=== PATIENT | male | born 1960 | race Caucasian/White ===

== ENCOUNTER 2016-05-31 11:05 | Emergency (ER) | payer MEDICARE, OTHER ==
[~2016-05-31] VITALS: Ht 165.1 cm; Wt 75.0 kg
[~2016-05-31 11:05] MED LIST: ARIP1TAB11 PO; ESCI10TA PO; TRAZ50TA12 PO
[2016-05-31 11:08] VITALS: BP 127/81; PULSE 102; RESP 16; TEMP 98; O2SAT 94
--- NOTE | 2016-05-31 13:58 | PD ---
HPI Chief Complaint: Psychiatric Symptoms Time Seen by Provider: 13:49 Travel History International Travel<30 days: No Contact w/Intl Traveler<30days: No Traveled to known affect area: No History of Present Illness HPI 56-year-old male with history of bipolar disorder, COPD who presents voluntarily for evaluation of depression and suicidal ideation. Symptoms have not ongoing for the past few days. He reports that he has thoughts of killing himself, specifically jumping in front of traffic. He reports that some of these problems stem from the fact that he has been arguing with his brother and he feels that his brother will no longer let him stay with him. He denies any drug use. He admits to frequent alcohol use but he is attempting to cut back on the amount of alcohol that he drinks. The patient was seen here on May 28 with similar complaints. He has no medical complaints at this time. PFSH Past Medical History Hx Anticoagulant Therapy: No ADHD: Yes Anemia: Yes Arthritis: Yes (OSTEO) Asthma: Yes Autoimmune Disease: No Bipolar Disorder: Yes Anxiety: Yes Depression: Yes Cancer: No Cardiovascular Problems: Yes High Cholesterol: Yes Chemotherapy: Yes Chest Pain: Yes Congestive Heart Failure: No COPD: Yes Cerebrovascular Accident: Yes Coronary Artery Disease: Yes Diabetes: No Diminished Hearing: No Endocrine: No Gastrointestinal Disorders: Yes (Acid reflux) GERD: Yes Genitourinary: No Hypertension: No Immune Disorder: No Implanted Vascular Access Dvce: No Insomnia: Yes Musculoskeletal: Yes Neurologic: Yes Psychiatric: Yes Reproductive: No Respiratory: Yes (COPD) Immunizations Current: Yes Seizures: Yes Sleep Apnea: Yes Ulcer: No Past Surgical History Pacemaker: No Tonsillectomy: Yes Social History Alcohol Use: Yes (16 OZ LIQUOR DAILY) Tobacco Use: Yes Substance Use: Yes Allergies-Medications (Allergen,Severity, Reaction): Coded Allergies: Codeine (Verified Allergy, Mild, RASH, 05/31/16) *MDRO Multi-Drug Resistant Organism (Verified Adverse Reaction, Unknown, ) 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) Reported Meds & Prescriptions Reported Meds & Active Scripts Active Reported Trazodone (Trazodone HCl) 50 Mg Tab 50 Mg PO HS Escitalopram (Escitalopram Oxalate) 10 Mg Tab 10 Mg PO DAILY Aripiprazole 5 Mg Tab 5 Mg PO DAILY Review of Systems Except as stated in HPI: all other systems reviewed are Neg Physical Exam Narrative GENERAL: Somewhat disheveled appearing male in no acute distress answering questions appropriately. Vital signs reviewed. SKIN: Warm and dry. HEAD: Atraumatic. Normocephalic. EYES: Pupils equal and round. No scleral icterus. No injection or drainage. ENT: No nasal bleeding or discharge. Mucous membranes pink and moist. NECK: Trachea midline. No JVD. CARDIOVASCULAR: Regular rate and rhythm. No murmur appreciated. RESPIRATORY: No accessory muscle use. Clear to auscultation. Breath sounds equal bilaterally. GASTROINTESTINAL: Abdomen soft, non-tender, nondistended. MUSCULOSKELETAL: No obvious deformities. No edema. NEUROLOGICAL: Awake and alert. No obvious cranial nerve deficits. Motor grossly within normal limits. Normal speech. PSYCHIATRIC: Appropriate mood and affect; insight and judgment normal. Data Data Last Documented VS Vital Signs Date Time Temp Pulse Resp B/P Pulse Ox O2 Delivery O2 Flow Rate FiO2 05/31/16 11:08 98.0 102 16 127/81 94 Room Air Orders Diet Regular Basic (05/31/16 Lunch) Psych Screen (05/31/16 12:00) Diet Regular Basic (05/31/16 Dinner) MDM Medical Decision Making Medical Screen Exam Complete: Yes Emergency Medical Condition: Yes Medical Record Reviewed: Yes Differential Diagnosis Major depressive disorder, acute psychosis, malingering, substance induced mood disorder, depressive disorder not otherwise specified, bipolar disorder Narrative Course 56-year-old male presents voluntarily requesting psychiatric evaluation. I reviewed his lab work from his visit on May 28 and do not feel that this lab work needs to be repeated. Mental health screening discussed with the patient. Psychiatric screen ordered. The patient is medically cleared for psychiatric disposition. Sudarshan Fallon May 31, 2016 13:58
[2016-05-31 14:05] VITALS: BP 112/59; PULSE 140; RESP 18
[2016-05-31] MEDS ORDERED: ALPRAZolam 1 MG TAB PO ONE (16:45)
[2016-05-31 16:58] VITALS: BP 146/83; PULSE 107; RESP 18; TEMP 99.1; O2SAT 96
[2016-05-31 17:56] VITALS: BP 101/70; PULSE 92; RESP 18; O2SAT 96
[2016-06-01 03:15] VITALS: BP 117/75; PULSE 85; RESP 18; TEMP 97.7; O2SAT 97
[2016-06-01 06:35] VITALS: BP 117/75; PULSE 78; RESP 18
== END 2016-06-01 09:58 | disposition home or self-care (01) ==
LOC: NEPJ 11:05
DX: R45.851 Suicidal ideations (principal)
CPT/HCPCS: 99283

== ENCOUNTER 2016-06-01 15:05 | Emergency (ER) | payer MEDICARE, OTHER ==
[~2016-06-01] VITALS: Ht 172.7 cm; Wt 70.0 kg
[2016-06-01 15:06] VITALS: BP 108/71; PULSE 92; RESP 12; TEMP 98.1; O2SAT 98
[2016-06-02] MEDS ORDERED: RESP: ALBUTEROL 2.5 MG/IPRATROPIUM 0.5 MG NEB (SCH) NEB ONE
--- NOTE | 2016-06-02 00:05 | PD ---
HPI Chief Complaint: Psychiatric Symptoms Time Seen by Provider: 23:59 Travel History International Travel<30 days: No Contact w/Intl Traveler<30days: No Traveled to known affect area: No History of Present Illness HPI 56-year-old male presents to the emergency department for evaluation of suicidal thoughts. Patient has history of bipolar disorder and is not taking any medications. Patient states she has attempted suicide in the past by jumping off a bridge but is always from sure. Currently patient thinks that he might to step in front of a car. Patient also has history of COPD and is out of his medication; patient uses an albuterol inhaler and his nebulizer is broken ; no recent steroid use. Patient is noted some increased wheezing. Patient states that because he felt like he might put himself in harm's way he decided to come here voluntarily to be evaluated. Patient denies any substance ingestion. Patient denies any chest pain but has had shortness of breath and wheezing consistent with COPD. Patient has chronic cough productive of intermittent yellow-green sputum. Patient's had no fever or chills. Patient does not report any weight loss or night sweats. Patient does use cigars. Patient denies any recent injury. PFSH Past Medical History Narrative Medical Anxiety depression ADHD dyslipidemia chest pain COPD CVA CAD GERD seizures left hand injury tonsillectomy tobacco use alcohol use substance use nursing notes reviewed Hx Anticoagulant Therapy: No ADHD: Yes Anemia: Yes Arthritis: Yes (OSTEO) Asthma: Yes Autoimmune Disease: No Bipolar Disorder: Yes Anxiety: Yes Depression: Yes Cancer: No Cardiovascular Problems: Yes High Cholesterol: Yes Chemotherapy: Yes Chest Pain: Yes Congestive Heart Failure: No COPD: Yes Cerebrovascular Accident: Yes Coronary Artery Disease: Yes Diabetes: No Diminished Hearing: No Endocrine: No Gastrointestinal Disorders: Yes (Acid reflux) GERD: Yes Genitourinary: No Hypertension: No Immune Disorder: No Implanted Vascular Access Dvce: No Insomnia: Yes Musculoskeletal: Yes Neurologic: Yes Psychiatric: Yes Reproductive: No Respiratory: Yes (COPD) Immunizations Current: Yes Seizures: Yes Sleep Apnea: Yes Ulcer: No Past Surgical History Pacemaker: No Tonsillectomy: Yes Social History Alcohol Use: Yes (16 OZ LIQUOR DAILY) Tobacco Use: Yes Substance Use: Yes Allergies-Medications (Allergen,Severity, Reaction): Coded Allergies: Codeine (Verified Allergy, Mild, RASH, 06/01/16) *MDRO Multi-Drug Resistant Organism (Verified Adverse Reaction, Unknown, ) 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) Reported Meds & Prescriptions Reported Meds & Active Scripts Active Reported Trazodone (Trazodone HCl) 50 Mg Tab 50 Mg PO HS Escitalopram (Escitalopram Oxalate) 10 Mg Tab 10 Mg PO DAILY Aripiprazole 5 Mg Tab 5 Mg PO DAILY Review of Systems Except as stated in HPI: all other systems reviewed are Neg General / Constitutional: No: Fever, Chills HENT: No: Congestion Cardiovascular: No: Chest Pain or Discomfort Respiratory: Positive: Cough, Wheezing Gastrointestinal: No: Vomiting, Abdominal Pain Genitourinary: No: Flank Pain Musculoskeletal: No: Myalgias, Arthralgias Skin: No Rash, No Lumps Neurologic: No: Weakness, Dizziness Psychiatric: Positive: Suicidal Ideations, Mood Disorder, Substance Abuse, No : Anxiety, Depression Hematologic/Lymphatic: No: Easy Bruising Physical Exam Narrative GENERAL: Well-developed well-nourished cooperative male in no acute distress no respiratory distress SKIN: Warm and dry. HEAD: Normocephalic. EYES: No scleral icterus. No injection or drainage. NECK: Supple, trachea midline. No JVD or lymphadenopathy. CARDIOVASCULAR: Regular rate and rhythm without murmurs, gallops, or rubs. RESPIRATORY: Breath sounds equal bilaterally few expiratory wheezes diffusely. No accessory muscle use. GASTROINTESTINAL: Abdomen soft, non-tender, nondistended. MUSCULOSKELETAL: No cyanosis, or edema. BACK: Nontender without obvious deformity. No CVA tenderness. Data Data Last Documented VS Vital Signs Date Time Temp Pulse Resp B/P Pulse Ox O2 Delivery O2 Flow Rate FiO2 06/02/16 05:41 81 16 95 Room Air 06/02/16 01:00 125/86 06/01/16 15:06 98.1 Orders Complete Blood Count With Diff (06/01/16 23:59) Comprehensive Metabolic Panel (06/01/16 23:59) Drug Screen, Random Urine (06/01/16 23:59) Alcohol (Ethanol) (06/01/16 23:59) Psych Screen (06/01/16 23:59) Albuterol-Ipratropium Neb (Duoneb Neb) (06/02/16 00:00) Labs Laboratory Tests Test 06/02/16 06/02/16 00:05 07:53 White Blood Count 8.3 TH/MM3 Red Blood Count 5.39 MIL/MM3 Hemoglobin 17.1 GM/DL Hematocrit 49.0 % Mean Corpuscular Volume 90.9 FL Mean Corpuscular Hemoglobin 31.7 PG Mean Corpuscular Hemoglobin 34.9 % Concent Red Cell Distribution Width 15.3 % Platelet Count 293 TH/MM3 Mean Platelet Volume 7.5 FL Neutrophils (%) (Auto) % Lymphocytes (%) (Auto) % Monocytes (%) (Auto) % Eosinophils (%) (Auto) % Basophils (%) (Auto) % Neutrophils # (Auto) TH/MM3 Lymphocytes # (Auto) TH/MM3 Monocytes # (Auto) TH/MM3 Eosinophils # (Auto) TH/MM3 Basophils # (Auto) TH/MM3 CBC Comment AUTO DIFF Differential Total Cells 100 Counted Neutrophils % (Manual) 60 % Band Neutrophils % 1 % Lymphocytes % 26 % Monocytes % 8 % Eosinophils % 3 % Basophils % 2 % Neutrophils # (Manual) 5.1 TH/MM3 Differential Comment FINAL DIFF MANUAL Platelet Estimate NORMAL Platelet Morphology Comment NORMAL Red Cell Morphology Comment NORMAL Sodium Level 140 MEQ/L Potassium Level 4.1 MEQ/L Chloride Level 107 MEQ/L Carbon Dioxide Level 27.6 MEQ/L Anion Gap 5 MEQ/L Blood Urea Nitrogen 7 MG/DL Creatinine 0.66 MG/DL Estimat Glomerular Filtration 124 ML/MIN Rate Random Glucose 85 MG/DL Calcium Level 8.8 MG/DL Total Bilirubin 0.5 MG/DL Aspartate Amino Transf 17 U/L (AST/SGOT) Alanine Aminotransferase 24 U/L (ALT/SGPT) Alkaline Phosphatase 129 U/L Total Protein 7.5 GM/DL Albumin 4.0 GM/DL Ethyl Alcohol Level LESS THAN 3 MG/DL Urine Opiates Screen NEG Urine Barbiturates Screen NEG Urine Amphetamines Screen NEG Urine Benzodiazepines Screen NEG Urine Cocaine Screen NEG Urine Cannabinoids Screen NEG MDM Medical Decision Making Medical Screen Exam Complete: Yes Emergency Medical Condition: Yes Medical Record Reviewed: Yes Differential Diagnosis Mood disorder, exacerbation bipolar disorder, suicidal ideation, exacerbation COPD, bronchitis, pneumonia, substance ingestion Narrative Course Specimens collected and sent for resulting; patient noted to have a few respiratory wheezes DuoNeb updraft administered labs values grossly wnl; patient remains cooperative and no wheezing after updraft; patient is medically cleared for psych screening Diagnosis Primary Impression: Medical clearance for psychiatric admission Additional Impression: History of COPD Sangeeta Bustillo MD Jun 02, 2016 00:05
[2016-06-02 00:17] LABS: MEAN CELL VOLUME 90.9 FL (80.0-100.0); MEAN CORPUSCULAR HEMOGLOBIN 31.7 PG (27.0-34.0); MEAN CORPUSCULAR HGB CONC 34.9 % (32.0-36.0); PLATELET COUNT 293 TH/MM3 (150-450); RED BLOOD COUNT 5.39 MIL/MM3 (4.50-5.90); RED CELL DISTRIBUTION WIDTH 15.3 % (11.6-17.2); WHITE BLOOD COUNT 8.3 TH/MM3 (4.0-11.0)
[2016-06-02 00:18] LABS: HEMO FLAGS AUTO DIFF
[2016-06-02 00:36] LABS: ALT (GPT) 24 U/L (12-78); ANION GAP 5 MEQ/L (5-15); AST (GOT) 17 U/L (15-37); BICARBONATE 27.6 MEQ/L (21.0-32.0); BLOOD UREA NITROGEN 7 MG/DL (7-18); CHLORIDE 107 MEQ/L (98-107); GLOMERULAR FILTRATION RATE 124 ML/MIN (>89); POTASSIUM 4.1 MEQ/L (3.5-5.1); SODIUM (NA) 140 MEQ/L (136-145)
[2016-06-02 00:39] LABS: ALKALINE PHOSPHATASE 129 U/L (45-117); TOTAL BILIRUBIN ADULT 0.5 MG/DL (0.2-1.0)
[2016-06-02 00:44] LABS: BANDS 1 % (0-6); BASOPHILS 2 % (0-2); EOSINOPHILS 3 % (0-4); NEUTROPHIL # MANUAL DIFF 5.1 TH/MM3 (1.8-7.7); POLYS (SEG NEUTROPHILS) 60 % (16-70); WBC DIFF SAMPLE 100
[2016-06-02 00:45] LABS: PLATELET ESTIMATE SMEAR NORMAL (NORMAL); PLATELET MORPHOLOGY NORMAL (NORMAL); SCAN/DIFF FINAL DIFF MANUAL
[2016-06-02 01:00] VITALS: BP 125/86; PULSE 75; RESP 18; O2SAT 94
[2016-06-02 05:41] VITALS: PULSE 81; RESP 16; O2SAT 95
[2016-06-02 08:08] LABS: AMPHETAMINE, URINE NEG (NEG); BARBITURATES, URINE NEG (NEG); COCAINE, URINE NEG (NEG)
[2016-06-02 09:26] VITALS: BP_SYST 134; BP_DIAS 66; BP_DIAS 82; PULSE 65; RESP 18; TEMP 98.5; O2SAT 98
== END 2016-06-02 09:28 | disposition home or self-care (01) ==
LOC: NEPC 15:05 → NEPA 06-02 09:28
DX: Z02.89 Encounter for other administrative examinations (principal); J44.9 Chronic obstructive pulmonary disease, unspecified; R06.2 Wheezing; E78.00 Pure hypercholesterolemia, unspecified; Z72.0 Tobacco use; Z87.09 Personal history of other diseases of the respiratory system; Z86.79 Personal history of other diseases of the circulatory system; Z87.19 Personal history of other diseases of the digestive system
CPT/HCPCS: 80053; 80307; 80320; 85007; 85027; 94640; 94664; 99284

== ENCOUNTER 2016-06-23 13:40 | Emergency (ER) | payer MEDICARE, OTHER ==
[2016-06-23] MEDS ORDERED: predniSONE 20 MG TAB PO ONE (14:15)
--- NOTE | 2016-06-23 14:17 | PD ---
HPI Chief Complaint: psychiatric evaluation Time Seen by Provider: 14:15 Travel History International Travel<30 days: No Contact w/Intl Traveler<30days: No History of Present Illness HPI Patient comes on her [place] by police after calling 911 stating he is feeling suicidal. Patient states he still feels suicidal. Denies any homicidal ideations. Patient with medical concerns COPD which he states he cannot afford his medications. Denies any chest pain, fevers, nausea, vomiting. PFSH Past Medical History Hx Anticoagulant Therapy: No ADHD: Yes Anemia: Yes Arthritis: Yes (OSTEO) Asthma: Yes Autoimmune Disease: No Bipolar Disorder: Yes Anxiety: Yes Depression: Yes Cancer: No Cardiovascular Problems: Yes High Cholesterol: Yes Chemotherapy: Yes Chest Pain: Yes Congestive Heart Failure: No COPD: Yes Cerebrovascular Accident: Yes Coronary Artery Disease: Yes Diabetes: No Diminished Hearing: No Endocrine: No Gastrointestinal Disorders: Yes (Acid reflux) GERD: Yes Genitourinary: No Hypertension: No Immune Disorder: No Implanted Vascular Access Dvce: No Insomnia: Yes Musculoskeletal: Yes Neurologic: Yes Psychiatric: Yes Reproductive: No Respiratory: Yes (COPD) Immunizations Current: Yes Seizures: Yes Sleep Apnea: Yes Ulcer: No Past Surgical History Pacemaker: No Tonsillectomy: Yes Social History Alcohol Use: Yes (16 OZ LIQUOR DAILY) Tobacco Use: Yes Substance Use: Yes Allergies-Medications (Allergen,Severity, Reaction): Coded Allergies: Codeine (Verified Allergy, Mild, RASH, 06/01/16) *MDRO Multi-Drug Resistant Organism (Verified Adverse Reaction, Unknown, ) 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) Reported Meds & Prescriptions Reported Meds & Active Scripts Active Reported Trazodone (Trazodone HCl) 50 Mg Tab 50 Mg PO HS Escitalopram (Escitalopram Oxalate) 10 Mg Tab 10 Mg PO DAILY Aripiprazole 5 Mg Tab 5 Mg PO DAILY Review of Systems Except as stated in HPI: all other systems reviewed are Neg Physical Exam Narrative GENERAL: Well-developed, well nourished, in no acute distress, and non-ill appearing. SKIN: Warm and dry. HEAD: Atraumatic. Normocephalic. EYES: Pupils equal and round. EOMI. No scleral icterus. No injection or drainage. ENT: No nasal bleeding or discharge. Mucous membranes pink and moist. NECK: Trachea midline. Supple. No nuclear rigidity. CARDIOVASCULAR: Regular rate and rhythm. No murmur appreciated. RESPIRATORY: No accessory muscle use. No respiratory distress. Tightness and wheezing noted throughout. Patient speaking in full sentences. MUSCULOSKELETAL: No obvious deformities. No clubbing. No cyanosis. No edema. Full range of motion. NEUROLOGICAL: Awake and alert. No obvious cranial nerve deficits. Motor grossly within normal limits. Normal speech. PSYCHIATRIC: Appropriate mood and affect. Data Data Last Documented VS Vital Signs Date Time Temp Pulse Resp B/P Pulse Ox O2 Delivery O2 Flow Rate FiO2 06/23/16 15:23 99 21 Orders Complete Blood Count With Diff (06/23/16 14:13) Comprehensive Metabolic Panel (06/23/16 14:13) Drug Screen, Random Urine (06/23/16 14:13) Alcohol (Ethanol) (06/23/16 14:13) Salicylates (Aspirin) (06/23/16 14:13) Tylenol (Acetaminophen) (06/23/16 14:13) Psych Screen (06/23/16 14:13) Albuterol-Ipratropium Neb (Duoneb Neb) (06/23/16 14:15) Prednisone (Deltasone) (06/23/16 14:15) Chest, Single Ap (06/23/16 ) Diet Regular Basic (06/23/16 Dinner) Labs Laboratory Tests Test 06/23/16 06/23/16 14:50 15:00 White Blood Count 16.2 TH/MM3 Red Blood Count 5.36 MIL/MM3 Hemoglobin 17.1 GM/DL Hematocrit 50.2 % Mean Corpuscular Volume 93.6 FL Mean Corpuscular Hemoglobin 31.8 PG Mean Corpuscular Hemoglobin 34.0 % Concent Red Cell Distribution Width 16.0 % Platelet Count 276 TH/MM3 Mean Platelet Volume 8.1 FL Neutrophils (%) (Auto) 72.4 % Lymphocytes (%) (Auto) 17.7 % Monocytes (%) (Auto) 7.6 % Eosinophils (%) (Auto) 1.9 % Basophils (%) (Auto) 0.4 % Neutrophils # (Auto) 11.7 TH/MM3 Lymphocytes # (Auto) 2.9 TH/MM3 Monocytes # (Auto) 1.2 TH/MM3 Eosinophils # (Auto) 0.3 TH/MM3 Basophils # (Auto) 0.1 TH/MM3 CBC Comment DIFF FINAL Differential Comment Sodium Level 141 MEQ/L Potassium Level 4.0 MEQ/L Chloride Level 103 MEQ/L Carbon Dioxide Level 28.0 MEQ/L Anion Gap 10 MEQ/L Blood Urea Nitrogen 6 MG/DL Creatinine 0.70 MG/DL Estimat Glomerular Filtration 116 ML/MIN Rate Random Glucose 69 MG/DL Calcium Level 9.0 MG/DL Total Bilirubin 0.6 MG/DL Aspartate Amino Transf 21 U/L (AST/SGOT) Alanine Aminotransferase 30 U/L (ALT/SGPT) Alkaline Phosphatase 132 U/L Total Protein 7.7 GM/DL Albumin 4.3 GM/DL Salicylates Level 9.7 MG/DL Acetaminophen Level LESS THAN 2.0 MCG/ML Ethyl Alcohol Level 186 MG/DL Urine Opiates Screen NEG Urine Barbiturates Screen NEG Urine Amphetamines Screen NEG Urine Benzodiazepines Screen NEG Urine Cocaine Screen NEG Urine Cannabinoids Screen NEG MDM Medical Decision Making Medical Screen Exam Complete: Yes Emergency Medical Condition: Yes Differential Diagnosis Suicidal, homicidal, COPD exacerbation, COPD, pneumonia, other Narrative Course Patient was seen and examined. Labs were obtained and reviewed. I suspect slightly elevated white blood cell count is stress induced. Patient medically cleared for further treatment and evaluation by psych. Final disposition per psych. Diagnosis Primary Impression: COPD (chronic obstructive pulmonary disease) Qualified Code: J44.9 - Chronic obstructive pulmonary disease, unspecified COPD type Condition: Stable Erick Estevez Jun 23, 2016 14:17
[2016-06-23] MEDS: RESP: ALBUTEROL 2.5 MG/IPRATROPIUM 0.5 MG NEB (SCH) INH ×3 (15:15→15:27)
[2016-06-23 15:23] VITALS: O2SAT 99
[2016-06-23 15:36] LABS: AUTOMATED NEUTROPHIL # 11.7 TH/MM3 (1.8-7.7); BASOPHIL # 0.1 TH/MM3 (0-0.2); BASOPHIL % 0.4 % (0.0-2.0); EOSINOPHIL # 0.3 TH/MM3 (0-0.4); EOSINOPHIL % 1.9 % (0.0-4.0); HEMATOCRIT 50.2 % (39.0-51.0); HEMO FLAGS DIFF FINAL; LYMPH % 17.7 % (9.0-44.0); LYMPHOCYTE # 2.9 TH/MM3 (1.0-4.8); MEAN CELL VOLUME 93.6 FL (80.0-100.0); MEAN CORPUSCULAR HEMOGLOBIN 31.8 PG (27.0-34.0); MONO % 7.6 % (0.0-8.0); NEUT % 72.4 % (16.0-70.0); PLATELET COUNT 276 TH/MM3 (150-450); RED BLOOD COUNT 5.36 MIL/MM3 (4.50-5.90); WHITE BLOOD COUNT 16.2 TH/MM3 (4.0-11.0)
[2016-06-23 15:48] LABS: AMPHETAMINE, URINE NEG (NEG); BARBITURATES, URINE NEG (NEG); COCAINE, URINE NEG (NEG)
[2016-06-23 15:57] LABS: ANION GAP 10 MEQ/L (5-15); AST (GOT) 21 U/L (15-37); BLOOD UREA NITROGEN 6 MG/DL (7-18); CHLORIDE 103 MEQ/L (98-107); GLOMERULAR FILTRATION RATE 116 ML/MIN (>89); SODIUM (NA) 141 MEQ/L (136-145)
[2016-06-23 16:00] LABS: ALKALINE PHOSPHATASE 132 U/L (45-117); ALT (GPT) 30 U/L (12-78); TOTAL BILIRUBIN ADULT 0.6 MG/DL (0.2-1.0)
[2016-06-23 16:01] LABS: ACETAMINOPHEN LESS THAN 2.0 MCG/ML (10.0-30.0)
--- NOTE | 2016-06-23 16:31 | RADRPT ---
EXAM DATE/TIME: 06/23/2016 16:19 [facility] COMPARISON: CHEST SINGLE AP, May 03, 2016, 13:24. INDICATIONS : Chest pain, short of breath. MEDICAL HISTORY : Chronic obstructive pulmonary disease. SURGICAL HISTORY : None. ENCOUNTER: Initial ACUITY: 3 days PAIN SCORE: 7/10 LOCATION: Bilateral chest FINDINGS: AP view of the chest demonstrates a normal-sized cardiac silhouette. No effusion, consolidation, or p neumothorax is appreciated. Bones and soft tissues demonstrate no acute finding. There are multiple o ld right rib fractures. CONCLUSION: Stable chest x-ray. No acute cardiopulmonary abnormality is identified. Santhosh Shane MD on June 23, 2016 at 16:28 Board Certified Radiologist. This report was verified electronically.
[2016-06-23 17:34] VITALS: BP 118/67; PULSE 100; RESP 18; O2SAT 94
[2016-06-23 18:06] VITALS: BP 118/67; PULSE 100; RESP 18; O2SAT 94
[2016-06-23] MEDS: ALBUTEROL SULFATE 90 MCG/ACT HFA 8 GM INHALER INH PRN (22:10)
[2016-06-23 22:13] VITALS: BP 115/63; PULSE 89; RESP 18; O2SAT 94
[2016-06-24 02:00] VITALS: BP 127/69; PULSE 79; RESP 18; O2SAT 97
[2016-06-24 06:33] VITALS: BP 124/74; PULSE 87; RESP 19; O2SAT 98
[2016-06-24] MEDS ORDERED: ACETAMINOPHEN 325 MG TAB PO ONE (08:30)
[2016-06-24] MEDS: ALBUTEROL SULFATE 90 MCG/ACT HFA 8 GM INHALER INH PRN (09:02)
--- NOTE | 2016-06-24 09:51 | PD ---
History of Present Illness Chief Complaint: Medical Clearance Time Seen by Provider: 09:45 Travel History International Travel<30 Days: No Contact w/Intl Traveler<30days: No Known affected area: No Legal Status Legal Status: Silver Act Silver Act Signed By: Luis Fernando Silver Act Comment: BA signed by: SRUTHI Campbell Badge#[id number], Case# [id number] History of Present Illness: History of Present Illness HPI 56 year old male with history of alcohol dependence who comes in under a Silver by police. As per the BA report he called 911 and informed them that he was feeling suicidal. He reported to SRUTHI that he contemplated jumping off the bridge. Interesting enough upon arrival to the hospital he presented concerns regarding treatment for COPD which he states he cannot afford his medications. As per EMR this patient has had multiple ED visits for issues related to his alcohol dependence. He presents with BAL of 186. Patient has been monitored in [facility] and has presented no behavioral concerns and no suicidality. This morning he is seen and he is clinically sober. Speech is clear and logical and he does not present any symptom of withdrawal. He is denying any suicidal or homicidal ideation and in fact is happy because his brother is looking into buying him a trailer where he can live. Patient reports he has been making an attempt at decreasing his alcohol consumption. PFSH Past Medical History Hx Anticoagulant Therapy: No ADHD: Yes Anemia: Yes Arthritis: Yes (OSTEO) Asthma: Yes Autoimmune Disease: No Bipolar Disorder: Yes Anxiety: Yes Depression: Yes Cancer: No Cardiovascular Problems: Yes High Cholesterol: Yes Chemotherapy: Yes Chest Pain: Yes Congestive Heart Failure: No COPD: Yes Cerebrovascular Accident: Yes Coronary Artery Disease: Yes Diabetes: No Diminished Hearing: No Endocrine: No Gastrointestinal Disorders: Yes (Acid reflux) GERD: Yes Genitourinary: No Hypertension: No Immune Disorder: No Implanted Vascular Access Dvce: No Insomnia: Yes Musculoskeletal: Yes Neurologic: Yes Psychiatric: Yes Reproductive: No Respiratory: Yes (COPD) Immunizations Current: Yes Seizures: Yes Sleep Apnea: Yes Ulcer: No Tetanus Vaccination: Unknown Past Surgical History Pacemaker: No Tonsillectomy: Yes Psychiatric History Psychiatric History Hx Psychiatric Treatment: Pt has been seen several times at [facility] for simular presentation, ETOH with suicidal ideations of jumping from a bridge. History of Inpatient Treatment: Yes Guns or firearms in home: No Social History Single male. Lives in a tent on his brother's property. Hx Alcohol Use: Yes (16 OZ LIQUOR DAILY) Hx Tobacco Use: Yes Hx Substance Use: Yes Substance Use Type: Alcohol, Nicotine/Cigarettes Other Substances Used: CUT BACK ON DRINKING Hx of Substance Use Treatment: Yes Family Psychiatric History None reported Allergies-Medications (Allergen,Severity, Reaction): Coded Allergies: Codeine (Verified Allergy, Mild, RASH, 06/01/16) *MDRO Multi-Drug Resistant Organism (Verified Adverse Reaction, Unknown, ) 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) Reported Meds & Prescriptions Reported Meds & Active Scripts Active Reported Trazodone (Trazodone HCl) 50 Mg Tab 50 Mg PO HS Escitalopram (Escitalopram Oxalate) 10 Mg Tab 10 Mg PO DAILY Aripiprazole 5 Mg Tab 5 Mg PO DAILY Review of Systems Constitutional: DENIES: Diaphoretic episodes, Fatigue, Fever, Weight gain, Weight loss, Chills, Dizziness, Change in appetite, Night Sweats Endocrine: DENIES: Heat/cold intolerance, Polydipsia, Polyuria, Polyphagia Eyes: DENIES: Blurred vision, Diplopia, Eye inflammation, Eye pain, Vision loss , Photosensitivity, Double Vision Ears, nose, mouth, throat: DENIES: Tinnitus, Hearing loss, Vertigo, Nasal discharge, Oral lesions, Throat pain, Hoarseness, Ear Pain, Running Nose, Epistaxis, Sinus Pain, Toothache, Odynophagia Respiratory: COMPLAINS OF: Wheezing Cardiovascular: DENIES: Chest pain, Palpitations, Syncope, Dyspnea on Exertion , PND, Lower Extremity Edema, Orthopnea, Claudication Gastrointestinal: DENIES: Abdominal pain, Black stools, Bloody stools, Constipation, Diarrhea, Nausea, Vomiting, Difficulty Swallowing, Anorexia Genitourinary: DENIES: Sexual dysfunction, Urinary frequency, Urinary incontinence, Urgency, Hematuria, Dysuria, Nocturia, Penile Discharge, Testicular Pain, Testicular Swelling Musculoskeletal: DENIES: Joint pain, Muscle aches, Stiffness, Joint Swelling, Back pain, Neck pain Integumentary: DENIES: Abnormal pigmentation, Nail changes, Pruritus, Rash Immunologic/allergic: DENIES: Eczema, Urticaria Neurologic: DENIES: Abnormal gait, Headache, Localized weakness, Paresthesias, Seizures, Speech Problems, Tremor, Poor Balance Psychiatric: COMPLAINS OF: Suicidal Ideation Exam Alert: Yes [place]: Person (ox4) Mood: Calm Affect: Euthymic Speech: Clear, Logical Eye Contact: Normal Memory Intact: Comment (not formally tetsed but does not appear impaired) Hallucinations: Other (negative) Delusions: No Suicidal: Ideation (denies any) Homicidal: Ideation (denies any) Insight/Judgement poor. not impaired MDM Medical Decision Making Medical Record Reviewed: Yes Assessment/Plan 56 year old male with hx of alcohol dependence who in context of intoxication reported suicidal thoughts. He did not make any attempt at hurting himself and is denying any current suicidal or homicidal ideation, intent or plan. Lift BA. Discharge to home Orders Complete Blood Count With Diff (06/23/16 14:13) Comprehensive Metabolic Panel (06/23/16 14:13) Drug Screen, Random Urine (06/23/16 14:13) Alcohol (Ethanol) (06/23/16 14:13) Salicylates (Aspirin) (06/23/16 14:13) Tylenol (Acetaminophen) (06/23/16 14:13) Psych Screen (06/23/16 14:13) Albuterol-Ipratropium Neb (Duoneb Neb) (06/23/16 14:15) Prednisone (Deltasone) (06/23/16 14:15) Chest, Single Ap (06/23/16 ) Diet Regular Basic (06/23/16 Dinner) Albuterol Hfa Inh (Proair Hfa Inh) (06/23/16 17:00) Diet Regular Basic (06/24/16 Breakfast) Acetaminophen (Tylenol) (06/24/16 08:30) Diet Regular Basic (06/24/16 Lunch) Diet Regular Basic (06/24/16 Dinner) Results Vital Signs Date Time Temp Pulse Resp B/P Pulse Ox O2 Delivery O2 Flow Rate FiO2 06/24/16 06:33 87 19 124/74 98 Room Air 06/24/16 02:00 79 18 127/69 97 Room Air 06/23/16 22:13 89 18 115/63 94 Room Air 06/23/16 18:06 100 18 118/67 94 Room Air 06/23/16 17:34 100 18 118/67 94 Room Air 06/23/16 15:23 99 21 Laboratory Tests Test 06/23/16 06/23/16 14:50 15:00 White Blood Count 16.2 Red Blood Count 5.36 Hemoglobin 17.1 Hematocrit 50.2 Mean Corpuscular Volume 93.6 Mean Corpuscular Hemoglobin 31.8 Mean Corpuscular Hemoglobin 34.0 Concent Red Cell Distribution Width 16.0 Platelet Count 276 Mean Platelet Volume 8.1 Neutrophils (%) (Auto) 72.4 Lymphocytes (%) (Auto) 17.7 Monocytes (%) (Auto) 7.6 Eosinophils (%) (Auto) 1.9 Basophils (%) (Auto) 0.4 Neutrophils # (Auto) 11.7 Lymphocytes # (Auto) 2.9 Monocytes # (Auto) 1.2 Eosinophils # (Auto) 0.3 Basophils # (Auto) 0.1 CBC Comment DIFF FINAL Differential Comment Sodium Level 141 Potassium Level 4.0 Chloride Level 103 Carbon Dioxide Level 28.0 Anion Gap 10 Blood Urea Nitrogen 6 Creatinine 0.70 Estimat Glomerular Filtration 116 Rate Random Glucose 69 Calcium Level 9.0 Total Bilirubin 0.6 Aspartate Amino Transf 21 (AST/SGOT) Alanine Aminotransferase 30 (ALT/SGPT) Alkaline Phosphatase 132 Total Protein 7.7 Albumin 4.3 Salicylates Level 9.7 Acetaminophen Level LESS THAN 2.0 Ethyl Alcohol Level 186 Urine Opiates Screen NEG Urine Barbiturates Screen NEG Urine Amphetamines Screen NEG Urine Benzodiazepines Screen NEG Urine Cocaine Screen NEG Urine Cannabinoids Screen NEG Diagnosis Primary Impression: Alcohol dependence Psychiatrically Cleared: Yes Disposition: 01 DISCHARGE HOME Condition: Stable Problem Qualifiers Primary Impression: Alcohol dependence Qualified Code: F10.20 - Uncomplicated alcohol dependence Rachel Viveros Jun 24, 2016 09:51
== END 2016-06-24 12:01 | disposition home or self-care (01) ==
LOC: NEDAMB 13:40 → NEPJ 06-24 12:01
DX: J44.9 Chronic obstructive pulmonary disease, unspecified (principal); F10.20 Alcohol dependence, uncomplicated; G47.30 Sleep apnea, unspecified; E78.00 Pure hypercholesterolemia, unspecified; Z72.0 Tobacco use; Z86.59 Personal history of other mental and behavioral disorders; Z87.39 Personal history of other diseases of the musculoskeletal system and connective tissue; Z87.09 Personal history of other diseases of the respiratory system; Z86.79 Personal history of other diseases of the circulatory system; Z86.73 Personal history of transient ischemic attack (TIA), and cerebral infarction without residual deficits; Z87.19 Personal history of other diseases of the digestive system; Z86.69 Personal history of other diseases of the nervous system and sense organs
CPT/HCPCS: 71010; 80053; 80307; 80320; 80329; 85025; 94640; 94664; 99284; J7512; G0480

== ENCOUNTER 2016-07-16 13:03 | Emergency (ER) | payer MEDICARE, OTHER ==
[~2016-07-16] VITALS: Ht 152.4 cm; Wt 60.0 kg
[2016-07-16] MEDS ORDERED: chlordiazePOXIDE 25 MG CAP PO ONE (13:30)
--- NOTE | 2016-07-16 13:38 | PD ---
HPI Chief Complaint: Silver Act/Suicidal Ideations Time Seen by Provider: 13:34 Travel History International Travel<30 days: No Contact w/Intl Traveler<30days: No Traveled to known affect area: No History of Present Illness HPI 56-year-old male presents the emergency department via police for Silver act. Patient was reportedly in a store stating he was suicidal and threatening to some of the other people within the store. Patient has a history of EtOH abuse, and psychiatric history in the past. Patient states he has not been on any of his medications as they are too expensive. He denies any acute medical problems. Patient has chronic left arm pain from previous injury. Patient states he drank "4 beers" today. Patient has a history of seizures and DTs in the past. Patient smells of alcohol but is cooperative. He has a history of MRSA and allergic to codeine. PFSH Past Medical History Hx Anticoagulant Therapy: No ADHD: Yes Anemia: Yes Arthritis: Yes (OSTEO) Asthma: Yes Autoimmune Disease: No Bipolar Disorder: Yes Anxiety: Yes Depression: Yes Cancer: No Cardiovascular Problems: Yes High Cholesterol: Yes Chemotherapy: Yes Chest Pain: Yes Congestive Heart Failure: No COPD: Yes Cerebrovascular Accident: Yes Coronary Artery Disease: Yes Diabetes: No Diminished Hearing: No Endocrine: No Gastrointestinal Disorders: Yes (Acid reflux) GERD: Yes Genitourinary: No Hypertension: No Immune Disorder: No Implanted Vascular Access Dvce: No Insomnia: Yes Musculoskeletal: Yes Neurologic: Yes Psychiatric: Yes Reproductive: No Respiratory: Yes (COPD) Immunizations Current: Yes Seizures: Yes Sleep Apnea: Yes Ulcer: No Past Surgical History Pacemaker: No Tonsillectomy: Yes Social History Alcohol Use: Yes (16 OZ LIQUOR DAILY) Tobacco Use: Yes Substance Use: Yes Allergies-Medications (Allergen,Severity, Reaction): Coded Allergies: Codeine (Verified Allergy, Mild, RASH, 06/01/16) *MDRO Multi-Drug Resistant Organism (Verified Adverse Reaction, Unknown, ) 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) Reported Meds & Prescriptions Reported Meds & Active Scripts Active Reported Trazodone (Trazodone HCl) 50 Mg Tab 50 Mg PO HS Escitalopram (Escitalopram Oxalate) 10 Mg Tab 10 Mg PO DAILY Aripiprazole 5 Mg Tab 5 Mg PO DAILY Review of Systems Except as stated in HPI: all other systems reviewed are Neg General / Constitutional: No: Fever Eyes: No: Visual changes HENT: No: Headaches Cardiovascular: No: Chest Pain or Discomfort Respiratory: No: Shortness of Breath Gastrointestinal: No: Abdominal Pain Genitourinary: No: Dysuria Musculoskeletal: No: Pain Skin: No Rash Neurologic: No: Weakness Psychiatric: Positive: Depression, Suicidal Ideations, Substance Abuse, Homicidal Ideation Endocrine: No: Polydipsia Hematologic/Lymphatic: No: Easy Bruising Physical Exam Narrative GENERAL: Patient is seen in the ambulance smith in no acute distress. He smells of alcohol. SKIN: Warm and dry. Normal color. Normal turgor. HEAD: Atraumatic. Normocephalic. EYES: Pupils equal and round. No scleral icterus. No injection or drainage. ENT: No nasal bleeding or discharge. Mucous membranes pink and moist. Pharynx is unremarkable. Airway is patent. NECK: Trachea midline. Supple. CARDIOVASCULAR: Regular rate and rhythm. No murmurs gallops or rubs. RESPIRATORY: No accessory muscle use. Clear to auscultation. Breath sounds equal bilaterally. MUSCULOSKELETAL: Extremities without clubbing, cyanosis, or edema. No obvious deformities. NEUROLOGICAL: Awake and alert. No obvious cranial nerve deficits. Motor grossly within normal limits. Five out of 5 muscle strength in the arms and legs. Normal speech. PSYCHIATRIC: Appropriate mood and affect; insight and judgment normal. Data Data Last Documented VS Vital Signs Date Time Temp Pulse Resp B/P Pulse Ox O2 Delivery O2 Flow Rate FiO2 07/16/16 14:18 100 18 07/16/16 14:15 98.6 102/62 91 Orders Complete Blood Count With Diff (07/16/16 13:24) Comprehensive Metabolic Panel (07/16/16 13:24) Urinalysis - C+S If Indicated (07/16/16 13:24) Iv Access Insert/Monitor (07/16/16 13:24) Psych Screen (07/16/16 13:24) Drug Screen, Random Urine (07/16/16 13:24) Alcohol (Ethanol) (07/16/16 13:24) Chlordiazepoxide (Librium) (07/16/16 13:30) Diet Regular Basic (07/16/16 Lunch) Labs Laboratory Tests Test 07/16/16 07/16/16 14:02 14:11 Urine Color YELLOW Urine Turbidity CLEAR Urine pH 5.0 Urine Specific [place] 1.005 Urine Protein NEG mg/dL Urine Glucose (UA) NEG mg/dL Urine Ketones NEG mg/dL Urine Occult Blood NEG Urine Nitrite NEG Urine Bilirubin NEG Urine Urobilinogen LESS THAN 2.0 MG/DL Urine Leukocyte Esterase NEG Urine RBC LESS THAN 1 /hpf Urine WBC LESS THAN 1 /hpf Urine Squamous Epithelial <1 /hpf Cells Urine Mucus FEW /lpf Microscopic Urinalysis Comment CULT NOT INDICATED White Blood Count 8.2 TH/MM3 Red Blood Count 5.00 MIL/MM3 Hemoglobin 16.2 GM/DL Hematocrit 47.1 % Mean Corpuscular Volume 94.1 FL Mean Corpuscular Hemoglobin 32.5 PG Mean Corpuscular Hemoglobin 34.5 % Concent Red Cell Distribution Width 15.6 % Platelet Count 248 TH/MM3 Mean Platelet Volume 8.1 FL Neutrophils (%) (Auto) 66.7 % Lymphocytes (%) (Auto) 16.8 % Monocytes (%) (Auto) 14.4 % Eosinophils (%) (Auto) 1.3 % Basophils (%) (Auto) 0.8 % Neutrophils # (Auto) 5.5 TH/MM3 Lymphocytes # (Auto) 1.4 TH/MM3 Monocytes # (Auto) 1.2 TH/MM3 Eosinophils # (Auto) 0.1 TH/MM3 Basophils # (Auto) 0.1 TH/MM3 CBC Comment DIFF FINAL Differential Comment Sodium Level 139 MEQ/L Potassium Level 3.9 MEQ/L Chloride Level 106 MEQ/L Carbon Dioxide Level 23.7 MEQ/L Anion Gap 9 MEQ/L Blood Urea Nitrogen 8 MG/DL Creatinine 0.68 MG/DL Estimat Glomerular Filtration 120 ML/MIN Rate Random Glucose 82 MG/DL Calcium Level 8.5 MG/DL Total Bilirubin 0.3 MG/DL Aspartate Amino Transf 28 U/L (AST/SGOT) Alanine Aminotransferase 39 U/L (ALT/SGPT) Alkaline Phosphatase 125 U/L Total Protein 7.7 GM/DL Albumin 3.9 GM/DL Ethyl Alcohol Level 193 MG/DL [facility] Medical Decision Making Medical Screen Exam Complete: Yes Emergency Medical Condition: Yes Differential Diagnosis EtOH abuse. Mood disorder. Suicidal ideation. Silver act. Narrative Course Patient is medically stable at time of exam. Labs ordered including CBC, CMP, urinalysis, urine drug screen, and serum alcohol level. Patient is given 50 mg Librium by mouth. CBC is unremarkable. CMP is unremarkable except for alkaline phosphatase of 125. Serum alcohol level is 193. Diagnosis Primary Impression: Suicidal ideation Additional Impression: Alcohol dependence Qualified Code: F10.220 - Alcohol dependence with uncomplicated intoxication Condition: Dariel Lucia Jul 16, 2016 13:38 Condition: Dariel Lucia Jul 16, 2016 13:38
[2016-07-16 14:15] VITALS: BP 102/62; PULSE 100; RESP 18; TEMP 98.6; O2SAT 91
[2016-07-16 14:24] LABS: AUTOMATED NEUTROPHIL # 5.5 TH/MM3 (1.8-7.7); BASOPHIL # 0.1 TH/MM3 (0-0.2); BASOPHIL % 0.8 % (0.0-2.0); EOSINOPHIL # 0.1 TH/MM3 (0-0.4); EOSINOPHIL % 1.3 % (0.0-4.0); HEMATOCRIT 47.1 % (39.0-51.0); HEMO FLAGS DIFF FINAL; LYMPH % 16.8 % (9.0-44.0); LYMPHOCYTE # 1.4 TH/MM3 (1.0-4.8); MEAN CELL VOLUME 94.1 FL (80.0-100.0); MEAN CORPUSCULAR HEMOGLOBIN 32.5 PG (27.0-34.0); MEAN CORPUSCULAR HGB CONC 34.5 % (32.0-36.0); MONO % 14.4 % (0.0-8.0); NEUT % 66.7 % (16.0-70.0); PLATELET COUNT 248 TH/MM3 (150-450); RED CELL DISTRIBUTION WIDTH 15.6 % (11.6-17.2); WHITE BLOOD COUNT 8.2 TH/MM3 (4.0-11.0)
[2016-07-16 14:25] LABS: BLOOD, URINE NEG (NEG); COMMENT (UR) CULT NOT INDICATED; CULTURE IF INDICATED CULT NOT INDICATED; GLUCOSE,URINE NEG (NEG); KETONE, URINE NEG (NEG); MUCUS URINE FEW /lpf (OCC); NITRITE,URINE NEG (NEG); SQUAMOUS EPITHELIAL CELL URINE <1 /hpf (0-5); URINE COLOR YELLOW (YELLW/STRAW)
[2016-07-16 14:37] LABS: ALT (GPT) 39 U/L (12-78); ANION GAP 9 MEQ/L (5-15); AST (GOT) 28 U/L (15-37); BICARBONATE 23.7 MEQ/L (21.0-32.0); BLOOD UREA NITROGEN 8 MG/DL (7-18); CHLORIDE 106 MEQ/L (98-107); GLOMERULAR FILTRATION RATE 120 ML/MIN (>89); POTASSIUM 3.9 MEQ/L (3.5-5.1); SODIUM (NA) 139 MEQ/L (136-145)
[2016-07-16 14:39] LABS: ALKALINE PHOSPHATASE 125 U/L (45-117); TOTAL BILIRUBIN ADULT 0.3 MG/DL (0.2-1.0)
[2016-07-16 18:13] VITALS: BP 127/75; PULSE 86; RESP 17; TEMP 98.3; O2SAT 97
[2016-07-16 22:17] VITALS: BP 106/72; PULSE 120; RESP 20; O2SAT 96
[2016-07-17 02:20] VITALS: BP 117/65; PULSE 101; RESP 18; O2SAT 94
[2016-07-17 06:16] VITALS: BP 113/81; PULSE 93; RESP 18; O2SAT 100
[2016-07-17 06:19] LABS: AMPHETAMINE, URINE NEG (NEG); BARBITURATES, URINE NEG (NEG); COCAINE, URINE NEG (NEG)
--- NOTE | 2016-07-17 11:55 | PD.CONS ---
Provisional Diagnosis Admission Date 07/16/16 [place] I. Alcohol-induced mood disorder F 10.94 History of Present Illness Service Psychiatry Consult Requested By EDMD Reason for Consult Silver act Primary Care Physician Nicole Rose MD HPI Patient is a 56-year-old white male well known to us from multiple prior contacts primarily related to his chronic alcoholism comes here under Silver act by the [place] [employer] dated 07/16/16 at 1300 hrs. stating subject made several statements about committing suicide and hurting others while at the store. Subject also advised that he can't afford the value of his medications and he is out of it. Subject advised he is on Valium trazodone Librium. Patient seen screened in the ED urine toxicology negative blood alcohol level CXCIII. 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 Acknowledging being an alcoholic states he drinks every day, patient is a.m. drinking, so drinking, he has blacking out or passing out spells. His jugular traverses beer. 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 No event at the present time patient does not meet criteria for inpatient psychiatric hospitalization under the Silver act. Thus I' ll lift Silver act, no Rx by me, as okay by psych for patient to be discharged when medically cleared and stable strongly referral structure [facility] upon reassessment, referral to AA Review of Systems Except as stated in HPI: all other systems reviewed are Neg Past Family Social History Coded Allergies: Codeine (Verified Allergy, Mild, RASH, 06/01/16) *MDRO Multi-Drug Resistant Organism (Verified Adverse Reaction, Unknown, ) 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) Past Medical History Patient medically cleared ED Reported Medications Trazodone 50 Mg Tab50 Mg PO HS Ref 0 05/28/16 Escitalopram 10 Mg Tab10 Mg PO DAILY Ref 0 05/28/16 Aripiprazole 5 Mg Tab5 Mg PO DAILY Ref 0 05/28/16 Family History History substance abuse and family Social History Patient is essentially homeless significant alcohol abuser Patient's Strengths (min. 2) Patient verbal cooperative able access healthcare Physical Exam Patient seen screened in ED medically cleared in ED exam reviewed and agreed with Vital Signs Vital Signs Date Time Temp Pulse Resp B/P Pulse Ox O2 Delivery O2 Flow Rate FiO2 07/17/16 06:16 93 18 113/81 100 Room Air 07/16/16 18:13 98.3 Mental Status Examination Alert oriented short thin white male somewhat disheveled prolonged balding saenz hair and full saenz [place] he is cooperative with good eye contact Appearance Somewhat disheveled Speech: Unremarkable Orientation: x3 Memory: Unremarkable Thought Process: Logical, Linear Thought Content: Unremarkable Hallucination Type: None Attention and Concentration: Other (fair) Suicidal Ideation: No Previous Suicide Attempts: Yes Homicidal Ideation: No Previous Homicide Attempts: No Insight: Poor Judgement: Poor Affect: Other (decreased range and intensity) Mood: Euthymic (to somewhat restricted) Motor Activity: Normal gait Assessment & Plan Problem List: (1) Alcohol-induced mood disorder ICD Code: F10.94 Assessment & Plan Estimated LOS: days patient does not meet Silver criteria will lift Adrianne act as okay by psych for discharge is medically clear and stable, no Rx by me. Strongly referral Josesito Marchman act voluntary assessment. Strongly referral to AA Discharge Planning See above Request HC Surrog/Guard Advoc?: No Santhosh Myers MD Jul 17, 2016 11:55
== END 2016-07-17 12:56 | disposition home or self-care (01) ==
LOC: NEDAMB 13:03 → NEPJ 07-17 12:56
DX: R45.851 Suicidal ideations (principal); F10.20 Alcohol dependence, uncomplicated; F39 Unspecified mood [affective] disorder; Z88.5 Allergy status to narcotic agent; F90.9 Attention-deficit hyperactivity disorder, unspecified type; F31.9 Bipolar disorder, unspecified; J44.9 Chronic obstructive pulmonary disease, unspecified; I25.10 Atherosclerotic heart disease of native coronary artery without angina pectoris; G47.30 Sleep apnea, unspecified; Z72.0 Tobacco use; Z59.0 Homelessness
CPT/HCPCS: 80053; 80307; 80320; 81001; 85025; 99283

== ENCOUNTER 2016-07-31 14:26 | Emergency (ER) | payer MEDICARE, OTHER ==
[~2016-07-31] VITALS: Ht 160 cm; Wt 65.0 kg
[2016-07-31 14:36] VITALS: BP 103/76; PULSE 108; RESP 20; TEMP 98.1; O2SAT 94
[2016-07-31 14:43] VITALS: BP 103/75; PULSE 103; RESP 20; TEMP 98.1; O2SAT 94
[2016-07-31] MEDS ORDERED: predniSONE 20 MG TAB PO ONE (15:00)
[2016-07-31] MEDS ORDERED: SULFAMETHOXAZOLE-TRIMETHOPRIM DS 800-160 MG TAB PO ONE (15:00)
[2016-07-31] MEDS ORDERED: CEPHALEXIN MONOHYDRATE 500 MG CAP PO ONE (15:00)
[2016-07-31] MEDS ORDERED: LIDOCAINE 1%/EPINEPHrine 1:100,000 SOLN 20 ML VIAL INFIL ONE (15:00)
[2016-07-31] MEDS ORDERED: TETANUS/DIPHTHERIA TOXOID ADULT 0.5 ML VIAL IM ONE (15:00)
[2016-07-31 15:11] VITALS: O2SAT 93
[2016-07-31] MEDS: RESP: ALBUTEROL 2.5 MG/IPRATROPIUM 0.5 MG NEB (SCH) INH (15:13)
--- NOTE | 2016-07-31 15:14 | PD ---
HPI Chief Complaint: Psychiatric Symptoms Time Seen by Provider: 15:03 Travel History International Travel<30 days: No Contact w/Intl Traveler<30days: No Traveled to known affect area: No History of Present Illness HPI This is a 56-year-old male who is well known to the emergency department for alcohol intoxication/suicidal ideation. Patient states that he is suicidal and his plan is to jump [place]. He states he attempted to cut his wrist one week ago and shows me his right wrist which now has a small abscess. The patient states his tetanus immunization is not up-to-date. He has a history of hypertension and COPD. He states he is unable to afford his medications. The patient is homeless. He reports drinking 2 "Nattie lights" today. He denies any IVDA. Patient reports intermittent wheezing due to his COPD. He states he has no nebulizer or inhalers at home. PFSH Past Medical History Hx Anticoagulant Therapy: No ADHD: Yes Anemia: Yes Arthritis: Yes (OSTEO) Asthma: Yes Autoimmune Disease: No Bipolar Disorder: Yes Anxiety: Yes Depression: Yes Cancer: No Cardiovascular Problems: Yes (2 [place] ) High Cholesterol: Yes Chemotherapy: Yes Chest Pain: Yes Congestive Heart Failure: No COPD: Yes Cerebrovascular Accident: Yes Coronary Artery Disease: Yes Diabetes: No Diminished Hearing: No Endocrine: No Gastrointestinal Disorders: Yes (Acid reflux) GERD: Yes Genitourinary: No Hypertension: No Immune Disorder: No Implanted Vascular Access Dvce: No Insomnia: Yes Musculoskeletal: Yes Neurologic: Yes Psychiatric: Yes Reproductive: No Respiratory: Yes (COPD) Immunizations Current: Yes Myocardial Infarction: Yes (PT REPORTS 2 [place]) Schizophrenia: Yes Seizures: Yes Sleep Apnea: Yes Ulcer: No Tetanus Vaccination: Unknown Influenza Vaccination: No ?: Not Past Surgical History Coronary Stent: Yes Pacemaker: No Tonsillectomy: Yes Social History Alcohol Use: Yes (DAILY ) Tobacco Use: Yes Substance Use: Yes (MARIJUANA OCCASIONALLY ) Allergies-Medications (Allergen,Severity, Reaction): Coded Allergies: Codeine (Verified Allergy, Mild, RASH, 06/01/16) *MDRO Multi-Drug Resistant Organism (Verified Adverse Reaction, Unknown, ) 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) Reported Meds & Prescriptions Reported Meds & Active Scripts Active Reported Trazodone (Trazodone HCl) 50 Mg Tab 50 Mg PO HS Escitalopram (Escitalopram Oxalate) 10 Mg Tab 10 Mg PO DAILY Aripiprazole 5 Mg Tab 5 Mg PO DAILY Review of Systems Except as stated in HPI: all other systems reviewed are Neg Physical Exam Narrative GENERAL: Well-developed well-nourished male patient, ambulatory. Afebrile. SKIN: Warm and dry. Patient is a possibly 1.5 cm x 1 cm fluctuant abscess to the right anterior wrist. HEAD: Normocephalic. Atraumatic. EYES: No scleral icterus. No injection or drainage. NECK: Supple, trachea midline. No JVD or lymphadenopathy. CARDIOVASCULAR: Regular rate and rhythm without murmurs, gallops, or rubs. RESPIRATORY: Breath sounds equal bilaterally. No accessory muscle use. Lungs sounds with wheezes noted throughout. GASTROINTESTINAL: Abdomen soft, non-tender, nondistended. MUSCULOSKELETAL: No cyanosis, or edema. BACK: Nontender without obvious deformity. No CVA tenderness. Data Data Last Documented VS Vital Signs Date Time Temp Pulse Resp B/P Pulse Ox O2 Delivery O2 Flow Rate FiO2 07/31/16 15:11 93 21 07/31/16 14:43 103 20 07/31/16 14:43 98.1 103/75 Room Air Orders Complete Blood Count With Diff (07/31/16 14:54) Comprehensive Metabolic Panel (07/31/16 14:54) Psych Screen (07/31/16 14:54) Drug Screen, Random Urine (07/31/16 14:54) Alcohol (Ethanol) (07/31/16 14:54) Tetanus/Diphtheria Tox Adult (Tetanus/Di (07/31/16 15:00) Lidocai-Epi 1%-1:100,000 Inj (Xylocaine- (07/31/16 15:00) Wound Culture And Gram Stain (07/31/16 14:54) Sulfamet-Trimeth Ds 800-160 Mg (Bactrim (07/31/16 15:00) Cephalexin (Keflex) (07/31/16 15:00) Prednisone (Deltasone) (07/31/16 15:00) Albuterol-Ipratropium Neb (Duoneb Neb) (07/31/16 15:00) Diet Heart Healthy (07/31/16 Lunch) Labs Laboratory Tests Test 07/31/16 07/31/16 15:01 15:11 Urine Opiates Screen NEG Urine Barbiturates Screen NEG Urine Amphetamines Screen NEG Urine Benzodiazepines Screen POS Urine Cocaine Screen NEG Urine Cannabinoids Screen NEG White Blood Count 9.0 TH/MM3 Red Blood Count 5.05 MIL/MM3 Hemoglobin 16.0 GM/DL Hematocrit 47.6 % Mean Corpuscular Volume 94.2 FL Mean Corpuscular Hemoglobin 31.7 PG Mean Corpuscular Hemoglobin 33.7 % Concent Red Cell Distribution Width 15.0 % Platelet Count 305 TH/MM3 Mean Platelet Volume 8.4 FL Neutrophils (%) (Auto) 58.3 % Lymphocytes (%) (Auto) 23.4 % Monocytes (%) (Auto) 12.2 % Eosinophils (%) (Auto) 5.3 % Basophils (%) (Auto) 0.8 % Neutrophils # (Auto) 5.3 TH/MM3 Lymphocytes # (Auto) 2.1 TH/MM3 Monocytes # (Auto) 1.1 TH/MM3 Eosinophils # (Auto) 0.5 TH/MM3 Basophils # (Auto) 0.1 TH/MM3 CBC Comment DIFF FINAL Differential Comment Sodium Level 138 MEQ/L Potassium Level 4.0 MEQ/L Chloride Level 104 MEQ/L Carbon Dioxide Level 25.4 MEQ/L Anion Gap 9 MEQ/L Blood Urea Nitrogen 17 MG/DL Creatinine 0.78 MG/DL Estimat Glomerular Filtration 103 ML/MIN Rate Random Glucose 83 MG/DL Calcium Level 9.0 MG/DL Total Bilirubin 0.2 MG/DL Aspartate Amino Transf 21 U/L (AST/SGOT) Alanine Aminotransferase 37 U/L (ALT/SGPT) Alkaline Phosphatase 136 U/L Total Protein 8.2 GM/DL Albumin 4.0 GM/DL Ethyl Alcohol Level 208 MG/DL [facility] Medical Decision Making Medical Screen Exam Complete: Yes Emergency Medical Condition: Yes Medical Record Reviewed: Yes Differential Diagnosis Alcohol-induced mood disorder versus suicidal ideation versus malingering versus COPD versus abscess Narrative Course 56-year-old male presents to the emergency Department under Silver act by local police. Patient is well-known to the emergency department. Patient does have a 1.5 cm x 1 cm abscess to the right wrist. He gives verbal consent for incision and drainage. Patient is given DuoNeb 3, prednisone 60 mg by mouth, Bactrim DS, Keflex 500 mg by mouth. CBC, CMP, UDS, alcohol level are ordered and pending. CBC shows no acute abnormality. CMP shows no acute abnormality. Alcohol level is 208. UDS is positive for benzodiazepines. Prescriptions will be written for Bactrim, Keflex. Patient is discharged. He is medically cleared for psychiatric screening and disposition. Mental health screening discussed with the patient. Psychiatric screen ordered. Procedures Procedure Narrative INCISION AND DRAINAGE OF ABSCESS: The area was prepped and was sterilely draped. A subcutaneous wheal of 1% Xylocaine with epinephrine with a total number 2 mL was used to anesthetize the area. The area was properly anesthetized. A number 11 scalpel was used to make a 0.5 -cm incision across the area of the abscess. Cultures were obtained. The abscess was drained an irrigated with normal saline. Sterile dressing applied. Diagnosis Primary Impression: Alcohol-induced mood disorder Additional Impressions: Alcohol intoxication Qualified Code: F10.120 - Alcohol intoxication, uncomplicated COPD (chronic obstructive pulmonary disease) Qualified Code: J44.9 - Chronic obstructive pulmonary disease, unspecified COPD type Abscess, wrist Additional Instructions: Take antibiotics as directed until gone. Bactrim is free at [facility]. Keflex is $4 at [facility]. Clean abscess twice daily with soap and water and apply over the counter antibiotic ointment. Keep abscess clean and dry. Follow up with a primary care physician for recheck. Return to the emergency department for any acute, worsening of symptoms. Scripts Cephalexin (Keflex)500 Mg [id number] Mg PO Q6H 10 Days Ref 0 Prov:Louise Alvarez 07/31/16 Sulfamethoxazole-Trimethoprim (Bactrim DS)800-160 Mg Tab1 Tab PO BID #20 TAB Ref 0 Prov:Louise Alvarez 07/31/16 Condition: Stable Louise Alvarez Jul 31, 2016 15:13
[2016-07-31 15:58] LABS: AUTOMATED NEUTROPHIL # 5.3 TH/MM3 (1.8-7.7); BASOPHIL # 0.1 TH/MM3 (0-0.2); BASOPHIL % 0.8 % (0.0-2.0); EOSINOPHIL # 0.5 TH/MM3 (0-0.4); EOSINOPHIL % 5.3 % (0.0-4.0); HEMATOCRIT 47.6 % (39.0-51.0); HEMO FLAGS DIFF FINAL; LYMPH % 23.4 % (9.0-44.0); LYMPHOCYTE # 2.1 TH/MM3 (1.0-4.8); MEAN CELL VOLUME 94.2 FL (80.0-100.0); MEAN CORPUSCULAR HEMOGLOBIN 31.7 PG (27.0-34.0); MEAN CORPUSCULAR HGB CONC 33.7 % (32.0-36.0); MONO % 12.2 % (0.0-8.0); NEUT % 58.3 % (16.0-70.0); PLATELET COUNT 305 TH/MM3 (150-450); RED BLOOD COUNT 5.05 MIL/MM3 (4.50-5.90)
[2016-07-31 16:12] LABS: AMPHETAMINE, URINE NEG (NEG); BARBITURATES, URINE NEG (NEG); COCAINE, URINE NEG (NEG)
[2016-07-31 16:27] LABS: ANION GAP 9 MEQ/L (5-15); AST (GOT) 21 U/L (15-37); BICARBONATE 25.4 MEQ/L (21.0-32.0); BLOOD UREA NITROGEN 17 MG/DL (7-18); CHLORIDE 104 MEQ/L (98-107); GLOMERULAR FILTRATION RATE 103 ML/MIN (>89); SODIUM (NA) 138 MEQ/L (136-145)
[2016-07-31 16:32] LABS: ALKALINE PHOSPHATASE 136 U/L (45-117); ALT (GPT) 37 U/L (12-78); TOTAL BILIRUBIN ADULT 0.2 MG/DL (0.2-1.0)
[2016-07-31] MEDS ORDERED: BACT800T5 PO (18:06)
[2016-07-31] MEDS ORDERED: CEPH-460 PO (18:06)
[2016-07-31] MEDS ORDERED: LORazepam 2 MG/ML VIAL IV PUSH PRN ×4 (18:15)
[2016-07-31] MEDS ORDERED: LORazepam 2 MG TAB PO PRN (18:15)
[2016-07-31] MEDS ORDERED: FLUMAZENIL 0.5 MG/5 ML VIAL IV PUSH PRN (18:15)
[2016-07-31] MEDS ORDERED: LORazepam 1 MG TAB PO PRN (18:15)
[2016-07-31 19:16] VITALS: BP 105/65; PULSE 116; RESP 20; O2SAT 96
== END 2016-07-31 21:45 ==
LOC: NEPC 14:26 → NEPJ 21:45
DX: F10.94 Alcohol use, unspecified with alcohol-induced mood disorder (principal); F10.120 Alcohol abuse with intoxication, uncomplicated; J44.9 Chronic obstructive pulmonary disease, unspecified; L02.413 Cutaneous abscess of right upper limb; B95.62 Methicillin resistant Staphylococcus aureus infection as the cause of diseases classified elsewhere; I10 Essential (primary) hypertension; E78.00 Pure hypercholesterolemia, unspecified; Z23 Encounter for immunization; Z59.0 Homelessness; Z72.0 Tobacco use; Z86.59 Personal history of other mental and behavioral disorders; Z87.09 Personal history of other diseases of the respiratory system; Z86.2 Personal history of diseases of the blood and blood-forming organs and certain disorders involving the immune mechanism; Z87.39 Personal history of other diseases of the musculoskeletal system and connective tissue; Z86.79 Personal history of other diseases of the circulatory system; Z87.19 Personal history of other diseases of the digestive system; Z86.69 Personal history of other diseases of the nervous system and sense organs
CPT/HCPCS: 10060; 80053; 80307; 85025; 86403; 87070; 87186; 90471; 90714; 94640; 94664; 99285; J7512; 80320

== ENCOUNTER 2016-08-03 17:40 | Emergency (ER) | payer MEDICARE, OTHER ==
[~2016-08-03 17:40] MED LIST changes: +BACT800T5 PO; +CEPH-460 PO
--- NOTE | 2016-08-03 17:59 | PD ---
HPI Chief Complaint: ETOH/Suicidal Ideation Time Seen by Provider: 17:57 Travel History International Travel<30 days: No Contact w/Intl Traveler<30days: No Traveled to known affect area: No History of Present Illness HPI 56-year-old male presents the emergency department via EMS with suicidal ideation stating he wants to jump off the bridge. Mr. Geller has presented many times previously with similar complaints. He has no medical complaints at this time. He has a history of MRSA and is allergic to codeine. PFSH Past Medical History Hx Anticoagulant Therapy: No ADHD: Yes Anemia: Yes Arthritis: Yes (OSTEO) Asthma: Yes Autoimmune Disease: No Bipolar Disorder: Yes Anxiety: Yes Depression: Yes Cancer: No Cardiovascular Problems: Yes (2 [place] ) High Cholesterol: Yes Chemotherapy: Yes Chest Pain: Yes Congestive Heart Failure: No COPD: Yes Cerebrovascular Accident: Yes Coronary Artery Disease: Yes Diabetes: No Diminished Hearing: No Endocrine: No Gastrointestinal Disorders: Yes (Acid reflux) GERD: Yes Genitourinary: No Hypertension: No Immune Disorder: No Implanted Vascular Access Dvce: No Insomnia: Yes Musculoskeletal: Yes Neurologic: Yes Psychiatric: Yes Reproductive: No Respiratory: Yes (COPD) Immunizations Current: Yes Myocardial Infarction: Yes (PT REPORTS 2 [place]) Schizophrenia: Yes Seizures: Yes Sleep Apnea: Yes Ulcer: No Past Surgical History Coronary Stent: Yes Pacemaker: No Tonsillectomy: Yes Social History Alcohol Use: Yes (DAILY ) Tobacco Use: Yes Substance Use: Yes (MARIJUANA OCCASIONALLY ) Allergies-Medications (Allergen,Severity, Reaction): Coded Allergies: Codeine (Verified Allergy, Mild, RASH, 06/01/16) *MDRO Multi-Drug Resistant Organism (Verified Adverse Reaction, Unknown, ) 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, 07/31/16) Reported Meds & Prescriptions Reported Meds & Active Scripts Active Keflex (Cephalexin) 500 Mg Cap 500 Mg PO Q6H 10 Days Bactrim DS (Sulfamethoxazole-Trimethoprim) 800-160 Mg Tab 1 Tab PO BID Reported Trazodone (Trazodone HCl) 50 Mg Tab 50 Mg PO HS Escitalopram (Escitalopram Oxalate) 10 Mg Tab 10 Mg PO DAILY Aripiprazole 5 Mg Tab 5 Mg PO DAILY Review of Systems ROS Limitations: Intoxication Except as stated in HPI: all other systems reviewed are Neg General / Constitutional: No: Fever Eyes: No: Visual changes HENT: No: Headaches Cardiovascular: No: Chest Pain or Discomfort Respiratory: No: Shortness of Breath Gastrointestinal: No: Abdominal Pain Genitourinary: No: Dysuria Musculoskeletal: No: Pain Skin: No Rash Neurologic: No: Weakness Psychiatric: No: Depression Endocrine: No: Polydipsia Hematologic/Lymphatic: No: Easy Bruising Physical Exam Exam Limitations: Intoxication Narrative GENERAL: Patient appears in no acute distress. He appears in good spirits. He is cooperative. SKIN: Warm and dry. Normal color. Normal turgor. No signs of trauma. HEAD: Atraumatic. Normocephalic. Nontender. EYES: Pupils equal and round. No scleral icterus. No injection or drainage. ENT: No nasal bleeding or discharge. Mucous membranes pink and moist. Pharynx is clear. Airway is patent. NECK: Trachea midline. Supple and nontender. CARDIOVASCULAR: Regular rate and rhythm. RESPIRATORY: No accessory muscle use. Clear to auscultation. Breath sounds equal bilaterally. MUSCULOSKELETAL: Extremities without clubbing, cyanosis, or edema. No obvious deformities. NEUROLOGICAL: Awake and alert. No obvious cranial nerve deficits. Motor grossly within normal limits. Five out of 5 muscle strength in the arms and legs. Normal speech. PSYCHIATRIC: Appropriate mood and affect; insight and judgment normal. MDM Medical Decision Making Medical Screen Exam Complete: Yes Emergency Medical Condition: Yes Differential Diagnosis EtOH dependence. Suicidal ideation. Need for medical clearance. Narrative Course Patient is medically stable at time of exam. Labs are not felt necessary to be drawn on this patient at this time. Patient is medically cleared for psychiatric evaluation. Diagnosis Primary Impression: Suicidal ideation Additional Impression: Medical clearance for psychiatric admission Condition: Stable Dariel Demarco Aug 03, 2016 17:59
[2016-08-03 21:30] VITALS: BP 113/66; PULSE 110; RESP 18; O2SAT 96
[2016-08-03] MEDS ORDERED: MAGNESIUM HYDROXIDE SUSP 30 ML CUP PO PRN (21:45)
[2016-08-03] MEDS ORDERED: ACETAMINOPHEN 325 MG TAB PO PRN (21:45)
[2016-08-03] MEDS ORDERED: LORazepam 1 MG TAB PO PRN (21:45)
[2016-08-03] MEDS ORDERED: ALUMINUM/MAGNESIUM/SIMETH 30 ML CUP PO PRN (21:45)
[2016-08-03] MEDS: CEPHALEXIN MONOHYDRATE 500 MG CAP PO SCH (22:28)
[2016-08-04 02:00] VITALS: BP 126/71; PULSE 95; RESP 18; O2SAT 95
[2016-08-04 06:13] VITALS: BP 108/76; PULSE 93; RESP 18; O2SAT 99
[2016-08-04] MEDS: CEPHALEXIN MONOHYDRATE 500 MG CAP PO SCH (06:44)
[2016-08-04] MEDS ORDERED: NICOTINE 21 MG/24 HR PATCH T-DERMAL SCH (09:00)
--- NOTE | 2016-08-04 10:59 | PD.CONS ---
Provisional Diagnosis Admission Date Maskell I. Alcohol-induced mood disorder, alcohol use disorder Maskell II. Deferred Maskell III. COPD Maskell IV. Multiple ER visits due to alcohol related disorder Maskell V. 54 History of Present Illness Service Psychiatry Consult Requested By Primary Care Physician Nicole Rose MD HPI The patient is a 56 years old man, homeless, single, unemployed, very well known for our service due to his frequent ER visits with alcohol related problems, psychiatric history of bipolar disorder, previous hospitalizations, previous suicidal gestures, extensive history of alcohol use disorder, medical history of COPD, who was brought under Silver act to the ER with suicidal ideation in the context of alcohol intoxication. Today patient was seen in the ER for psychiatric evaluation, he was clinically sober, calm, cooperative and pleasant. He is stays that last night when he came to the he was drunk, he says that his problem is alcohol he is aware of that. He denies suicidal or homicidal ideation, he denies visual and auditory hallucinations. He denies depression, anxiety, perceptual disturbances. No delusions, paranoia, agitation , aggressive behavior observed. Patient denies withdrawal symptoms of this moment. He seems to be future oriented, in a good mood, logical, coherent and relevant.. He reports daily use of alcohol, denies other illicit drugs. Review of Systems Constitutional: DENIES: Diaphoretic episodes, Fatigue, Fever, Weight gain, Weight loss, Chills, Dizziness, Change in appetite, Night Sweats Endocrine: DENIES: Heat/cold intolerance, Polydipsia, Polyuria, Polyphagia Eyes: DENIES: Blurred vision, Diplopia, Eye inflammation, Eye pain, Vision loss , Photosensitivity, Double Vision Ears, nose, mouth, throat: DENIES: Tinnitus, Hearing loss, Vertigo, Nasal discharge, Oral lesions, Throat pain, Hoarseness, Ear Pain, Running Nose, Epistaxis, Sinus Pain, Toothache, Odynophagia Respiratory: DENIES: Apneas, Cough, Snoring, Wheezing, Hemoptysis, Sputum production, Shortness of breath Cardiovascular: DENIES: Chest pain, Palpitations, Syncope, Dyspnea on Exertion , PND, Lower Extremity Edema, Orthopnea, Claudication Gastrointestinal: DENIES: Abdominal pain, Black stools, Bloody stools, Constipation, Diarrhea, Nausea, Vomiting, Difficulty Swallowing, Anorexia Integumentary: DENIES: Abnormal pigmentation, Nail changes, Pruritus, Rash Immunologic/allergic: DENIES: Eczema, Urticaria Neurologic: DENIES: Abnormal gait, Headache, Localized weakness, Paresthesias, Seizures, Speech Problems, Tremor, Poor Balance Past Family Social History Coded Allergies: Codeine (Verified Allergy, Mild, RASH, 06/01/16) *MDRO Multi-Drug Resistant Organism (Verified Adverse Reaction, Unknown, ) 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, 07/31/16) Active Scripts Cephalexin (Keflex)500 Mg [id number] Mg PO Q6H 10 Days Ref 0 Prov:Louise Alvarez MARJORIE 07/31/16 Sulfamethoxazole-Trimethoprim (Bactrim DS)800-160 Mg Tab1 Tab PO BID #20 TAB Ref 0 Prov:Louise Alvarez MARJORIE 07/31/16 Reported Medications Trazodone 50 Mg Tab50 Mg PO HS Ref 0 05/28/16 Escitalopram 10 Mg Tab10 Mg PO DAILY Ref 0 05/28/16 Aripiprazole 5 Mg Tab5 Mg PO DAILY Ref 0 05/28/16 Family History He denies Social History The patient is homeless, no family, unemployed, single, level of education is 10th grade Physical Exam Vital Signs Vital Signs Date Time Temp Pulse Resp B/P Pulse Ox O2 Delivery O2 Flow Rate FiO2 08/04/16 06:13 93 18 108/76 99 Room Air Mental Status Examination Appearance man, regular close, age appearing, calm, cooperative and pleasant Speech: Unremarkable Orientation: x3 Memory: Unremarkable Thought Content: Unremarkable Hallucination Type: None Suicidal Ideation: No Previous Suicide Attempts: Yes Homicidal Ideation: No Previous Homicide Attempts: No Affect: Good Mood: Appropriate Motor Activity: Normal gait Assessment & Plan Problem List: (1) Alcohol-induced mood disorder Assessment & Plan: On psychiatric evaluation today patient denies depression, anxiety, psychosis, he denies suicidal or homicidal ideation, he denies visual and auditory hallucinations. No withdrawal symptomatology, paranoia, delusions , agitation, aggressive behavior observed or reported. She is well known by service, he usually endorses suicidal ideation in the context of alcohol intoxication, but once sober he requested his discharge. At this moment he doesn't meet criteria for psychiatric admission. Silver act will be lifted. Referral for detox program offered to the patient, he declined. Support, motivation, psycho patient provided. ICD Code: F10.94 Assessment & Plan Estimated LOS: days Jayy Aguirre MD Aug 04, 2016 10:59
[2016-08-04] MEDS ORDERED: SULFAMETHOXAZOLE-TRIMETHOPRIM DS 800-160 MG TAB PO SCH (22:00)
== END 2016-08-04 10:18 | disposition home or self-care (01) ==
LOC: NEPJ 17:40
DX: Z02.89 Encounter for other administrative examinations (principal); R45.851 Suicidal ideations; F10.94 Alcohol use, unspecified with alcohol-induced mood disorder; E78.00 Pure hypercholesterolemia, unspecified; G47.30 Sleep apnea, unspecified; Z72.0 Tobacco use; Z59.0 Homelessness; Z86.14 Personal history of Methicillin resistant Staphylococcus aureus infection; Z86.59 Personal history of other mental and behavioral disorders; Z86.2 Personal history of diseases of the blood and blood-forming organs and certain disorders involving the immune mechanism; Z87.39 Personal history of other diseases of the musculoskeletal system and connective tissue; Z87.09 Personal history of other diseases of the respiratory system; Z86.79 Personal history of other diseases of the circulatory system; Z87.19 Personal history of other diseases of the digestive system; Z86.69 Personal history of other diseases of the nervous system and sense organs
CPT/HCPCS: 99284

== ENCOUNTER 2016-08-04 15:45 | Emergency (ER) | payer MEDICARE, OTHER ==
[2016-08-04 16:03] VITALS: BP 118/69; PULSE 106; RESP 18; TEMP 97.5; O2SAT 93
--- NOTE | 2016-08-04 16:17 | PD ---
HPI Chief Complaint: Psychiatric Symptoms Time Seen by Provider: 16:00 Travel History International Travel<30 days: No Contact w/Intl Traveler<30days: No Traveled to known affect area: No History of Present Illness HPI 56-year-old male with history of COPD, alcoholism, bipolar disorder presents under [place] act initially by the police department. The patient reports that he has been depressed his whole life and he has been feeling suicidal as life. He claims that today he jumped off of the bridge twice. He then called the police in order be brought here. He was seen here yesterday with a similar presentation. He admits to drinking 4 beers today. He has no other complaints. PFSH Past Medical History Hx Anticoagulant Therapy: No ADHD: Yes Anemia: Yes Arthritis: Yes (OSTEO) Asthma: Yes Autoimmune Disease: No Bipolar Disorder: Yes Anxiety: Yes Depression: Yes Cancer: No Cardiovascular Problems: Yes (2 [place] ) High Cholesterol: Yes Chemotherapy: Yes Chest Pain: Yes Congestive Heart Failure: No COPD: Yes Cerebrovascular Accident: Yes Coronary Artery Disease: Yes Diabetes: No Diminished Hearing: No Endocrine: No Gastrointestinal Disorders: Yes (Acid reflux) GERD: Yes Genitourinary: No Hypertension: No Immune Disorder: No Implanted Vascular Access Dvce: No Insomnia: Yes Musculoskeletal: Yes Neurologic: Yes Psychiatric: Yes Reproductive: No Respiratory: Yes (COPD) Immunizations Current: Yes Myocardial Infarction: Yes (PT REPORTS 2 [place]) Schizophrenia: Yes Seizures: Yes Sleep Apnea: Yes Ulcer: No Past Surgical History Coronary Stent: Yes Pacemaker: No Tonsillectomy: Yes Social History Alcohol Use: Yes (DAILY ) Tobacco Use: Yes Substance Use: Yes (MARIJUANA OCCASIONALLY ) Allergies-Medications (Allergen,Severity, Reaction): Coded Allergies: Codeine (Verified Allergy, Mild, RASH, 06/01/16) *MDRO Multi-Drug Resistant Organism (Verified Adverse Reaction, Unknown, ) 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, 07/31/16) Reported Meds & Prescriptions Reported Meds & Active Scripts Active Keflex (Cephalexin) 500 Mg Cap 500 Mg PO Q6H 10 Days Bactrim DS (Sulfamethoxazole-Trimethoprim) 800-160 Mg Tab 1 Tab PO BID Reported Trazodone (Trazodone HCl) 50 Mg Tab 50 Mg PO HS Escitalopram (Escitalopram Oxalate) 10 Mg Tab 10 Mg PO DAILY Aripiprazole 5 Mg Tab 5 Mg PO DAILY Review of Systems Except as stated in HPI: all other systems reviewed are Neg Physical Exam Narrative GENERAL: Disheveled appearing male in no acute distress SKIN: Warm and dry. HEAD: Atraumatic. Normocephalic. EYES: Pupils equal and round. No scleral icterus. No injection or drainage. ENT: No nasal bleeding or discharge. Mucous membranes pink and moist. NECK: Trachea midline. No JVD. CARDIOVASCULAR: Regular rate and rhythm. No murmur appreciated. RESPIRATORY: No accessory muscle use. Some wheezing bilaterally. GASTROINTESTINAL: Abdomen soft, non-tender, nondistended. Hepatic and splenic margins not palpable. MUSCULOSKELETAL: No obvious deformities. No edema. NEUROLOGICAL: Awake and alert. No obvious cranial nerve deficits. Motor grossly within normal limits. Normal speech. PSYCHIATRIC: Appropriate mood and affect; insight and judgment normal. Data Data Last Documented VS Vital Signs Date Time Temp Pulse Resp B/P Pulse Ox O2 Delivery O2 Flow Rate FiO2 08/04/16 16:03 97.5 106 18 118/69 93 Orders Psych Screen (08/04/16 16:14) [facility] Medical Decision Making Medical Screen Exam Complete: Yes Emergency Medical Condition: Yes Medical Record Reviewed: Yes Differential Diagnosis Major depressive disorder, substance-induced disorder, bipolar disorder, malingering, homelessness Narrative Course 56-year-old male presents under Silver act for evaluation of suicidal ideation. Seen here yesterday for the same. Mental health screening discussed with the patient. Psychiatric screen ordered. The patient is medically clear for psychiatric disposition. Diagnosis Primary Impression: Medical clearance for psychiatric admission Additional Impression: Suicidal ideation Sudarshan Fallon Aug 04, 2016 16:17
[2016-08-04 17:35] VITALS: BP 133/75; PULSE 112; RESP 20; TEMP 98.9; O2SAT 93
[2016-08-04 22:07] VITALS: BP 112/69; PULSE 112; RESP 18; O2SAT 97
[2016-08-05 02:10] VITALS: BP 128/80; PULSE 86; RESP 20; O2SAT 98
[2016-08-05 06:19] VITALS: BP 131/78; PULSE 79; RESP 18; O2SAT 99
[2016-08-05 10:55] VITALS: BP 132/80; PULSE 76; RESP 18; O2SAT 95
--- NOTE | 2016-08-05 10:59 | PD ---
History of Present Illness Chief Complaint: Psychiatric Symptoms Time Seen by Provider: 10:45 Travel History International Travel<30 Days: No Contact w/Intl Traveler<30days: No Known affected area: No Legal Status Legal Status: Silver Act Silver Act Signed By: Luis Fernando Isbell History of Present Illness: History of Present Illness HPI 56-year-old male with history of alcohol dependence as well as bipolar disorder who presents under Silver act initially by SRUTHI. As per the report he made statements about committing suicide and hurting others while on a public road. The patient reports that he has been depressed his whole life as well as claiming that today he jumped off of the bridge twice.He presented to ED yesterday with same complaint. He admits to drinking 4 beers today. Patient is well known to [facility] as he has frequent visits to ED. He has been to this ED 6 times since May. This morning he is awake, alert and oriented. he is clinically sober with no signs of withdrawal. his speech is clear and logical and he has a steady gait. He denies any suicidal or homicidal ideation and states " I was just drunk yesterday. I just want to go home and go to [place] with my brother since they are moving back home". There is no indication of any psychosis and no ector. PFSH Past Medical History Hx Anticoagulant Therapy: No ADHD: Yes Anemia: Yes Arthritis: Yes (OSTEO) Asthma: Yes Autoimmune Disease: No Bipolar Disorder: Yes Anxiety: Yes Depression: Yes Cancer: No Cardiovascular Problems: Yes (2 SD ) High Cholesterol: Yes Chemotherapy: Yes Chest Pain: Yes Congestive Heart Failure: No COPD: Yes Cerebrovascular Accident: Yes Coronary Artery Disease: Yes Diabetes: No Diminished Hearing: No Endocrine: No Gastrointestinal Disorders: Yes (Acid reflux) GERD: Yes Genitourinary: No Hypertension: No Immune Disorder: No Implanted Vascular Access Dvce: No Insomnia: Yes Musculoskeletal: Yes Neurologic: Yes Psychiatric: Yes Reproductive: No Respiratory: Yes (COPD) Immunizations Current: Yes Myocardial Infarction: Yes (PT REPORTS 2 SD) Schizophrenia: Yes Seizures: Yes Sleep Apnea: Yes Ulcer: No Past Surgical History Coronary Stent: Yes Pacemaker: No Tonsillectomy: Yes Psychiatric History Psychiatric History Hx Psychiatric Treatment: Pt has been seen several times at [facility] for simular presentation, ETOH with suicidal ideations of jumping from a bridge. Last visit was 08/03/2016 History of Inpatient Treatment: Yes Guns or firearms in home: No Social History Single male. Lives in a tent on his brother's property. Hx Alcohol Use: Yes (DAILY ) Hx Tobacco Use: Yes (pk of cigars) Hx Substance Use: Yes (MARIJUANA OCCASIONALLY ) Substance Use Type: Alcohol, Nicotine/Cigarettes Other Substances Used: CUT BACK ON DRINKING Hx of Substance Use Treatment: Yes Family Psychiatric History None reported Allergies-Medications (Allergen,Severity, Reaction): Coded Allergies: Codeine (Verified Allergy, Mild, RASH, 08/04/16) *MDRO Multi-Drug Resistant Organism (Verified Adverse Reaction, Unknown, ) 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, 07/31/16) Reported Meds & Prescriptions Reported Meds & Active Scripts Active Keflex (Cephalexin) 500 Mg Cap 500 Mg PO Q6H 10 Days Bactrim DS (Sulfamethoxazole-Trimethoprim) 800-160 Mg Tab 1 Tab PO BID Reported Trazodone (Trazodone HCl) 50 Mg Tab 50 Mg PO HS Escitalopram (Escitalopram Oxalate) 10 Mg Tab 10 Mg PO DAILY Aripiprazole 5 Mg Tab 5 Mg PO DAILY Review of Systems Except as stated in HPI: all other systems reviewed are Neg Psychiatric: COMPLAINS OF: Suicidal Ideation Exam Alert: Yes [place]: Person (ox4) Mood: Calm Affect: Euthymic Speech: Clear, Logical Eye Contact: Normal Memory Intact: Comment (no impairmetn) Hallucinations: Other (negative) Delusions: No Suicidal: Ideation (denies any) Homicidal: Ideation (denies any) Insight/Judgement poor. poor MDM Medical Decision Making Medical Record Reviewed: Yes Assessment/Plan 56 year old male with history of alcohol dependence as well as reported bipolar disorder who is under a BA for suicidal ideation in context of alcohol intoxication. At this time the patient is clinically sober and is denying any suicidal or homicidal ideation, intent or plan. he is requesting to be discharged and at this time he does not meet criteria for involuntary placement. The BA will be lifted. He is counseled on abstinence from ETOH as well as area resources for treatment including [facility]. Orders Psych Screen (08/04/16 16:14) Diet Regular Basic (08/04/16 Dinner) Diet Regular Basic (08/05/16 Breakfast) Diet Regular Basic (08/05/16 Lunch) Results Vital Signs Date Time Temp Pulse Resp B/P Pulse Ox O2 Delivery O2 Flow Rate FiO2 08/05/16 10:55 76 18 132/80 95 Room Air 08/05/16 06:19 79 18 131/78 99 Room Air 08/05/16 02:10 86 20 128/80 98 Room Air 08/04/16 22:07 112 18 112/69 97 Room Air 08/04/16 17:35 98.9 112 20 133/75 93 Room Air 08/04/16 16:03 97.5 106 18 118/69 93 Diagnosis Primary Impression: Alcohol-induced mood disorder Ruled Out: Suicidal ideation Psychiatrically Cleared: Yes Med/ Other Pt Specific Info: No Change to Meds Disposition: 01 DISCHARGE HOME Condition: Stable Rachel Viveros Aug 05, 2016 10:59
== END 2016-08-05 11:38 | disposition home or self-care (01) ==
LOC: NEDAMB 15:45 → NEPJ 08-05 11:38
DX: F10.24 Alcohol dependence with alcohol-induced mood disorder (principal); E78.00 Pure hypercholesterolemia, unspecified; F12.90 Cannabis use, unspecified, uncomplicated; Z72.0 Tobacco use
CPT/HCPCS: 99283

== ENCOUNTER 2016-08-05 17:12 | Emergency (ER) | payer MEDICARE, OTHER ==
[~2016-08-05] VITALS: Ht 160 cm; Wt 62.0 kg
[2016-08-05 17:14] VITALS: BP 124/71; PULSE 124; RESP 20; TEMP 98.5; O2SAT 93
--- NOTE | 2016-08-05 18:00 | PD ---
HPI Chief Complaint: Psychiatric Symptoms Time Seen by Provider: 17:45 Travel History International Travel<30 days: No Contact w/Intl Traveler<30days: No Traveled to known affect area: No History of Present Illness HPI This is a 56 year-old gentleman with a history of alcoholism, bipolar disorder, , reported schizoaffective disorder, who presents today with suicidal ideation. Patient states that he wants to kill himself. He told me today that he jumped off the ground a bridge twice. When asked why he did it twice, he stated that he was a good swimmer and the first time he jumped off he swam back and didn't realize how good of a swimmer he was. The patient states he drank 12 pack of beer today. He states he normally drinks 24. He reports he's trying to cut back. He reports that he cannot afford his trazodone, Librium, other medications for his psychiatric disorder. PFSH Past Medical History Hx Anticoagulant Therapy: No ADHD: Yes Anemia: Yes Arthritis: Yes (OSTEO) Asthma: Yes Autoimmune Disease: No Bipolar Disorder: Yes Anxiety: Yes Depression: Yes Cancer: No Cardiovascular Problems: Yes (2 MA ) High Cholesterol: Yes Chemotherapy: Yes Chest Pain: Yes Congestive Heart Failure: No COPD: Yes Cerebrovascular Accident: Yes Coronary Artery Disease: Yes Diabetes: No Diminished Hearing: No Endocrine: No Gastrointestinal Disorders: Yes (Acid reflux) GERD: Yes Genitourinary: No Hypertension: No Immune Disorder: No Implanted Vascular Access Dvce: No Insomnia: Yes Musculoskeletal: Yes Neurologic: Yes Psychiatric: Yes Reproductive: No Respiratory: Yes (COPD) Immunizations Current: Yes Myocardial Infarction: Yes (PT REPORTS 2 MA) Schizophrenia: Yes Seizures: Yes Sleep Apnea: Yes Ulcer: No Past Surgical History Coronary Stent: Yes Pacemaker: No Tonsillectomy: Yes Social History Alcohol Use: Yes (DAILY ) Tobacco Use: Yes (pk of cigars) Substance Use: Yes (MARIJUANA OCCASIONALLY ) Allergies-Medications (Allergen,Severity, Reaction): Coded Allergies: Codeine (Verified Allergy, Mild, RASH, 08/05/16) *MDRO Multi-Drug Resistant Organism (Verified Adverse Reaction, Unknown, ) 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, 07/31/16) Reported Meds & Prescriptions Reported Meds & Active Scripts Active Reported Trazodone (Trazodone HCl) 50 Mg Tab 50 Mg PO HS Escitalopram (Escitalopram Oxalate) 10 Mg Tab 10 Mg PO DAILY Aripiprazole 5 Mg Tab 5 Mg PO DAILY Review of Systems Except as stated in HPI: all other systems reviewed are Neg General / Constitutional: No: Fever, Chills HENT: No: Headaches, Lightheadedness Cardiovascular: No: Chest Pain or Discomfort, Palpitations Respiratory: No: Cough, Shortness of Breath Gastrointestinal: No: Nausea, Vomiting, Abdominal Pain Genitourinary: No: Frequency, Dysuria Musculoskeletal: No: Pain Neurologic: Positive: Slurred Speech (mild), No: Weakness, Headache, Change in Mentation Physical Exam Narrative GENERAL: Well-developed well-nourished gentleman in no acute distress. SKIN: Warm and dry. HEAD: Atraumatic. Normocephalic. EYES: No scleral icterus. No injection or drainage. ENT: Mucous membranes pink and moist. NECK: Trachea midline. Supple CARDIOVASCULAR: Regular rate and rhythm. No murmur appreciated. RESPIRATORY: No accessory muscle use. Clear to auscultation. Breath sounds equal bilaterally. GASTROINTESTINAL: Abdomen soft, non-tender, nondistended. MUSCULOSKELETAL: No obvious deformities. No clubbing. No cyanosis. No edema. NEUROLOGICAL: Awake and alert. No obvious cranial nerve deficits. Motor grossly within normal limits. PSYCHIATRIC: Emotionally labile. Tearful and then smiling followed by tearful Data Data Last Documented VS Vital Signs Date Time Temp Pulse Resp B/P Pulse Ox O2 Delivery O2 Flow Rate FiO2 08/05/16 17:14 98.5 124 20 124/71 93 Room Air Orders Complete Blood Count With Diff (08/05/16 18:05) Comprehensive Metabolic Panel (08/05/16 18:05) Psych Screen (08/05/16 18:05) Drug Screen, Random Urine (08/05/16 18:05) Alcohol (Ethanol) (08/05/16 18:05) Labs Laboratory Tests Test 08/05/16 18:00 White Blood Count 13.7 TH/MM3 Red Blood Count 5.03 MIL/MM3 Hemoglobin 16.3 GM/DL Hematocrit 47.1 % Mean Corpuscular Volume 93.8 FL Mean Corpuscular Hemoglobin 32.3 PG Mean Corpuscular Hemoglobin 34.5 % Concent Red Cell Distribution Width 14.5 % Platelet Count 406 TH/MM3 Mean Platelet Volume 7.5 FL Neutrophils (%) (Auto) 63.3 % Lymphocytes (%) (Auto) 22.9 % Monocytes (%) (Auto) 10.0 % Eosinophils (%) (Auto) 3.1 % Basophils (%) (Auto) 0.7 % Neutrophils # (Auto) 8.7 TH/MM3 Lymphocytes # (Auto) 3.1 TH/MM3 Monocytes # (Auto) 1.4 TH/MM3 Eosinophils # (Auto) 0.4 TH/MM3 Basophils # (Auto) 0.1 TH/MM3 CBC Comment DIFF FINAL Differential Comment MDM Medical Decision Making Medical Screen Exam Complete: Yes Emergency Medical Condition: Yes Differential Diagnosis Alcohol intoxication versus metabolic derangement versus acute psychosis versus suicidal ideation Narrative Course 56-year-old gentleman with a history of alcoholism and bipolar disorder who presents today with complaints of suicidal ideation, continued alcohol abuse, and not been able to afford his psychiatric medications. Patient states that he has a plan to kill himself. When asked what his plan was he states he would jump off a bridge. Ironically, he gives history that he's jumped off a [place] bridge twice today. He also gave the same history yesterday when he was evaluated. Labs are pending at this time, I anticipate they will be within normal limits. He will be medically cleared for psychiatric evaluation. I did speak with the psych screener who stated that since he's been here some any times for same reasons, they would likely admit him. The patient is willing to come in voluntarily. He'll be signed out to Dr. Sangeeta Bustillo, physician replacing me at 7 PM. She will check on his labs and if within normal limits, he can then be cleared for psychiatric admission. Diagnosis Primary Impression: Alcohol-induced mood disorder Additional Impressions: Suicidal ideation Alcohol dependence Alcides Helms MD Aug 05, 2016 18:00
[2016-08-05 18:44] LABS: AUTOMATED NEUTROPHIL # 8.7 TH/MM3 (1.8-7.7); BASOPHIL # 0.1 TH/MM3 (0-0.2); BASOPHIL % 0.7 % (0.0-2.0); EOSINOPHIL # 0.4 TH/MM3 (0-0.4); EOSINOPHIL % 3.1 % (0.0-4.0); HEMATOCRIT 47.1 % (39.0-51.0); HEMO FLAGS DIFF FINAL; LYMPH % 22.9 % (9.0-44.0); LYMPHOCYTE # 3.1 TH/MM3 (1.0-4.8); MEAN CELL VOLUME 93.8 FL (80.0-100.0); MEAN CORPUSCULAR HEMOGLOBIN 32.3 PG (27.0-34.0); MEAN CORPUSCULAR HGB CONC 34.5 % (32.0-36.0); NEUT % 63.3 % (16.0-70.0); PLATELET COUNT 406 TH/MM3 (150-450); RED BLOOD COUNT 5.03 MIL/MM3 (4.50-5.90); RED CELL DISTRIBUTION WIDTH 14.5 % (11.6-17.2); WHITE BLOOD COUNT 13.7 TH/MM3 (4.0-11.0)
[2016-08-05 19:06] LABS: ANION GAP 13 MEQ/L (5-15); AST (GOT) 20 U/L (15-37); BICARBONATE 24.3 MEQ/L (21.0-32.0); BLOOD UREA NITROGEN 15 MG/DL (7-18); CHLORIDE 101 MEQ/L (98-107); GLOMERULAR FILTRATION RATE 82 ML/MIN (>89); POTASSIUM 3.7 MEQ/L (3.5-5.1); SODIUM (NA) 138 MEQ/L (136-145)
[2016-08-05 19:09] LABS: ALKALINE PHOSPHATASE 150 U/L (45-117); ALT (GPT) 32 U/L (12-78); TOTAL BILIRUBIN ADULT 0.2 MG/DL (0.2-1.0)
--- NOTE | 2016-08-05 19:17 | PD ---
Physical Exam Date Seen by Provider: Aug 05, 2016 Time Seen by Provider: 19:16 Narrative Accepted transfer of care from Dr. Helms Data Data Last Documented VS Vital Signs Date Time Temp Pulse Resp B/P Pulse Ox O2 Delivery O2 Flow Rate FiO2 08/06/16 02:15 94 18 133/73 97 Room Air 08/05/16 17:14 98.5 Orders Complete Blood Count With Diff (08/05/16 18:05) Comprehensive Metabolic Panel (08/05/16 18:05) Psych Screen (08/05/16 18:05) Drug Screen, Random Urine (08/05/16 18:05) Alcohol (Ethanol) (08/05/16 18:05) Diet Regular Basic (08/06/16 Breakfast) Labs Laboratory Tests Test 08/05/16 18:00 White Blood Count 13.7 TH/MM3 Red Blood Count 5.03 MIL/MM3 Hemoglobin 16.3 GM/DL Hematocrit 47.1 % Mean Corpuscular Volume 93.8 FL Mean Corpuscular Hemoglobin 32.3 PG Mean Corpuscular Hemoglobin 34.5 % Concent Red Cell Distribution Width 14.5 % Platelet Count 406 TH/MM3 Mean Platelet Volume 7.5 FL Neutrophils (%) (Auto) 63.3 % Lymphocytes (%) (Auto) 22.9 % Monocytes (%) (Auto) 10.0 % Eosinophils (%) (Auto) 3.1 % Basophils (%) (Auto) 0.7 % Neutrophils # (Auto) 8.7 TH/MM3 Lymphocytes # (Auto) 3.1 TH/MM3 Monocytes # (Auto) 1.4 TH/MM3 Eosinophils # (Auto) 0.4 TH/MM3 Basophils # (Auto) 0.1 TH/MM3 CBC Comment DIFF FINAL Differential Comment Sodium Level 138 MEQ/L Potassium Level 3.7 MEQ/L Chloride Level 101 MEQ/L Carbon Dioxide Level 24.3 MEQ/L Anion Gap 13 MEQ/L Blood Urea Nitrogen 15 MG/DL Creatinine 0.95 MG/DL Estimat Glomerular Filtration 82 ML/MIN Rate Random Glucose 75 MG/DL Calcium Level 8.9 MG/DL Total Bilirubin 0.2 MG/DL Aspartate Amino Transf 20 U/L (AST/SGOT) Alanine Aminotransferase 32 U/L (ALT/SGPT) Alkaline Phosphatase 150 U/L Total Protein 8.0 GM/DL Albumin 4.1 GM/DL Urine Opiates Screen NEG Urine Barbiturates Screen NEG Urine Amphetamines Screen NEG Urine Benzodiazepines Screen POS Urine Cocaine Screen NEG Urine Cannabinoids Screen NEG Ethyl Alcohol Level 220 MG/DL MDM Medical Record Reviewed: Yes Supervised Visit with BOB: No Interpretation(s) Alcohol level: 220, elevated Tox screen: Benzodiazepines CBC & BMP Diagram 08/05/16 18:00 Differential Diagnosis Please refer to Dr. Helms's dictation Narrative Course Accepted in transfer of care from Dr. Helms for follow-up of pending labs and medical clearance for psych screening Lab values grossly within normal range except for urine tox screen consistent with benzodiazepines and alcohol level 220; patient stable for psych screening evaluation medically cleared Diagnosis Primary Impression: Alcohol-induced mood disorder Additional Impressions: Alcohol dependence Suicidal ideation Sangeeta Bustillo MD Aug 05, 2016 19:17
[2016-08-05 19:18] LABS: AMPHETAMINE, URINE NEG (NEG); BARBITURATES, URINE NEG (NEG); COCAINE, URINE NEG (NEG)
[2016-08-05 20:10] VITALS: BP 113/69; PULSE 114; RESP 18; O2SAT 95
[2016-08-05 22:02] VITALS: BP 109/57; PULSE 108; RESP 19; O2SAT 96
[2016-08-06 02:15] VITALS: BP 133/73; PULSE 94; RESP 18; O2SAT 97
[2016-08-06 06:18] VITALS: BP 105/75; PULSE 93; RESP 18; O2SAT 96
[2016-08-06] MEDS ORDERED: chlordiazePOXIDE 25 MG CAP NG PRN (10:00)
[2016-08-06 11:00] VITALS: BP 124/87; PULSE 82; RESP 16; O2SAT 96
[2016-08-06 11:06] VITALS: BP 124/87; PULSE 82; RESP 16; O2SAT 96
== END 2016-08-06 15:36 | disposition home or self-care (01) ==
LOC: NEPC 17:12 → NEPJ 08-06 15:36
DX: F10.24 Alcohol dependence with alcohol-induced mood disorder (principal); R45.851 Suicidal ideations; E78.00 Pure hypercholesterolemia, unspecified; G47.30 Sleep apnea, unspecified; I25.2 Old myocardial infarction; Z72.0 Tobacco use; Z86.59 Personal history of other mental and behavioral disorders; Z86.2 Personal history of diseases of the blood and blood-forming organs and certain disorders involving the immune mechanism; Z87.09 Personal history of other diseases of the respiratory system; Z86.79 Personal history of other diseases of the circulatory system; Z87.19 Personal history of other diseases of the digestive system; Z87.39 Personal history of other diseases of the musculoskeletal system and connective tissue; Z86.69 Personal history of other diseases of the nervous system and sense organs
CPT/HCPCS: 80053; 80307; 85025; 99284

== ENCOUNTER 2016-08-14 15:09 | Emergency (ER) | payer MEDICARE, OTHER ==
[~2016-08-14] VITALS: Ht 165.1 cm; Wt 70.0 kg
[~2016-08-14 15:09] MED LIST changes: -BACT800T5 PO; -CEPH-460 PO
[2016-08-14 15:10] VITALS: BP 129/87; PULSE 107; RESP 16; TEMP 98.2; O2SAT 98
--- NOTE | 2016-08-14 15:30 | PD ---
HPI Chief Complaint: Psychiatric Symptoms Time Seen by Provider: 15:30 Travel History International Travel<30 days: No Contact w/Intl Traveler<30days: No Traveled to known affect area: No History of Present Illness HPI 56-year-old male with a history of COPD and alcohol abuse presents voluntarily to the emergency department for evaluation of depression. That patient states he tried to kill himself by jumping off the [employer] bridge yesterday but was not injured because he landed in the water and swam to the shore. He denies any other attempts to harm himself. He admits to drinking alcohol today. Denies drug use. Denies any ingestion of substances. States he does have some shortness of breath and feels like his COPD is a little worse today than usual. States he has not been using nebulizers like he is supposed to. Denies fever , chills, nausea, vomiting, chest pain, dizziness, abdominal pain. No other complaints. PFSH Past Medical History Hx Anticoagulant Therapy: No ADHD: Yes Anemia: Yes Arthritis: Yes (OSTEO) Asthma: Yes Autoimmune Disease: No Bipolar Disorder: Yes Anxiety: Yes Depression: Yes Cancer: No Cardiovascular Problems: Yes (2 [place] ) High Cholesterol: Yes Chemotherapy: Yes (2013) Chest Pain: Yes Congestive Heart Failure: No COPD: Yes Cerebrovascular Accident: Yes (2013) Coronary Artery Disease: Yes Diabetes: No Diminished Hearing: No Endocrine: No Gastrointestinal Disorders: Yes (Acid reflux) GERD: Yes Genitourinary: No Hypertension: No Immune Disorder: No Implanted Vascular Access Dvce: No Insomnia: Yes Musculoskeletal: Yes Neurologic: Yes Psychiatric: Yes Reproductive: No Respiratory: Yes (COPD) Immunizations Current: Yes Myocardial Infarction: Yes (PT REPORTS 2 VA) Schizophrenia: Yes Seizures: Yes Sleep Apnea: Yes Ulcer: No Tetanus Vaccination: < 5 Years Influenza Vaccination: No ?: Not Past Surgical History Coronary Stent: Yes Pacemaker: No Tonsillectomy: Yes Social History Alcohol Use: Yes (DAILY- LAST DRANK THIS MORNING) Tobacco Use: Yes (pk of cigars PER WEEK) Substance Use: No Allergies-Medications (Allergen,Severity, Reaction): Coded Allergies: Codeine (Verified Allergy, Mild, RASH, 08/05/16) *MDRO Multi-Drug Resistant Organism (Verified Adverse Reaction, Unknown, ) 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, 07/31/16) Reported Meds & Prescriptions Reported Meds & Active Scripts Active Reported Trazodone (Trazodone HCl) 50 Mg Tab 300 Mg PO HS Escitalopram (Escitalopram Oxalate) 10 Mg Tab 10 Mg PO DAILY Aripiprazole 5 Mg Tab 5 Mg PO DAILY Review of Systems Except as stated in HPI: all other systems reviewed are Neg Physical Exam Narrative GENERAL: Disheveled pleasant male patient in no acute distress. SKIN: Warm and dry. HEAD: Normocephalic and atraumatic. EYES: No injection, drainage, or hyphema noted. PERRLA. EOMI. ENT: No nasal drainage noted. Oropharynx is clear. NECK: Supple and the trachea is midline. CARDIOVASCULAR: Regular rate and rhythm. RESPIRATORY: Mild wheezes bilaterally. No accessory muscle use, rhonchi, or crackles. GASTROINTESTINAL: Abdomen is soft, non-tender, and nondistended. MUSCULOSKELETAL: No obvious deformities, swelling, cyanosis, or ecchymosis is present throughout the upper and lower extremities. Patient has full range of motion without any signs of neurovascular compromise. NEUROLOGICAL: Awake, alert, and oriented. Normal speech and gait. Cranial nerves are grossly intact. Data Data Last Documented VS Vital Signs Date Time Temp Pulse Resp B/P Pulse Ox O2 Delivery O2 Flow Rate FiO2 08/14/16 15:23 90 18 08/14/16 15:10 98.2 129/87 98 Orders Albuterol-Ipratropium Neb (Duoneb Neb) (08/14/16 15:30) Diet Regular Basic (08/14/16 Dinner) MDM Medical Decision Making Medical Screen Exam Complete: Yes Emergency Medical Condition: Yes Differential Diagnosis Alcohol abuse versus alcohol intoxication versus substance induced mood disorder versus COPD exacerbation Narrative Course 56-year-old male presents to the emergency department for evaluation of depression. Patient is afebrile, vital signs are stable. He is well known to our emergency department. He has been seen multiple times recently for alcohol intoxication and substance induced mood disorder. He has had multiple psych screens and evaluations, last one only 6 days ago. He ultimately needs to stop drinking alcohol. He does not meet lopez act criteria. He'll be given a few duonebs and a meal and will be monitored here while he sleeps off the alcohol. Once he is found clinically sober he is stable for discharge. Diagnosis Primary Impression: Alcohol dependence Qualified Code: F10.220 - Alcohol dependence with uncomplicated intoxication Angelina Fung Aug 14, 2016 15:30
--- NOTE | 2016-08-14 15:44 | PD ---
Data Data Last Documented VS Vital Signs Date Time Temp Pulse Resp B/P Pulse Ox O2 Delivery O2 Flow Rate FiO2 08/14/16 15:23 90 18 08/14/16 15:10 98.2 129/87 98 Orders Albuterol-Ipratropium Neb (Duoneb Neb) (08/14/16 15:30) Diet Regular Basic (08/14/16 Dinner) MDM Supervised Visit with BOB: Yes Narrative Course The history, exam, and medical decision-making in the associated midlevel provider note were completed with my assistance. I reviewed and agree with the findings presented. I attest that I had a [id number] encounter with the patient on the same day, and personally performed and documented my assessment and findings in the medical record. *My assessment and Findings: This is a 56-year-old male who has a history of alcohol abuse and frequently presents to the emergency department reporting that he jumped off of the [place] bridge. He says yesterday he jumped off of it twice. He says that he is a good swimmer. He gets very depressed when he is intoxicated and usually after he stays with us for a while he improves. I don't think labs would be high yield. Plan for observation until sobriety and reassessment. I don't think he meets Silver act criteria and I think his depression is largely related to alcohol intoxication. Diagnosis Primary Impression: Alcohol dependence Qualified Code: F10.220 - Alcohol dependence with uncomplicated intoxication Jayshree Ingram MD Aug 14, 2016 15:44
[2016-08-14] MEDS: RESP: ALBUTEROL 2.5 MG/IPRATROPIUM 0.5 MG NEB (SCH) INH (15:47)
[2016-08-15 00:10] VITALS: BP 108/62; PULSE 98; RESP 18; TEMP 98.1; O2SAT 98
== END 2016-08-15 06:05 | disposition home or self-care (01) ==
LOC: NEPC 15:09 → NEPA 08-15 06:05
DX: F10.220 Alcohol dependence with intoxication, uncomplicated (principal); J44.9 Chronic obstructive pulmonary disease, unspecified; F31.9 Bipolar disorder, unspecified; F41.8 Other specified anxiety disorders; E78.00 Pure hypercholesterolemia, unspecified; I25.10 Atherosclerotic heart disease of native coronary artery without angina pectoris; F20.9 Schizophrenia, unspecified; I25.2 Old myocardial infarction; F17.210 Nicotine dependence, cigarettes, uncomplicated
CPT/HCPCS: 94640; 94664; 99283

== ENCOUNTER 2016-09-09 18:27 | Emergency (ER) | payer MEDICARE, OTHER ==
[~2016-09-09] VITALS: Ht 165.1 cm; Wt 70.0 kg
[2016-09-09 18:30] VITALS: BP 102/59; PULSE 114; RESP 16; TEMP 98.1; O2SAT 95
[2016-09-09 18:51] VITALS: BP 102/66; PULSE 107; RESP 20; O2SAT 97
[2016-09-09] MEDS ORDERED: predniSONE 20 MG TAB PO ONE (19:00)
[2016-09-09] MEDS: RESP: ALBUTEROL 2.5 MG/IPRATROPIUM 0.5 MG NEB (SCH) INH (19:10)
[2016-09-09 19:13] VITALS: O2SAT 98
[2016-09-09 19:18] LABS: AUTOMATED NEUTROPHIL # 4.9 TH/MM3 (1.8-7.7); BASOPHIL # 0.1 TH/MM3 (0-0.2); BASOPHIL % 0.8 % (0.0-2.0); EOSINOPHIL # 0.3 TH/MM3 (0-0.4); EOSINOPHIL % 3.2 % (0.0-4.0); HEMATOCRIT 45.3 % (39.0-51.0); HEMO FLAGS DIFF FINAL; LYMPH % 21.1 % (9.0-44.0); LYMPHOCYTE # 1.8 TH/MM3 (1.0-4.8); MEAN CELL VOLUME 94.8 FL (80.0-100.0); MEAN CORPUSCULAR HGB CONC 33.8 % (32.0-36.0); MONO % 15.6 % (0.0-8.0); NEUT % 59.3 % (16.0-70.0); PLATELET COUNT 213 TH/MM3 (150-450); RED BLOOD COUNT 4.78 MIL/MM3 (4.50-5.90); RED CELL DISTRIBUTION WIDTH 15.3 % (11.6-17.2); WHITE BLOOD COUNT 8.3 TH/MM3 (4.0-11.0)
[2016-09-09 19:28] LABS: AMPHETAMINE, URINE NEG (NEG); BARBITURATES, URINE NEG (NEG); COCAINE, URINE NEG (NEG)
[2016-09-09 19:43] LABS: ALT (GPT) 51 U/L (12-78); ANION GAP 9 MEQ/L (5-15); AST (GOT) 24 U/L (15-37); BICARBONATE 23.6 MEQ/L (21.0-32.0); BLOOD UREA NITROGEN 14 MG/DL (7-18); CHLORIDE 105 MEQ/L (98-107); GLOMERULAR FILTRATION RATE 113 ML/MIN (>89); SODIUM (NA) 138 MEQ/L (136-145)
[2016-09-09 19:45] LABS: ALKALINE PHOSPHATASE 145 U/L (45-117); TOTAL BILIRUBIN ADULT 0.2 MG/DL (0.2-1.0)
[2016-09-09] MEDS ORDERED: ALBUAER3 INH (20:14)
[2016-09-09] MEDS ORDERED: PRED20 PO (20:14)
--- NOTE | 2016-09-09 20:14 | PD ---
HPI Chief Complaint: Suicide Ideation/Attempt Time Seen by Provider: 20:10 Travel History International Travel<30 days: No Contact w/Intl Traveler<30days: No Traveled to known affect area: No History of Present Illness HPI 56-year-old male that presents to the ED for evaluation of suicidal ideation. Patient comes here bone-cutting for evaluation of this. Patient has a chronic history of alcohol abuse and depression. Patient has been here multiple times for similar complaints. He does have a chronic history of COPD and continues to smoke. Patient does report some shortness of breath. No chest pain. He states that he is not compliant with his medications as he cannot afford them. States that he has no plan but he has attempted suicide in the past. No homicidal ideation. He has no doctor or psychiatrist outpatient. Allergies to codeine and history of MRSA. Symptoms appear to be moderate. Per patient his been worsening for the past couple days. PFSH Past Medical History Hx Anticoagulant Therapy: No ADHD: Yes Anemia: Yes Arthritis: Yes (OSTEO) Asthma: Yes Autoimmune Disease: No Bipolar Disorder: Yes Anxiety: Yes Depression: Yes Cancer: No Cardiovascular Problems: Yes (2 [place] ) High Cholesterol: Yes Chemotherapy: Yes (2013) Chest Pain: Yes Congestive Heart Failure: No COPD: Yes Cerebrovascular Accident: Yes (2013) Coronary Artery Disease: Yes Diabetes: No Diminished Hearing: No Endocrine: No Gastrointestinal Disorders: Yes (Acid reflux) GERD: Yes Genitourinary: No Hypertension: No Immune Disorder: No Implanted Vascular Access Dvce: No Insomnia: Yes Musculoskeletal: Yes Neurologic: Yes Psychiatric: Yes Reproductive: No Respiratory: Yes (COPD) Immunizations Current: Yes Myocardial Infarction: Yes (PT REPORTS 2 [place]) Schizophrenia: Yes Seizures: Yes Sleep Apnea: Yes Ulcer: No Tetanus Vaccination: < 5 Years Influenza Vaccination: Yes ?: Not Past Surgical History Coronary Stent: Yes Pacemaker: No Tonsillectomy: Yes Social History Alcohol Use: Yes (DAILY- LAST DRANK THIS MORNING) Tobacco Use: Yes (pk of cigars PER WEEK) Substance Use: No Allergies-Medications (Allergen,Severity, Reaction): Coded Allergies: Codeine (Verified Allergy, Mild, RASH, 08/05/16) *MDRO Multi-Drug Resistant Organism (Verified Adverse Reaction, Unknown, ) 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, 07/31/16) Reported Meds & Prescriptions Reported Meds & Active Scripts Active Reported Trazodone (Trazodone HCl) 50 Mg Tab 300 Mg PO HS Escitalopram (Escitalopram Oxalate) 10 Mg Tab 10 Mg PO DAILY Aripiprazole 5 Mg Tab 5 Mg PO DAILY Review of Systems Except as stated in HPI: all other systems reviewed are Neg Physical Exam Narrative GENERAL: SKIN: Warm and dry. HEAD: Atraumatic. Normocephalic. EYES: Pupils equal and round. No scleral icterus. No injection or drainage. ENT: No nasal bleeding or discharge. Mucous membranes pink and moist. Tongue is midline. No uvula deviation. NECK: Trachea midline. No JVD. CARDIOVASCULAR: Regular rate and rhythm. No murmurs, S3, S4. RESPIRATORY: No accessory muscle use. Mild wheezing heard with expiration in all lung [place].. Breath sounds equal bilaterally. GASTROINTESTINAL: Abdomen soft, non-tender, nondistended. Hepatic and splenic margins not palpable. MUSCULOSKELETAL: Extremities without clubbing, cyanosis, or edema. No obvious deformities. Full range of motion of the upper and lower extremities bilaterally. 2+ pulses bilaterally. Neurovascular intact. NEUROLOGICAL: Awake and alert. No obvious cranial nerve deficits. Motor grossly within normal limits. Five out of 5 muscle strength in the arms and legs. Normal speech. PSYCHIATRIC: depressed mood and affect; insight and judgment normal. Data Data Last Documented VS Vital Signs Date Time Temp Pulse Resp B/P Pulse Ox O2 Delivery O2 Flow Rate FiO2 09/09/16 19:13 98 09/09/16 18:51 107 20 102/66 Room Air 09/09/16 18:30 98.1 Orders Complete Blood Count With Diff (09/09/16 18:46) Comprehensive Metabolic Panel (09/09/16 18:46) Psych Screen (09/09/16 18:46) Drug Screen, Random Urine (09/09/16 18:46) Alcohol (Ethanol) (09/09/16 18:47) Prednisone (Deltasone) (09/09/16 19:00) Albuterol-Ipratropium Neb (Duoneb Neb) (09/09/16 19:00) Labs Laboratory Tests Test 09/09/16 09/09/16 18:15 18:58 Urine Opiates Screen NEG Urine Barbiturates Screen NEG Urine Amphetamines Screen NEG Urine Benzodiazepines Screen NEG Urine Cocaine Screen NEG Urine Cannabinoids Screen NEG White Blood Count 8.3 TH/MM3 Red Blood Count 4.78 MIL/MM3 Hemoglobin 15.3 GM/DL Hematocrit 45.3 % Mean Corpuscular Volume 94.8 FL Mean Corpuscular Hemoglobin 32.0 PG Mean Corpuscular Hemoglobin 33.8 % Concent Red Cell Distribution Width 15.3 % Platelet Count 213 TH/MM3 Mean Platelet Volume 8.4 FL Neutrophils (%) (Auto) 59.3 % Lymphocytes (%) (Auto) 21.1 % Monocytes (%) (Auto) 15.6 % Eosinophils (%) (Auto) 3.2 % Basophils (%) (Auto) 0.8 % Neutrophils # (Auto) 4.9 TH/MM3 Lymphocytes # (Auto) 1.8 TH/MM3 Monocytes # (Auto) 1.3 TH/MM3 Eosinophils # (Auto) 0.3 TH/MM3 Basophils # (Auto) 0.1 TH/MM3 CBC Comment DIFF FINAL Differential Comment Sodium Level 138 MEQ/L Potassium Level 4.0 MEQ/L Chloride Level 105 MEQ/L Carbon Dioxide Level 23.6 MEQ/L Anion Gap 9 MEQ/L Blood Urea Nitrogen 14 MG/DL Creatinine 0.72 MG/DL Estimat Glomerular Filtration 113 ML/MIN Rate Random Glucose 93 MG/DL Calcium Level 8.9 MG/DL Total Bilirubin 0.2 MG/DL Aspartate Amino Transf 24 U/L (AST/SGOT) Alanine Aminotransferase 51 U/L (ALT/SGPT) Alkaline Phosphatase 145 U/L Total Protein 7.6 GM/DL Albumin 3.9 GM/DL MDM Medical Decision Making Medical Screen Exam Complete: Yes Emergency Medical Condition: Yes Medical Record Reviewed: Yes Differential Diagnosis Depression versus suicidal ideation versus anxiety versus adjustment disorder versus mood disorder versus bipolar disorder versus schizophrenia versus paranoid disorder versus psychosis versus substance abuse versus alcohol abuse versus alcohol induced psychosis versus homicidality addition versus cutting versus personality disorder versus COPD exacerbation Narrative Course 56-year-old male that presents to the ED for vaginal psych. Patient was properly examined and was found to have signs and symptoms consistent with appears to be psychiatric evaluation. Patient was found to have some COPD exacerbation so he was given 2 breathing treatments as well as prednisone with good relief. Patient will be medically clear. Okay to be seen by psych. I will write prescription for albuterol inhaler as well as prednisone for the patient. Mental health screening was discussed with the patient. Diagnosis Primary Impression: Suicidal ideation Additional Impression: COPD (chronic obstructive pulmonary disease) Qualified Code: J44.1 - Chronic obstructive pulmonary disease with acute exacerbation Rodríguez Last Sep 09, 2016 20:14
[2016-09-09 21:48] VITALS: BP 119/68; PULSE 97; RESP 20; O2SAT 93
[2016-09-10 04:14] VITALS: BP 95/51; PULSE 88; RESP 14; O2SAT 94
[2016-09-10 09:45] VITALS: BP 165/100; PULSE 72; RESP 18; TEMP 98.5; O2SAT 97
== END 2016-09-10 11:09 | disposition home or self-care (01) ==
LOC: NEPE 18:27
DX: R45.851 Suicidal ideations (principal); J44.1 Chronic obstructive pulmonary disease with (acute) exacerbation; J45.909 Unspecified asthma, uncomplicated; F17.290 Nicotine dependence, other tobacco product, uncomplicated; Z79.899 Other long term (current) drug therapy
CPT/HCPCS: 80053; 80307; 85025; 94640; 94664; 99285; J7512

== ENCOUNTER 2016-09-12 13:17 | Emergency (ER) | payer MEDICARE, OTHER ==
[~2016-09-12 13:17] MED LIST changes: +ALBUAER3 INH; +PRED20 PO
[2016-09-12 13:25] VITALS: BP 118/69; PULSE 116; RESP 17; O2SAT 98
--- NOTE | 2016-09-12 13:47 | PD ---
HPI Chief Complaint: Psychiatric Symptoms Time Seen by Provider: 13:47 Travel History International Travel<30 days: No Contact w/Intl Traveler<30days: No Traveled to known affect area: No History of Present Illness HPI 56-year-old male presents to emergency Department voluntarily for psychiatric evaluation. Patient states chronic EtOH and suicidal ideation. Patient states he wants to jump off the bridge and reports that he jumped off twice with swelling and short twice. Patient states he cannot take his psych meds as he can't afford them. Patient denies any significant acute medical problems at this time. Patient has no fever, chills, or other complaints. Patient states he last ate 3 days ago. Patient states he had 4 beers today. Patient has a history of MRSA and allergies to codeine. PFSH Past Medical History Hx Anticoagulant Therapy: No ADHD: Yes Anemia: Yes Arthritis: Yes (OSTEO) Asthma: Yes Autoimmune Disease: No Bipolar Disorder: Yes Anxiety: Yes Depression: Yes Cancer: No Cardiovascular Problems: Yes High Cholesterol: Yes Chemotherapy: Yes (2013) Chest Pain: Yes Congestive Heart Failure: No COPD: Yes Cerebrovascular Accident: Yes (2013) Coronary Artery Disease: Yes Diabetes: Yes Diminished Hearing: No Endocrine: No Gastrointestinal Disorders: Yes (Acid reflux) GERD: Yes Genitourinary: No Hypertension: No Immune Disorder: No Implanted Vascular Access Dvce: No Insomnia: Yes Musculoskeletal: Yes Neurologic: Yes Psychiatric: Yes Reproductive: No Respiratory: Yes (COPD) Immunizations Current: Yes Myocardial Infarction: Yes (PT REPORTS 2 [place]) Schizophrenia: Yes Seizures: Yes Sleep Apnea: Yes Ulcer: No Past Surgical History Coronary Stent: Yes Pacemaker: No Tonsillectomy: Yes Social History Alcohol Use: Yes (DAILY- LAST DRANK THIS MORNING) Tobacco Use: Yes (pk of cigars PER WEEK) Substance Use: No Allergies-Medications (Allergen,Severity, Reaction): Coded Allergies: Codeine (Verified Allergy, Mild, RASH, 09/12/16) *MDRO Multi-Drug Resistant Organism (Verified Adverse Reaction, Unknown, ) 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, 07/31/16) Reported Meds & Prescriptions Reported Meds & Active Scripts Active Proair Hfa 8.5 GM Inh (Albuterol Sulfate) 90 Mcg/Act Aer 2 Puff INH Q4-6H PRN 108 mcg/actuation Prednisone 20 Mg Tab 20 Mg PO BID Reported Trazodone (Trazodone HCl) 50 Mg Tab 300 Mg PO HS Escitalopram (Escitalopram Oxalate) 10 Mg Tab 10 Mg PO DAILY Aripiprazole 5 Mg Tab 5 Mg PO DAILY Review of Systems ROS Limitations: Intoxication Except as stated in HPI: all other systems reviewed are Neg General / Constitutional: No: Fever Eyes: No: Visual changes HENT: No: Headaches Cardiovascular: No: Chest Pain or Discomfort Respiratory: No: Shortness of Breath Gastrointestinal: No: Abdominal Pain Genitourinary: No: Dysuria Musculoskeletal: No: Pain Skin: No Rash Neurologic: No: Weakness Psychiatric: No: Depression Endocrine: No: Polydipsia Hematologic/Lymphatic: No: Easy Bruising Physical Exam Exam Limitations: Intoxication Narrative GENERAL: Patient appears in no acute distress. SKIN: Warm and dry. Normal color. Normal turgor. No signs of trauma. HEAD: Atraumatic. Normocephalic. EYES: Pupils equal and round. No scleral icterus. No injection or drainage. ENT: No nasal bleeding or discharge. Mucous membranes pink and moist. Pharynx is clear. Airway is patent. NECK: Trachea midline. No JVD. Neck is supple and nontender. CARDIOVASCULAR: Regular rate and rhythm. No murmurs gallops or rubs. RESPIRATORY: No accessory muscle use. Clear to auscultation. Breath sounds equal bilaterally. GASTROINTESTINAL: Abdomen soft, non-tender, nondistended. Hepatic and splenic margins not palpable. MUSCULOSKELETAL: Extremities without clubbing, cyanosis, or edema. No obvious deformities. NEUROLOGICAL: Awake and alert. No obvious cranial nerve deficits. Motor grossly within normal limits. Five out of 5 muscle strength in the arms and legs. Normal speech. PSYCHIATRIC: Appropriate mood and affect; insight and judgment normal. Patient is sad and admittedly suicidal. Data Data Last Documented VS Vital Signs Date Time Temp Pulse Resp B/P Pulse Ox O2 Delivery O2 Flow Rate FiO2 09/12/16 13:52 98.1 100 18 115/67 97 Room Air Orders Complete Blood Count With Diff (09/12/16 13:51) Comprehensive Metabolic Panel (09/12/16 13:51) Psych Screen (09/12/16 13:51) Drug Screen, Random Urine (09/12/16 13:51) Alcohol (Ethanol) (09/12/16 13:51) Diet Regular Basic (09/12/16 Lunch) Chlordiazepoxide (Librium) (09/12/16 14:00) Alcohol Withdrawal Asmt-Ciwa Q4HX18 (09/12/16 13:56) Flumazenil Inj (Romazicon Inj) (09/12/16 14:00) Lorazepam (Ativan) (09/12/16 14:00) Lorazepam Inj (Ativan Inj) (09/12/16 14:00) Lorazepam (Ativan) (09/12/16 14:00) Lorazepam Inj (Ativan Inj) (09/12/16 14:00) Lorazepam Inj (Ativan Inj) (09/12/16 14:00) Lorazepam Inj (Ativan Inj) (09/12/16 14:00) Labs Laboratory Tests Test 09/12/16 13:55 White Blood Count 7.1 TH/MM3 Red Blood Count 4.76 MIL/MM3 Hemoglobin 15.6 GM/DL Hematocrit 44.9 % Mean Corpuscular Volume 94.5 FL Mean Corpuscular Hemoglobin 32.8 PG Mean Corpuscular Hemoglobin 34.7 % Concent Red Cell Distribution Width 14.7 % Platelet Count 300 TH/MM3 Mean Platelet Volume 7.8 FL Neutrophils (%) (Auto) 41.6 % Lymphocytes (%) (Auto) 33.1 % Monocytes (%) (Auto) 22.6 % Eosinophils (%) (Auto) 1.3 % Basophils (%) (Auto) 1.4 % Neutrophils # (Auto) 2.9 TH/MM3 Lymphocytes # (Auto) 2.3 TH/MM3 Monocytes # (Auto) 1.6 TH/MM3 Eosinophils # (Auto) 0.1 TH/MM3 Basophils # (Auto) 0.1 TH/MM3 CBC Comment DIFF FINAL Differential Comment Sodium Level 139 MEQ/L Potassium Level 3.7 MEQ/L Chloride Level 104 MEQ/L Carbon Dioxide Level 24.6 MEQ/L Anion Gap 10 MEQ/L Blood Urea Nitrogen 9 MG/DL Creatinine 0.74 MG/DL Estimat Glomerular Filtration 109 ML/MIN Rate Random Glucose 89 MG/DL Calcium Level 8.4 MG/DL Total Bilirubin 0.2 MG/DL Aspartate Amino Transf 29 U/L (AST/SGOT) Alanine Aminotransferase 41 U/L (ALT/SGPT) Alkaline Phosphatase 159 U/L Total Protein 7.6 GM/DL Albumin 3.9 GM/DL Urine Opiates Screen NEG Urine Barbiturates Screen NEG Urine Amphetamines Screen NEG Urine Benzodiazepines Screen NEG Urine Cocaine Screen NEG Urine Cannabinoids Screen NEG Ethyl Alcohol Level 271 MG/DL [facility] Medical Decision Making Medical Screen Exam Complete: Yes Emergency Medical Condition: Yes Differential Diagnosis EtOH abuse. Alcohol-induced mood disorder. Suicidal ideation. Alcohol intoxication. Narrative Course Patient is medically stable at time of exam. Labs ordered per psychiatric protocol. Patient is given 25 mg Librium by mouth. CIWA protocol is ordered. Regular meals ordered times one. Labs are all within normal limits. Patient is medically clear for psychiatric evaluation. Diagnosis Primary Impression: Medical clearance for psychiatric admission Additional Impressions: Alcohol-induced mood disorder Bipolar 1 disorder, depressed, moderate Suicidal ideation Condition: Stable Dariel Demarco Sep 12, 2016 13:47
[2016-09-12 13:52] VITALS: BP 115/67; PULSE 100; RESP 18; TEMP 98.1; O2SAT 97
[2016-09-12] MEDS ORDERED: LORazepam 2 MG/ML VIAL IV PUSH PRN ×4 (14:00)
[2016-09-12] MEDS ORDERED: FLUMAZENIL 0.5 MG/5 ML VIAL IV PUSH PRN (14:00)
[2016-09-12] MEDS ORDERED: chlordiazePOXIDE 25 MG CAP PO PRN (14:00)
[2016-09-12] MEDS ORDERED: LORazepam 2 MG TAB PO PRN (14:00)
[2016-09-12 14:14] LABS: AUTOMATED NEUTROPHIL # 2.9 TH/MM3 (1.8-7.7); BASOPHIL # 0.1 TH/MM3 (0-0.2); BASOPHIL % 1.4 % (0.0-2.0); EOSINOPHIL # 0.1 TH/MM3 (0-0.4); EOSINOPHIL % 1.3 % (0.0-4.0); HEMATOCRIT 44.9 % (39.0-51.0); HEMO FLAGS DIFF FINAL; LYMPH % 33.1 % (9.0-44.0); LYMPHOCYTE # 2.3 TH/MM3 (1.0-4.8); MEAN CELL VOLUME 94.5 FL (80.0-100.0); MEAN CORPUSCULAR HEMOGLOBIN 32.8 PG (27.0-34.0); MEAN CORPUSCULAR HGB CONC 34.7 % (32.0-36.0); MONO % 22.6 % (0.0-8.0); NEUT % 41.6 % (16.0-70.0); PLATELET COUNT 300 TH/MM3 (150-450); RED BLOOD COUNT 4.76 MIL/MM3 (4.50-5.90); RED CELL DISTRIBUTION WIDTH 14.7 % (11.6-17.2); WHITE BLOOD COUNT 7.1 TH/MM3 (4.0-11.0)
[2016-09-12 14:25] LABS: ALT (GPT) 41 U/L (12-78); AMPHETAMINE, URINE NEG (NEG); ANION GAP 10 MEQ/L (5-15); AST (GOT) 29 U/L (15-37); BARBITURATES, URINE NEG (NEG); BICARBONATE 24.6 MEQ/L (21.0-32.0); BLOOD UREA NITROGEN 9 MG/DL (7-18); CHLORIDE 104 MEQ/L (98-107); COCAINE, URINE NEG (NEG); GLOMERULAR FILTRATION RATE 109 ML/MIN (>89); POTASSIUM 3.7 MEQ/L (3.5-5.1); SODIUM (NA) 139 MEQ/L (136-145)
[2016-09-12 14:28] LABS: ALKALINE PHOSPHATASE 159 U/L (45-117); TOTAL BILIRUBIN ADULT 0.2 MG/DL (0.2-1.0)
[2016-09-12 18:30] VITALS: BP 104/62; PULSE 100; RESP 18
[2016-09-12 20:35] VITALS: PULSE 110; RESP 20; O2SAT 92
[2016-09-12] MEDS: LORazepam 1 MG TAB PO PRN (20:42)
[2016-09-12] MEDS ORDERED: RESP: ALBUTEROL 2.5 MG/IPRATROPIUM 0.5 MG NEB (SCH) NEB ONE (20:45)
[2016-09-12] MEDS ORDERED: RESP: ALBUTEROL 2.5 MG/IPRATROPIUM 0.5 MG NEB (PRN) NEB (20:45)
[2016-09-12] MEDS ORDERED: predniSONE 20 MG TAB PO ONE (20:45)
[2016-09-12 22:18] VITALS: BP 101/57; PULSE 109; RESP 16; O2SAT 99
[2016-09-13] MEDS: LORazepam 1 MG TAB PO PRN (06:12)
[2016-09-13 06:29] VITALS: BP 105/70; PULSE 94; RESP 20
--- NOTE | 2016-09-13 11:58 | PD.CONS ---
Provisional Diagnosis Admission Date Gile I. Alcohol induced mood disorder, alcohol used disorder Gile II. deferred History of Present Illness Service Psychiatry Consult Requested By Primary Care Physician Nicole Rose MD HPI The patient is a 56 years old man, homeless, single, unemployed, very well known for our service due to his frequent ER visits with alcohol related problems, psychiatric history of bipolar disorder, previous hospitalizations, previous suicidal gestures, extensive history of alcohol use disorder, medical history of COPD, who was brought under Silver act to the ER with suicidal ideation in the context of alcohol intoxication. Today patient was seen in the ER for psychiatric evaluation, he was clinically sober, calm, cooperative and pleasant. He is stays that last night when he came to the he was drunk, he says that his problem is alcohol he is aware of that. He denies suicidal or homicidal ideation, he denies visual and auditory hallucinations. He denies depression, anxiety, perceptual disturbances. No delusions, paranoia, agitation , aggressive behavior observed. Patient denies withdrawal symptoms of this moment. He seems to be future oriented, in a good mood, logical, coherent and relevant.. He reports daily use of alcohol, denies other illicit drugs. Review of Systems Constitutional: DENIES: Diaphoretic episodes, Fatigue, Fever, Weight gain, Weight loss, Chills, Dizziness, Change in appetite, Night Sweats Endocrine: DENIES: Heat/cold intolerance, Polydipsia, Polyuria, Polyphagia Eyes: DENIES: Blurred vision, Diplopia, Eye inflammation, Eye pain, Vision loss , Photosensitivity, Double Vision Ears, nose, mouth, throat: DENIES: Tinnitus, Hearing loss, Vertigo, Nasal discharge, Oral lesions, Throat pain, Hoarseness, Ear Pain, Running Nose, Epistaxis, Sinus Pain, Toothache, Odynophagia Respiratory: DENIES: Apneas, Cough, Snoring, Wheezing, Hemoptysis, Sputum production, Shortness of breath Cardiovascular: DENIES: Chest pain, Palpitations, Syncope, Dyspnea on Exertion , PND, Lower Extremity Edema, Orthopnea, Claudication Gastrointestinal: DENIES: Abdominal pain, Black stools, Bloody stools, Constipation, Diarrhea, Nausea, Vomiting, Difficulty Swallowing, Anorexia Musculoskeletal: DENIES: Joint pain, Muscle aches, Stiffness, Joint Swelling, Back pain, Neck pain Integumentary: DENIES: Abnormal pigmentation, Nail changes, Pruritus, Rash Hematologic/lymphatic: DENIES: Bruising, Lymphadenopathy Immunologic/allergic: DENIES: Eczema, Urticaria Neurologic: DENIES: Abnormal gait, Headache, Localized weakness, Paresthesias, Seizures, Speech Problems, Tremor, Poor Balance Psychiatric: DENIES: Anxiety, Confusion, Mood changes, Depression, Hallucinations, Agitation, Suicidal Ideation, Homicidal Ideation, Delusions Past Family Social History Coded Allergies: Codeine (Verified Allergy, Mild, RASH, 09/12/16) *MDRO Multi-Drug Resistant Organism (Verified Adverse Reaction, Unknown, ) 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, 07/31/16) Active Scripts Albuterol 8.5 GM Inh (Proair Hfa 8.5 GM Inh)90 Mcg/Act Aer2 Puff INH Q4-6H PRN ( SHORTNESS OF BREATH) #1 INHALER 108 mcg/actuation Prov:Annette Terrazas MD 09/09/16 Prednisone 20 Mg Tab20 Mg PO BID #10 TAB Prov:Annette Terrazas MD 09/09/16 Reported Medications Trazodone 50 Mg [id number] Mg PO HS Ref 0 05/28/16 Escitalopram 10 Mg Tab10 Mg PO DAILY Ref 0 05/28/16 Aripiprazole 5 Mg Tab5 Mg PO DAILY Ref 0 05/28/16 Family History Denies Social History The patient is homeless, no family, unemployed, single, level of education is 10th grade Physical Exam NO EPS or withdrawal present Vital Signs Vital Signs Date Time Temp Pulse Resp B/P Pulse Ox O2 Delivery O2 Flow Rate FiO2 09/13/16 06:29 94 20 105/70 09/12/16 22:18 99 Room Air 09/12/16 13:52 98.1 Mental Status Examination Appearance Patient is calm and cooperative Speech: Unremarkable Orientation: x3 Memory: Unremarkable Thought Process: Logical Thought Content: Unremarkable Hallucination Type: None Previous Suicide Attempts: Yes Homicidal Ideation: No Previous Homicide Attempts: No Affect: Good Mood: Appropriate Motor Activity: Normal gait Assessment & Plan Problem List: (1) Alcohol-induced mood disorder Assessment & Plan: On psychiatric evaluation today patient does not have any evidence of significant objective or subjective depression, anxiety, psychosis, he denies suicidal or homicidal ideation, he denies visual and auditory hallucinations. No he is clinically sober. No withdrawal symptomatology, paranoia, delusions, agitation, aggressive behavior observed or reported. He is well known by service, he usually endorses suicidal ideation in the context of alcohol intoxication, but once sober he requested his discharge. At this moment he doesn't meet criteria for psychiatric admission. Silver act will be lifted. Referral for detox program offered to the patient, he declined. Support, motivation, psycho patient provided. ICD Code: F10.94 Assessment & Plan Estimated LOS: Jayy Aguirre MD Sep 13, 2016 11:58
== END 2016-09-13 08:49 | disposition home or self-care (01) ==
LOC: NEPE 13:17 → NEPJ 09-13 08:49
DX: Z02.89 Encounter for other administrative examinations (principal); F10.94 Alcohol use, unspecified with alcohol-induced mood disorder; F31.89 Other bipolar disorder; R45.851 Suicidal ideations; E11.9 Type 2 diabetes mellitus without complications; E78.00 Pure hypercholesterolemia, unspecified; Z72.0 Tobacco use; Z86.59 Personal history of other mental and behavioral disorders; Z86.2 Personal history of diseases of the blood and blood-forming organs and certain disorders involving the immune mechanism; Z87.39 Personal history of other diseases of the musculoskeletal system and connective tissue; Z87.09 Personal history of other diseases of the respiratory system; Z86.79 Personal history of other diseases of the circulatory system; Z87.19 Personal history of other diseases of the digestive system; Z86.69 Personal history of other diseases of the nervous system and sense organs
CPT/HCPCS: 80053; 80307; 85025; 94664; 99284; J7512

== ENCOUNTER 2016-09-13 14:14 | Emergency (ER) | payer MEDICARE, OTHER ==
[~2016-09-13] VITALS: Ht 157.5 cm; Wt 62.0 kg
[2016-09-13 14:15] VITALS: BP 152/81; PULSE 101; RESP 16; TEMP 98; O2SAT 96
[2016-09-13 17:00] VITALS: BP 132/67; PULSE 99; RESP 18; TEMP 97.9; O2SAT 96
[2016-09-13] MEDS ORDERED: RESP: ALBUTEROL 2.5 MG/IPRATROPIUM 0.5 MG NEB (SCH) INH ONE (18:00)
--- NOTE | 2016-09-13 18:00 | PD ---
HPI Chief Complaint: Psychiatric Symptoms Time Seen by Provider: 18:00 Travel History International Travel<30 days: No Contact w/Intl Traveler<30days: No Traveled to known affect area: No History of Present Illness HPI 56-year-old male presents to the emergency Department voluntarily for psychiatric evaluation. Patient is well-known to the emergency department. He reports that he drank 4 beers earlier today. He states he has been thinking about suicide. He reports jumping [place] the [place] twice about one month ago. He denies any attempts since. He does have history of COPD. He has no medical complaints at this time. PFSH Past Medical History Hx Anticoagulant Therapy: No ADHD: Yes Anemia: Yes Arthritis: Yes Asthma: Yes Autoimmune Disease: No Bipolar Disorder: Yes Anxiety: Yes Depression: Yes Cancer: No Cardiac Catheterization: Yes Cardiovascular Problems: Yes High Cholesterol: Yes Chemotherapy: Yes Chest Pain: Yes Congestive Heart Failure: No COPD: Yes Cerebrovascular Accident: Yes Coronary Artery Disease: Yes Diabetes: Yes Diminished Hearing: No Endocrine: No Gastrointestinal Disorders: Yes (Acid reflux) GERD: Yes Genitourinary: No Hypertension: No Immune Disorder: No Implanted Vascular Access Dvce: No Insomnia: Yes Musculoskeletal: Yes Neurologic: Yes Psychiatric: Yes Reproductive: No Respiratory: Yes (COPD) Immunizations Current: Yes Myocardial Infarction: Yes Schizophrenia: Yes Seizures: Yes Sleep Apnea: Yes Ulcer: No Past Surgical History Coronary Stent: Yes Pacemaker: No Tonsillectomy: Yes Social History Alcohol Use: Yes (DAILY- LAST DRANK THIS MORNING) Tobacco Use: Yes (pk of cigars PER WEEK) Substance Use: No (CHRONIC ALCOHOL ABUSE) Allergies-Medications (Allergen,Severity, Reaction): Coded Allergies: Codeine (Verified Allergy, Mild, RASH, 09/12/16) *MDRO Multi-Drug Resistant Organism (Verified Adverse Reaction, Unknown, ) 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, 07/31/16) Reported Meds & Prescriptions Reported Meds & Active Scripts Active Proair Hfa 8.5 GM Inh (Albuterol Sulfate) 90 Mcg/Act Aer 2 Puff INH Q4-6H PRN 108 mcg/actuation Prednisone 20 Mg Tab 20 Mg PO BID Reported Trazodone (Trazodone HCl) 50 Mg Tab 300 Mg PO HS Escitalopram (Escitalopram Oxalate) 10 Mg Tab 10 Mg PO DAILY Aripiprazole 5 Mg Tab 5 Mg PO DAILY Review of Systems Except as stated in HPI: all other systems reviewed are Neg Physical Exam Narrative GENERAL: Unkempt male patient, ambulatory. Afebrile. SKIN: Focused skin assessment warm/dry. HEAD: Normocephalic. Atraumatic. EYES: No scleral icterus. No injection or drainage. NECK: Supple, trachea midline. No JVD or lymphadenopathy. CARDIOVASCULAR: Regular rate and rhythm without murmurs, gallops, or rubs. RESPIRATORY: Breath sounds equal bilaterally. No accessory muscle use. Lungs sounds with expiratory wheezes noted. GASTROINTESTINAL: Abdomen soft, non-tender, nondistended. MUSCULOSKELETAL: No cyanosis, or edema. PSYCHIATRIC: No delusional thought processes. No hallucinations. Data Data Last Documented VS Vital Signs Date Time Temp Pulse Resp B/P Pulse Ox O2 Delivery O2 Flow Rate FiO2 09/13/16 17:00 97.9 99 18 132/67 96 Room Air Orders Diet Regular Basic (09/13/16 Dinner) Albuterol-Ipratropium Neb (Duoneb Neb) (09/13/16 18:00) MDM Medical Decision Making Medical Screen Exam Complete: Yes Emergency Medical Condition: Yes Medical Record Reviewed: Yes Differential Diagnosis Depression versus anxiety versus alcohol-induced mood disorder versus bipolar disorder versus malingering Narrative Course 56-year-old male presents to the emergency Department voluntarily for psychiatric evaluation. Patient was seen yesterday labs were completed. I did review these labs. CBC showed no acute abnormality. CMP showed elevated alkaline phosphatase at 159, no acute abnormality. Urine drug screen was negative. Patient is given DuoNeb 1. Patient is medically cleared for psychiatric screening and disposition. Mental health screening discussed with the patient. Psychiatric screen ordered. Diagnosis Primary Impression: Alcohol-induced mood disorder Additional Instructions: Patient is medically cleared for psychiatric screening and disposition. Condition: Stable Louise Alvarez Sep 13, 2016 18:00
[2016-09-13 22:05] VITALS: BP 115/73; PULSE 95; RESP 20; O2SAT 97
[2016-09-14 02:02] VITALS: BP 123/79; PULSE 82; RESP 18
[2016-09-14 06:33] VITALS: BP 124/86; PULSE 82; RESP 18
[2016-09-14 09:37] VITALS: BP 148/94; PULSE 87; RESP 17; O2SAT 96
--- NOTE | 2016-09-14 11:28 | PD ---
History of Present Illness Chief Complaint: Psychiatric Symptoms Time Seen by Provider: 11:00 Travel History International Travel<30 Days: No Contact w/Intl Traveler<30days: No Known affected area: No Legal Status Legal Status: Voluntary History of Present Illness: This is a 56-year-old male, with a long history of alcohol use/abuse who apparently became intoxicated yesterday and threatened to jump off a bridge. The patient states he was sober for the last 3 weeks until someone came by and had a case of beer to share with him. Today he is no longer intoxicated and denies being suicidal, homicidal or psychotic. He is verbally darren for safety. His cognition is completely intact and felt to be baseline. This physician reviewed the emergency department record from this visit and previous visits. Patient does admit to a history of alcoholism but also states he has been sober for 2 years straight at one point. Is this physician's opinion that his primary problem is alcohol abuse and he was once again encouraged to stop drinking and go to AA meetings. He does not show signs of major depression or other major mental illnesses at this point. PFSH Past Medical History Hx Anticoagulant Therapy: No Arthritis: Yes Asthma: Yes Autoimmune Disease: No Anxiety: Yes Depression: Yes Cancer: No Cardiac Catheterization: Yes Cardiovascular Problems: Yes High Cholesterol: Yes Congestive Heart Failure: No COPD: Yes Diabetes: Yes Diminished Hearing: No Endocrine: No Gastrointestinal Disorders: Yes (Acid reflux) GERD: Yes Genitourinary: No Hypertension: No Immune Disorder: No Implanted Vascular Access Dvce: No Insomnia: Yes Musculoskeletal: Yes Neurologic: Yes Psychiatric: Yes Reproductive: No Respiratory: Yes (COPD) Immunizations Current: Yes Myocardial Infarction: Yes Schizophrenia: Yes Seizures: Yes Sleep Apnea: Yes Ulcer: No Past Surgical History Coronary Stent: Yes Pacemaker: No Tonsillectomy: Yes Psychiatric History Psychiatric History Hx Psychiatric Treatment: Pt has been seen several times at [facility] for simular presentation, ETOH with suicidal ideations of jumping from a bridge. This physician does not believe the patient suffers from significant depression or mood disorder. History of Inpatient Treatment: Yes Guns or firearms in home: No Social History Hx Alcohol Use: Yes (DAILY- LAST DRANK THIS MORNING) Hx Tobacco Use: Yes (pk of cigars PER WEEK) Hx Substance Use: No (CHRONIC ALCOHOL ABUSE) Substance Use Type: Alcohol, Nicotine/Cigarettes Other Substances Used: CUT BACK ON DRINKING Hx of Substance Use Treatment: Yes Allergies-Medications (Allergen,Severity, Reaction): Coded Allergies: Codeine (Verified Allergy, Mild, RASH, 09/12/16) *MDRO Multi-Drug Resistant Organism (Verified Adverse Reaction, Unknown, ) 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, 07/31/16) Reported Meds & Prescriptions Reported Meds & Active Scripts Active Proair Hfa 8.5 GM Inh (Albuterol Sulfate) 90 Mcg/Act Aer 2 Puff INH Q4-6H PRN 108 mcg/actuation Prednisone 20 Mg Tab 20 Mg PO BID Reported Trazodone (Trazodone HCl) 50 Mg Tab 300 Mg PO HS Escitalopram (Escitalopram Oxalate) 10 Mg Tab 10 Mg PO DAILY Aripiprazole 5 Mg Tab 5 Mg PO DAILY Review of Systems ROS Limitations: Clinical Condition Except as stated in HPI: all other systems reviewed are Neg Exam Exam Limitations: Clinical Condition Alert: Yes [place]: Person, Place, Date, Situation Mood: Calm Affect: Appropriate Speech: Clear, Logical Eye Contact: Normal Memory Intact: Immediate, Recent, Remote Insight/Judgement Adequate MDM Medical Decision Making Medical Record Reviewed: Yes Assessment/Plan Patient does not meet criteria for a Silver act or involuntary psychiatric hospitalization. After review of records and interviewing the patient, he is free to leave per his request. He was encouraged to stop drinking and attend AA meetings. Orders Diet Regular Basic (09/13/16 Dinner) Albuterol-Ipratropium Neb (Duoneb Neb) (09/13/16 18:00) Diet Regular Basic (09/14/16 Breakfast) Diet Regular Basic (09/14/16 Lunch) Results Vital Signs Date Time Temp Pulse Resp B/P Pulse Ox O2 Delivery O2 Flow Rate FiO2 09/14/16 09:37 87 17 148/94 96 Room Air 09/14/16 06:33 82 18 124/86 09/14/16 02:02 82 18 123/79 09/13/16 22:05 95 20 115/73 97 Room Air 09/13/16 17:00 97.9 99 18 132/67 96 Room Air 09/13/16 15:00 101 16 09/13/16 14:15 98.0 101 16 152/81 96 Diagnosis Primary Impression: Alcohol abuse Additional Instructions: Patient is medically cleared for psychiatric screening and disposition. Condition: Stable Noah Mihcael MD Sep 14, 2016 11:10
== END 2016-09-14 12:35 | disposition home or self-care (01) ==
LOC: NEPJ 14:14
DX: F10.94 Alcohol use, unspecified with alcohol-induced mood disorder (principal); J44.9 Chronic obstructive pulmonary disease, unspecified; F90.9 Attention-deficit hyperactivity disorder, unspecified type; J45.909 Unspecified asthma, uncomplicated; F41.9 Anxiety disorder, unspecified; Z86.73 Personal history of transient ischemic attack (TIA), and cerebral infarction without residual deficits; I25.2 Old myocardial infarction; G47.30 Sleep apnea, unspecified; F17.200 Nicotine dependence, unspecified, uncomplicated
CPT/HCPCS: 94664; 99283

== ENCOUNTER 2016-09-16 13:35 | Emergency (ER) | payer MEDICARE, OTHER ==
--- NOTE | 2016-09-16 13:42 | PD ---
HPI Chief Complaint: ba Time Seen by Provider: 13:42 Travel History International Travel<30 days: No Contact w/Intl Traveler<30days: No Traveled to known affect area: No History of Present Illness HPI 56-year-old male with long-standing history of alcohol abuse and bipolar disorder presents to the emergency department under a Silver act for evaluation of suicidal ideations. Patient reports his plan is to jump in front of traffic. Patient has had previous suicide attempts. He's been seen here several times in [facility] department. States that he has consumed one 16 ounce beer today. Denies any other symptoms at this time. PFSH Past Medical History Hx Anticoagulant Therapy: No Arthritis: Yes Asthma: Yes Autoimmune Disease: No Anxiety: Yes Depression: Yes Cancer: No Cardiac Catheterization: Yes Cardiovascular Problems: Yes High Cholesterol: Yes Congestive Heart Failure: No COPD: Yes Diabetes: Yes Diminished Hearing: No Endocrine: No Gastrointestinal Disorders: Yes (Acid reflux) GERD: Yes Genitourinary: No Hypertension: No Immune Disorder: No Implanted Vascular Access Dvce: No Insomnia: Yes Musculoskeletal: Yes Neurologic: Yes Psychiatric: Yes Reproductive: No Respiratory: Yes (COPD) Immunizations Current: Yes Myocardial Infarction: Yes Schizophrenia: Yes Seizures: Yes Sleep Apnea: Yes Ulcer: No Past Surgical History Coronary Stent: Yes Pacemaker: No Tonsillectomy: Yes Social History Alcohol Use: Yes (DAILY- LAST DRANK THIS MORNING) Tobacco Use: Yes (pk of cigars PER WEEK) Substance Use: No (CHRONIC ALCOHOL ABUSE) Allergies-Medications (Allergen,Severity, Reaction): Coded Allergies: Codeine (Verified Allergy, Mild, RASH, 09/12/16) *MDRO Multi-Drug Resistant Organism (Verified Adverse Reaction, Unknown, ) 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, 07/31/16) Reported Meds & Prescriptions Reported Meds & Active Scripts Active Proair Hfa 8.5 GM Inh (Albuterol Sulfate) 90 Mcg/Act Aer 2 Puff INH Q4-6H PRN 108 mcg/actuation Prednisone 20 Mg Tab 20 Mg PO BID Reported Trazodone (Trazodone HCl) 50 Mg Tab 300 Mg PO HS Escitalopram (Escitalopram Oxalate) 10 Mg Tab 10 Mg PO DAILY Aripiprazole 5 Mg Tab 5 Mg PO DAILY Review of Systems Except as stated in HPI: all other systems reviewed are Neg Physical Exam Narrative GENERAL: Unkempt male patient, ambulatory no acute distress SKIN: Focused skin assessment warm/dry. HEAD: Atraumatic. Normocephalic. EYES: Pupils equal and round. No scleral icterus. No injection or drainage. ENT: No nasal bleeding or discharge. Mucous membranes pink and moist. NECK: Trachea midline. No JVD. CARDIOVASCULAR: Regular rate and rhythm. No murmur appreciated. RESPIRATORY: No accessory muscle use. Clear to auscultation. Breath sounds equal bilaterally. GASTROINTESTINAL: Abdomen soft, non-tender, nondistended. Hepatic and splenic margins not palpable. MUSCULOSKELETAL: No obvious deformities. No clubbing. No cyanosis. No edema. NEUROLOGICAL: Awake and alert. No obvious cranial nerve deficits. Motor grossly within normal limits. Normal speech. Data Data Last Documented VS Vital Signs Date Time Temp Pulse Resp B/P Pulse Ox O2 Delivery O2 Flow Rate FiO2 09/16/16 18:33 97.9 90 18 123/68 95 Room Air Orders Psych Screen (09/16/16 13:46) Diet Regular Basic (09/16/16 Dinner) Drug Screen, Random Urine (09/16/16 16:24) Alcohol (Ethanol) (09/16/16 16:26) Labs Laboratory Tests Test 09/16/16 09/16/16 15:51 15:52 Ethyl Alcohol Level 138 MG/DL Urine Opiates Screen NEG Urine Barbiturates Screen NEG Urine Amphetamines Screen NEG Urine Benzodiazepines Screen NEG Urine Cocaine Screen NEG Urine Cannabinoids Screen POS [facility] Medical Decision Making Medical Screen Exam Complete: Yes Emergency Medical Condition: Yes Medical Record Reviewed: Yes Differential Diagnosis Mood disorder versus personality disorder versus adjustment reaction disorder Narrative Course 56-year-old male presents to emergency department under a Silver act for psychiatric evaluation. Patient appears without distress. Vital signs are stable. Lab work was done this week and without acute concern. He is medically cleared to undergo psychiatric screening for further evaluation and disposition. Mental health screening discussed with the patient. Psychiatric screen ordered. Diagnosis Primary Impression: History of bipolar disorder Additional Impression: Suicidal ideation Condition: Stable Gina Pelaez Sep 16, 2016 13:42
[2016-09-16 14:47] VITALS: BP 117/74; PULSE 83; RESP 18; O2SAT 95
[2016-09-16 18:33] VITALS: BP 123/68; PULSE 90; RESP 18; TEMP 97.9; O2SAT 95
[2016-09-16 18:39] LABS: AMPHETAMINE, URINE NEG (NEG); BARBITURATES, URINE NEG (NEG)
[2016-09-16 18:47] LABS: COCAINE, URINE NEG (NEG)
[2016-09-16 19:30] VITALS: RESP 18; O2SAT 95
[2016-09-16 22:00] VITALS: BP 111/68; PULSE 84; RESP 19; O2SAT 95
[2016-09-17 02:00] VITALS: BP 127/81; PULSE 75; RESP 19; O2SAT 99
[2016-09-17 06:35] VITALS: BP 134/76; PULSE 89; RESP 19; O2SAT 98
--- NOTE | 2016-09-17 10:44 | PD ---
History of Present Illness Chief Complaint: Psychiatric Symptoms Time Seen by Provider: 10:00 Travel History International Travel<30 Days: No Contact w/Intl Traveler<30days: No Known affected area: No Legal Status Legal Status: Silver Act Silver Act Signed By: Rubina Silver Act Comment: BA signed by:Rubina OLIVARES, Ailyn Mark#[id number], Case#[id number] History of Present Illness: This is a 56-year-old alcoholic who is well known to this physician and the staff in the psychiatric emergency department. Apparently he drank beer once again, yesterday at a [employer] store. The patient has provided this same history to this physician previously. At this time he is claiming he is not suicidal, homicidal and demonstrates no psychotic thinking. He would like to be released and this physician does not feel he meets Silver act criteria. He does not meet inpatient psychiatric criteria due to the nature of his alcohol abuse. PFSH Past Medical History Hx Anticoagulant Therapy: No Arthritis: Yes Asthma: Yes Autoimmune Disease: No Anxiety: Yes Depression: Yes Cancer: No Cardiac Catheterization: Yes Cardiovascular Problems: Yes High Cholesterol: Yes Congestive Heart Failure: No COPD: Yes Diabetes: Yes Diminished Hearing: No Endocrine: No Gastrointestinal Disorders: Yes (Acid reflux) GERD: Yes Genitourinary: No Hypertension: No Immune Disorder: No Implanted Vascular Access Dvce: No Insomnia: Yes Musculoskeletal: Yes Neurologic: Yes Psychiatric: Yes Reproductive: No Respiratory: Yes (COPD) Immunizations Current: Yes Myocardial Infarction: Yes Schizophrenia: Yes Seizures: Yes Sleep Apnea: Yes Ulcer: No Past Surgical History Coronary Stent: Yes Pacemaker: No Tonsillectomy: Yes Psychiatric History Psychiatric History Hx Psychiatric Treatment: Pt has been seen several times at [facility] [place] [place] for simular presentation, ETOH with suicidal ideations of jumping from a bridge. This physician does not believe the patient suffers from significant depression or mood disorder. History of Inpatient Treatment: Yes Social History Hx Alcohol Use: Yes (DAILY- LAST DRANK THIS MORNING) Hx Tobacco Use: Yes (pk of cigars PER WEEK) Hx Substance Use: No (CHRONIC ALCOHOL ABUSE) Substance Use Type: Alcohol, Nicotine/Cigarettes Other Substances Used: CUT BACK ON DRINKING Hx of Substance Use Treatment: Yes Allergies-Medications (Allergen,Severity, Reaction): Coded Allergies: Codeine (Verified Allergy, Mild, RASH, 09/12/16) *MDRO Multi-Drug Resistant Organism (Verified Adverse Reaction, Unknown, ) 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, 07/31/16) Reported Meds & Prescriptions Reported Meds & Active Scripts Active Proair Hfa 8.5 GM Inh (Albuterol Sulfate) 90 Mcg/Act Aer 2 Puff INH Q4-6H PRN 108 mcg/actuation Prednisone 20 Mg Tab 20 Mg PO BID Reported Trazodone (Trazodone HCl) 50 Mg Tab 300 Mg PO HS Escitalopram (Escitalopram Oxalate) 10 Mg Tab 10 Mg PO DAILY Aripiprazole 5 Mg Tab 5 Mg PO DAILY Review of Systems ROS Limitations: Clinical Condition Exam Exam Limitations: Clinical Condition Alert: Yes [place]: Person, Place, Date, Situation Mood: Calm Affect: Appropriate Speech: Clear, Logical Eye Contact: Normal Memory Intact: Immediate, Recent, Remote Insight/Judgement Adequate except for his use of alcohol. [facility] Medical Decision Making Medical Record Reviewed: Yes Assessment/Plan Patient's Silver act is being lifted and he is being discharged per his request. He does not meet criteria for Silver act or for inpatient psychiatric hospitalization. He was once more reminded that he is an alcoholic and that he needs to stop drinking. Orders Psych Screen (09/16/16 13:46) Diet Regular Basic (09/16/16 Dinner) Drug Screen, Random Urine (09/16/16 16:24) Alcohol (Ethanol) (09/16/16 16:26) Diet Diabetic (09/17/16 Breakfast) Results Vital Signs Date Time Temp Pulse Resp B/P Pulse Ox O2 Delivery O2 Flow Rate FiO2 09/17/16 06:42 89 19 09/17/16 06:35 89 19 134/76 98 Room Air 09/17/16 02:00 75 19 127/81 99 Room Air 09/16/16 22:00 84 19 111/68 95 Room Air 09/16/16 19:30 18 95 09/16/16 18:33 97.9 90 18 123/68 95 Room Air 09/16/16 14:47 83 18 117/74 95 Room Air Laboratory Tests Test 09/16/16 09/16/16 15:51 15:52 Ethyl Alcohol Level 138 Urine Opiates Screen NEG Urine Barbiturates Screen NEG Urine Amphetamines Screen NEG Urine Benzodiazepines Screen NEG Urine Cocaine Screen NEG Urine Cannabinoids Screen POS Diagnosis Primary Impression: Alcohol abuse Condition: Noah Estrada MD Sep 17, 2016 10:44
== END 2016-09-17 11:53 | disposition home or self-care (01) ==
LOC: NEDAMB 13:35 → NEPJ 09-17 11:53
DX: F31.9 Bipolar disorder, unspecified (principal); F10.10 Alcohol abuse, uncomplicated; F41.8 Other specified anxiety disorders; F20.9 Schizophrenia, unspecified; G47.30 Sleep apnea, unspecified; F12.90 Cannabis use, unspecified, uncomplicated; Z72.0 Tobacco use; Y90.6 Blood alcohol level of 120-199 mg/100 ml
CPT/HCPCS: 80307; 99283

== ENCOUNTER 2016-09-20 13:45 | Emergency (ER) | payer MEDICARE, OTHER ==
[~2016-09-20] VITALS: Ht 165.1 cm; Wt 75.0 kg
[2016-09-20 13:48] VITALS: BP 120/84; PULSE 120; RESP 20; TEMP 98.6; O2SAT 90
--- NOTE | 2016-09-20 14:06 | PD ---
HPI Chief Complaint: Psychiatric Symptoms Time Seen by Provider: 13:58 Travel History International Travel<30 days: No Contact w/Intl Traveler<30days: No Traveled to known affect area: No History of Present Illness HPI Patient is a 56-year-old male who is brought to the ER by police officers as patient reports that he drank a pint of vodka today and felt suicidal. Patient reports that he confessed to the police officers that he felt suicidal as he missed his , reports that he lives in the [facility] and his lives in [facility]. Reports that he felt suicidal - reports no plans for suicide. Denies hi. Denies use of drugs. PFSH Past Medical History Hx Anticoagulant Therapy: No Arthritis: Yes Asthma: Yes Autoimmune Disease: No Anxiety: Yes Depression: Yes Cancer: No Cardiac Catheterization: Yes Cardiovascular Problems: Yes High Cholesterol: Yes Congestive Heart Failure: No COPD: Yes Diabetes: Yes Diminished Hearing: No Endocrine: No Gastrointestinal Disorders: Yes (Acid reflux) GERD: Yes Genitourinary: No Hypertension: No Immune Disorder: No Implanted Vascular Access Dvce: No Insomnia: Yes Musculoskeletal: Yes Neurologic: Yes Psychiatric: Yes Reproductive: No Respiratory: Yes (COPD) Immunizations Current: Yes Myocardial Infarction: Yes Schizophrenia: Yes Seizures: Yes Sleep Apnea: Yes Ulcer: No Past Surgical History Coronary Stent: Yes Pacemaker: No Tonsillectomy: Yes Social History Alcohol Use: Yes (DAILY- LAST DRANK THIS MORNING) Tobacco Use: Yes (pk of cigars PER WEEK) Substance Use: No (CHRONIC ALCOHOL ABUSE) Allergies-Medications (Allergen,Severity, Reaction): Coded Allergies: Codeine (Verified Allergy, Mild, RASH, 09/20/16) *MDRO Multi-Drug Resistant Organism (Verified Adverse Reaction, Unknown, ) 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, 07/31/16) Reported Meds & Prescriptions Reported Meds & Active Scripts Active Reported Trazodone (Trazodone HCl) 50 Mg Tab 300 Mg PO HS Review of Systems General / Constitutional: No: Fever Eyes: No: Visual changes HENT: No: Headaches Cardiovascular: No: Chest Pain or Discomfort Respiratory: No: Shortness of Breath Gastrointestinal: No: Abdominal Pain Genitourinary: No: Dysuria Musculoskeletal: No: Pain Skin: No Rash Neurologic: No: Weakness Psychiatric: Positive: Suicidal Ideations, Substance Abuse, No: Depression Endocrine: No: Polydipsia Hematologic/Lymphatic: No: Easy Bruising Physical Exam Narrative GENERAL: No acute distress, nontoxic, pleasantly intoxicated SKIN: Focused skin assessment warm/dry. HEAD: Atraumatic. Normocephalic. EYES: Pupils equal and round. No scleral icterus. No injection or drainage. ENT: No nasal bleeding or discharge. Mucous membranes pink and moist. NECK: Trachea midline. No JVD. CARDIOVASCULAR: Regular rate and rhythm. No murmur appreciated. RESPIRATORY: No accessory muscle use. Clear to auscultation. Breath sounds equal bilaterally. GASTROINTESTINAL: Abdomen soft, non-tender, nondistended. Hepatic and splenic margins not palpable. MUSCULOSKELETAL: No obvious deformities. No clubbing. No cyanosis. No edema. NEUROLOGICAL: Awake and alert. No obvious cranial nerve deficits. Motor grossly within normal limits. Normal speech. PSYCHIATRIC: Patient intoxicated, patient with suicidal ideations, denies homicidal idealations Data Data Last Documented VS Vital Signs Date Time Temp Pulse Resp B/P Pulse Ox O2 Delivery O2 Flow Rate FiO2 09/20/16 14:00 16 09/20/16 13:48 98.6 120 120/84 90 Room Air Orders Complete Blood Count With Diff (09/20/16 14:02) Comprehensive Metabolic Panel (09/20/16 14:02) Ecg Monitoring (09/20/16 14:02) Psych Screen (09/20/16 14:02) Drug Screen, Random Urine (09/20/16 14:02) Alcohol (Ethanol) (09/20/16 14:02) Labs Laboratory Tests Test 09/20/16 14:00 White Blood Count 7.9 TH/MM3 Red Blood Count 4.84 MIL/MM3 Hemoglobin 16.0 GM/DL Hematocrit 45.2 % Mean Corpuscular Volume 93.4 FL Mean Corpuscular Hemoglobin 33.1 PG Mean Corpuscular Hemoglobin 35.4 % Concent Red Cell Distribution Width 15.0 % Platelet Count 359 TH/MM3 Mean Platelet Volume 7.0 FL Neutrophils (%) (Auto) 52.4 % Lymphocytes (%) (Auto) 36.3 % Monocytes (%) (Auto) 6.3 % Eosinophils (%) (Auto) 3.6 % Basophils (%) (Auto) 1.4 % Neutrophils # (Auto) 4.1 TH/MM3 Lymphocytes # (Auto) 2.8 TH/MM3 Monocytes # (Auto) 0.5 TH/MM3 Eosinophils # (Auto) 0.3 TH/MM3 Basophils # (Auto) 0.1 TH/MM3 CBC Comment DIFF FINAL Differential Comment Sodium Level 144 MEQ/L Potassium Level 4.0 MEQ/L Chloride Level 109 MEQ/L Carbon Dioxide Level 25.3 MEQ/L Anion Gap 10 MEQ/L Blood Urea Nitrogen 5 MG/DL Creatinine 0.64 MG/DL Estimat Glomerular Filtration 129 ML/MIN Rate Random Glucose 85 MG/DL Calcium Level 8.4 MG/DL Total Bilirubin 0.2 MG/DL Aspartate Amino Transf 19 U/L (AST/SGOT) Alanine Aminotransferase 23 U/L (ALT/SGPT) Alkaline Phosphatase 159 U/L Total Protein 7.2 GM/DL Albumin 3.6 GM/DL Ethyl Alcohol Level 298 MG/DL [place] Medical Decision Making Medical Screen Exam Complete: Yes Emergency Medical Condition: Yes Interpretation(s) Vital Signs Date Time Temp Pulse Resp B/P Pulse Ox O2 Delivery O2 Flow Rate FiO2 09/20/16 14:00 16 09/20/16 13:48 98.6 120 20 120/84 90 Room Air Differential Diagnosis Suicidal ideations, alcoholism, acute alcohol intoxication, bipolar disorder, electrolyte abnormality Narrative Course Patient is a 56-year-old male who is brought to emergency room by police officers for evaluation of suicidal ideations. Patient reports that he drink a pint of vodka today and turned himself and has he had suicidal ideations. Patient reports that he is depressed as he misses his who lives and [place]. Patient denies use of any drugs, reports that he only uses alcohol. Patient denies homicidal evaluation. Tox screens ordered, plan to monitor patient, once sober, we'll have patient seen by psychiatric screeners. Diagnosis Primary Impression: Alcohol dependence Additional Impressions: Alcohol intoxication Suicidal ideation Referrals: [facility] Patient Instructions: General Instructions Additional Instructions: Please drink responsibly Follow-up with your primary care doctor in 2-3 days Please follow-up with the [facility] Return to emergency room as needed Donna Da Silva DO Sep 20, 2016 14:06
[2016-09-20 14:19] LABS: AUTOMATED NEUTROPHIL # 4.1 TH/MM3 (1.8-7.7); BASOPHIL # 0.1 TH/MM3 (0-0.2); BASOPHIL % 1.4 % (0.0-2.0); EOSINOPHIL # 0.3 TH/MM3 (0-0.4); EOSINOPHIL % 3.6 % (0.0-4.0); HEMATOCRIT 45.2 % (39.0-51.0); HEMO FLAGS DIFF FINAL; LYMPH % 36.3 % (9.0-44.0); LYMPHOCYTE # 2.8 TH/MM3 (1.0-4.8); MEAN CELL VOLUME 93.4 FL (80.0-100.0); MEAN CORPUSCULAR HEMOGLOBIN 33.1 PG (27.0-34.0); MEAN CORPUSCULAR HGB CONC 35.4 % (32.0-36.0); MONO % 6.3 % (0.0-8.0); NEUT % 52.4 % (16.0-70.0); PLATELET COUNT 359 TH/MM3 (150-450); RED BLOOD COUNT 4.84 MIL/MM3 (4.50-5.90); WHITE BLOOD COUNT 7.9 TH/MM3 (4.0-11.0)
[2016-09-20 14:40] LABS: ANION GAP 10 MEQ/L (5-15)
[2016-09-20 14:43] LABS: ALKALINE PHOSPHATASE 159 U/L (45-117); ALT (GPT) 23 U/L (12-78); AST (GOT) 19 U/L (15-37); BICARBONATE 25.3 MEQ/L (21.0-32.0); BLOOD UREA NITROGEN 5 MG/DL (7-18); CHLORIDE 109 MEQ/L (98-107); GLOMERULAR FILTRATION RATE 129 ML/MIN (>89); SODIUM (NA) 144 MEQ/L (136-145); TOTAL BILIRUBIN ADULT 0.2 MG/DL (0.2-1.0)
== END 2016-09-20 16:09 | disposition left against medical advice (07) ==
LOC: NEPC 13:45
DX: F10.229 Alcohol dependence with intoxication, unspecified (principal); Y90.8 Blood alcohol level of 240 mg/100 ml or more; Z79.899 Other long term (current) drug therapy
CPT/HCPCS: 80053; 80307; 85025; 99284

== ENCOUNTER 2016-10-08 16:23 | Emergency (ER) | payer MEDICARE, OTHER ==
[~2016-10-08 16:23] MED LIST changes: -ALBUAER3 INH; -ARIP1TAB11 PO; -ESCI10TA PO; -PRED20 PO
[2016-10-08 16:25] VITALS: BP 111/68; PULSE 108; RESP 20; TEMP 98.8; O2SAT 94
[2016-10-08] MEDS ORDERED: ONDANSETRON ODT 4 MG TAB PO PRN (17:30)
[2016-10-08] MEDS ORDERED: LORazepam 2 MG/ML VIAL IV PUSH PRN ×4 (17:30)
[2016-10-08] MEDS ORDERED: LORazepam 1 MG TAB PO PRN (17:30)
[2016-10-08] MEDS ORDERED: FLUMAZENIL 0.5 MG/5 ML VIAL IV PUSH PRN (17:30)
[2016-10-08] MEDS ORDERED: LORazepam 2 MG TAB PO PRN (17:30)
[2016-10-08 17:43] VITALS: BP 113/69; PULSE 89; RESP 18; TEMP 98.9; O2SAT 95
[2016-10-08] MEDS ORDERED: predniSONE 20 MG TAB PO ONE (18:15)
[2016-10-08] MEDS: RESP: ALBUTEROL 2.5 MG/IPRATROPIUM 0.5 MG NEB (SCH) INH ×2 (18:15→18:30)
[2016-10-08 18:29] LABS: AUTOMATED NEUTROPHIL # 9.8 TH/MM3 (1.8-7.7); BASOPHIL # 0.2 TH/MM3 (0-0.2); BASOPHIL % 1.5 % (0.0-2.0); EOSINOPHIL # 0.9 TH/MM3 (0-0.4); EOSINOPHIL % 5.8 % (0.0-4.0); HEMO FLAGS DIFF FINAL; LYMPH % 18.5 % (9.0-44.0); LYMPHOCYTE # 2.8 TH/MM3 (1.0-4.8); MEAN CELL VOLUME 93.7 FL (80.0-100.0); MEAN CORPUSCULAR HEMOGLOBIN 31.6 PG (27.0-34.0); MEAN CORPUSCULAR HGB CONC 33.7 % (32.0-36.0); MONO % 10.3 % (0.0-8.0); NEUT % 63.9 % (16.0-70.0); PLATELET COUNT 291 TH/MM3 (150-450); RED BLOOD COUNT 4.49 MIL/MM3 (4.50-5.90); RED CELL DISTRIBUTION WIDTH 14.5 % (11.6-17.2); WHITE BLOOD COUNT 15.4 TH/MM3 (4.0-11.0)
[2016-10-08 18:38] LABS: AMPHETAMINE, URINE NEG (NEG); BARBITURATES, URINE NEG (NEG); COCAINE, URINE NEG (NEG)
--- NOTE | 2016-10-08 18:48 | RADRPT ---
EXAM DATE/TIME: 10/08/2016 18:28 [place] COMPARISON: CHEST SINGLE AP, June 23, 2016, 16:19. INDICATIONS : Short of breath, chest pain. MEDICAL HISTORY : Chronic obstructive pulmonary disease. SURGICAL HISTORY : None. ENCOUNTER: Initial ACUITY: 1 day PAIN SCORE: 2/10 LOCATION: Bilateral chest FINDINGS: There is minimal streaky parenchymal opacity at the left lung base. No evidence of effusion. Cardiac contours are satisfactory. Healed posterolateral right rib fractures again noted. CONCLUSION: Slight parenchymal opacity the left lung base Santhosh Crespo MD on October 08, 2016 at 18:45 Board Certified Radiologist. This report was verified electronically.
[2016-10-08 18:52] LABS: ANION GAP 9 MEQ/L (5-15)
[2016-10-08 18:55] LABS: ALKALINE PHOSPHATASE 137 U/L (45-117); ALT (GPT) 26 U/L (12-78); AST (GOT) 23 U/L (15-37); BICARBONATE 29.6 MEQ/L (21.0-32.0); BLOOD UREA NITROGEN 22 MG/DL (7-18); CHLORIDE 99 MEQ/L (98-107); GLOMERULAR FILTRATION RATE 79 ML/MIN (>89); POTASSIUM 3.8 MEQ/L (3.5-5.1); SODIUM (NA) 138 MEQ/L (136-145); TOTAL BILIRUBIN ADULT 0.3 MG/DL (0.2-1.0)
[2016-10-08] MEDS ORDERED: AZIT250T3 PO (18:57)
[2016-10-08] MEDS ORDERED: PRED20 PO (18:57)
[2016-10-08] MEDS ORDERED: ALBUAER3 INH (18:58)
[2016-10-08] MEDS ORDERED: AZITHROMYCIN 250 MG TAB PO ONE (19:00)
--- NOTE | 2016-10-08 19:17 | PD ---
HPI Chief Complaint: Psychiatric Symptoms Time Seen by Provider: 19:11 Travel History International Travel<30 days: No Contact w/Intl Traveler<30days: No Traveled to known affect area: No History of Present Illness HPI 56-year-old male that presents to the ED for evaluation of psych. Patient has a chronic history depression and suicidal ideation and alcohol abuse. Patient comes here frequently and is well known to staff. Patient does have a history of COPD. Patient states that he has some shortness of breath for the past couple of days. Patient also tells me that he drank today. He denies any chest pain. He states having some mild shortness of breath. He states that he has an inhaler but he lost it. He has an allergy to MRSA and codeine. No abdominal pain. No nausea or vomiting. No urinary or bowel movement issues. Symptoms ongoing for a couple of days. Apparently patient was found near a street trying to walk into traffic. Police brought him here but he was not Silver acted. He came here voluntarily. PFSH Past Medical History Hx Anticoagulant Therapy: No Arthritis: Yes Asthma: Yes Autoimmune Disease: No Anxiety: Yes Depression: Yes Cancer: No Cardiac Catheterization: Yes Cardiovascular Problems: Yes High Cholesterol: Yes Congestive Heart Failure: No COPD: Yes Diabetes: Yes Diminished Hearing: No Endocrine: No Gastrointestinal Disorders: Yes (Acid reflux) GERD: Yes Genitourinary: No Hypertension: No Immune Disorder: No Implanted Vascular Access Dvce: No Insomnia: Yes Musculoskeletal: Yes Neurologic: Yes Psychiatric: Yes Reproductive: No Respiratory: Yes (COPD) Immunizations Current: Yes Myocardial Infarction: Yes Schizophrenia: Yes Seizures: Yes Sleep Apnea: Yes Ulcer: No Past Surgical History Coronary Stent: Yes Pacemaker: No Tonsillectomy: Yes Social History Alcohol Use: Yes (DAILY- LAST DRANK THIS MORNING) Tobacco Use: Yes (pk of cigars PER WEEK) Substance Use: No (CHRONIC ALCOHOL ABUSE) Allergies-Medications (Allergen,Severity, Reaction): Coded Allergies: Codeine (Verified Allergy, Mild, RASH, 09/20/16) *MDRO Multi-Drug Resistant Organism (Verified Adverse Reaction, Unknown, ) 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, 07/31/16) Reported Meds & Prescriptions Reported Meds & Active Scripts Active Proair Hfa 8.5 GM Inh (Albuterol Sulfate) 90 Mcg/Act Aer 2 Puff INH Q4-6H PRN 108 mcg/actuation Prednisone 20 Mg Tab 20 Mg PO BID Azithromycin 250 Mg Tab 250 Mg PO DIRECTED Take 2 tabs (500 mg) on day 1 then 1 tab daily x 4 days. Reported Trazodone (Trazodone HCl) 50 Mg Tab 300 Mg PO HS Review of Systems Except as stated in HPI: all other systems reviewed are Neg Physical Exam Narrative GENERAL: SKIN: Warm and dry. HEAD: Atraumatic. Normocephalic. EYES: Pupils equal and round. No scleral icterus. No injection or drainage. ENT: No nasal bleeding or discharge. Mucous membranes pink and moist. Tongue is midline. No uvula deviation. NECK: Trachea midline. No JVD. CARDIOVASCULAR: Regular rate and rhythm. No murmurs, S3, S4. RESPIRATORY: No accessory muscle use. Mild wheezing heard in all lung [place].. Breath sounds equal bilaterally. GASTROINTESTINAL: Abdomen soft, non-tender, nondistended. Hepatic and splenic margins not palpable. MUSCULOSKELETAL: Extremities without clubbing, cyanosis, or edema. No obvious deformities. Full range of motion of the upper and lower extremities bilaterally. 2+ pulses bilaterally. NEUROLOGICAL: Awake and alert. No obvious cranial nerve deficits. Motor grossly within normal limits. Five out of 5 muscle strength in the arms and legs. Normal speech. PSYCHIATRIC: Appropriate mood and affect; insight and judgment normal. Data Data Last Documented VS Vital Signs Date Time Temp Pulse Resp B/P Pulse Ox O2 Delivery O2 Flow Rate FiO2 10/08/16 17:43 98.9 89 18 113/69 95 Room Air Orders Diet Regular Basic (10/08/16 Dinner) Psych Screen (10/08/16 16:56) Alcohol Withdrawal Asmt-Ciwa ONCE (10/08/16 17:27) Ondansetron Odt (Zofran Odt) (10/08/16 17:30) Flumazenil Inj (Romazicon Inj) (10/08/16 17:30) Lorazepam (Ativan) (10/08/16 17:30) Lorazepam Inj (Ativan Inj) (10/08/16 17:30) Lorazepam (Ativan) (10/08/16 17:30) Lorazepam Inj (Ativan Inj) (10/08/16 17:30) Lorazepam Inj (Ativan Inj) (10/08/16 17:30) Lorazepam Inj (Ativan Inj) (10/08/16 17:30) Complete Blood Count With Diff (10/08/16 17:27) Comprehensive Metabolic Panel (10/08/16 17:27) Psych Screen (10/08/16 17:27) Drug Screen, Random Urine (10/08/16 17:27) Alcohol (Ethanol) (10/08/16 17:27) Chest, Single Ap (10/08/16 18:11) Prednisone (Deltasone) (10/08/16 18:15) Albuterol-Ipratropium Neb (Duoneb Neb) (10/08/16 18:15) Ceftriaxone Inj (Rocephin Inj) (10/08/16 19:00) Azithromycin (Zithromax) (10/08/16 19:00) Labs Laboratory Tests Test 10/08/16 10/08/16 18:05 18:08 White Blood Count 15.4 TH/MM3 Red Blood Count 4.49 MIL/MM3 Hemoglobin 14.2 GM/DL Hematocrit 42.0 % Mean Corpuscular Volume 93.7 FL Mean Corpuscular Hemoglobin 31.6 PG Mean Corpuscular Hemoglobin 33.7 % Concent Red Cell Distribution Width 14.5 % Platelet Count 291 TH/MM3 Mean Platelet Volume 7.8 FL Neutrophils (%) (Auto) 63.9 % Lymphocytes (%) (Auto) 18.5 % Monocytes (%) (Auto) 10.3 % Eosinophils (%) (Auto) 5.8 % Basophils (%) (Auto) 1.5 % Neutrophils # (Auto) 9.8 TH/MM3 Lymphocytes # (Auto) 2.8 TH/MM3 Monocytes # (Auto) 1.6 TH/MM3 Eosinophils # (Auto) 0.9 TH/MM3 Basophils # (Auto) 0.2 TH/MM3 CBC Comment DIFF FINAL Differential Comment Sodium Level 138 MEQ/L Potassium Level 3.8 MEQ/L Chloride Level 99 MEQ/L Carbon Dioxide Level 29.6 MEQ/L Anion Gap 9 MEQ/L Blood Urea Nitrogen 22 MG/DL Creatinine 0.98 MG/DL Estimat Glomerular Filtration 79 ML/MIN Rate Random Glucose 102 MG/DL Calcium Level 8.9 MG/DL Total Bilirubin 0.3 MG/DL Aspartate Amino Transf 23 U/L (AST/SGOT) Alanine Aminotransferase 26 U/L (ALT/SGPT) Alkaline Phosphatase 137 U/L Total Protein 7.2 GM/DL Albumin 3.7 GM/DL Ethyl Alcohol Level LESS THAN 3 MG/DL Urine Opiates Screen NEG Urine Barbiturates Screen NEG Urine Amphetamines Screen NEG Urine Benzodiazepines Screen NEG Urine Cocaine Screen NEG Urine Cannabinoids Screen NEG MDM Medical Decision Making Medical Screen Exam Complete: Yes Emergency Medical Condition: Yes Medical Record Reviewed: Yes Interpretation(s) Last Impressions Chest X-Ray 10/08/16 1811 Signed Impressions: Service Date/Time: , October 08, 2016 18:28 - CONCLUSION: Slight parenchymal opacity the left lung base Santhosh Crespo MD CBC & BMP Diagram 10/08/16 18:05 LFTS WNL tox negative Differential Diagnosis COPD exacerbation versus pneumonia versusDepression versus suicidal ideation versus anxiety versus adjustment disorder versus mood disorder versus bipolar disorder versus schizophrenia versus paranoid disorder versus psychosis versus substance abuse versus alcohol abuse versus alcohol induced psychosis versus homicidality addition versus cutting versus personality disorder Narrative Course 56-year-old male that presents to the ED for evaluation of psych. Patient was properly examined and was found to have signs and symptoms consistent with appears to psychiatric illness. Patient does have a history of COPD was found to have some shortness of breath as well as wheezing on examination. Patient was given breathing treatments here and prednisone as well as antibiotics after chest x-ray and labs show slight leukocytosis with possible pneumonia on the left lung. Case was discussed in my attending Dr. Kirby who agrees with outpatient treatment for the pneumonia with azithromycin, pro-air and prednisone. Patient will be medically clear. Okay to be seen by psych. Mental health screening was discussed with the patient. Diagnosis Primary Impression: Alcohol-induced mood disorder Additional Impressions: COPD (chronic obstructive pulmonary disease) Qualified Code: J44.1 - Chronic obstructive pulmonary disease with acute exacerbation Pneumonia Qualified Code: J18.1 - Pneumonia of left lower lobe due to infectious organism Scripts Albuterol 8.5 GM Inh (Proair Hfa 8.5 GM Inh)90 Mcg/Act Aer2 Puff INH Q4-6H PRN ( SHORTNESS OF BREATH) #1 INHALER 108 mcg/actuation Prov:Tesha Kirby MD 10/08/16 Prednisone 20 Mg Tab20 Mg PO BID #10 TAB Prov:Tesha Kirby MD 10/08/16 Azithromycin 250 Mg [id number] Mg PO DIRECTED #6 TAB Take 2 tabs (500 mg) on day 1 then 1 tab daily x 4 days. Prov:Tesha Kirby MD 10/08/16 Rodríguez Last October 08, 2016 19:17
[2016-10-08] MEDS: RESP: ALBUTEROL 2.5 MG/3 ML NEB (SCH) NEB (22:00)
[2016-10-09 02:25] VITALS: BP 97/54; PULSE 84; RESP 19; O2SAT 96
[2016-10-09] MEDS: RESP: ALBUTEROL 2.5 MG/3 ML NEB (SCH) NEB (03:18)
[2016-10-09 06:00] VITALS: BP 117/63; PULSE 88; RESP 19; O2SAT 96
== END 2016-10-09 08:20 | disposition home or self-care (01) ==
LOC: NEPJ 16:23
DX: F10.94 Alcohol use, unspecified with alcohol-induced mood disorder (principal); J44.1 Chronic obstructive pulmonary disease with (acute) exacerbation; J18.1 Lobar pneumonia, unspecified organism; Z72.0 Tobacco use
CPT/HCPCS: 71010; 80053; 80307; 85025; 94640; 94664; 96372; 99285; J0696; J7512; J7613

== ENCOUNTER 2016-10-12 11:14 | Emergency (ER) | payer MEDICARE, OTHER ==
[~2016-10-12 11:14] MED LIST changes: +ALBUAER3 INH; +AZIT250T3 PO; +PRED20 PO
[2016-10-12 11:16] VITALS: BP 111/79; PULSE 109; RESP 20; TEMP 98.9; O2SAT 97
--- NOTE | 2016-10-12 11:44 | PD ---
Physical Exam Date Seen by Provider: October 12, 2016 Time Seen by Provider: 11:42 Narrative 56 Y/O male patient here with Reports of Suicidal Ideation. Patient here Voluntarily. Has Hx. Suicidal attempt 6 years ago from Overdose. No medical complaints. VS Stable Awaiting Bed Placement. Data Data Last Documented VS Vital Signs Date Time Temp Pulse Resp B/P Pulse Ox O2 Delivery O2 Flow Rate FiO2 10/12/16 11:16 98.9 109 20 111/79 97 Room Air [facility] Medical Record Reviewed: Yes Supervised Visit with BOB: Yes Condition: Stable Dariel Demarco October 12, 2016 11:44
--- NOTE | 2016-10-12 13:16 | PD ---
HPI Chief Complaint: Suicide Ideation/Attempt Time Seen by Provider: 13:05 Travel History International Travel<30 days: No Contact w/Intl Traveler<30days: No Traveled to known affect area: No History of Present Illness HPI The patient is a 56-year-old male who presents emergency department for suicidal ideation. The patient has a history of bipolar affective disorder and chronic alcohol abuse. The patient states he had one beer to drink earlier today, a "Natty Daddy". The patient states he has a history of bipolar affective disorder and alcohol abuse, has been noncompliant on his medications secondary to financial concerns. The patient states he is currently homeless, lives in the [facility]. The patient does have thoughts of suicide with previous suicide attempts. The patient states he has been having auditory hallucinations , he hears the voice of his brother, who shot himself in the head with a 38. The patient states his brother is telling him to "not do it ". The patient denies any illicit drug use in over 30 years. He denies any visual hallucinations. PFSH Past Medical History Hx Anticoagulant Therapy: No AAA: No ADD: No ADHD: No Alzheimer's Disease: No Anemia: No Arthritis: Yes Asthma: Yes Atrial Fibrillation: No Autoimmune Disease: No Blood Disorders: No Bipolar Disorder: No Anxiety: Yes Depression: Yes Cancer: No Cardiac Catheterization: Yes Cardiomyopathy: No Cardiovascular Problems: Yes Cerebral Palsy: No High Cholesterol: Yes Chemotherapy: No Chest Pain: No Congestive Heart Failure: No Cirrhosis: No COPD: Yes Cerebrovascular Accident: No Coronary Artery Disease: No Cystic Fibrosis: No Dementia: No Developmental Delay: No Diabetes: Yes Diminished Hearing: No Endocrine: No Gastrointestinal Disorders: Yes (Acid reflux) GERD: Yes Glaucoma: No Gout: No Genitourinary: No Headaches: No (see EMR) Hepatitis: No Hiatal Hernia: No Heparin Induced Thrombocytopen: No Herniated Disk: No Hypertension: No Immune Disorder: No Inguinal Hernia: No Implanted Vascular Access Dvce: No Insomnia: Yes Kidney Stones: No Musculoskeletal: Yes Neurologic: Yes Parkinson's Disease: No Psychiatric: Yes Reproductive: No Respiratory: Yes (COPD) Resp. Syncytial Virus (RSV): No Integumentary: Yes (flaky/dry face and scalp has red/swollen scab on r wrist prev slit) Immunizations Current: Yes Migraines: No Myocardial Infarction: Yes Pancreatitis: No Pneumonia: No ( ) Radiation Therapy: No Renal Failure: No Schizophrenia: Yes Seizures: Yes Shingles: No Sickle Cell Disease: No Sleep Apnea: Yes Thyroid Disease: No Ulcer: No Menopausal: No Past Surgical History Abdominal Aneurysm Repair: No Abdominal Surgery: No AICD: No Appendectomy: No Arteriovenous Shunt: No Cholecystectomy: No Coronary Stent: Yes Ear Surgery: No Endocrine Surgery: No Eye Surgery: No Genitourinary Surgery: No Gynecologic Surgery: No Joint Replacement: No Mastectomy: No Neurologic Surgery: No Oral Surgery: No Pacemaker: No Prostatectomy: No Thoracic Surgery: No Tonsillectomy: Yes Tympanostomy Tube: No Valve Replacement: No Social History Alcohol Use: Yes (DAILY- LAST DRANK THIS MORNING) Tobacco Use: Yes (pk of cigars PER WEEK) Substance Use: Yes (CHRONIC ALCOHOL ABUSE) Allergies-Medications (Allergen,Severity, Reaction): Coded Allergies: Codeine (Verified Allergy, Mild, RASH, 09/20/16) *MDRO Multi-Drug Resistant Organism (Verified Adverse Reaction, Unknown, ) 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, 07/31/16) Reported Meds & Prescriptions Reported Meds & Active Scripts Active Proair Hfa 8.5 GM Inh (Albuterol Sulfate) 90 Mcg/Act Aer 2 Puff INH Q4-6H PRN 108 mcg/actuation Prednisone 20 Mg Tab 20 Mg PO BID Reported Risperdal (Risperidone) 3 Mg Tab 3 Mg PO Q12HR Trazodone (Trazodone HCl) 50 Mg Tab 300 Mg PO HS Review of Systems Except as stated in HPI: all other systems reviewed are Neg General / Constitutional: No: Fever Cardiovascular: No: Chest Pain or Discomfort Respiratory: No: Shortness of Breath Gastrointestinal: No: Abdominal Pain Genitourinary: No: Dysuria Musculoskeletal: No: Weakness Neurologic: No: Change in Mentation Psychiatric: Positive: Depression, Suicidal Ideations, Mood Disorder, Substance Abuse (alcohol abuse), No: Homicidal Ideation Physical Exam Narrative GENERAL: Awake, alert, pleasant 56-year-old male who appears his stated age and is in no acute respiratory distress. SKIN: Focused skin assessment warm/dry. HEAD: Atraumatic. Normocephalic. Full [place]. EYES: Pupils equal and round. No scleral icterus. No injection or drainage. ENT: No nasal bleeding or discharge. Mucous membranes pink and moist. NECK: Trachea midline. No JVD. CARDIOVASCULAR: Regular rate and rhythm. No murmur appreciated. RESPIRATORY: No accessory muscle use. Clear to auscultation. Breath sounds equal bilaterally. GASTROINTESTINAL: Abdomen soft, non-tender, nondistended. MUSCULOSKELETAL: No obvious deformities. No clubbing. No cyanosis. No edema. NEUROLOGICAL: Awake and alert. No obvious cranial nerve deficits. Motor grossly within normal limits. Normal speech. Oriented to person, place, and year. PSYCHIATRIC: Appropriate mood and affect; insight and judgment normal. Data Data Last Documented VS Vital Signs Date Time Temp Pulse Resp B/P Pulse Ox O2 Delivery O2 Flow Rate FiO2 10/12/16 13:12 101 18 96 Room Air 10/12/16 11:16 98.9 111/79 Orders Complete Blood Count With Diff (10/12/16 13:13) Comprehensive Metabolic Panel (10/12/16 13:13) Psych Screen (10/12/16 13:13) Drug Screen, Random Urine (10/12/16 13:13) Alcohol (Ethanol) (10/12/16 13:13) Labs Laboratory Tests Test 10/12/16 13:20 White Blood Count 11.3 TH/MM3 Red Blood Count 4.97 MIL/MM3 Hemoglobin 16.1 GM/DL Hematocrit 45.5 % Mean Corpuscular Volume 91.6 FL Mean Corpuscular Hemoglobin 32.4 PG Mean Corpuscular Hemoglobin 35.4 % Concent Red Cell Distribution Width 14.7 % Platelet Count 411 TH/MM3 Mean Platelet Volume 7.4 FL Neutrophils (%) (Auto) 55.1 % Lymphocytes (%) (Auto) 31.4 % Monocytes (%) (Auto) 6.3 % Eosinophils (%) (Auto) 6.1 % Basophils (%) (Auto) 1.1 % Neutrophils # (Auto) 6.2 TH/MM3 Lymphocytes # (Auto) 3.5 TH/MM3 Monocytes # (Auto) 0.7 TH/MM3 Eosinophils # (Auto) 0.7 TH/MM3 Basophils # (Auto) 0.1 TH/MM3 CBC Comment DIFF FINAL Differential Comment Sodium Level 139 MEQ/L Potassium Level 3.9 MEQ/L Chloride Level 104 MEQ/L Carbon Dioxide Level 25.2 MEQ/L Anion Gap 10 MEQ/L Blood Urea Nitrogen 8 MG/DL Creatinine 0.75 MG/DL Estimat Glomerular Filtration 107 ML/MIN Rate Random Glucose 71 MG/DL Calcium Level 8.5 MG/DL Total Bilirubin 0.2 MG/DL Aspartate Amino Transf 25 U/L (AST/SGOT) Alanine Aminotransferase 27 U/L (ALT/SGPT) Alkaline Phosphatase 185 U/L Total Protein 8.2 GM/DL Albumin 4.4 GM/DL Urine Opiates Screen NEG Urine Barbiturates Screen NEG Urine Amphetamines Screen NEG Urine Benzodiazepines Screen NEG Urine Cocaine Screen NEG Urine Cannabinoids Screen NEG Ethyl Alcohol Level 229 MG/DL MDM Medical Decision Making Medical Screen Exam Complete: Yes Emergency Medical Condition: Yes Medical Record Reviewed: Yes Interpretation(s) Laboratory Tests Test 10/12/16 13:20 White Blood Count 11.3 TH/MM3 Red Blood Count 4.97 MIL/MM3 Hemoglobin 16.1 GM/DL Hematocrit 45.5 % Mean Corpuscular Volume 91.6 FL Mean Corpuscular Hemoglobin 32.4 PG Mean Corpuscular Hemoglobin 35.4 % Concent Red Cell Distribution Width 14.7 % Platelet Count 411 TH/MM3 Mean Platelet Volume 7.4 FL Neutrophils (%) (Auto) 55.1 % Lymphocytes (%) (Auto) 31.4 % Monocytes (%) (Auto) 6.3 % Eosinophils (%) (Auto) 6.1 % Basophils (%) (Auto) 1.1 % Neutrophils # (Auto) 6.2 TH/MM3 Lymphocytes # (Auto) 3.5 TH/MM3 Monocytes # (Auto) 0.7 TH/MM3 Eosinophils # (Auto) 0.7 TH/MM3 Basophils # (Auto) 0.1 TH/MM3 CBC Comment DIFF FINAL Differential Comment Sodium Level 139 MEQ/L Potassium Level 3.9 MEQ/L Chloride Level 104 MEQ/L Carbon Dioxide Level 25.2 MEQ/L Anion Gap 10 MEQ/L Blood Urea Nitrogen 8 MG/DL Creatinine 0.75 MG/DL Estimat Glomerular Filtration 107 ML/MIN Rate Random Glucose 71 MG/DL Calcium Level 8.5 MG/DL Total Bilirubin 0.2 MG/DL Aspartate Amino Transf 25 U/L (AST/SGOT) Alanine Aminotransferase 27 U/L (ALT/SGPT) Alkaline Phosphatase 185 U/L Total Protein 8.2 GM/DL Albumin 4.4 GM/DL Urine Opiates Screen NEG Urine Barbiturates Screen NEG Urine Amphetamines Screen NEG Urine Benzodiazepines Screen NEG Urine Cocaine Screen NEG Urine Cannabinoids Screen NEG Ethyl Alcohol Level 229 MG/DL Differential Diagnosis Differential diagnosis includes substance induced mood disorder, alcohol intoxication, bipolar affective disorder, mood disorder, depressive disorder NOS , suicidal ideation. Narrative Course Labs were drawn and sent. Psychiatric evaluation was ordered. The patient's white count was 11.3. Alcohol level was elevated at 229. Patient is medically clear to be evaluated by psychiatry. Disposition as per psych. Diagnosis Primary Impression: Alcohol-induced mood disorder Additional Impression: History of bipolar disorder Condition: Stable Andrew Solis MD October 12, 2016 13:16
[2016-10-12] MEDS ORDERED: RISP3 PO (13:18)
[2016-10-12 13:46] LABS: AUTOMATED NEUTROPHIL # 6.2 TH/MM3 (1.8-7.7); BASOPHIL # 0.1 TH/MM3 (0-0.2); BASOPHIL % 1.1 % (0.0-2.0); EOSINOPHIL # 0.7 TH/MM3 (0-0.4); EOSINOPHIL % 6.1 % (0.0-4.0); HEMATOCRIT 45.5 % (39.0-51.0); HEMO FLAGS DIFF FINAL; LYMPH % 31.4 % (9.0-44.0); LYMPHOCYTE # 3.5 TH/MM3 (1.0-4.8); MEAN CELL VOLUME 91.6 FL (80.0-100.0); MEAN CORPUSCULAR HEMOGLOBIN 32.4 PG (27.0-34.0); MEAN CORPUSCULAR HGB CONC 35.4 % (32.0-36.0); MONO % 6.3 % (0.0-8.0); NEUT % 55.1 % (16.0-70.0); PLATELET COUNT 411 TH/MM3 (150-450); RED BLOOD COUNT 4.97 MIL/MM3 (4.50-5.90); RED CELL DISTRIBUTION WIDTH 14.7 % (11.6-17.2); WHITE BLOOD COUNT 11.3 TH/MM3 (4.0-11.0)
[2016-10-12 13:53] LABS: AMPHETAMINE, URINE NEG (NEG); BARBITURATES, URINE NEG (NEG); COCAINE, URINE NEG (NEG)
[2016-10-12 14:01] LABS: ANION GAP 10 MEQ/L (5-15); BICARBONATE 25.2 MEQ/L (21.0-32.0); BLOOD UREA NITROGEN 8 MG/DL (7-18); CHLORIDE 104 MEQ/L (98-107); GLOMERULAR FILTRATION RATE 107 ML/MIN (>89); POTASSIUM 3.9 MEQ/L (3.5-5.1); SODIUM (NA) 139 MEQ/L (136-145)
[2016-10-12 14:06] LABS: ALKALINE PHOSPHATASE 185 U/L (45-117); ALT (GPT) 27 U/L (12-78); AST (GOT) 25 U/L (15-37); TOTAL BILIRUBIN ADULT 0.2 MG/DL (0.2-1.0)
[2016-10-12 16:37] VITALS: BP 105/71; PULSE 100; RESP 20; O2SAT 97
[2016-10-12 22:00] VITALS: BP 137/80; PULSE 81; RESP 19; O2SAT 98
[2016-10-13 02:18] VITALS: BP 124/76; PULSE 72; RESP 18; O2SAT 96
[2016-10-13 06:00] VITALS: BP 131/70; PULSE 66; RESP 19; O2SAT 97
[2016-10-13 08:42] VITALS: BP 131/70; PULSE 66; RESP 19; O2SAT 97
== END 2016-10-13 10:10 | disposition home or self-care (01) ==
LOC: NEPD 11:14 → NEPJ 10-13 10:10
DX: F10.94 Alcohol use, unspecified with alcohol-induced mood disorder (principal); F31.9 Bipolar disorder, unspecified; F20.9 Schizophrenia, unspecified; G47.30 Sleep apnea, unspecified; Y90.7 Blood alcohol level of 200-239 mg/100 ml; Z72.0 Tobacco use
CPT/HCPCS: 80053; 80307; 85025; 99285

== ENCOUNTER 2016-10-14 09:15 | Emergency (ER) | payer MEDICARE, OTHER ==
[~2016-10-14] VITALS: Ht 160 cm; Wt 66.0 kg
[~2016-10-14 09:15] MED LIST changes: -AZIT250T3 PO; +RISP3 PO
[2016-10-14 09:22] VITALS: BP 107/72; PULSE 102; RESP 20; TEMP 98.7; O2SAT 94
--- NOTE | 2016-10-14 09:44 | PD ---
HPI Chief Complaint: Suicide Ideation/Attempt Time Seen by Provider: 09:44 Travel History International Travel<30 days: No Contact w/Intl Traveler<30days: No Traveled to known affect area: No History of Present Illness HPI 56-year-old male who is a chronic alcoholic was sent from [facility] for medical clearance. Patient says he went to [facility] since he wants to stop drinking and was feeling suicidal. He told me he had 4 beers today before going to [facility]. He looks disheveled and I won't be surprised if he is homeless. He says he hasn't eaten in 3 days and wanted to eat something. Does not appear to be in any distress otherwise. [facility] Past Medical History Narrative Medical List of his past medical, surgical, social and family history was reviewed from the nursing note. Hx Anticoagulant Therapy: No AAA: No ADD: No ADHD: No Alzheimer's Disease: No Anemia: No Arthritis: Yes Asthma: Yes Atrial Fibrillation: No Autoimmune Disease: No Blood Disorders: No Bipolar Disorder: Yes Anxiety: Yes Depression: Yes Cancer: No Cardiac Catheterization: Yes Cardiomyopathy: No Cardiovascular Problems: Yes Cerebral Palsy: No High Cholesterol: Yes Chemotherapy: No Chest Pain: No Congestive Heart Failure: No Cirrhosis: No COPD: Yes Cerebrovascular Accident: No Coronary Artery Disease: No Cystic Fibrosis: No Dementia: No Developmental Delay: No Diabetes: No Diminished Hearing: No Endocrine: No Gastrointestinal Disorders: Yes (Acid reflux) GERD: Yes Glaucoma: No Gout: No Genitourinary: No Hepatitis: No Hiatal Hernia: No Heparin Induced Thrombocytopen: No Herniated Disk: No Hypertension: No Immune Disorder: No Inguinal Hernia: No Implanted Vascular Access Dvce: No Insomnia: Yes Kidney Stones: No Musculoskeletal: Yes Neurologic: Yes Parkinson's Disease: No Psychiatric: Yes Reproductive: No Respiratory: Yes (COPD) Resp. Syncytial Virus (RSV): No Integumentary: Yes (flaky/dry face and scalp has red/swollen scab on r wrist prev slit) Immunizations Current: Yes Migraines: No Myocardial Infarction: Yes Pancreatitis: No Radiation Therapy: No Renal Failure: No Schizophrenia: Yes Seizures: Yes Shingles: No Sickle Cell Disease: No Sleep Apnea: Yes Thyroid Disease: No Ulcer: No Menopausal: No Past Surgical History Abdominal Aneurysm Repair: No Abdominal Surgery: No AICD: No Appendectomy: No Arteriovenous Shunt: No Cholecystectomy: No Coronary Stent: Yes Ear Surgery: No Endocrine Surgery: No Eye Surgery: No Genitourinary Surgery: No Gynecologic Surgery: No Joint Replacement: No Mastectomy: No Neurologic Surgery: No Oral Surgery: No Pacemaker: No Prostatectomy: No Thoracic Surgery: No Tonsillectomy: Yes Tympanostomy Tube: No Valve Replacement: No Social History Alcohol Use: Yes (DAILY- LAST DRANK THIS MORNING) Tobacco Use: Yes (pk of cigars PER WEEK) Substance Use: Yes (CHRONIC ALCOHOL ABUSE) Allergies-Medications (Allergen,Severity, Reaction): Coded Allergies: Codeine (Verified Allergy, Mild, RASH, 09/20/16) *MDRO Multi-Drug Resistant Organism (Verified Adverse Reaction, Unknown, ) 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, 07/31/16) Comments List of his allergies reviewed from the nursing note. Reported Meds & Prescriptions Reported Meds & Active Scripts Active Proair Hfa 8.5 GM Inh (Albuterol Sulfate) 90 Mcg/Act Aer 2 Puff INH Q4-6H PRN 108 mcg/actuation Prednisone 20 Mg Tab 20 Mg PO BID Reported Risperdal (Risperidone) 3 Mg Tab 3 Mg PO Q12HR Trazodone (Trazodone HCl) 50 Mg Tab 300 Mg PO HS Narrative Medication List of his own medications reviewed from the nursing note. Review of Systems Except as stated in HPI: all other systems reviewed are Neg Physical Exam Narrative GENERAL: Awake, alert, no obvious distress, disheveled and poor hygiene SKIN: Focused skin assessment warm/dry. Poor hygiene HEAD: Atraumatic. Normocephalic. EYES: Pupils equal and round. No scleral icterus. No injection or drainage. ENT: No nasal bleeding or discharge. Mucous membranes pink and moist. NECK: Trachea midline. No JVD. CARDIOVASCULAR: Regular rate and rhythm. No murmur appreciated. RESPIRATORY: No accessory muscle use. Clear to auscultation. Breath sounds equal bilaterally. GASTROINTESTINAL: Abdomen soft, non-tender, nondistended. Hepatic and splenic margins not palpable. MUSCULOSKELETAL: No obvious deformities. No clubbing. No cyanosis. No edema. NEUROLOGICAL: Awake and alert. No obvious cranial nerve deficits. Motor grossly within normal limits. Normal speech. PSYCHIATRIC: Appropriate mood and affect; insight and judgment normal. Data Data Last Documented VS Vital Signs Date Time Temp Pulse Resp B/P Pulse Ox O2 Delivery O2 Flow Rate FiO2 10/14/16 09:45 90 18 95 Room Air 10/14/16 09:22 98.7 107/72 Orders Complete Blood Count With Diff (10/14/16 09:50) Comprehensive Metabolic Panel (10/14/16 09:50) Psych Screen (10/14/16 09:50) Drug Screen, Random Urine (10/14/16 09:50) Diet Heart Healthy (10/14/16 Breakfast) Thiamine (Vit B1) (Vitamin B1) (10/14/16 10:45) Labs Laboratory Tests Test 10/14/16 10/14/16 09:39 10:00 Urine Opiates Screen NEG Urine Barbiturates Screen NEG Urine Amphetamines Screen NEG Urine Benzodiazepines Screen NEG Urine Cocaine Screen NEG Urine Cannabinoids Screen NEG White Blood Count 9.0 TH/MM3 Red Blood Count 5.09 MIL/MM3 Hemoglobin 16.6 GM/DL Hematocrit 46.9 % Mean Corpuscular Volume 92.1 FL Mean Corpuscular Hemoglobin 32.7 PG Mean Corpuscular Hemoglobin 35.5 % Concent Red Cell Distribution Width 14.4 % Platelet Count 405 TH/MM3 Mean Platelet Volume 7.4 FL Neutrophils (%) (Auto) 49.9 % Lymphocytes (%) (Auto) 35.9 % Monocytes (%) (Auto) 7.5 % Eosinophils (%) (Auto) 5.9 % Basophils (%) (Auto) 0.8 % Neutrophils # (Auto) 4.5 TH/MM3 Lymphocytes # (Auto) 3.2 TH/MM3 Monocytes # (Auto) 0.7 TH/MM3 Eosinophils # (Auto) 0.5 TH/MM3 Basophils # (Auto) 0.1 TH/MM3 CBC Comment DIFF FINAL Differential Comment Sodium Level 138 MEQ/L Potassium Level 4.1 MEQ/L Chloride Level 104 MEQ/L Carbon Dioxide Level 24.5 MEQ/L Anion Gap 10 MEQ/L Blood Urea Nitrogen 6 MG/DL Creatinine 0.73 MG/DL Estimat Glomerular Filtration 111 ML/MIN Rate Random Glucose 78 MG/DL Calcium Level 8.6 MG/DL Total Bilirubin 0.3 MG/DL Aspartate Amino Transf 31 U/L (AST/SGOT) Alanine Aminotransferase 28 U/L (ALT/SGPT) Alkaline Phosphatase 176 U/L Total Protein 7.9 GM/DL Albumin 4.3 GM/DL MDM Medical Decision Making Medical Screen Exam Complete: Yes Emergency Medical Condition: Yes Medical Record Reviewed: Yes Differential Diagnosis Chronic alcoholism, suicidal ideation Narrative Course 10:42 AM awaiting for medical clearance. Once he is medically cleared he would require psych screen. Patient was given a diet tray. Procedures EKG Prior to Arrival: Osacr Carlos MD October 14, 2016 09:44
[2016-10-14 10:23] LABS: AUTOMATED NEUTROPHIL # 4.5 TH/MM3 (1.8-7.7); BASOPHIL # 0.1 TH/MM3 (0-0.2); BASOPHIL % 0.8 % (0.0-2.0); EOSINOPHIL # 0.5 TH/MM3 (0-0.4); EOSINOPHIL % 5.9 % (0.0-4.0); HEMATOCRIT 46.9 % (39.0-51.0); HEMO FLAGS DIFF FINAL; LYMPH % 35.9 % (9.0-44.0); LYMPHOCYTE # 3.2 TH/MM3 (1.0-4.8); MEAN CELL VOLUME 92.1 FL (80.0-100.0); MEAN CORPUSCULAR HEMOGLOBIN 32.7 PG (27.0-34.0); MEAN CORPUSCULAR HGB CONC 35.5 % (32.0-36.0); MONO % 7.5 % (0.0-8.0); NEUT % 49.9 % (16.0-70.0); PLATELET COUNT 405 TH/MM3 (150-450); RED BLOOD COUNT 5.09 MIL/MM3 (4.50-5.90); RED CELL DISTRIBUTION WIDTH 14.4 % (11.6-17.2)
[2016-10-14 10:31] LABS: AMPHETAMINE, URINE NEG (NEG); BARBITURATES, URINE NEG (NEG); COCAINE, URINE NEG (NEG)
[2016-10-14 10:43] LABS: ALT (GPT) 28 U/L (12-78); ANION GAP 10 MEQ/L (5-15); AST (GOT) 31 U/L (15-37); BICARBONATE 24.5 MEQ/L (21.0-32.0); BLOOD UREA NITROGEN 6 MG/DL (7-18); CHLORIDE 104 MEQ/L (98-107); GLOMERULAR FILTRATION RATE 111 ML/MIN (>89); POTASSIUM 4.1 MEQ/L (3.5-5.1); SODIUM (NA) 138 MEQ/L (136-145)
[2016-10-14 10:45] LABS: ALKALINE PHOSPHATASE 176 U/L (45-117); TOTAL BILIRUBIN ADULT 0.3 MG/DL (0.2-1.0)
[2016-10-14] MEDS ORDERED: THIAMINE HCL 100 MG TAB PO ONE (10:45)
== END 2016-10-14 11:19 | disposition left against medical advice (07) ==
LOC: NEPD 09:15
DX: Z02.89 Encounter for other administrative examinations (principal); E78.00 Pure hypercholesterolemia, unspecified; I25.2 Old myocardial infarction; G47.30 Sleep apnea, unspecified; Z72.0 Tobacco use; Z87.39 Personal history of other diseases of the musculoskeletal system and connective tissue; Z87.09 Personal history of other diseases of the respiratory system; Z86.59 Personal history of other mental and behavioral disorders; Z86.79 Personal history of other diseases of the circulatory system; Z87.19 Personal history of other diseases of the digestive system; Z86.69 Personal history of other diseases of the nervous system and sense organs
CPT/HCPCS: 80053; 80307; 85025; 99283

== ENCOUNTER 2016-10-16 11:09 | Emergency (ER) | payer MEDICARE, OTHER ==
[~2016-10-16] VITALS: Ht 160 cm; Wt 62.0 kg
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
--- NOTE | 2016-10-16 11:59 | PD ---
HPI Chief Complaint: Suicide Ideation/Attempt Time Seen by Provider: 11:55 Travel History International Travel<30 days: No Contact w/Intl Traveler<30days: No Traveled to known affect area: No History of Present Illness HPI 56-year-old homeless male, frequent visitor to this establishment, presents via EMS for evaluation. He reports that he is feeling depressed. He has a long- standing history of depression. He reports that he wanted to go to [facility] but the paramedics brought him here instead and he is upset about that. He is currently requesting something that drink. He claims that he cut his right wrist with a razor. He has a long-standing history of alcoholism. He denies any drug use. He has no medical complaints at this time. PFSH Past Medical History Hx Anticoagulant Therapy: No AAA: No ADD: No ADHD: No Alzheimer's Disease: No Anemia: No Arthritis: Yes Asthma: Yes Atrial Fibrillation: No Autoimmune Disease: No Blood Disorders: No Bipolar Disorder: Yes Anxiety: Yes Depression: Yes Cancer: No Cardiac Catheterization: Yes Cardiomyopathy: No Cardiovascular Problems: Yes ([place]) Cerebral Palsy: No High Cholesterol: Yes Chemotherapy: No Chest Pain: No Congestive Heart Failure: No Cirrhosis: No COPD: Yes Cerebrovascular Accident: No Coronary Artery Disease: No Cystic Fibrosis: No Dementia: No Developmental Delay: No Diabetes: No Diminished Hearing: No Endocrine: No Gastrointestinal Disorders: Yes (Acid reflux) GERD: Yes Glaucoma: No Gout: No Genitourinary: No Hepatitis: No Hiatal Hernia: No Heparin Induced Thrombocytopen: No Herniated Disk: No Hypertension: No Immune Disorder: No Inguinal Hernia: No Implanted Vascular Access Dvce: No Insomnia: Yes Kidney Stones: No Musculoskeletal: Yes Neurologic: Yes Parkinson's Disease: No Psychiatric: Yes Reproductive: No Respiratory: Yes (COPD) Resp. Syncytial Virus (RSV): No Integumentary: Yes (flaky/dry face and scalp has red/swollen scab on r wrist prev slit) Immunizations Current: Yes Migraines: No Myocardial Infarction: Yes Pancreatitis: No Radiation Therapy: No Renal Failure: No Schizophrenia: Yes Seizures: Yes Shingles: No Sickle Cell Disease: No Sleep Apnea: Yes Thyroid Disease: No Ulcer: No Menopausal: No Past Surgical History Abdominal Aneurysm Repair: No Abdominal Surgery: No AICD: No Appendectomy: No Arteriovenous Shunt: No Cholecystectomy: No Coronary Stent: Yes Ear Surgery: No Endocrine Surgery: No Eye Surgery: No Genitourinary Surgery: No Gynecologic Surgery: No Joint Replacement: No Mastectomy: No Neurologic Surgery: No Oral Surgery: No Pacemaker: No Prostatectomy: No Thoracic Surgery: No Tonsillectomy: Yes Tympanostomy Tube: No Valve Replacement: No Social History Alcohol Use: Yes (DAILY- LAST DRANK THIS MORNING) Tobacco Use: Yes (pk of cigars PER WEEK) Substance Use: Yes (CHRONIC ALCOHOL ABUSE) Allergies-Medications (Allergen,Severity, Reaction): Coded Allergies: Codeine (Verified Allergy, Mild, RASH, 10/16/16) *MDRO Multi-Drug Resistant Organism (Verified Adverse Reaction, Unknown, ) 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, 07/31/16) Reported Meds & Prescriptions Reported Meds & Active Scripts Active Proair Hfa 8.5 GM Inh (Albuterol Sulfate) 90 Mcg/Act Aer 2 Puff INH Q4-6H PRN 108 mcg/actuation Prednisone 20 Mg Tab 20 Mg PO BID Reported Risperdal (Risperidone) 3 Mg Tab 3 Mg PO Q12HR Trazodone (Trazodone HCl) 50 Mg Tab 300 Mg PO HS Review of Systems Except as stated in HPI: all other systems reviewed are Neg Physical Exam Narrative GENERAL: Disheveled appearing male in no acute distress, smiling, interacting appropriate, watching TV and drinking water. SKIN: Warm and dry. There appears to be some mild linear redness noted on the right wrist. There is no deep wound. HEAD: Atraumatic. Normocephalic. EYES: Pupils equal and round. No scleral icterus. No injection or drainage. ENT: No nasal bleeding or discharge. Mucous membranes pink and moist. NECK: Trachea midline. No JVD. CARDIOVASCULAR: Regular rate and rhythm. No murmur appreciated. RESPIRATORY: No accessory muscle use. Clear to auscultation. Breath sounds equal bilaterally. GASTROINTESTINAL: Abdomen soft, non-tender, nondistended. MUSCULOSKELETAL: No obvious deformities. No clubbing. No cyanosis. No edema. NEUROLOGICAL: Awake and alert. No obvious cranial nerve deficits. Motor grossly within normal limits. Normal speech. PSYCHIATRIC: Appropriate mood and affect; insight and judgment normal. Data Data Last Documented VS Vital Signs Date Time Temp Pulse Resp B/P Pulse Ox O2 Delivery O2 Flow Rate FiO2 10/16/16 12:12 98.4 95 16 125/77 94 Room Air MDM Medical Decision Making Medical Screen Exam Complete: Yes Emergency Medical Condition: Yes Medical Record Reviewed: Yes Differential Diagnosis Malingering versus homelessness versus hunger versus alcoholism versus major depressive disorder versus acute psychosis Narrative Course 56-year-old male with frequent visits to this emergency department for similar complaints presents for evaluation of depression and suicidal thoughts. He would like to go to [facility], he did not want to be taken here by paramedics. he does not appear depressed and initial examination and I suspect most of his motivation for calling EMS today was to obtain a bed and food to eat and drink. Most recently the patient was seen here 2 days ago with similar complaints when he left ama. This patient would likely not benefit from acute psychiatric hospitalization. He is stable for discharge. Diagnosis Primary Impression: Malingering Additional Impression: Homelessness Referrals: [facility] Additional Instructions: Consider following up with a detoxication center discussing or alcohol abuse. Return for any emergent medical conditions. Med/Other Pt SpecificInfo: No Change to Meds Disposition: 01 DISCHARGE HOME Condition: Stable Sudarshan Fallon October 16, 2016 11:59
[2016-10-16 12:12] VITALS: BP 125/77; PULSE 95; RESP 16; TEMP 98.4; O2SAT 94
== END 2016-10-16 12:52 | disposition home or self-care (01) ==
LOC: NEPD 11:09
DX: F17.290 Nicotine dependence, other tobacco product, uncomplicated (principal); F31.9 Bipolar disorder, unspecified; F41.8 Other specified anxiety disorders; I25.2 Old myocardial infarction; F20.9 Schizophrenia, unspecified; E78.00 Pure hypercholesterolemia, unspecified; J44.9 Chronic obstructive pulmonary disease, unspecified; F10.10 Alcohol abuse, uncomplicated; Z95.5 Presence of coronary angioplasty implant and graft; Z59.0 Homelessness; Z76.5 Malingerer [conscious simulation]
CPT/HCPCS: 99283

== ENCOUNTER 2016-10-23 14:53 | Emergency (ER) | payer MEDICARE, OTHER ==
[~2016-10-23] VITALS: Ht 160 cm; Wt 67.0 kg
[2016-10-23 15:01] VITALS: BP 104/72; PULSE 102; RESP 17; TEMP 98.1; O2SAT 97
--- NOTE | 2016-10-23 15:16 | PD ---
HPI Chief Complaint: Silver act/suicidal ideation. Time Seen by Provider: 15:04 Travel History International Travel<30 days: No Contact w/Intl Traveler<30days: No Traveled to known affect area: No History of Present Illness HPI This is a 56-year-old male who has had multiple visits here for alcoholism and abuse as well as suicide audiology. He presents here with the [facility]'s officer under Silver act for making statements that he wants to shoot himself. The patient states he has a gun but these hadn't. He states he was going to find it and shoot himself. He reports continued alcohol abuse. He also reports that "I really mean it today". The patient has been drinking for 30 years. He states he can't stop because and he'll get sick. He reports drinking a big bottle of natural ice. Continues to use tobacco products. PFSH Past Medical History Hx Anticoagulant Therapy: No AAA: No ADD: No ADHD: No Alzheimer's Disease: No Anemia: No Arthritis: Yes Asthma: Yes Atrial Fibrillation: No Autoimmune Disease: No Blood Disorders: No Bipolar Disorder: Yes Anxiety: Yes Depression: Yes Cancer: No Cardiac Catheterization: Yes Cardiomyopathy: No Cardiovascular Problems: Yes ([place]) Cerebral Palsy: No High Cholesterol: Yes Chemotherapy: No Chest Pain: No Congestive Heart Failure: No Cirrhosis: No COPD: Yes Cerebrovascular Accident: No Coronary Artery Disease: No Cystic Fibrosis: No Dementia: No Developmental Delay: No Diabetes: No Diminished Hearing: No Endocrine: No Gastrointestinal Disorders: Yes (Acid reflux) GERD: Yes Glaucoma: No Gout: No Genitourinary: No Hepatitis: No Hiatal Hernia: No Heparin Induced Thrombocytopen: No Herniated Disk: No Hypertension: No Immune Disorder: No Inguinal Hernia: No Implanted Vascular Access Dvce: No Insomnia: Yes Kidney Stones: No Musculoskeletal: Yes Neurologic: Yes Parkinson's Disease: No Psychiatric: Yes Reproductive: No Respiratory: Yes (COPD) Resp. Syncytial Virus (RSV): No Integumentary: Yes (flaky/dry face and scalp has red/swollen scab on r wrist prev slit) Immunizations Current: Yes Migraines: No Myocardial Infarction: Yes Pancreatitis: No Radiation Therapy: No Renal Failure: No Schizophrenia: Yes Seizures: Yes Shingles: No Sickle Cell Disease: No Sleep Apnea: Yes Thyroid Disease: No Ulcer: No Menopausal: No Past Surgical History Abdominal Aneurysm Repair: No Abdominal Surgery: No AICD: No Appendectomy: No Arteriovenous Shunt: No Cholecystectomy: No Coronary Stent: Yes Ear Surgery: No Endocrine Surgery: No Eye Surgery: No Genitourinary Surgery: No Gynecologic Surgery: No Joint Replacement: No Mastectomy: No Neurologic Surgery: No Oral Surgery: No Pacemaker: No Prostatectomy: No Thoracic Surgery: No Tonsillectomy: Yes Tympanostomy Tube: No Valve Replacement: No Social History Alcohol Use: Yes (DAILY- LAST DRANK THIS MORNING) Tobacco Use: Yes (pk of cigars PER WEEK) Substance Use: Yes (CHRONIC ALCOHOL ABUSE) Allergies-Medications (Allergen,Severity, Reaction): Coded Allergies: Codeine (Verified Allergy, Mild, RASH, 10/23/16) *MDRO Multi-Drug Resistant Organism (Verified Adverse Reaction, Unknown, ) 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, 07/31/16) Reported Meds & Prescriptions Reported Meds & Active Scripts Active Proair Hfa 8.5 GM Inh (Albuterol Sulfate) 90 Mcg/Act Aer 2 Puff INH Q4-6H PRN 108 mcg/actuation Prednisone 20 Mg Tab 20 Mg PO BID Reported Risperdal (Risperidone) 3 Mg Tab 3 Mg PO Q12HR Trazodone (Trazodone HCl) 50 Mg Tab 300 Mg PO HS Review of Systems Except as stated in HPI: all other systems reviewed are Neg General / Constitutional: No: Fever, Chills HENT: No: Headaches, Neck Pain Cardiovascular: No: Chest Pain or Discomfort, Palpitations Respiratory: No: Cough, Shortness of Breath Gastrointestinal: No: Nausea, Vomiting, Abdominal Pain Musculoskeletal: No: Weakness, Pain Neurologic: Positive: Slurred Speech (mild compared to previous), No: Weakness , Dizziness, Headache Psychiatric: Positive: Suicidal Ideations, Substance Abuse, No: Homicidal Ideation Physical Exam Narrative GENERAL: Developed disheveled gentleman in no acute distress. SKIN: Focused skin assessment warm/dry. HEAD: Atraumatic. Normocephalic. EYES: Bloodshot eyes. No scleral icterus. ENT: No nasal bleeding or discharge. Mucous membranes pink and moist. NECK: Trachea midline. No JVD. CARDIOVASCULAR: Regular rate and rhythm. No murmur appreciated. RESPIRATORY: No accessory muscle use. Clear to auscultation. Breath sounds equal bilaterally. Mild wheezes bilaterally GASTROINTESTINAL: Abdomen soft, non-tender, nondistended. MUSCULOSKELETAL: No obvious deformities. No clubbing. No cyanosis. No edema. Dirty grime on extremities. NEUROLOGICAL: Awake and alert. No obvious cranial nerve deficits. Motor grossly within normal limits. Minimal slurred speech Data Data Last Documented VS Vital Signs Date Time Temp Pulse Resp B/P Pulse Ox O2 Delivery O2 Flow Rate FiO2 10/23/16 15:02 102 18 10/23/16 15:01 98.1 104/72 97 Orders Complete Blood Count With Diff (10/23/16 15:17) Comprehensive Metabolic Panel (10/23/16 15:17) Psych Screen (10/23/16 15:17) Drug Screen, Random Urine (10/23/16 15:17) Alcohol (Ethanol) (10/23/16 15:17) Alcohol Withdrawal Asmt-Ciwa ONCE (10/23/16 16:32) Flumazenil Inj (Romazicon Inj) (10/23/16 16:45) Lorazepam (Ativan) (10/23/16 16:45) Lorazepam Inj (Ativan Inj) (10/23/16 16:45) Lorazepam (Ativan) (10/23/16 16:45) Lorazepam Inj (Ativan Inj) (10/23/16 16:45) Lorazepam Inj (Ativan Inj) (10/23/16 16:45) Lorazepam Inj (Ativan Inj) (10/23/16 16:45) Labs Laboratory Tests Test 10/23/16 15:10 White Blood Count 8.3 TH/MM3 Red Blood Count 4.70 MIL/MM3 Hemoglobin 15.7 GM/DL Hematocrit 43.8 % Mean Corpuscular Volume 93.1 FL Mean Corpuscular Hemoglobin 33.3 PG Mean Corpuscular Hemoglobin 35.7 % Concent Red Cell Distribution Width 14.5 % Platelet Count 288 TH/MM3 Mean Platelet Volume 7.8 FL Neutrophils (%) (Auto) 58.3 % Lymphocytes (%) (Auto) 27.4 % Monocytes (%) (Auto) 7.1 % Eosinophils (%) (Auto) 6.1 % Basophils (%) (Auto) 1.1 % Neutrophils # (Auto) 4.9 TH/MM3 Lymphocytes # (Auto) 2.3 TH/MM3 Monocytes # (Auto) 0.6 TH/MM3 Eosinophils # (Auto) 0.5 TH/MM3 Basophils # (Auto) 0.1 TH/MM3 CBC Comment DIFF FINAL Differential Comment Sodium Level 143 MEQ/L Potassium Level 4.0 MEQ/L Chloride Level 109 MEQ/L Carbon Dioxide Level 25.0 MEQ/L Anion Gap 9 MEQ/L Blood Urea Nitrogen 10 MG/DL Creatinine 0.69 MG/DL Estimat Glomerular Filtration 118 ML/MIN Rate Random Glucose 93 MG/DL Calcium Level 8.3 MG/DL Total Bilirubin 0.3 MG/DL Aspartate Amino Transf 12 U/L (AST/SGOT) Alanine Aminotransferase 23 U/L (ALT/SGPT) Alkaline Phosphatase 144 U/L Total Protein 7.5 GM/DL Albumin 3.9 GM/DL Ethyl Alcohol Level 123 MG/DL [facility] Medical Decision Making Medical Screen Exam Complete: Yes Emergency Medical Condition: Yes Differential Diagnosis Suicidal ideation versus polysubstance induced mood disorder versus metabolic derangement Narrative Course 56-year-old male is well-known to this emerged [place] comes in under Silver act for suicidal ideation. Patient has an alcohol level is elevated above 100. He is awake and appropriate. He actively is suicidal stating he wants to shoot himself in the head with his gun that he is hiding. He'll be medically cleared. I have started the CIWA protocol. Diagnosis Primary Impression: Suicidal ideation Additional Impressions: Alcohol intoxication medically cleared Alcides Helms MD October 23, 2016 15:15
[2016-10-23 15:41] LABS: AUTOMATED NEUTROPHIL # 4.9 TH/MM3 (1.8-7.7); BASOPHIL # 0.1 TH/MM3 (0-0.2); BASOPHIL % 1.1 % (0.0-2.0); EOSINOPHIL # 0.5 TH/MM3 (0-0.4); EOSINOPHIL % 6.1 % (0.0-4.0); HEMATOCRIT 43.8 % (39.0-51.0); HEMO FLAGS DIFF FINAL; LYMPH % 27.4 % (9.0-44.0); LYMPHOCYTE # 2.3 TH/MM3 (1.0-4.8); MEAN CELL VOLUME 93.1 FL (80.0-100.0); MEAN CORPUSCULAR HEMOGLOBIN 33.3 PG (27.0-34.0); MEAN CORPUSCULAR HGB CONC 35.7 % (32.0-36.0); MONO % 7.1 % (0.0-8.0); NEUT % 58.3 % (16.0-70.0); PLATELET COUNT 288 TH/MM3 (150-450); RED CELL DISTRIBUTION WIDTH 14.5 % (11.6-17.2); WHITE BLOOD COUNT 8.3 TH/MM3 (4.0-11.0)
[2016-10-23 16:01] LABS: ALT (GPT) 23 U/L (12-78); ANION GAP 9 MEQ/L (5-15); AST (GOT) 12 U/L (15-37); BLOOD UREA NITROGEN 10 MG/DL (7-18); CHLORIDE 109 MEQ/L (98-107); GLOMERULAR FILTRATION RATE 118 ML/MIN (>89); SODIUM (NA) 143 MEQ/L (136-145)
[2016-10-23 16:04] LABS: ALKALINE PHOSPHATASE 144 U/L (45-117); TOTAL BILIRUBIN ADULT 0.3 MG/DL (0.2-1.0)
[2016-10-23] MEDS ORDERED: LORazepam 1 MG TAB PO PRN (16:45)
[2016-10-23] MEDS ORDERED: LORazepam 2 MG TAB PO PRN (16:45)
[2016-10-23] MEDS ORDERED: LORazepam 2 MG/ML VIAL IV PUSH PRN ×4 (16:45)
[2016-10-23] MEDS ORDERED: FLUMAZENIL 0.5 MG/5 ML VIAL IV PUSH PRN (16:45)
[2016-10-23 18:30] VITALS: BP 111/65; PULSE 72; RESP 16; O2SAT 98
[2016-10-23 23:34] VITALS: BP 99/65; PULSE 83; RESP 18; O2SAT 96
[2016-10-24 02:27] VITALS: BP 115/77; PULSE 97; RESP 18; O2SAT 96
[2016-10-24 06:03] VITALS: BP 102/63; PULSE 77; RESP 18; O2SAT 96
--- NOTE | 2016-10-24 09:03 | PD ---
History of Present Illness Chief Complaint: Psychiatric Symptoms Time Seen by Provider: 08:50 Travel History International Travel<30 Days: No Contact w/Intl Traveler<30days: No Known affected area: No Legal Status Legal Status: Silver Act Silver Act Signed By: Emre Arndt History of Present Illness: History of Present Illness HPI This is a 56-year-old male with history of alcohol abuse well known to [facility] psychiatry department for multiple visits to ED for psychiatric evaluation. At this time the patient presents under Silver act initiated by law enforcement. The report alleges that he made statements that he wants to shoot himself. He states he had a gun and was going to find it and shoot himself. He reports continued alcohol abuse and presented to ED with BAL of 123 . The patient was monitored in [facility] where he was allowed to sober up. This morning the patient is clinically sober. Alert, oriented, calm. Speech is clear and logical. No impairment in gait and no symptoms of withdrawal. He tells me that he went to a neighbor's house to borrow a application release manager and the neighbor called the police and reported that he was trespassing. The patient at this time denies any suicidal or homicidal ideation, intent or plan. No psychosis and no ector. He is happy because he just got his social security reinstated and plans on trying to rent a room somewhere. PFSH Past Medical History Hx Anticoagulant Therapy: No AAA: No ADD: No ADHD: No Alzheimer's Disease: No Anemia: No Arthritis: Yes Asthma: Yes Atrial Fibrillation: No Autoimmune Disease: No Blood Disorders: No Bipolar Disorder: Yes Anxiety: Yes Depression: Yes Cancer: No Cardiac Catheterization: Yes Cardiomyopathy: No Cardiovascular Problems: Yes ([place]) Cerebral Palsy: No High Cholesterol: Yes Chemotherapy: No Chest Pain: No Congestive Heart Failure: No Cirrhosis: No COPD: Yes Cerebrovascular Accident: No Coronary Artery Disease: No Cystic Fibrosis: No Dementia: No Developmental Delay: No Diabetes: No Diminished Hearing: No Endocrine: No Gastrointestinal Disorders: Yes (Acid reflux) GERD: Yes Glaucoma: No Gout: No Genitourinary: No Hepatitis: No Hiatal Hernia: No Heparin Induced Thrombocytopen: No Herniated Disk: No Hypertension: No Immune Disorder: No Inguinal Hernia: No Implanted Vascular Access Dvce: No Insomnia: Yes Kidney Stones: No Musculoskeletal: Yes Neurologic: Yes Parkinson's Disease: No Psychiatric: Yes Reproductive: No Respiratory: Yes (COPD) Resp. Syncytial Virus (RSV): No Integumentary: Yes (flaky/dry face and scalp has red/swollen scab on r wrist prev slit) Immunizations Current: Yes Migraines: No Myocardial Infarction: Yes Pancreatitis: No Radiation Therapy: No Renal Failure: No Schizophrenia: Yes Seizures: Yes Shingles: No Sickle Cell Disease: No Sleep Apnea: Yes Thyroid Disease: No Ulcer: No Tetanus Vaccination: < 5 Years Influenza Vaccination: Yes Menopausal: No Past Surgical History Abdominal Aneurysm Repair: No Abdominal Surgery: No AICD: No Appendectomy: No Arteriovenous Shunt: No Cholecystectomy: No Coronary Stent: Yes Ear Surgery: No Endocrine Surgery: No Eye Surgery: No Genitourinary Surgery: No Gynecologic Surgery: No Joint Replacement: No Mastectomy: No Neurologic Surgery: No Oral Surgery: No Pacemaker: No Prostatectomy: No Thoracic Surgery: No Tonsillectomy: Yes Tympanostomy Tube: No Valve Replacement: No Psychiatric History Psychiatric History Hx Psychiatric Treatment: Multiple BA as wekl as [facility] admissions for ETOH related complaints. History of Inpatient Treatment: Yes Guns or firearms in home: No Social History Single male . On ssdi. Currently lives in a tent. Hx Alcohol Use: Yes (DAILY- LAST DRANK THIS MORNING) Hx Tobacco Use: Yes (pk of cigars PER WEEK) Hx Substance Use: Yes (CHRONIC ALCOHOL ABUSE) Substance Use Type: Alcohol, Marijuana, Nicotine/Cigarettes Other Substances Used: CUT BACK ON DRINKING Hx of Substance Use Treatment: Yes Allergies-Medications (Allergen,Severity, Reaction): Coded Allergies: Codeine (Verified Allergy, Mild, RASH, 10/23/16) *MDRO Multi-Drug Resistant Organism (Verified Adverse Reaction, Unknown, ) 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, 07/31/16) Reported Meds & Prescriptions Reported Meds & Active Scripts Active Proair Hfa 8.5 GM Inh (Albuterol Sulfate) 90 Mcg/Act Aer 2 Puff INH Q4-6H PRN 108 mcg/actuation Prednisone 20 Mg Tab 20 Mg PO BID Reported Risperdal (Risperidone) 3 Mg Tab 3 Mg PO Q12HR Trazodone (Trazodone HCl) 50 Mg Tab 300 Mg PO HS Review of Systems Except as stated in HPI: all other systems reviewed are Neg Exam Alert: Yes Eugene: Person (ox4) Mood: Calm Affect: Appropriate Speech: Clear, Logical Eye Contact: Normal Memory Intact: Comment (no impairmetn) Hallucinations: Other (negative) Delusions: No Suicidal: Ideation (deneis any) Homicidal: Ideation (denies any) Insight/Judgement poor. not impaired. MDM Medical Decision Making Medical Record Reviewed: Yes Assessment/Plan 56 year old male with history of alcohol dependence under a BA for allegedly reporting suicidal ideation when the police were called after he was found trespassing on someone's property. At this time the patient is clinically sober and presents no suicidal or homicidal ideation, intent or plan. BA lifted. Does not meet criteria. recommend sobriety. Orders Complete Blood Count With Diff (10/23/16 15:17) Comprehensive Metabolic Panel (10/23/16 15:17) Psych Screen (10/23/16 15:17) Drug Screen, Random Urine (10/23/16 15:17) Alcohol (Ethanol) (10/23/16 15:17) Alcohol Withdrawal Asmt-Ciwa ONCE (10/23/16 16:32) Flumazenil Inj (Romazicon Inj) (10/23/16 16:45) Lorazepam (Ativan) (10/23/16 16:45) Lorazepam Inj (Ativan Inj) (10/23/16 16:45) Lorazepam (Ativan) (10/23/16 16:45) Lorazepam Inj (Ativan Inj) (10/23/16 16:45) Lorazepam Inj (Ativan Inj) (10/23/16 16:45) Lorazepam Inj (Ativan Inj) (10/23/16 16:45) Diet Regular Basic (10/23/16 Dinner) Diet Regular Basic (10/24/16 Breakfast) Results Vital Signs Date Time Temp Pulse Resp B/P Pulse Ox O2 Delivery O2 Flow Rate FiO2 10/24/16 06:03 77 18 102/63 96 10/24/16 02:27 97 18 115/77 96 10/23/16 23:34 83 18 99/65 96 10/23/16 18:30 72 16 111/65 98 Room Air 10/23/16 15:02 102 18 10/23/16 15:01 98.1 102 17 104/72 97 Laboratory Tests Test 10/23/16 15:10 White Blood Count 8.3 Red Blood Count 4.70 Hemoglobin 15.7 Hematocrit 43.8 Mean Corpuscular Volume 93.1 Mean Corpuscular Hemoglobin 33.3 Mean Corpuscular Hemoglobin 35.7 Concent Red Cell Distribution Width 14.5 Platelet Count 288 Mean Platelet Volume 7.8 Neutrophils (%) (Auto) 58.3 Lymphocytes (%) (Auto) 27.4 Monocytes (%) (Auto) 7.1 Eosinophils (%) (Auto) 6.1 Basophils (%) (Auto) 1.1 Neutrophils # (Auto) 4.9 Lymphocytes # (Auto) 2.3 Monocytes # (Auto) 0.6 Eosinophils # (Auto) 0.5 Basophils # (Auto) 0.1 CBC Comment DIFF FINAL Differential Comment Sodium Level 143 Potassium Level 4.0 Chloride Level 109 Carbon Dioxide Level 25.0 Anion Gap 9 Blood Urea Nitrogen 10 Creatinine 0.69 Estimat Glomerular Filtration 118 Rate Random Glucose 93 Calcium Level 8.3 Total Bilirubin 0.3 Aspartate Amino Transf 12 (AST/SGOT) Alanine Aminotransferase 23 (ALT/SGPT) Alkaline Phosphatase 144 Total Protein 7.5 Albumin 3.9 Ethyl Alcohol Level 123 Diagnosis Primary Impression: Alcohol intoxication Additional Impression: Alcohol-induced mood disorder Psychiatrically Cleared: Yes Med/ Other Pt Specific Info: No Meds Exist/No RX given Disposition: 01 DISCHARGE HOME Condition: Stable Problem Qualifiers Primary Impression: Alcohol intoxication Qualified Code: F10.920 - Alcohol intoxication, uncomplicated Rachel Viveros [facility] October 24, 2016 09:03
== END 2016-10-24 09:15 | disposition home or self-care (01) ==
LOC: NEPC 14:53 → NEPJ 10-24 09:15
DX: F10.129 Alcohol abuse with intoxication, unspecified (principal); R45.851 Suicidal ideations; E78.00 Pure hypercholesterolemia, unspecified; J44.9 Chronic obstructive pulmonary disease, unspecified; K21.9 Gastro-esophageal reflux disease without esophagitis; I25.2 Old myocardial infarction; F20.9 Schizophrenia, unspecified; Z72.0 Tobacco use; Y90.6 Blood alcohol level of 120-199 mg/100 ml
CPT/HCPCS: 80053; 80307; 85025; 99284

== ENCOUNTER 2016-10-27 13:51 | Emergency (ER) | payer MEDICARE, OTHER ==
[~2016-10-27] VITALS: Ht 160 cm; Wt 64.0 kg
[2016-10-27 13:52] VITALS: BP 138/75; PULSE 78; RESP 15; TEMP 98.4; O2SAT 99
--- NOTE | 2016-10-27 14:06 | PD ---
Physical Exam Date Seen by Provider: October 27, 2016 Time Seen by Provider: 14:05 Narrative 56 yo male here for evaluation of detox and depression. Chronic history of this. Frequent visitor for alcohol related. Feels depressed because "I cant afford my meds" and he "has not gotten his SS yet". No other complains. no falls. Wants to go to [facility]. Suicidal but no plan. Vitals sign stable. Patient awaiting bed placement. Data Data Last Documented VS Vital Signs Date Time Temp Pulse Resp B/P Pulse Ox O2 Delivery O2 Flow Rate FiO2 10/27/16 13:52 98.4 78 15 138/75 99 MDM Medical Record Reviewed: Yes Supervised Visit with BOB: No Rodríguez Last October 27, 2016 14:06
--- NOTE | 2016-10-27 14:34 | PD ---
HPI Chief Complaint: Medical Clearance Time Seen by Provider: 14:24 Travel History International Travel<30 days: No Contact w/Intl Traveler<30days: No Traveled to known affect area: No History of Present Illness HPI This is a 56-year-old male who is a frequent visitor to this emergency department for various alcohol and depression related complaints. He presents requesting help with transportation to [facility]. His primary goal today is to go to detoxification for his alcohol addiction. He endorses daily. Use. He says that he called 911 today and requested transportation to [facility] but he was brought here instead. He endorses chronic depression, occasional suicidal thoughts but says that he has no desire to hurt himself. He is homeless. He hasn't had much to eat in the past few days. He has no acute medical complaints at this time. Per chart review the patient was most recently seen here in the psychiatry area of this emergency room on October 23, discharged October 24. Lab work on October 23 revealed an alcohol level of 123, otherwise unremarkable. PFSH Past Medical History Hx Anticoagulant Therapy: No AAA: No ADD: No ADHD: No Alzheimer's Disease: No Anemia: No Arthritis: Yes Asthma: Yes Atrial Fibrillation: No Autoimmune Disease: No Blood Disorders: No Bipolar Disorder: Yes Anxiety: Yes Depression: Yes Cancer: No Cardiac Catheterization: Yes Cardiomyopathy: No Cardiovascular Problems: Yes ([place]) Cerebral Palsy: No High Cholesterol: Yes Chemotherapy: No Chest Pain: No Congestive Heart Failure: No Cirrhosis: No COPD: Yes Cerebrovascular Accident: No Coronary Artery Disease: No Cystic Fibrosis: No Dementia: No Developmental Delay: No Diabetes: No Diminished Hearing: No Endocrine: No Gastrointestinal Disorders: Yes (Acid reflux) GERD: Yes Glaucoma: No Gout: No Genitourinary: No Hepatitis: No Hiatal Hernia: No Heparin Induced Thrombocytopen: No Herniated Disk: No Hypertension: No Immune Disorder: No Inguinal Hernia: No Implanted Vascular Access Dvce: No Insomnia: Yes Kidney Stones: No Musculoskeletal: Yes Neurologic: Yes Parkinson's Disease: No Psychiatric: Yes Reproductive: No Respiratory: Yes (COPD) Resp. Syncytial Virus (RSV): No Integumentary: Yes (flaky/dry face and scalp has red/swollen scab on r wrist prev slit) Immunizations Current: Yes Migraines: No Myocardial Infarction: Yes Pancreatitis: No Radiation Therapy: No Renal Failure: No Schizophrenia: Yes Seizures: Yes Shingles: No Sickle Cell Disease: No Sleep Apnea: Yes Thyroid Disease: No Ulcer: No Menopausal: No Past Surgical History Abdominal Aneurysm Repair: No Abdominal Surgery: No AICD: No Appendectomy: No Arteriovenous Shunt: No Cholecystectomy: No Coronary Stent: Yes Ear Surgery: No Endocrine Surgery: No Eye Surgery: No Genitourinary Surgery: No Gynecologic Surgery: No Joint Replacement: No Mastectomy: No Neurologic Surgery: No Oral Surgery: No Pacemaker: No Prostatectomy: No Thoracic Surgery: No Tonsillectomy: Yes Tympanostomy Tube: No Valve Replacement: No Social History Alcohol Use: Yes (DAILY- LAST DRINK THIS MORNING) Tobacco Use: Yes (pk of cigars PER WEEK) Substance Use: Yes (CHRONIC ALCOHOL ABUSE) Allergies-Medications (Allergen,Severity, Reaction): Coded Allergies: Codeine (Verified Allergy, Mild, RASH, 10/23/16) *MDRO Multi-Drug Resistant Organism (Verified Adverse Reaction, Unknown, ) 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, 07/31/16) Reported Meds & Prescriptions Reported Meds & Active Scripts Active Proair Hfa 8.5 GM Inh (Albuterol Sulfate) 90 Mcg/Act Aer 2 Puff INH Q4-6H PRN 108 mcg/actuation Prednisone 20 Mg Tab 20 Mg PO BID Reported Risperdal (Risperidone) 3 Mg Tab 3 Mg PO Q12HR Trazodone (Trazodone HCl) 50 Mg Tab 300 Mg PO HS Review of Systems Except as stated in HPI: all other systems reviewed are Neg Physical Exam Narrative GENERAL: Disheveled male who is in no acute distress, answering questions appropriately. SKIN: Warm and dry. HEAD: Atraumatic. Normocephalic. EYES: Pupils equal and round. No scleral icterus. No injection or drainage. ENT: No nasal bleeding or discharge. Mucous membranes pink and moist. NECK: Trachea midline. No JVD. CARDIOVASCULAR: Regular rate and rhythm. No murmur appreciated. RESPIRATORY: No accessory muscle use. Clear to auscultation. Breath sounds equal bilaterally. GASTROINTESTINAL: Abdomen soft, non-tender, nondistended. Hepatic and splenic margins not palpable. MUSCULOSKELETAL: No obvious deformities. No edema. NEUROLOGICAL: Awake and alert. No obvious cranial nerve deficits. Motor grossly within normal limits. Normal speech. PSYCHIATRIC: Appropriate mood and affect; insight and judgment normal. Data Data Last Documented VS Vital Signs Date Time Temp Pulse Resp B/P Pulse Ox O2 Delivery O2 Flow Rate FiO2 10/27/16 13:52 98.4 78 15 138/75 99 MDM Medical Decision Making Medical Screen Exam Complete: Yes Emergency Medical Condition: Yes Medical Record Reviewed: Yes Differential Diagnosis Alcoholism, malingering, homelessness, hunger, depression Narrative Course The patient will be referred to [facility] for his alcohol related issues. He has not required additional emergent psychiatric evaluation at this time and he has no acute medical complaints. I did discuss with the psychiatric nurse and there are no beds at [facility] currently. Diagnosis Primary Impression: Malingering Additional Impressions: Homelessness Chronic alcoholism [facility]errals: [facility]Other Pt SpecificInfo: No Change to Meds Disposition: 01 DISCHARGE HOME Condition: Stable Sudarshan Fallon October 27, 2016 14:34
== END 2016-10-27 15:06 | disposition home or self-care (01) ==
LOC: NEPD 13:51
DX: F10.20 Alcohol dependence, uncomplicated (principal); E78.00 Pure hypercholesterolemia, unspecified; I25.2 Old myocardial infarction; Z76.5 Malingerer [conscious simulation]; Z59.0 Homelessness; Z72.0 Tobacco use; Z87.39 Personal history of other diseases of the musculoskeletal system and connective tissue; Z87.09 Personal history of other diseases of the respiratory system; Z86.59 Personal history of other mental and behavioral disorders; Z86.79 Personal history of other diseases of the circulatory system; Z87.19 Personal history of other diseases of the digestive system; Z86.69 Personal history of other diseases of the nervous system and sense organs
CPT/HCPCS: 99281

== ENCOUNTER 2016-11-04 13:58 | Emergency (ER) | payer MEDICARE, OTHER ==
[~2016-11-04] VITALS: Ht 160 cm; Wt 61.6 kg
--- NOTE | 2016-11-04 14:08 | PD ---
HPI Chief Complaint: PSYCH Time Seen by Provider: 14:08 Travel History International Travel<30 days: No Contact w/Intl Traveler<30days: No History of Present Illness HPI 56-year-old male with a history of alcohol abuse and COPD presents to the emergency department under Silver act for suicidal ideations. Per the Silver act report the patient stated that he wanted to kill himself. The patient is well known to our emergency department for frequent visits for alcohol intoxication and suicidal ideations. The patient denies any attempts to harm himself. Denies any ingestion of substances in an attempt to harm himself. States that he's had one beer to drink today, last drink around 8 AM. He admits to occasional marijuana use. Denies any other drug use. Denies any medical complaints. Denies any chest pain, shortness of breath, abdominal pain, nausea , vomiting, diarrhea, lightheadedness, dizziness. No other complaints. PFSH Past Medical History Hx Anticoagulant Therapy: No AAA: No ADD: No ADHD: No Alzheimer's Disease: No Anemia: No Arthritis: Yes Asthma: Yes Atrial Fibrillation: No Autoimmune Disease: No Blood Disorders: No Bipolar Disorder: Yes Anxiety: Yes Depression: Yes Cancer: No Cardiac Catheterization: Yes Cardiomyopathy: No Cardiovascular Problems: Yes ([place]) Cerebral Palsy: No High Cholesterol: Yes Chemotherapy: No Chest Pain: No Congestive Heart Failure: No Cirrhosis: No COPD: Yes Cerebrovascular Accident: No Coronary Artery Disease: No Cystic Fibrosis: No Dementia: No Developmental Delay: No Diabetes: No Diminished Hearing: No Endocrine: No Gastrointestinal Disorders: Yes (Acid reflux) GERD: Yes Glaucoma: No Gout: No Genitourinary: No Hepatitis: No Hiatal Hernia: No Heparin Induced Thrombocytopen: No Herniated Disk: No Hypertension: No Immune Disorder: No Inguinal Hernia: No Implanted Vascular Access Dvce: No Insomnia: Yes Kidney Stones: No Musculoskeletal: Yes Neurologic: Yes Parkinson's Disease: No Psychiatric: Yes Reproductive: No Respiratory: Yes (COPD) Resp. Syncytial Virus (RSV): No Integumentary: Yes (flaky/dry face and scalp has red/swollen scab on r wrist prev slit) Immunizations Current: Yes Migraines: No Myocardial Infarction: Yes Pancreatitis: No Radiation Therapy: No Renal Failure: No Schizophrenia: Yes Seizures: Yes Shingles: No Sickle Cell Disease: No Sleep Apnea: Yes Thyroid Disease: No Ulcer: No Menopausal: No Past Surgical History Abdominal Aneurysm Repair: No Abdominal Surgery: No AICD: No Appendectomy: No Arteriovenous Shunt: No Cholecystectomy: No Coronary Stent: Yes Ear Surgery: No Endocrine Surgery: No Eye Surgery: No Genitourinary Surgery: No Gynecologic Surgery: No Joint Replacement: No Mastectomy: No Neurologic Surgery: No Oral Surgery: No Pacemaker: No Prostatectomy: No Thoracic Surgery: No Tonsillectomy: Yes Tympanostomy Tube: No Valve Replacement: No Social History Alcohol Use: Yes (DAILY- LAST DRINK THIS MORNING) Tobacco Use: Yes (pk of cigars PER WEEK) Substance Use: Yes (CHRONIC ALCOHOL ABUSE) Allergies-Medications (Allergen,Severity, Reaction): Coded Allergies: Codeine (Verified Allergy, Mild, RASH, 10/23/16) *MDRO Multi-Drug Resistant Organism (Verified Adverse Reaction, Unknown, ) 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, 07/31/16) Reported Meds & Prescriptions Reported Meds & Active Scripts Active Proair Hfa 8.5 GM Inh (Albuterol Sulfate) 90 Mcg/Act Aer 2 Puff INH Q4-6H PRN 108 mcg/actuation Prednisone 20 Mg Tab 20 Mg PO BID Reported Risperdal (Risperidone) 3 Mg Tab 3 Mg PO Q12HR Trazodone (Trazodone HCl) 50 Mg Tab 300 Mg PO HS Review of Systems Except as stated in HPI: all other systems reviewed are Neg Physical Exam Narrative GENERAL: Well-nourished and well-developed male patient in no acute distress who is nontoxic appearing. SKIN: Warm and dry. HEAD: Normocephalic and atraumatic. EYES: No injection, drainage, or hyphema noted. PERRLA. EOMI. ENT: No nasal drainage noted. Oropharynx is clear. NECK: Supple and the trachea is midline. CARDIOVASCULAR: Regular rate and rhythm. RESPIRATORY: Breath sounds equal bilaterally. Slight wheeze bilaterally. No accessory muscle use. GASTROINTESTINAL: Abdomen is soft, non-tender, and nondistended. MUSCULOSKELETAL: No obvious deformities, swelling, cyanosis, or ecchymosis is present throughout the upper and lower extremities. Patient has full range of motion without any signs of neurovascular compromise. NEUROLOGICAL: Awake, alert, and oriented. Normal speech and gait. Cranial nerves are grossly intact. Data Data Last Documented VS Vital Signs Date Time Temp Pulse Resp B/P Pulse Ox O2 Delivery O2 Flow Rate FiO2 11/04/16 14:10 104/62 98 Orders Complete Blood Count With Diff (11/04/16 14:08) Comprehensive Metabolic Panel (11/04/16 14:08) Psych Screen (11/04/16 14:08) Drug Screen, Random Urine (11/04/16 14:08) Alcohol (Ethanol) (11/04/16 14:08) Labs Laboratory Tests Test 11/04/16 14:30 White Blood Count 9.5 TH/MM3 Red Blood Count 5.51 MIL/MM3 Hemoglobin 18.2 GM/DL Hematocrit 52.0 % Mean Corpuscular Volume 94.4 FL Mean Corpuscular Hemoglobin 33.0 PG Mean Corpuscular Hemoglobin 34.9 % Concent Red Cell Distribution Width 15.0 % Platelet Count 274 TH/MM3 Mean Platelet Volume 8.1 FL Neutrophils (%) (Auto) 54.0 % Lymphocytes (%) (Auto) 33.9 % Monocytes (%) (Auto) 6.2 % Eosinophils (%) (Auto) 5.4 % Basophils (%) (Auto) 0.5 % Neutrophils # (Auto) 5.1 TH/MM3 Lymphocytes # (Auto) 3.2 TH/MM3 Monocytes # (Auto) 0.6 TH/MM3 Eosinophils # (Auto) 0.5 TH/MM3 Basophils # (Auto) 0.0 TH/MM3 CBC Comment DIFF FINAL Differential Comment Sodium Level 142 MEQ/L Potassium Level 3.7 MEQ/L Chloride Level 105 MEQ/L Carbon Dioxide Level 31.4 MEQ/L Anion Gap 6 MEQ/L Blood Urea Nitrogen 5 MG/DL Creatinine 0.84 MG/DL Estimat Glomerular Filtration 94 ML/MIN Rate Random Glucose 71 MG/DL Calcium Level 9.5 MG/DL Total Bilirubin 0.5 MG/DL Aspartate Amino Transf 35 U/L (AST/SGOT) Alanine Aminotransferase 42 U/L (ALT/SGPT) Alkaline Phosphatase 165 U/L Total Protein 8.2 GM/DL Albumin 4.3 GM/DL Ethyl Alcohol Level 218 MG/DL [facility] Medical Decision Making Medical Screen Exam Complete: Yes Emergency Medical Condition: Yes Differential Diagnosis Differential: Depression versus adjustment reaction versus anxiety versus PTSD versus psychosis NOS versus mood disorder NOS versus substance induced mood disorder versus ODD versus adjustment reaction versus schizophrenia versus bipolar disorder versus schizoaffective versus electrolyte abnormality versus dementia versus malingering. Narrative Course Patient presents under a Silver act. Physical examination and vital signs are essentially unremarkable. Patient has no medical complaints to report. Psych screen has been ordered. Labs are negative for any acute abnormalities. Etoh is 218. Patient is medically cleared for psychiatric evaluation and disposition. Diagnosis Primary Impression: Alcohol-induced mood disorder Angelina Fung Nov 04, 2016 14:08
[2016-11-04 14:10] VITALS: BP 104/62; O2SAT 98
[2016-11-04 15:06] LABS: AUTOMATED NEUTROPHIL # 5.1 TH/MM3 (1.8-7.7); BASOPHIL % 0.5 % (0.0-2.0); EOSINOPHIL # 0.5 TH/MM3 (0-0.4); EOSINOPHIL % 5.4 % (0.0-4.0); HEMO FLAGS DIFF FINAL; LYMPH % 33.9 % (9.0-44.0); LYMPHOCYTE # 3.2 TH/MM3 (1.0-4.8); MEAN CELL VOLUME 94.4 FL (80.0-100.0); MEAN CORPUSCULAR HGB CONC 34.9 % (32.0-36.0); MONO % 6.2 % (0.0-8.0); PLATELET COUNT 274 TH/MM3 (150-450); RED BLOOD COUNT 5.51 MIL/MM3 (4.50-5.90); WHITE BLOOD COUNT 9.5 TH/MM3 (4.0-11.0)
[2016-11-04 15:18] LABS: ALT (GPT) 42 U/L (12-78); ANION GAP 6 MEQ/L (5-15); AST (GOT) 35 U/L (15-37); BICARBONATE 31.4 MEQ/L (21.0-32.0); BLOOD UREA NITROGEN 5 MG/DL (7-18); CHLORIDE 105 MEQ/L (98-107); GLOMERULAR FILTRATION RATE 94 ML/MIN (>89); POTASSIUM 3.7 MEQ/L (3.5-5.1); SODIUM (NA) 142 MEQ/L (136-145)
[2016-11-04 15:21] LABS: ALKALINE PHOSPHATASE 165 U/L (45-117); TOTAL BILIRUBIN ADULT 0.5 MG/DL (0.2-1.0)
[2016-11-04 17:45] LABS: AMPHETAMINE, URINE NEG (NEG); BARBITURATES, URINE NEG (NEG); COCAINE, URINE NEG (NEG)
[2016-11-04 19:41] VITALS: BP 130/73; PULSE 90; RESP 20; O2SAT 93
[2016-11-05 01:00] VITALS: BP 105/67; PULSE 90; RESP 20; O2SAT 92
[2016-11-05 02:41] VITALS: BP 121/71; PULSE 65; RESP 16; O2SAT 93
[2016-11-05 05:43] VITALS: BP 127/67; PULSE 68; RESP 19; O2SAT 97
[2016-11-05 09:16] VITALS: BP 127/67; PULSE 68; RESP 19; O2SAT 97
--- NOTE | 2016-11-05 09:17 | PD ---
History of Present Illness Chief Complaint: Psychiatric Symptoms Time Seen by Provider: 09:15 Travel History International Travel<30 Days: No Contact w/Intl Traveler<30days: No Known affected area: No Legal Status Legal Status: Silver Act Silver Act Signed By: Emre Arndt History of Present Illness: History of Present Illness HPI 56-year-old male with a history of alcohol dependence known to this service who presents to the emergency department under Silver act for suicidal ideations. Per the Silver act report the patient stated that he wanted to kill himself. He did not make any attempt at harming himself. States that he's had one beer to drink today, last drink around 8 AM . Current BAL is 218. He admits to occasional marijuana use. Patient was monitored in [facility] overnight and he presented no behavioral concerns and no suicidality. This morning the patient is wake, alert and oriented. he is clinically sober and his speech is clear. Gait is steady with no impairment. He states " I was just sitting in the rain and a lady asked me if I was ok. I said the wrong thing. I don't want to . I'm getting an apartment.". There is no psychosis and no ector and no suicidal or homicidal ideation, intent or plan. PFSH Past Medical History Hx Anticoagulant Therapy: No AAA: No ADD: No ADHD: No Alzheimer's Disease: No Anemia: No Arthritis: Yes Asthma: Yes Atrial Fibrillation: No Autoimmune Disease: No Blood Disorders: No Bipolar Disorder: Yes Anxiety: Yes Depression: Yes Cancer: No Cardiac Catheterization: Yes Cardiomyopathy: No Cardiovascular Problems: Yes Cerebral Palsy: No High Cholesterol: Yes Chemotherapy: No Chest Pain: No Congestive Heart Failure: Yes Cirrhosis: No COPD: Yes Cerebrovascular Accident: No Coronary Artery Disease: No Cystic Fibrosis: No Dementia: No Developmental Delay: No Diabetes: No Diminished Hearing: No Endocrine: No Gastrointestinal Disorders: Yes (Acid reflux) GERD: Yes Glaucoma: No Gout: No Genitourinary: No Hepatitis: No Hiatal Hernia: No Heparin Induced Thrombocytopen: No Herniated Disk: No Hypertension: No Immune Disorder: No Inguinal Hernia: No Implanted Vascular Access Dvce: No Insomnia: Yes Kidney Stones: No Musculoskeletal: Yes Neurologic: Yes Parkinson's Disease: No Psychiatric: Yes Reproductive: No Respiratory: Yes (COPD) Resp. Syncytial Virus (RSV): No Integumentary: Yes (flaky/dry face and scalp has red/swollen scab on r wrist prev slit) Immunizations Current: Yes Migraines: No Myocardial Infarction: Yes Pancreatitis: No Radiation Therapy: No Renal Failure: No Schizophrenia: Yes Seizures: Yes Shingles: No Sickle Cell Disease: No Sleep Apnea: Yes Thyroid Disease: No Ulcer: No Tetanus Vaccination: Unknown Menopausal: No Past Surgical History Abdominal Aneurysm Repair: No Abdominal Surgery: No AICD: No Appendectomy: No Arteriovenous Shunt: No Cholecystectomy: No Coronary Stent: Yes Ear Surgery: No Endocrine Surgery: No Eye Surgery: No Genitourinary Surgery: No Gynecologic Surgery: No Joint Replacement: No Mastectomy: No Neurologic Surgery: No Oral Surgery: No Pacemaker: No Prostatectomy: No Thoracic Surgery: No Tonsillectomy: Yes Tympanostomy Tube: No Valve Replacement: No Psychiatric History Psychiatric History Hx Psychiatric Treatment: Multiple detox admissions Multiple Ed visits for alcohol intoxication History of Inpatient Treatment: No Guns or firearms in home: No Social History Single, homeless male. lives in a tent. Hx Alcohol Use: Yes Hx Tobacco Use: Yes Hx Substance Use: Yes Substance Use Type: Alcohol, Benzos (Valium,Xanax) Hx of Substance Use Treatment: Yes Family Psychiatric History Negative Allergies-Medications (Allergen,Severity, Reaction): Coded Allergies: Codeine (Verified Allergy, Mild, RASH, 10/23/16) *MDRO Multi-Drug Resistant Organism (Verified Adverse Reaction, Unknown, ) 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, 07/31/16) Reported Meds & Prescriptions Reported Meds & Active Scripts Active Proair Hfa 8.5 GM Inh (Albuterol Sulfate) 90 Mcg/Act Aer 2 Puff INH Q4-6H PRN 108 mcg/actuation Prednisone 20 Mg Tab 20 Mg PO BID Reported Risperdal (Risperidone) 3 Mg Tab 3 Mg PO Q12HR Trazodone (Trazodone HCl) 50 Mg Tab 300 Mg PO HS Review of Systems Except as stated in HPI: all other systems reviewed are Neg Exam Alert: Yes Gackle: Person (ox4) Mood: Calm Affect: Appropriate Speech: Clear, Logical Eye Contact: Normal Memory Intact: Comment (No impairmetn) Hallucinations: Other (Negative) Delusions: No Suicidal: Ideation (denies any) Homicidal: Ideation (deneis any) Insight/Judgement Fair. Not impaired. [facility] Medical Decision Making Medical Record Reviewed: Yes Assessment/Plan 56 year old male with history of alcohol abuse who presents under a BA. At this time he does not meet BA criteria. He is not suicidal or homicidal. There is no psychosis and no ector. He is clinically sober and is requesting discharge. Recommend abstinence from ETOH. Lift BA Orders Complete Blood Count With Diff (11/04/16 14:08) Comprehensive Metabolic Panel (11/04/16 14:08) Psych Screen (11/04/16 14:08) Drug Screen, Random Urine (11/04/16 14:08) Alcohol (Ethanol) (11/04/16 14:08) Diet Regular Basic (11/05/16 Breakfast) Results Vital Signs Date Time Temp Pulse Resp B/P Pulse Ox O2 Delivery O2 Flow Rate FiO2 11/05/16 05:43 68 19 127/67 97 Room Air 11/05/16 02:41 65 16 121/71 93 Room Air 11/05/16 01:00 90 20 105/67 92 Room Air 11/04/16 19:41 90 20 130/73 93 Room Air 11/04/16 14:10 104/62 98 Laboratory Tests Test 11/04/16 11/04/16 14:30 17:22 White Blood Count 9.5 Red Blood Count 5.51 Hemoglobin 18.2 Hematocrit 52.0 Mean Corpuscular Volume 94.4 Mean Corpuscular Hemoglobin 33.0 Mean Corpuscular Hemoglobin 34.9 Concent Red Cell Distribution Width 15.0 Platelet Count 274 Mean Platelet Volume 8.1 Neutrophils (%) (Auto) 54.0 Lymphocytes (%) (Auto) 33.9 Monocytes (%) (Auto) 6.2 Eosinophils (%) (Auto) 5.4 Basophils (%) (Auto) 0.5 Neutrophils # (Auto) 5.1 Lymphocytes # (Auto) 3.2 Monocytes # (Auto) 0.6 Eosinophils # (Auto) 0.5 Basophils # (Auto) 0.0 CBC Comment DIFF FINAL Differential Comment Sodium Level 142 Potassium Level 3.7 Chloride Level 105 Carbon Dioxide Level 31.4 Anion Gap 6 Blood Urea Nitrogen 5 Creatinine 0.84 Estimat Glomerular Filtration 94 Rate Random Glucose 71 Calcium Level 9.5 Total Bilirubin 0.5 Aspartate Amino Transf 35 (AST/SGOT) Alanine Aminotransferase 42 (ALT/SGPT) Alkaline Phosphatase 165 Total Protein 8.2 Albumin 4.3 Ethyl Alcohol Level 218 Urine Opiates Screen NEG Urine Barbiturates Screen NEG Urine Amphetamines Screen NEG Urine Benzodiazepines Screen POS Urine Cocaine Screen NEG Urine Cannabinoids Screen NEG Diagnosis Primary Impression: Alcohol-induced mood disorder Psychiatrically Cleared: Yes Med/ Other Pt Specific Info: No Meds Exist/No RX given Disposition: 01 DISCHARGE HOME Condition: Stable Rachel Viveros Nov 05, 2016 09:17
== END 2016-11-05 09:56 | disposition home or self-care (01) ==
LOC: NEDAMB 13:58 → NEPJ 11-05 09:56
DX: F10.14 Alcohol abuse with alcohol-induced mood disorder (principal); J44.9 Chronic obstructive pulmonary disease, unspecified; J45.909 Unspecified asthma, uncomplicated; Z72.0 Tobacco use; Z59.0 Homelessness
CPT/HCPCS: 80053; 80307; 85025; 99284

== ENCOUNTER 2016-11-07 09:24 | Emergency (ER) | payer MEDICARE, OTHER ==
[~2016-11-07] VITALS: Ht 160 cm; Wt 75.0 kg
[2016-11-07] VITALS (7 sets, daily range): BP systolic 102–128; BP diastolic 56–70; PULSE 56–104; RESP 16–24; TEMP 97.8–98.8; O2SAT 91–100
--- NOTE | 2016-11-07 09:35 | PD ---
HPI Chief Complaint: reported seizure Time Seen by Provider: 09:31 Travel History International Travel<30 days: No Contact w/Intl Traveler<30days: No Traveled to known affect area: No History of Present Illness HPI This is a 56-year-old male with a history of alcoholism, who is well-known to this emergency department, who presents today after found laying on the sidewalk after having an apparent seizure. The patient was initially postictal however en route, he became more alert and cooperative. The patient reports drinking one natural ice today. He also reports wine. He reports pain in his clavicle. He has abrasions to his face and the dorsum of his left hand. There is no obvious deformity noted. The patient does have a odor consistent with alcohol. He reports he is supposed to take Dilantin however he has not been taking this. He also reports he supposed to be taking trazodone and a blood pressure medicine which is also not taking. He is unsure of his last tetanus shot. There are no other complaints. PFSH Past Medical History Hx Anticoagulant Therapy: No AAA: No ADD: No ADHD: No Alzheimer's Disease: No Anemia: No Arthritis: Yes Asthma: Yes Atrial Fibrillation: No Autoimmune Disease: No Blood Disorders: No Bipolar Disorder: Yes Anxiety: Yes Depression: Yes Cancer: No Cardiac Catheterization: Yes Cardiomyopathy: No Cardiovascular Problems: Yes Cerebral Palsy: No High Cholesterol: Yes Chemotherapy: No Chest Pain: No Congestive Heart Failure: Yes Cirrhosis: No COPD: Yes Cerebrovascular Accident: No Coronary Artery Disease: No Cystic Fibrosis: No Dementia: No Developmental Delay: No Diabetes: No Diminished Hearing: No Endocrine: No Gastrointestinal Disorders: Yes (Acid reflux) GERD: Yes Glaucoma: No Gout: No Genitourinary: No Hepatitis: No Hiatal Hernia: No Heparin Induced Thrombocytopen: No Herniated Disk: No Hypertension: No Immune Disorder: No Inguinal Hernia: No Implanted Vascular Access Dvce: No Insomnia: Yes Kidney Stones: No Musculoskeletal: Yes Neurologic: Yes Parkinson's Disease: No Psychiatric: Yes Reproductive: No Respiratory: Yes (COPD) Resp. Syncytial Virus (RSV): No Integumentary: Yes (flaky/dry face and scalp has red/swollen scab on r wrist prev slit) Immunizations Current: Yes Migraines: No Myocardial Infarction: Yes Pancreatitis: No Radiation Therapy: No Renal Failure: No Schizophrenia: Yes Seizures: Yes Shingles: No Sickle Cell Disease: No Sleep Apnea: Yes Thyroid Disease: No Ulcer: No Menopausal: No Past Surgical History Abdominal Aneurysm Repair: No Abdominal Surgery: No AICD: No Appendectomy: No Arteriovenous Shunt: No Cholecystectomy: No Coronary Stent: Yes Ear Surgery: No Endocrine Surgery: No Eye Surgery: No Genitourinary Surgery: No Gynecologic Surgery: No Joint Replacement: No Mastectomy: No Neurologic Surgery: No Oral Surgery: No Pacemaker: No Prostatectomy: No Thoracic Surgery: No Tonsillectomy: Yes Tympanostomy Tube: No Valve Replacement: No Social History Alcohol Use: Yes Tobacco Use: Yes Substance Use: Yes Allergies-Medications (Allergen,Severity, Reaction): Coded Allergies: Codeine (Verified Allergy, Mild, RASH, 11/07/16) *MDRO Multi-Drug Resistant Organism (Verified Adverse Reaction, Unknown, ) 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, 07/31/16) Reported Meds & Prescriptions Reported Meds & Active Scripts Active Proair Hfa 8.5 GM Inh (Albuterol Sulfate) 90 Mcg/Act Aer 2 Puff INH Q4-6H PRN 108 mcg/actuation Reported Risperdal (Risperidone) 3 Mg Tab 3 Mg PO Q12HR Trazodone (Trazodone HCl) 50 Mg Tab 300 Mg PO HS Review of Systems ROS Limitations: Clinical Condition, Intoxication Except as stated in HPI: all other systems reviewed are Neg General / Constitutional: No: Fever, Chills HENT: No: Headaches, Neck Pain Cardiovascular: No: Chest Pain or Discomfort, Palpitations Respiratory: No: Cough, Shortness of Breath, Wheezing Gastrointestinal: No: Nausea, Vomiting, Abdominal Pain Genitourinary: Positive: Incontinence, No: Dysuria Musculoskeletal: Positive: Pain (left clavicle), No: Weakness Neurologic: Positive: Slurred Speech (consistent with EtOH consumption), Seizures, No: Weakness, Dizziness, Headache Psychiatric: Positive: Mood Disorder, Substance Abuse Physical Exam Narrative GENERAL: Disheveled male in no acute respiratory distress. Patient has obvious abrasions to his face. SKIN: Focused skin assessment warm/dry. HEAD: Normocephalic. Patient has abrasions to his face. There is no scalp lacerations or deformities noted. EYES: No scleral icterus. No injection or drainage. ENT: No nasal bleeding or discharge. Mucous membranes pink and moist. NECK: Trachea midline. No posterior spinous process tenderness. CARDIOVASCULAR: Regular rate and rhythm. No murmur appreciated. RESPIRATORY: No accessory muscle use. Clear to auscultation. Breath sounds equal bilaterally. GASTROINTESTINAL: Abdomen soft, non-tender, nondistended. Hepatic and splenic margins not palpable. MUSCULOSKELETAL: No obvious deformities. No clubbing. No cyanosis. No edema. He does have an abrasion to his left dorsum of his hand. NEUROLOGICAL: Awake and answering questions. He does appear to be intoxicated.. No obvious cranial nerve deficits. Motor grossly within normal limits. Slurred speech. Data Data Last Documented VS Vital Signs Date Time Temp Pulse Resp B/P Pulse Ox O2 Delivery O2 Flow Rate FiO2 11/08/16 02:13 100.7 88 19 110/73 93 Room Air 11/07/16 11:15 2 Orders Basic Metabolic Panel (Bmp) (11/07/16 09:31) Magnesium (Mg) (11/07/16 09:31) Spine, Cervical - Ltd (Ap&Lat) (11/07/16 09:31) Ct Brain W/O Iv Contrast(Rout) (11/07/16 09:31) Iv Access Insert/Monitor (11/07/16 09:31) Ecg Monitoring (11/07/16 09:31) Oximetry (11/07/16 09:31) Alcohol (Ethanol) (11/07/16 09:31) Thiamine Inj (Thiamine Inj) (11/07/16 09:45) Folic Acid (Folate) (11/07/16 09:45) Multivitamin (Theragran) (11/07/16 09:45) Tetanus/Diphtheria Tox Adult (Tetanus/Di (11/07/16 09:45) Phenytoin Inj (Dilantin Inj) (11/07/16 09:45) Clavicle (11/07/16 09:46) Electrocardiogram (11/07/16 09:36) Ct Shoulder W/O Contrast (11/07/16 ) Diet Regular Basic (11/07/16 Dinner) Alcohol Withdrawal Asmt-Ciwa ONCE (11/07/16 20:16) Flumazenil Inj (Romazicon Inj) (11/07/16 20:30) Lorazepam (Ativan) (11/07/16 20:30) Lorazepam Inj (Ativan Inj) (11/07/16 20:30) Lorazepam (Ativan) (11/07/16 20:30) Lorazepam Inj (Ativan Inj) (11/07/16 20:30) Lorazepam Inj (Ativan Inj) (11/07/16 20:30) Lorazepam Inj (Ativan Inj) (11/07/16 20:30) Diet Regular Basic (11/08/16 Breakfast) Ibuprofen (Motrin) (11/08/16 02:30) Labs Laboratory Tests Test 11/07/16 09:30 Sodium Level 142 MEQ/L Potassium Level 4.2 MEQ/L Chloride Level 105 MEQ/L Carbon Dioxide Level 24.0 MEQ/L Anion Gap 13 MEQ/L Blood Urea Nitrogen 6 MG/DL Creatinine 0.72 MG/DL Estimat Glomerular Filtration 113 ML/MIN Rate Random Glucose 88 MG/DL Calcium Level 7.7 MG/DL Magnesium Level 2.0 MG/DL Ethyl Alcohol Level 346 MG/DL MDM Medical Decision Making Medical Screen Exam Complete: Yes Emergency Medical Condition: Yes Differential Diagnosis Alcohol withdrawal seizure versus seizure disorder versus metabolic derangement versus EtOH intoxication versus syncope Narrative Course 56-year-old male who is well-known this [facility], presents today with complaints of probable seizure. The patient has abrasions to his face and left dorsum of his hand. The patient was incontinent to urine. He sounds like he was initially postictal however when he arrived he was able to answer questions appropriately. His reports left clavicle pain. Questionable acromial fracture on plain x-rays. Recommendation is for formal CT when the patient is stable. The patient's alcohol level is greater than 300. He's been loaded with Dilantin , 1 g. Patient reports he suicidal. The patient reports suicidal ideation every single time he comes into this department. He is always cleared. I do not believe he needs to be Silver acted. The patient seems to have secondary gain by coming in here stating he suicidal. He always asks for food and a change of clothes. Diagnosis Primary Impression: Alcohol intoxication Additional Impressions: reported seizure Bipolar 1 disorder, depressed, moderate Suicidal ideation Alcides Helms MD Nov 07, 2016 09:35
[2016-11-07] MEDS ORDERED: MULTIVITAMIN TAB PO ONE (09:45)
[2016-11-07] MEDS ORDERED: THIAMINE HCL 200 MG/2 ML VIAL IM ONE (09:45)
[2016-11-07] MEDS ORDERED: TETANUS/DIPHTHERIA TOXOID ADULT 0.5 ML VIAL IM ONE (09:45)
[2016-11-07] MEDS ORDERED: PHENYTOIN INJ 1,000 MG in SODIUM CHLORIDE 0.9% INJ 100 ML IV ONE (09:45)
[2016-11-07] MEDS ORDERED: FOLIC ACID 1 MG TAB PO ONE (09:45)
--- NOTE | 2016-11-07 10:17 | RADRPT ---
EXAM DATE/TIME: 11/07/2016 09:45 [facility] COMPARISON: CT BRAIN W/O CONTRAST, March 29, 2015, 18:48. INDICATIONS : Seizure today, laceration to right frontal region. RADIATION DOSE: 56.35 CTDIvol (mGy) MEDICAL HISTORY : Seizures. Cardiovascular disease SURGICAL HISTORY : None. ENCOUNTER: Initial ACUITY: 1 day PAIN SCALE: 4/10 LOCATION: Right frontal TECHNIQUE: Multiple contiguous axial images were obtained of the head. Using automated exposure control and adj ustment of the mA and/or kV according to patient size, radiation dose was kept as low as reasonably a chievable to obtain optimal diagnostic quality images. FINDINGS: CEREBRUM: The ventricles are normal for age. No evidence of midline shift, mass lesion, hemorrhage or acute in farction. No extra-axial fluid collections are seen. POSTERIOR FOSSA: The cerebellum and brainstem are intact. The 4th ventricle is midline. The cerebellopontine angle i s unremarkable. EXTRACRANIAL: The visualized portion of the orbits is intact. SKULL: The calvaria is intact. No evidence of skull fracture. Soft tissue swelling right frontal bone with out fracture. CONCLUSION: Negative for acute traumatic injury. Kj Cali MD FACR on November 07, 2016 at 10:14 Board Certified Radiologist. This report was verified electronically.
--- NOTE | 2016-11-07 10:28 | RADRPT ---
EXAM DATE/TIME: 11/07/2016 10:03 [facility] COMPARISON: No previous studies available for comparison. INDICATIONS : Alleged seizure and fall today. MEDICAL HISTORY : Unobtainable. SURGICAL HISTORY : Unobtainable. ENCOUNTER: Initial ACUITY: 1 day PAIN SCORE: Non-responsive. LOCATION: Left clavicle FINDINGS: There are degenerative changes at the AC joint. Bone density is normal. Alignment is anatomic. The re is a lucency across the acromion that could be a nondisplaced fracture. This could be confirmed b y CT if desired. CONCLUSION: 1. Questionable acromial fracture. 2. CT scan may be of benefit when the patient is clinically stable. Kj Cali MD FACR on November 07, 2016 at 10:24 Board Certified Radiologist. This report was verified electronically.
--- NOTE | 2016-11-07 10:29 | RADRPT ---
EXAM DATE/TIME: 11/07/2016 09:58 [facility] COMPARISON: No previous studies available for comparison. INDICATIONS : Alleged seizure and fall today. MEDICAL HISTORY : Unobtainable SURGICAL HISTORY : Unobtainable ENCOUNTER: Initial ACUITY: 1 day PAIN SCORE: Non-responsive. LOCATION: C-Spine FINDINGS: There are degenerative changes in the cervical spine at C5-C6 and C6-C7. AP and odontoid are limited because of the patient's condition. I see no obvious distraction or fracture. CONCLUSION: Limited examination. C7 and T1 are not adequately evaluated. Kj Cali MD FACR on November 07, 2016 at 10:25 Board Certified Radiologist. This report was verified electronically.
[2016-11-07 10:49] LABS: POTASSIUM 4.2 MEQ/L (3.5-5.1)
--- NOTE | 2016-11-07 15:35 | RADRPT ---
EXAM DATE/TIME: 11/07/2016 15:00 [facility] COMPARISON: CLAVICLE LEFT, November 07, 2016, 10:03. INDICATIONS : Pain after fall during seizure. RADIATION DOSE: 12.41 CTDIvol (mGy) MEDICAL HISTORY : Seizures. Chronic obstructive pulmonary disease. Cardiovascular disease SURGICAL HISTORY : None. ENCOUNTER: Initial ACUITY: 1 day PAIN SCALE: 7/10 LOCATION: Left shoulder TECHNIQUE: Volumetric scanning of the shoulder was performed. Using automated exposure control and adjustment o f the mA and/or kV according to patient size, radiation dose was kept as low as reasonably achievable to obtain optimal diagnostic quality images. FINDINGS: CT confirms mildly comminuted but primarily oblique transverse fracture through the base of the acrom ion. There is up to 4 mm of separation. There is also about 3 mm of posterior and superior displaceme nt. No significant associated impingement on the cuff. The acromioclavicular articular surfaces are n ot involved. The rest of the scapula is intact. Glenohumeral joint and acromioclavicular joint alignment with in normal limits. There is mild acromioclavicular joint osteoarthritis and may small nonacute ossicle along the superior margin of the distal clavicle. CONCLUSION: Mildly displaced acute fracture of the base of the acromion. Please see above. Santhosh Magallanes MD on November 07, 2016 at 15:29 Board Certified Radiologist. This report was verified electronically.
[2016-11-07] MEDS ORDERED: LORazepam 2 MG/ML VIAL IV PUSH PRN ×4 (20:30)
[2016-11-07] MEDS ORDERED: LORazepam 2 MG TAB PO PRN (20:30)
[2016-11-07] MEDS ORDERED: FLUMAZENIL 0.5 MG/5 ML VIAL IV PUSH PRN (20:30)
[2016-11-07] MEDS: LORazepam 1 MG TAB PO PRN (22:47)
[2016-11-08 02:13] VITALS: BP 110/73; PULSE 88; RESP 19; TEMP 100.7; O2SAT 93
[2016-11-08] MEDS ORDERED: IBUPROFEN 600 MG TAB PO ONE (02:30)
[2016-11-08] MEDS: LORazepam 1 MG TAB PO PRN (03:28)
--- NOTE | 2016-11-08 09:48 | EKG ---
Date Performed: 11/07/2016 Time Performed: 09:36:48 PTAGE: 56 years EKG: Sinus rhythm WITH SINUS ARRHYTHMIA SEPTAL MYOCARDIAL INFARCTION ABNORMAL ECG PREVIOUS TRACING : 05/04/2016 05.00 DOCTOR: Dheeraj Cortez Interpretating Date/Time 11/08/2016 09:39:21
== END 2016-11-08 08:30 ==
LOC: NEPC 09:24 → NEPJ 11-08 08:30
DX: F10.129 Alcohol abuse with intoxication, unspecified (principal); F31.32 Bipolar disorder, current episode depressed, moderate; R45.851 Suicidal ideations; I50.9 Heart failure, unspecified; I25.2 Old myocardial infarction; G47.30 Sleep apnea, unspecified; Y90.8 Blood alcohol level of 240 mg/100 ml or more; Z72.0 Tobacco use
CPT/HCPCS: 70450; 72040; 73000; 73200; 80048; 80307; 83735; 93005; 96372; 96374; 99285; J1165; J3411

== ENCOUNTER 2016-11-18 14:42 | Emergency (ER) | payer OTHER ==
[~2016-11-18 14:42] MED LIST changes: -PRED20 PO
[2016-11-18 14:43] VITALS: BP 133/88; PULSE 118; RESP 16; TEMP 99.2; O2SAT 94
== END 2016-11-18 14:44 | disposition left against medical advice (07) ==
LOC: NED 14:42
DX: Z00.8 Encounter for other general examination (principal); Z53.21 Procedure and treatment not carried out due to patient leaving prior to being seen by health care provider
CPT/HCPCS: 99281

== ENCOUNTER 2016-11-19 09:52 | Emergency (ER) | payer OTHER ==
[~2016-11-19] VITALS: Ht 160 cm; Wt 62.0 kg
[2016-11-19 09:56] VITALS: BP 128/78; PULSE 99; RESP 15; TEMP 98.8; O2SAT 93
--- NOTE | 2016-11-19 10:46 | PD ---
HPI . "I want to hurt myself" Chief Complaint: Psychiatric Symptoms Time Seen by Provider: 10:24 Travel History International Travel<30 days: No Contact w/Intl Traveler<30days: No Traveled to known affect area: No History of Present Illness HPI Patient presents with the chief complaint of wanting to harm himself. He is unable to tell me when he had the onset of these thoughts. He states that he would do it by either jumping off of a bridge or cutting his wrist. Patient reports that he has a history of anxiety and bipolar disorder. He further states that he would like to go to the [facility]. PFSH Past Medical History Hx Anticoagulant Therapy: Yes (asa) AAA: No ADD: No ADHD: No Alzheimer's Disease: No Anemia: No Arthritis: Yes Asthma: Yes Atrial Fibrillation: No Autoimmune Disease: No Blood Disorders: No Bipolar Disorder: Yes Anxiety: Yes Depression: Yes Cancer: No Cardiac Catheterization: Yes Cardiomyopathy: No Cardiovascular Problems: Yes (CAD, CARDIAC STENT ) Cerebral Palsy: No High Cholesterol: Yes Chemotherapy: No Chest Pain: No Congestive Heart Failure: Yes Cirrhosis: No COPD: Yes Cerebrovascular Accident: No Coronary Artery Disease: Yes Cystic Fibrosis: No Dementia: No Developmental Delay: No Diabetes: No Diminished Hearing: No Endocrine: No Gastrointestinal Disorders: Yes (Acid reflux) GERD: Yes Glaucoma: No Gout: No Genitourinary: No Hepatitis: No Hiatal Hernia: No Heparin Induced Thrombocytopen: No Herniated Disk: No Hypertension: No Immune Disorder: No Inguinal Hernia: No Implanted Vascular Access Dvce: No Insomnia: Yes Kidney Stones: No Musculoskeletal: Yes Neurologic: Yes Parkinson's Disease: No Psychiatric: Yes Reproductive: No Respiratory: Yes (asthma) Resp. Syncytial Virus (RSV): No Integumentary: Yes Immunizations Current: Yes Migraines: No Myocardial Infarction: Yes Pancreatitis: No Radiation Therapy: No Renal Failure: No Schizophrenia: Yes Seizures: Yes Shingles: No Sickle Cell Disease: No Sleep Apnea: Yes Thyroid Disease: No Ulcer: No Tetanus Vaccination: < 5 Years Menopausal: No Past Surgical History Abdominal Aneurysm Repair: No Abdominal Surgery: No AICD: No Appendectomy: No Arteriovenous Shunt: No Cholecystectomy: No Coronary Stent: Yes Ear Surgery: No Endocrine Surgery: No Eye Surgery: No Genitourinary Surgery: No Gynecologic Surgery: No Joint Replacement: No Mastectomy: No Neurologic Surgery: No Oral Surgery: No Pacemaker: No Prostatectomy: No Thoracic Surgery: No Tonsillectomy: Yes Tympanostomy Tube: No Valve Replacement: No Social History Alcohol Use: Yes (ETOH ABUSE ; states he had one beer today) Tobacco Use: Yes (1 PPD ) Substance Use: No Allergies-Medications (Allergen,Severity, Reaction): Coded Allergies: Codeine (Verified Allergy, Mild, RASH, 11/19/16) *MDRO Multi-Drug Resistant Organism (Verified Adverse Reaction, Unknown, ) 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, 07/31/16) Reported Meds & Prescriptions Reported Meds & Active Scripts Active Proair Hfa 8.5 GM Inh (Albuterol Sulfate) 90 Mcg/Act Aer 2 Puff INH Q4-6H PRN 108 mcg/actuation Reported Risperdal (Risperidone) 3 Mg Tab 3 Mg PO Q12HR Trazodone (Trazodone HCl) 50 Mg Tab 300 Mg PO HS Review of Systems Except as stated in HPI: all other systems reviewed are Neg Psychiatric: Positive: Anxiety, Depression, Suicidal Ideations, Mood Disorder Physical Exam Narrative GENERAL: Awake and alert and in no acute distress. SKIN: Warm and dry. HEAD: Atraumatic. Normocephalic. EYES: Pupils equal and round. Extraocular movements are intact. NECK: Trachea midline. CARDIOVASCULAR: Regular rate and rhythm. RESPIRATORY: No accessory muscle use. MUSCULOSKELETAL: No obvious deformities. No edema. NEUROLOGICAL: Awake and alert. No obvious cranial nerve deficits. Motor grossly within normal limits. Normal speech. PSYCHIATRIC: Patient is a bit angry. Judgment is poor. Data Data Last Documented VS Vital Signs Date Time Temp Pulse Resp B/P Pulse Ox O2 Delivery O2 Flow Rate FiO2 11/19/16 09:56 98.8 99 15 128/78 93 Orders Psych Screen (11/19/16 10:26) Drug Screen, Random Urine (11/19/16 10:26) Alcohol (Ethanol) (11/19/16 10:26) Labs Laboratory Tests Test 11/19/16 11:05 Urine Opiates Screen NEG Urine Barbiturates Screen NEG Urine Amphetamines Screen NEG Urine Benzodiazepines Screen NEG Urine Cocaine Screen NEG Urine Cannabinoids Screen NEG Ethyl Alcohol Level 97 MG/DL MDM Medical Decision Making Medical Screen Exam Complete: Yes Emergency Medical Condition: Yes Medical Record Reviewed: Yes (the patient has been seen here in the recent past for similar complaints. He has had unremarkable lab work with the exception of a positive alcohol level and positive drug screen for benzodiazepines.) Differential Diagnosis Differential diagnosis includes but is not limited to depression with suicidal gesture, suicide attempt, suicidal ideation, attention seeking behavior. Narrative Course Patient presents stating that he has suicidal ideation. I have only ordered an alcohol level and a drug screen as he has had a recent unremarkable CBC and chemistry workup. Drug screen is negative. Alcohol level is 97. This patient is medically clear for psychiatric evaluation. Diagnosis Primary Impression: Medical clearance for psychiatric admission Condition: Cheyanne Davila MD Nov 19, 2016 10:45
[2016-11-19 11:33] LABS: AMPHETAMINE, URINE NEG (NEG); BARBITURATES, URINE NEG (NEG); COCAINE, URINE NEG (NEG)
[2016-11-19 13:26] VITALS: BP 107/75; PULSE 103; RESP 20; O2SAT 94
[2016-11-19] MEDS ORDERED: RESP: ALBUTEROL 2.5 MG/IPRATROPIUM 0.5 MG NEB (SCH) NEB ONE (14:45)
[2016-11-19 16:05] VITALS: BP 121/60; PULSE 88; RESP 16; O2SAT 92
[2016-11-19 22:00] VITALS: BP 108/62; PULSE 82; RESP 19; O2SAT 94
[2016-11-19] MEDS: ALBUTEROL INH PRN (23:01)
[2016-11-20 02:00] VITALS: BP 114/70; PULSE 102; RESP 19; O2SAT 94
[2016-11-20] MEDS: ALBUTEROL INH PRN (03:04)
[2016-11-20] MEDS ORDERED: ALBU6.7H INH (05:55)
[2016-11-20] MEDS ORDERED: IPRA17I INH (05:55)
[2016-11-20] MEDS ORDERED: PRED-503 PO (05:55)
[2016-11-20 06:00] VITALS: BP 116/74; PULSE 90; RESP 20; O2SAT 91
[2016-11-20] MEDS ORDERED: predniSONE 20 MG TAB PO ONE (06:00)
[2016-11-20] MEDS: RESP: ALBUTEROL 2.5 MG/IPRATROPIUM 0.5 MG NEB (SCH) INH ×2 (06:00→06:08)
--- NOTE | 2016-11-20 06:01 | PD ---
Physical Exam Date Seen by Provider: Nov 20, 2016 Time Seen by Provider: 05:45 Narrative GENERAL: This is a well-nourished, well-developed patient, in mild respiratory distress. SKIN: No rashes, ecchymoses or lesions. Warm and dry. HEAD: Atraumatic. Normocephalic. EYES: PERRL, EOMI, no discharge or injection. No scleral icterus. EARS: Clear NOSE: Nasal turbinates appear normal. THROAT: Mucosa pink and moist. Airway patent. NECK: Trachea midline. supple, moves head freely. LUNGS: Expiratory wheezes. No Rales or rhonchi. CV: Regular in rhythm. ABDOMEN: Soft nontender. EXT: No clubbing cyanosis or edema. Data Data Last Documented VS Vital Signs Date Time Temp Pulse Resp B/P Pulse Ox O2 Delivery O2 Flow Rate FiO2 11/20/16 02:00 102 19 114/70 94 Room Air 11/19/16 09:56 98.8 Orders Psych Screen (11/19/16 10:26) Drug Screen, Random Urine (11/19/16 10:26) Alcohol (Ethanol) (11/19/16 10:26) Diet Regular Basic (11/19/16 Dinner) Albuterol-Ipratropium Neb (Duoneb Neb) (11/19/16 14:45) Patient Own Medication (11/19/16 23:15) Diet Regular Basic (11/20/16 Breakfast) Prednisone (Deltasone) (11/20/16 06:00) Albuterol-Ipratropium Neb (Duoneb Neb) (11/20/16 06:00) Labs Laboratory Tests Test 11/19/16 11:05 Urine Opiates Screen NEG Urine Barbiturates Screen NEG Urine Amphetamines Screen NEG Urine Benzodiazepines Screen NEG Urine Cocaine Screen NEG Urine Cannabinoids Screen NEG Ethyl Alcohol Level 97 MG/DL [facility] Medical Record Reviewed: Yes Supervised Visit with BOB: Yes Narrative Course I was asked by the psych nurse to come down and evaluate this patient. According to the nurse the patient has a history of asthma/COPD. I had instructed her earlier this evening that the patient can continue to use his albuterol inhaler. She states to me now at approximately 5:45 in the morning the patient has had decreasing sats and increasing shortness of breath over the last several hours. I've gone down and evaluated the patient. He is sitting on the edge of the bed audible wheezes are heard. He has some mild restaurant distress. He has long-standing COPD according to the patient which she has used oxygen in the past. He continues to smoke. He is here under Silver act and has been medically cleared earlier yesterday and he is awaiting placement at the [facility] in the morning. The patient is given 60 mg of prednisone by mouth he is also given 3 duo nebs. Prescription for oral prednisone 60 mg daily for 5 days, refill of his albuterol inhaler as well as a Atrovent inhaler. The patient is counseled on smoking cessation. The patient states that he is addicted and is very hard to quit. He is cut down to one pack a day. Patient denies any chest pain. No nausea vomiting. No diaphoresis. Diagnosis Primary Impression: Medical clearance for psychiatric admission Additional Impression: COPD (chronic obstructive pulmonary disease) Qualified Code: J44.1 - Chronic obstructive pulmonary disease with acute exacerbation Med/Other Pt SpecificInfo: Prescription(s) given Scripts Ipratropium HFA 12.9 GM Inh (Atrovent HFA 12.9 GM Inh)17 Mcg/Act Aer2 Puff INH Q6HR PRN (SHORTNESS OF BREATH) #1 INHALER Ref 0 Prov:Cheyanne Cameron MD 11/20/16 Albuterol 6.7 GM Inh (Proventil Hfa 6.7 GM Inh)90 Mcg/Act Aer2 Puff INH Q4-6H PRN (SHORTNESS OF BREATH) #1 INHALER Prov:Cheyanne Cameron MD 11/20/16 Prednisone (Deltasone)20 Mg Tab20 Mg PO TID #15 TAB Prov:Cheyanne Cameron MD 11/20/16 Condition: Stable Mannie Bustos Nov 20, 2016 06:01
[2016-11-20 07:14] VITALS: BP 116/74; PULSE 90; RESP 18; O2SAT 91
== END 2016-11-20 15:43 ==
LOC: NEPD 09:52 → NEPJ 11-20 15:43
DX: F10.20 Alcohol dependence, uncomplicated (principal); J44.1 Chronic obstructive pulmonary disease with (acute) exacerbation; F17.210 Nicotine dependence, cigarettes, uncomplicated; J45.909 Unspecified asthma, uncomplicated; E78.00 Pure hypercholesterolemia, unspecified; I25.10 Atherosclerotic heart disease of native coronary artery without angina pectoris; I50.9 Heart failure, unspecified; I25.2 Old myocardial infarction; Z95.5 Presence of coronary angioplasty implant and graft; Z79.82 Long term (current) use of aspirin
CPT/HCPCS: 80307; 94640; 94664; 99285; J7512

== ENCOUNTER 2016-12-01 11:10 | Emergency (ER) | payer OTHER ==
[~2016-12-01 11:10] MED LIST changes: +ALBU6.7H INH; +IPRA17I INH; +PRED-503 PO
[2016-12-01 11:11] VITALS: BP 108/65; PULSE 98; RESP 18; TEMP 98; O2SAT 96
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
== END 2016-12-01 13:16 | disposition home or self-care (01) ==
LOC: NEPD 11:10
DX: F19.94 Other psychoactive substance use, unspecified with psychoactive substance-induced mood disorder (principal); F10.10 Alcohol abuse, uncomplicated; F41.8 Other specified anxiety disorders; I50.9 Heart failure, unspecified; F20.9 Schizophrenia, unspecified; F17.210 Nicotine dependence, cigarettes, uncomplicated
CPT/HCPCS: 99283

== ENCOUNTER 2016-12-16 12:14 | Emergency (ER) | payer MEDICARE, OTHER ==
[~2016-12-16] VITALS: Ht 160 cm; Wt 62.0 kg
[2016-12-16 12:41] VITALS: BP 114/73; PULSE 103; RESP 16; TEMP 98.1; O2SAT 92
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
[2016-12-16 13:22] VITALS: BP 139/82; PULSE 84; RESP 18; O2SAT 98
[2016-12-16 13:25] LABS: AUTOMATED NEUTROPHIL # 4.2 TH/MM3 (1.8-7.7); BASOPHIL # 0.1 TH/MM3 (0-0.2); BASOPHIL % 0.8 % (0.0-2.0); EOSINOPHIL # 0.5 TH/MM3 (0-0.4); HEMO FLAGS DIFF FINAL; LYMPH % 26.6 % (9.0-44.0); LYMPHOCYTE # 1.9 TH/MM3 (1.0-4.8); MEAN CELL VOLUME 96.1 FL (80.0-100.0); MEAN CORPUSCULAR HEMOGLOBIN 32.9 PG (27.0-34.0); MEAN CORPUSCULAR HGB CONC 34.3 % (32.0-36.0); MONO % 6.1 % (0.0-8.0); NEUT % 59.5 % (16.0-70.0); PLATELET COUNT 200 TH/MM3 (150-450); RED BLOOD COUNT 5.21 MIL/MM3 (4.50-5.90); RED CELL DISTRIBUTION WIDTH 15.2 % (11.6-17.2)
[2016-12-16 13:48] LABS: BICARBONATE 28.9 MEQ/L (21.0-32.0); POTASSIUM 4.3 MEQ/L (3.5-5.1)
[2016-12-16] MEDS ORDERED: TRAZ300T2 PO (14:34)
[2016-12-16 15:17] LABS: AMPHETAMINE, URINE NEG (NEG); BARBITURATES, URINE NEG (NEG); COCAINE, URINE NEG (NEG)
[2016-12-16] MEDS ORDERED: RESP: ALBUTEROL 2.5 MG/IPRATROPIUM 0.5 MG NEB (SCH) NEB ONE (18:30)
[2016-12-16 22:04] VITALS: BP 120/78; PULSE 65; RESP 18; O2SAT 94
[2016-12-17 01:53] VITALS: BP 140/91; PULSE 102; RESP 12; TEMP 98.2; O2SAT 92
[2016-12-17 06:08] VITALS: BP 128/85; PULSE 84; RESP 20
[2016-12-17] MEDS: RESP: ALBUTEROL 2.5 MG/IPRATROPIUM 0.5 MG NEB (PRN) NEB ×2 (06:51→06:55)
--- NOTE | 2016-12-17 09:19 | PD ---
History of Present Illness Chief Complaint: Psychiatric Symptoms Time Seen by Provider: 09:05 Travel History International Travel<30 Days: No Contact w/Intl Traveler<30days: No Known affected area: No Legal Status Legal Status: Silver Act Silver Act Signed By: Emre Arndt History of Present Illness: History of Present Illness HPI 56-year-old male with long-standing history of alcohol dependency and substance induced mood disorder well known to [facility] due to multiple previous visits to ED who presents for evaluation under a Silver act. The BA was initiated by SRUTHI who responded to a call by the patient. The report alleges that Mr. Geller reported feeling very depressed and wanted to jump off a bridge. The patient presented with BAl of 119 and positive toxicology for cannabinoids. The patient was monitored in J pod until he was clinically sober . He presented no behavioral concerns and no suicidality. He is seen with Dariel from case management services. He is alert and oriented, calm, engaging and cooperative. He states that he wants to go to [facility] for help with his alcohol abuse. There is no psychosis and no ector. No suicidal or homicidal ideation. PFSH Past Medical History Hx Anticoagulant Therapy: Yes (asa) AAA: No ADD: No ADHD: No Alzheimer's Disease: No Anemia: No Arthritis: Yes Asthma: Yes Atrial Fibrillation: No Autoimmune Disease: No Blood Disorders: No Bipolar Disorder: Yes Anxiety: Yes Depression: Yes Cancer: No Cardiac Catheterization: Yes Cardiomyopathy: No Cardiovascular Problems: Yes (CAD, CARDIAC STENT ) Cerebral Palsy: No High Cholesterol: Yes Chemotherapy: No Chest Pain: No Congestive Heart Failure: Yes Cirrhosis: No COPD: Yes Cerebrovascular Accident: No Coronary Artery Disease: Yes Cystic Fibrosis: No Dementia: No Developmental Delay: No Diabetes: No Diminished Hearing: No Endocrine: No Gastrointestinal Disorders: Yes (Acid reflux) GERD: Yes Glaucoma: No Gout: No Genitourinary: No Hepatitis: No Hiatal Hernia: No Heparin Induced Thrombocytopen: No Herniated Disk: No Hypertension: No Immune Disorder: No Inguinal Hernia: No Implanted Vascular Access Dvce: No Insomnia: Yes Kidney Stones: No Musculoskeletal: Yes Neurologic: Yes Parkinson's Disease: No Psychiatric: Yes Reproductive: No Respiratory: Yes (asthma) Resp. Syncytial Virus (RSV): No Integumentary: Yes Immunizations Current: Yes Migraines: No Myocardial Infarction: Yes Pancreatitis: No Radiation Therapy: No Renal Failure: No Schizophrenia: Yes Seizures: Yes Shingles: No Sickle Cell Disease: No Sleep Apnea: Yes Thyroid Disease: No Ulcer: No Menopausal: No Past Surgical History Abdominal Aneurysm Repair: No Abdominal Surgery: No AICD: No Appendectomy: No Arteriovenous Shunt: No Cholecystectomy: No Coronary Stent: Yes Ear Surgery: No Endocrine Surgery: No Eye Surgery: No Genitourinary Surgery: No Gynecologic Surgery: No Joint Replacement: No Mastectomy: No Neurologic Surgery: No Oral Surgery: No Pacemaker: No Prostatectomy: No Thoracic Surgery: No Tonsillectomy: Yes Tympanostomy Tube: No Valve Replacement: No Psychiatric History Psychiatric History Hx Psychiatric Treatment: Multiple detox admissions, Multiple Ed visits for alcohol intoxication History of Inpatient Treatment: Yes (The October 2016) Guns or firearms in home: No Social History Single, homeless male. On disability. Hx Alcohol Use: Yes (ETOH ABUSE ; 4 beers today) Hx Tobacco Use: Yes (1 PPD ) Hx Substance Use: Yes Substance Use Type: Alcohol, Marijuana Other Substances Used: PT IS A CHRONIC ALCOHOLIC Hx of Substance Use Treatment: Yes Family Psychiatric History Negative Allergies-Medications (Allergen,Severity, Reaction): Coded Allergies: Codeine (Verified Allergy, Mild, RASH, 12/16/16) *MDRO Multi-Drug Resistant Organism (Verified Adverse Reaction, Unknown, ) 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, 07/31/16) Reported Meds & Prescriptions Reported Meds & Active Scripts Active Atrovent HFA 12.9 GM Inh (Ipratropium [place]) 17 Mcg/Act Aer 2 Puff INH Q6HR PRN Proventil Hfa 6.7 GM Inh (Albuterol Sulfate) 90 Mcg/Act Aer 2 Puff INH Q4-6H PRN Deltasone (Prednisone) 20 Mg Tab 20 Mg PO TID Reported Trazodone (Trazodone HCl) 300 Mg Tab 300 Mg PO HS Risperdal (Risperidone) 3 Mg Tab 3 Mg PO Q12HR Review of Systems Except as stated in HPI: all other systems reviewed are Neg Exam Alert: Yes [place]: Person (ox4) Mood: Calm Affect: Appropriate Speech: Clear, Logical Eye Contact: Normal Memory Intact: Comment (Not impaired) Hallucinations: Other (negative) Delusions: No Suicidal: Ideation (negative) Homicidal: Ideation (negative) Insight/Judgement Poor. Not impaired. MDM Medical Decision Making Medical Record Reviewed: Yes Assessment/Plan 56 year old male with hx of alcohol dependence under a BA after he reported that he was thinking of jumping off a bridge. He was intoxicated at the time. He was allowed to sober up clinically and presented no suicidality. At this time he does not meet criteria for BA. Counseling regarding sobriety is provided. Lift BA. Recommend sober living home.resources will be provided. Orders Complete Blood Count With Diff (12/16/16 12:38) Basic Metabolic Panel (Bmp) (12/16/16 12:38) Psych Screen (12/16/16 12:38) Drug Screen, Random Urine (12/16/16 12:38) Alcohol (Ethanol) (12/16/16 12:38) Diet Regular Basic (12/16/16 Dinner) Albuterol-Ipratropium Neb (Duoneb Neb) (12/16/16 18:30) Albuterol-Ipratropium Neb (Duoneb Neb) (12/16/16 18:45) Diet Regular Basic (12/17/16 Breakfast) Results Vital Signs Date Time Temp Pulse Resp B/P Pulse Ox O2 Delivery O2 Flow Rate FiO2 12/17/16 06:08 84 20 128/85 Room Air 12/17/16 01:53 98.2 102 12 140/91 92 Room Air 12/16/16 22:04 65 18 120/78 94 Room Air 12/16/16 13:22 84 18 139/82 98 Room Air 12/16/16 12:41 98.1 103 16 114/73 92 Laboratory Tests Test 12/16/16 12/16/16 13:15 14:37 White Blood Count 7.0 Red Blood Count 5.21 Hemoglobin 17.2 Hematocrit 50.0 Mean Corpuscular Volume 96.1 Mean Corpuscular Hemoglobin 32.9 Mean Corpuscular Hemoglobin 34.3 Concent Red Cell Distribution Width 15.2 Platelet Count 200 Mean Platelet Volume 7.9 Neutrophils (%) (Auto) 59.5 Lymphocytes (%) (Auto) 26.6 Monocytes (%) (Auto) 6.1 Eosinophils (%) (Auto) 7.0 Basophils (%) (Auto) 0.8 Neutrophils # (Auto) 4.2 Lymphocytes # (Auto) 1.9 Monocytes # (Auto) 0.4 Eosinophils # (Auto) 0.5 Basophils # (Auto) 0.1 CBC Comment DIFF FINAL Differential Comment Sodium Level 138 Potassium Level 4.3 Chloride Level 102 Carbon Dioxide Level 28.9 Anion Gap 7 Blood Urea Nitrogen 5 Creatinine 0.83 Estimat Glomerular Filtration 95 Rate Random Glucose 153 Calcium Level 8.6 Ethyl Alcohol Level 119 Urine Opiates Screen NEG Urine Barbiturates Screen NEG Urine Amphetamines Screen NEG Urine Benzodiazepines Screen NEG Urine Cocaine Screen NEG Urine Cannabinoids Screen POS Diagnosis Primary Impression: Alcohol-induced mood disorder Additional Impression: COPD (chronic obstructive pulmonary disease) Psychiatrically Cleared: Yes Med/ Other Pt Specific Info: No Meds Exist/No RX given Disposition: 01 DISCHARGE HOME Condition: Stable Problem Qualifiers Additional Impression: COPD (chronic obstructive pulmonary disease) Qualified Code: J44.9 - Chronic obstructive pulmonary disease, unspecified COPD type Rachel Viveros [address] [employer] Dec 17, 2016 09:19
== END 2016-12-17 09:35 | disposition home or self-care (01) ==
LOC: NEDAMB 12:14 → NEPJ 12-17 09:35
DX: F10.94 Alcohol use, unspecified with alcohol-induced mood disorder (principal); J44.9 Chronic obstructive pulmonary disease, unspecified; F31.9 Bipolar disorder, unspecified; F41.9 Anxiety disorder, unspecified; F20.9 Schizophrenia, unspecified; K21.9 Gastro-esophageal reflux disease without esophagitis; I25.10 Atherosclerotic heart disease of native coronary artery without angina pectoris; I25.2 Old myocardial infarction; F17.200 Nicotine dependence, unspecified, uncomplicated
CPT/HCPCS: 80048; 80307; 85025; 94640; 94664; 99284

== ENCOUNTER 2016-12-23 07:14 | Emergency (ER) | payer MEDICARE, OTHER ==
[~2016-12-23] VITALS: Ht 160 cm; Wt 67.0 kg
[~2016-12-23 07:14] MED LIST changes: -ALBUAER3 INH; +TRAZ300T2 PO; -TRAZ50TA12 PO
[2016-12-23 07:16] VITALS: BP 136/79; PULSE 88; RESP 20; TEMP 98.1; O2SAT 95
[2016-12-23] MEDS ORDERED: methylPREDNISolone SOD SUCC 125 MG/2 ML VIAL IVP ONE (09:45)
[2016-12-23] MEDS: RESP: ALBUTEROL 2.5 MG/IPRATROPIUM 0.5 MG NEB (SCH) INH (09:51)
--- NOTE | 2016-12-23 10:19 | PD ---
HPI Chief Complaint: Psychiatric Symptoms Time Seen by Provider: 09:37 Travel History International Travel<30 days: No Contact w/Intl Traveler<30days: No Traveled to known affect area: No History of Present Illness HPI 56yo M with PMH of COPD, alcohol abuse, substance induced mood disorder presents to the ED stating he wants to kill himself. Pt is well known to [place] and has been here multiple times for this. Denies any fever, chest pain , n/v, abdominal pain, focal weakness or numbness. Pt has COPD and states he is always sob. States maybe he is a little more sob than normal but about the same but wants treatments. States he drank 4 beers today and wants to stop drinking as well. PFSH Past Medical History Hx Anticoagulant Therapy: Yes (asa) AAA: No ADD: No ADHD: No Alzheimer's Disease: No Anemia: No Arthritis: Yes Asthma: Yes Atrial Fibrillation: No Autoimmune Disease: No Blood Disorders: No Bipolar Disorder: Yes Anxiety: Yes Depression: Yes Cancer: No Cardiac Catheterization: Yes Cardiomyopathy: No Cardiovascular Problems: Yes (CAD, CARDIAC STENT ) Cerebral Palsy: No High Cholesterol: Yes Chemotherapy: No Chest Pain: No Congestive Heart Failure: Yes Cirrhosis: No COPD: Yes Cerebrovascular Accident: No Coronary Artery Disease: Yes Cystic Fibrosis: No Dementia: No Developmental Delay: No Diabetes: No Diminished Hearing: No Endocrine: No Gastrointestinal Disorders: Yes (Acid reflux) GERD: Yes Glaucoma: No Gout: No Genitourinary: No Hepatitis: No Hiatal Hernia: No Heparin Induced Thrombocytopen: No Herniated Disk: No Hypertension: No Immune Disorder: No Inguinal Hernia: No Implanted Vascular Access Dvce: No Insomnia: Yes Kidney Stones: No Musculoskeletal: Yes Neurologic: Yes Parkinson's Disease: No Psychiatric: Yes Reproductive: No Respiratory: Yes (COPD) Resp. Syncytial Virus (RSV): No Integumentary: Yes Immunizations Current: Yes Migraines: No Myocardial Infarction: Yes Pancreatitis: No Radiation Therapy: No Renal Failure: No Schizophrenia: Yes Seizures: Yes Shingles: No Sickle Cell Disease: No Sleep Apnea: Yes Thyroid Disease: No Ulcer: No Menopausal: No Past Surgical History Abdominal Aneurysm Repair: No Abdominal Surgery: No AICD: No Appendectomy: No Arteriovenous Shunt: No Cholecystectomy: No Coronary Stent: Yes Ear Surgery: No Endocrine Surgery: No Eye Surgery: No Genitourinary Surgery: No Gynecologic Surgery: No Joint Replacement: No Mastectomy: No Neurologic Surgery: No Oral Surgery: No Pacemaker: No Prostatectomy: No Thoracic Surgery: No Tonsillectomy: Yes Tympanostomy Tube: No Valve Replacement: No Social History Alcohol Use: Yes (ETOH ABUSE ; 4 beers today) Tobacco Use: Yes (1 PPD ) Substance Use: Yes Allergies-Medications (Allergen,Severity, Reaction): Coded Allergies: Codeine (Verified Allergy, Mild, RASH, 12/23/16) *MDRO Multi-Drug Resistant Organism (Verified Adverse Reaction, Unknown, ) 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, 07/31/16) Reported Meds & Prescriptions Reported Meds & Active Scripts Active Atrovent HFA 12.9 GM Inh (Ipratropium Delta) 17 Mcg/Act Aer 2 Puff INH Q6HR PRN Proventil Hfa 6.7 GM Inh (Albuterol Sulfate) 90 Mcg/Act Aer 2 Puff INH Q4-6H PRN Deltasone (Prednisone) 20 Mg Tab 20 Mg PO TID Reported Trazodone (Trazodone HCl) 300 Mg Tab 300 Mg PO HS Risperdal (Risperidone) 3 Mg Tab 3 Mg PO Q12HR Review of Systems Except as stated in HPI: all other systems reviewed are Neg Physical Exam Narrative GENERAL: 56yo M not in distress. SKIN: Focused skin assessment warm/dry. HEAD: Atraumatic. Normocephalic. EYES: Pupils equal and round. No scleral icterus. No injection or drainage. ENT: No nasal bleeding or discharge. Mucous membranes pink and moist. NECK: Trachea midline. No JVD. CARDIOVASCULAR: Regular rate and rhythm. No murmur appreciated. RESPIRATORY: No accessory muscle use. Expiratory wheezing bilaterally. Saturating at 95% on RA. Speaking in complete sentences. GASTROINTESTINAL: Abdomen soft, non-tender, nondistended. No rebound tenderness or guarding. MUSCULOSKELETAL: No obvious deformities. No clubbing. No cyanosis. No edema. NEUROLOGICAL: Awake and alert. No obvious cranial nerve deficits. Motor grossly within normal limits. Normal speech. Data Data Last Documented VS Vital Signs Date Time Temp Pulse Resp B/P Pulse Ox O2 Delivery O2 Flow Rate FiO2 12/23/16 07:16 98.1 88 20 136/79 95 Room Air Orders Complete Blood Count With Diff (12/23/16 09:41) Comprehensive Metabolic Panel (12/23/16 09:41) Electrocardiogram (12/23/16 09:41) Psych Screen (12/23/16 09:41) Drug Screen, Random Urine (12/23/16 09:41) Chest, Single Ap (12/23/16 09:41) Methylprednisolone So Succ Inj (Solumedr (12/23/16 09:45) Albuterol-Ipratropium Neb (Duoneb Neb) (12/23/16 09:45) Troponin I (12/23/16 09:41) Alcohol (Ethanol) (12/23/16 10:14) Labs Laboratory Tests Test 12/23/16 10:00 White Blood Count 6.4 TH/MM3 Red Blood Count 5.22 MIL/MM3 Hemoglobin 17.0 GM/DL Hematocrit 49.6 % Mean Corpuscular Volume 95.1 FL Mean Corpuscular Hemoglobin 32.6 PG Mean Corpuscular Hemoglobin 34.3 % Concent Red Cell Distribution Width 15.5 % Platelet Count 184 TH/MM3 Mean Platelet Volume 7.8 FL Neutrophils (%) (Auto) 65.5 % Lymphocytes (%) (Auto) 21.5 % Monocytes (%) (Auto) 11.0 % Eosinophils (%) (Auto) 1.0 % Basophils (%) (Auto) 1.0 % Neutrophils # (Auto) 4.2 TH/MM3 Lymphocytes # (Auto) 1.4 TH/MM3 Monocytes # (Auto) 0.7 TH/MM3 Eosinophils # (Auto) 0.1 TH/MM3 Basophils # (Auto) 0.1 TH/MM3 CBC Comment DIFF FINAL Differential Comment Sodium Level 139 MEQ/L Potassium Level 4.2 MEQ/L Chloride Level 101 MEQ/L Carbon Dioxide Level 21.8 MEQ/L Anion Gap 16 MEQ/L Blood Urea Nitrogen 6 MG/DL Creatinine 0.64 MG/DL Estimat Glomerular Filtration 129 ML/MIN Rate Random Glucose 65 MG/DL Calcium Level 8.8 MG/DL Total Bilirubin 0.8 MG/DL Aspartate Amino Transf 194 U/L (AST/SGOT) Alanine Aminotransferase 137 U/L (ALT/SGPT) Alkaline Phosphatase 175 U/L Troponin I LESS THAN 0.02 NG/ML Total Protein 8.1 GM/DL Albumin 4.3 GM/DL MDM Medical Decision Making Medical Screen Exam Complete: Yes Emergency Medical Condition: Yes Interpretation(s) EKG: NSR 61bpm. Normal axis. Q wave aVL, V2. No ST segment elevation or depression. Differential Diagnosis Chronic COPD vs. Substance induced mood disorder vs. alcohol abuse vs. malingering Narrative Course 56yo M with COPD and alcohol abuse here stating he has suicidal thoughts. Labs reviewed, no leukocytosis. Troponin negative. LFTs elevated but has no abdominal pain, likely secondary to his alcohol use. Pt has some wheezing but appears comfortable and at his baseline. States he would want some treatments so duonebsx3 and methylprednisolone 125mg IV. VS stable. CXR negative for acute process. Pt reevaluated after treatment and feels better. Pt is medically clear for psych evaluation. Diagnosis Primary Impression: COPD (chronic obstructive pulmonary disease) Qualified Code: J42 - Chronic bronchitis, unspecified chronic bronchitis type Med/Other Pt SpecificInfo: Prescription(s) given Scripts Prednisone (Deltasone)20 Mg Tab20 Mg PO BID 5 Days Ref 0 Prov:Vivi Nunez DO 12/23/16 Fluticasone 12 GM Inh (Flovent Hfa 12 GM Inh)110 Mcg/Act Inh2 Puff INH BID #1 INHALER Ref 0 Prov:Vivi Nunez DO 12/23/16 Albuterol 18 GM Inh (Ventolin Hfa 18 GM Inh)90 Mcg/Act Aer2 Puff INH Q4H PRN ( SHORTNESS OF BREATH) #1 INHALER Ref 0 Prov:Vivi Nunez DO 12/23/16 Vivi Nunez DO Dec 23, 2016 10:19
[2016-12-23 10:45] LABS: AUTOMATED NEUTROPHIL # 4.2 TH/MM3 (1.8-7.7); BASOPHIL # 0.1 TH/MM3 (0-0.2); EOSINOPHIL # 0.1 TH/MM3 (0-0.4); HEMATOCRIT 49.6 % (39.0-51.0); HEMO FLAGS DIFF FINAL; LYMPH % 21.5 % (9.0-44.0); LYMPHOCYTE # 1.4 TH/MM3 (1.0-4.8); MEAN CELL VOLUME 95.1 FL (80.0-100.0); MEAN CORPUSCULAR HEMOGLOBIN 32.6 PG (27.0-34.0); MEAN CORPUSCULAR HGB CONC 34.3 % (32.0-36.0); NEUT % 65.5 % (16.0-70.0); PLATELET COUNT 184 TH/MM3 (150-450); RED BLOOD COUNT 5.22 MIL/MM3 (4.50-5.90); RED CELL DISTRIBUTION WIDTH 15.5 % (11.6-17.2); WHITE BLOOD COUNT 6.4 TH/MM3 (4.0-11.0)
[2016-12-23 11:16] LABS: ALT (GPT) 137 U/L (12-78); ANION GAP 16 MEQ/L (5-15); AST (GOT) 194 U/L (15-37); BICARBONATE 21.8 MEQ/L (21.0-32.0); BLOOD UREA NITROGEN 6 MG/DL (7-18); CHLORIDE 101 MEQ/L (98-107); GLOMERULAR FILTRATION RATE 129 ML/MIN (>89); POTASSIUM 4.2 MEQ/L (3.5-5.1); SODIUM (NA) 139 MEQ/L (136-145)
[2016-12-23 11:19] LABS: ALKALINE PHOSPHATASE 175 U/L (45-117); TOTAL BILIRUBIN ADULT 0.8 MG/DL (0.2-1.0)
--- NOTE | 2016-12-23 11:41 | RADRPT ---
EXAM DATE/TIME: 12/23/2016 11:11 [facility] COMPARISON: CHEST SINGLE AP, October 08, 2016, 18:28. INDICATIONS : Short of breath, suicidal thoughts MEDICAL HISTORY : Chronic obstructive pulmonary disease. SURGICAL HISTORY : None. ENCOUNTER: Initial ACUITY: 1 day PAIN SCORE: 0/10 LOCATION: Bilateral chest FINDINGS: A single view of the chest demonstrates the lungs to be symmetrically aerated without evidence of mas s, infiltrate or effusion. The cardiomediastinal contours are unremarkable. Old rib fractures are p resent on the right. CONCLUSION: Negative for an acute process. Kj Cali MD FACR on December 23, 2016 at 11:40 Board Certified Radiologist. This report was verified electronically.
[2016-12-23] MEDS ORDERED: PRED-503 PO (11:51)
[2016-12-23] MEDS ORDERED: FLUTI110I INH (11:51)
[2016-12-23] MEDS ORDERED: VENTAER INH (11:51)
[2016-12-23 11:58] LABS: AMPHETAMINE, URINE NEG (NEG); BARBITURATES, URINE NEG (NEG); COCAINE, URINE NEG (NEG)
[2016-12-23 14:57] VITALS: BP 145/71; PULSE 73; RESP 18; O2SAT 96
[2016-12-23 17:55] VITALS: BP 140/71; PULSE 68; RESP 18; O2SAT 96
[2016-12-23] MEDS ORDERED: diphenhydrAMINE HCL 50 MG CAP PO ONE (19:00)
--- NOTE | 2016-12-23 20:11 | EKG ---
Date Performed: 12/23/2016 Time Performed: 10:38:39 PTAGE: 56 years EKG: Sinus rhythm ABNORMAL ECG PREVIOUS TRACING : 11/07/2016 09.36 Compared to prior tracing no significant change DOCTOR: Kaur Cespedes Interpretating Date/Time 12/23/2016 20:09:41
[2016-12-23] MEDS ORDERED: ALBUTEROL SULFATE 90 MCG/ACT HFA 8 GM INHALER INH ONE (20:30)
[2016-12-23] MEDS ORDERED: ALBUTEROL SULFATE 90 MCG/ACT HFA 18 GM INHALER INH ONE (20:45)
[2016-12-23 22:00] VITALS: BP 114/70; PULSE 65; RESP 19; O2SAT 92
[2016-12-24 02:16] VITALS: BP 133/72; PULSE 60; RESP 18; O2SAT 92
[2016-12-24] MEDS ORDERED: hydrOXYzine PAMOATE 25 MG CAP PO ONE (04:00)
[2016-12-24 06:18] VITALS: BP 121/68; PULSE 57; RESP 18; O2SAT 95
[2016-12-24 08:06] VITALS: BP 121/68; PULSE 57; RESP 18; O2SAT 95
== END 2016-12-24 09:26 | disposition home or self-care (01) ==
LOC: NEPD 07:14 → NEPJ 12-24 09:26
DX: J44.9 Chronic obstructive pulmonary disease, unspecified (principal); F10.10 Alcohol abuse, uncomplicated; F20.9 Schizophrenia, unspecified; R56.9 Unspecified convulsions; I25.2 Old myocardial infarction; K21.9 Gastro-esophageal reflux disease without esophagitis; I25.10 Atherosclerotic heart disease of native coronary artery without angina pectoris; I50.9 Heart failure, unspecified; F31.9 Bipolar disorder, unspecified; F17.200 Nicotine dependence, unspecified, uncomplicated
CPT/HCPCS: 71010; 80053; 80307; 84484; 85025; 93005; 94640; 94664; 96374; 99285; J2930; Q0163; Q0177

== ENCOUNTER 2016-12-24 20:55 | Emergency (ER) | payer MEDICARE, OTHER ==
[~2016-12-24] VITALS: Ht 165.1 cm; Wt 75.0 kg
[~2016-12-24 20:55] MED LIST changes: -ALBU6.7H INH; +FLUTI110I INH; +VENTAER INH
[2016-12-24 21:09] VITALS: BP 156/74; PULSE 81; RESP 16; TEMP 98.1; O2SAT 96
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
[2016-12-24 22:16] LABS: AUTOMATED NEUTROPHIL # 7.9 TH/MM3 (1.8-7.7); BASOPHIL % 0.4 % (0.0-2.0); EOSINOPHIL # 0.1 TH/MM3 (0-0.4); EOSINOPHIL % 0.6 % (0.0-4.0); HEMATOCRIT 50.8 % (39.0-51.0); HEMO FLAGS DIFF FINAL; LYMPH % 20.7 % (9.0-44.0); LYMPHOCYTE # 2.5 TH/MM3 (1.0-4.8); MEAN CELL VOLUME 95.5 FL (80.0-100.0); MEAN CORPUSCULAR HEMOGLOBIN 32.8 PG (27.0-34.0); MEAN CORPUSCULAR HGB CONC 34.3 % (32.0-36.0); MONO % 13.5 % (0.0-8.0); NEUT % 64.8 % (16.0-70.0); PLATELET COUNT 201 TH/MM3 (150-450); RED BLOOD COUNT 5.32 MIL/MM3 (4.50-5.90); RED CELL DISTRIBUTION WIDTH 15.3 % (11.6-17.2); WHITE BLOOD COUNT 12.2 TH/MM3 (4.0-11.0)
[2016-12-24 22:28] LABS: AMPHETAMINE, URINE NEG (NEG); BARBITURATES, URINE NEG (NEG); COCAINE, URINE NEG (NEG)
[2016-12-24 22:41] LABS: ACETAMINOPHEN LESS THAN 2.0 MCG/ML (10.0-30.0); ALKALINE PHOSPHATASE 166 U/L (45-117); ALT (GPT) 113 U/L (12-78); ANION GAP 10 MEQ/L (5-15); AST (GOT) 122 U/L (15-37); BICARBONATE 25.8 MEQ/L (21.0-32.0); BLOOD UREA NITROGEN 11 MG/DL (7-18); CHLORIDE 104 MEQ/L (98-107); GLOMERULAR FILTRATION RATE 70 ML/MIN (>89); POTASSIUM 3.4 MEQ/L (3.5-5.1); SODIUM (NA) 140 MEQ/L (136-145); TOTAL BILIRUBIN ADULT 0.6 MG/DL (0.2-1.0)
[2016-12-24 23:05] VITALS: BP 125/74; PULSE 110; RESP 19
[2016-12-25 04:27] VITALS: BP 110/74; PULSE 98; RESP 20; O2SAT 97
[2016-12-25 06:13] VITALS: BP 120/78; PULSE 84; RESP 19; O2SAT 96
--- NOTE | 2016-12-25 11:58 | PD ---
History of Present Illness Chief Complaint: Suicide Ideation/Attempt Time Seen by Provider: 11:30 Travel History International Travel<30 Days: No Contact w/Intl Traveler<30days: No Known affected area: No Legal Status Legal Status: Silver Act Silver Act Signed By: Rubina Isbell History of Present Illness: History of Present Illness HPI 56-year-old male with history of alcohol dependence with multiple visits to ED with alcohol related issues who arrives to the ER under a BA by SRUTHI for reported thoughts of wanting to harm himself in context of alcohol intoxication. His BAL on arrival was 178 and positive for cannabinoids. Patient was allowed to sober up clinically and while under our observation and care presented no suicidality. The patient is seen this morning with RNMelania. He is alert and oriented and he is clinically sober. Speech is clear and logical. He denies suicidal ideation at present. No homicidal ideation. he is requesting bus passes to go to [facility] for detox as well as to possibly initiate treatment for depression. PFSH Past Medical History Hx Anticoagulant Therapy: Yes (asa) AAA: No ADD: No ADHD: No Alzheimer's Disease: No Anemia: No Arthritis: Yes Asthma: Yes Atrial Fibrillation: No Autoimmune Disease: No Blood Disorders: No Bipolar Disorder: Yes Anxiety: Yes Depression: Yes Cancer: No Cardiac Catheterization: Yes Cardiomyopathy: No Cardiovascular Problems: Yes (CAD, CARDIAC STENT ) Cerebral Palsy: No High Cholesterol: Yes Chemotherapy: No Chest Pain: No Congestive Heart Failure: Yes Cirrhosis: No COPD: Yes Cerebrovascular Accident: No Coronary Artery Disease: Yes Cystic Fibrosis: No Dementia: No Developmental Delay: No Diabetes: No Diminished Hearing: No Endocrine: No Gastrointestinal Disorders: Yes (Acid reflux) GERD: Yes Glaucoma: No Gout: No Genitourinary: No Hepatitis: No Hiatal Hernia: No Heparin Induced Thrombocytopen: No Herniated Disk: No Hypertension: No Immune Disorder: No Inguinal Hernia: No Implanted Vascular Access Dvce: No Insomnia: Yes Kidney Stones: No Musculoskeletal: Yes Neurologic: Yes Parkinson's Disease: No Psychiatric: Yes Reproductive: No Respiratory: Yes (COPD) Resp. Syncytial Virus (RSV): No Integumentary: Yes Immunizations Current: Yes Migraines: No Myocardial Infarction: Yes Pancreatitis: No Radiation Therapy: No Renal Failure: No Schizophrenia: Yes Seizures: Yes Shingles: No Sickle Cell Disease: No Sleep Apnea: Yes Thyroid Disease: No Ulcer: No Tetanus Vaccination: < 5 Years Menopausal: No Past Surgical History Abdominal Aneurysm Repair: No Abdominal Surgery: No AICD: No Appendectomy: No Arteriovenous Shunt: No Cholecystectomy: No Coronary Stent: Yes Ear Surgery: No Endocrine Surgery: No Eye Surgery: No Genitourinary Surgery: No Gynecologic Surgery: No Joint Replacement: No Mastectomy: No Neurologic Surgery: No Oral Surgery: No Pacemaker: No Prostatectomy: No Thoracic Surgery: No Tonsillectomy: Yes Tympanostomy Tube: No Valve Replacement: No Psychiatric History Psychiatric History Hx Psychiatric Treatment: Multiple detox admissions, Multiple Ed visits for alcohol intoxication History of Inpatient Treatment: Yes Guns or firearms in home: No Social History Single male. Homeless. On disability Hx Alcohol Use: Yes (ETOH ABUSE ; 4 beers today) Hx Tobacco Use: Yes (1 PPD) Hx Substance Use: Yes (POT) Substance Use Type: Alcohol, Marijuana Other Substances Used: PT IS A CHRONIC ALCOHOLIC Hx of Substance Use Treatment: Yes Family Psychiatric History negative Allergies-Medications (Allergen,Severity, Reaction): Coded Allergies: Codeine (Verified Allergy, Mild, RASH, 12/24/16) *MDRO Multi-Drug Resistant Organism (Verified Adverse Reaction, Unknown, ) 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, 07/31/16) Reported Meds & Prescriptions Reported Meds & Active Scripts Active Deltasone (Prednisone) 20 Mg Tab 20 Mg PO BID 5 Days Flovent Hfa 12 GM Inh (Fluticasone Propionate) 110 Mcg/Act Inh 2 Puff INH BID Ventolin Hfa 18 GM Inh (Albuterol Sulfate) 90 Mcg/Act Aer 2 Puff INH Q4H PRN Atrovent HFA 12.9 GM Inh (Ipratropium [place]) 17 Mcg/Act Aer 2 Puff INH Q6HR PRN Deltasone (Prednisone) 20 Mg Tab 20 Mg PO TID Reported Trazodone (Trazodone HCl) 300 Mg Tab 300 Mg PO HS Risperdal (Risperidone) 3 Mg Tab 3 Mg PO Q12HR Review of Systems Except as stated in HPI: all other systems reviewed are Neg Exam Alert: Yes [place]: Person (ox4) Mood: Calm Affect: Appropriate Speech: Clear, Logical Eye Contact: Normal Memory Intact: Comment (No impairmetn) Hallucinations: Other (Negative) Delusions: No Suicidal: Ideation (denies any) Homicidal: Ideation (Deneis any) Insight/Judgement Fair. Not impaired. MDM Medical Decision Making Medical Record Reviewed: Yes Assessment/Plan 56-year-old male with history of alcohol dependence with multiple visits to ED with alcohol related issues who arrives to the ER under a BA by SRUTHI for reported thoughts of wanting to harm himself in context of alcohol intoxication. His BAL on arrival was 178 and positive for cannabinoids. Patient was allowed to sober up clinically and while under our observation and care presented no suicidality. Patient at this time does not present any criteria for BA or for inpatient psychiatric treatment. Continued to probation counselor him on sobriety. SMA,. Lift BA. Orders Complete Blood Count With Diff (12/24/16 21:27) Comprehensive Metabolic Panel (12/24/16 21:27) Psych Screen (12/24/16 21:27) Drug Screen, Random Urine (12/24/16 21:27) Alcohol (Ethanol) (12/24/16 21:27) Salicylates (Aspirin) (12/24/16 21:27) Tylenol (Acetaminophen) (12/24/16 21:27) Diet 1800 Ada Cons Carb (12/25/16 Breakfast) Diet Regular Basic (12/25/16 Lunch) Results Vital Signs Date Time Temp Pulse Resp B/P Pulse Ox O2 Delivery O2 Flow Rate FiO2 12/25/16 06:13 84 19 120/78 96 Room Air 12/25/16 04:27 98 20 110/74 97 Room Air 12/24/16 23:05 110 19 125/74 Room Air 12/24/16 21:12 16 96 Room Air 12/24/16 21:12 16 12/24/16 21:09 98.1 81 16 156/74 96 Laboratory Tests Test 12/24/16 21:45 White Blood Count 12.2 Red Blood Count 5.32 Hemoglobin 17.5 Hematocrit 50.8 Mean Corpuscular Volume 95.5 Mean Corpuscular Hemoglobin 32.8 Mean Corpuscular Hemoglobin 34.3 Concent Red Cell Distribution Width 15.3 Platelet Count 201 Mean Platelet Volume 7.7 Neutrophils (%) (Auto) 64.8 Lymphocytes (%) (Auto) 20.7 Monocytes (%) (Auto) 13.5 Eosinophils (%) (Auto) 0.6 Basophils (%) (Auto) 0.4 Neutrophils # (Auto) 7.9 Lymphocytes # (Auto) 2.5 Monocytes # (Auto) 1.7 Eosinophils # (Auto) 0.1 Basophils # (Auto) 0.0 CBC Comment DIFF FINAL Differential Comment Sodium Level 140 Potassium Level 3.4 Chloride Level 104 Carbon Dioxide Level 25.8 Anion Gap 10 Blood Urea Nitrogen 11 Creatinine 1.08 Estimat Glomerular Filtration 70 Rate Random Glucose 92 Calcium Level 9.8 Total Bilirubin 0.6 Aspartate Amino Transf 122 (AST/SGOT) Alanine Aminotransferase 113 (ALT/SGPT) Alkaline Phosphatase 166 Total Protein 8.0 Albumin 4.3 Salicylates Level 7.8 Urine Opiates Screen NEG Acetaminophen Level LESS THAN 2.0 Urine Barbiturates Screen NEG Urine Amphetamines Screen NEG Urine Benzodiazepines Screen NEG Urine Cocaine Screen NEG Urine Cannabinoids Screen POS Ethyl Alcohol Level 178 Diagnosis Primary Impression: Alcohol intoxication Ruled Out: Suicidal ideation Psychiatrically Cleared: Yes Med/ Other Pt Specific Info: No Meds Exist/No RX given Disposition: 01 DISCHARGE HOME Condition: Stable Problem Qualifiers Primary Impression: Alcohol intoxication Qualified Code: F10.920 - Alcohol intoxication, uncomplicated Rachel Viveros [facility] Dec 25, 2016 11:58
[2016-12-25 12:04] VITALS: BP 120/78; TEMP 98
== END 2016-12-25 12:13 | disposition home or self-care (01) ==
LOC: NEPD 20:55 → NEPJ 12-25 12:13
DX: F10.129 Alcohol abuse with intoxication, unspecified (principal); F31.9 Bipolar disorder, unspecified; F41.9 Anxiety disorder, unspecified; I25.10 Atherosclerotic heart disease of native coronary artery without angina pectoris; I50.9 Heart failure, unspecified; J44.9 Chronic obstructive pulmonary disease, unspecified; F20.9 Schizophrenia, unspecified; F17.200 Nicotine dependence, unspecified, uncomplicated; Z79.899 Other long term (current) drug therapy
CPT/HCPCS: 80053; 80307; 85025; 99284; Q0177

== ENCOUNTER 2016-12-26 11:57 | Emergency (ER) | payer MEDICARE, OTHER ==
[~2016-12-26] VITALS: Ht 160 cm; Wt 65.0 kg
[2016-12-26 11:59] VITALS: BP 94/64; PULSE 116; RESP 18; TEMP 98.6; O2SAT 95
--- NOTE | 2016-12-26 12:05 | PD ---
Physical Exam Date Seen by Provider: Dec 26, 2016 Time Seen by Provider: 12:04 Narrative 56 yo male here for suicidal ideation. History of prior attempts. History of alcohol abuse. Been here before for same. No other complains. Vitals are stable in triage. Awaiting bed placement. Data Data Last Documented VS Vital Signs Date Time Temp Pulse Resp B/P Pulse Ox O2 Delivery O2 Flow Rate FiO2 12/26/16 11:59 98.6 116 18 94/64 95 MDM Medical Record Reviewed: Yes Supervised Visit with BOB: Rodríguez Johnson Dec 26, 2016 12:05
--- NOTE | 2016-12-26 14:33 | PD ---
HPI Chief Complaint: Suicide Ideation/Attempt Time Seen by Provider: 14:20 Travel History International Travel<30 days: No Contact w/Intl Traveler<30days: No Traveled to known affect area: No History of Present Illness HPI This is a 56-year-old male frequent visitor to this emergency department who presents requesting help with detoxification. He drinks on a daily basis, drank 4 beers this morning. He reports that he called the distillation operator helper and told them that he was feeling suicidal only so they would bring him here. He was actually hoping to go to [facility] [place] to get help with detoxification but he brought him here instead. Upon my examination he admits that he is not feeling suicidal and if discharged he would like a bus pass back to his [facility]. He reports a history of COPD. He denies any acute medical complaints. Earlier this month the patient was sent to the [facility] in order to help him with detoxification but he left voluntarily after 2-3 days according to the nurse. PFSH Past Medical History Hx Anticoagulant Therapy: Yes (asa) AAA: No ADD: No ADHD: No Alzheimer's Disease: No Anemia: No Arthritis: Yes Asthma: Yes Atrial Fibrillation: No Autoimmune Disease: No Blood Disorders: No Bipolar Disorder: Yes Anxiety: Yes Depression: Yes Cancer: No Cardiac Catheterization: Yes Cardiomyopathy: No Cardiovascular Problems: Yes (CAD, CARDIAC STENT ) Cerebral Palsy: No High Cholesterol: Yes Chemotherapy: No Chest Pain: No Congestive Heart Failure: Yes Cirrhosis: No COPD: Yes Cerebrovascular Accident: Yes Coronary Artery Disease: Yes Cystic Fibrosis: No Dementia: No Developmental Delay: No Diabetes: No Diminished Hearing: No Endocrine: No Gastrointestinal Disorders: Yes (Acid reflux) GERD: Yes Glaucoma: No Gout: No Genitourinary: No Hepatitis: No Hiatal Hernia: No Heparin Induced Thrombocytopen: No Herniated Disk: No Hypertension: No Immune Disorder: No Inguinal Hernia: No Implanted Vascular Access Dvce: No Insomnia: Yes Kidney Stones: No Musculoskeletal: Yes Neurologic: Yes Parkinson's Disease: No Psychiatric: Yes Reproductive: No Respiratory: Yes (COPD) Resp. Syncytial Virus (RSV): No Integumentary: Yes Immunizations Current: Yes Migraines: No Myocardial Infarction: Yes Pancreatitis: No Radiation Therapy: No Renal Failure: No Schizophrenia: Yes Seizures: Yes Shingles: No Sickle Cell Disease: No Sleep Apnea: Yes Thyroid Disease: No Ulcer: No Menopausal: No Past Surgical History Abdominal Aneurysm Repair: No Abdominal Surgery: No AICD: No Appendectomy: No Arteriovenous Shunt: No Cholecystectomy: No Coronary Stent: Yes Ear Surgery: No Endocrine Surgery: No Eye Surgery: No Genitourinary Surgery: No Gynecologic Surgery: No Joint Replacement: No Mastectomy: No Neurologic Surgery: No Oral Surgery: No Pacemaker: No Prostatectomy: No Thoracic Surgery: No Tonsillectomy: Yes Tympanostomy Tube: No Valve Replacement: No Social History Alcohol Use: Yes (ETOH ABUSE ; 4 beers today) Tobacco Use: Yes (1 PPD) Substance Use: Yes (POT) Allergies-Medications (Allergen,Severity, Reaction): Coded Allergies: Codeine (Verified Allergy, Mild, RASH, 12/24/16) *MDRO Multi-Drug Resistant Organism (Verified Adverse Reaction, Unknown, ) 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, 07/31/16) Reported Meds & Prescriptions Reported Meds & Active Scripts Active Deltasone (Prednisone) 20 Mg Tab 20 Mg PO BID 5 Days Flovent Hfa 12 GM Inh (Fluticasone Propionate) 110 Mcg/Act Inh 2 Puff INH BID Ventolin Hfa 18 GM Inh (Albuterol Sulfate) 90 Mcg/Act Aer 2 Puff INH Q4H PRN Atrovent HFA 12.9 GM Inh (Ipratropium [place]) 17 Mcg/Act Aer 2 Puff INH Q6HR PRN Deltasone (Prednisone) 20 Mg Tab 20 Mg PO TID Reported Trazodone (Trazodone HCl) 300 Mg Tab 300 Mg PO HS Risperdal (Risperidone) 3 Mg Tab 3 Mg PO Q12HR Review of Systems Except as stated in HPI: all other systems reviewed are Neg Physical Exam Narrative GENERAL: Well-developed well-nourished male in no acute distress, alert and interactive, responding to questions/commands appropriately and politely. He is ambulatory with no apparent gait disturbance. SKIN: Warm and dry. HEAD: Atraumatic. Normocephalic. EYES: Pupils equal and round. No scleral icterus. No injection or drainage. ENT: No nasal bleeding or discharge. Mucous membranes pink and moist. NECK: Trachea midline. No JVD. CARDIOVASCULAR: Regular rate and rhythm. No murmur appreciated. RESPIRATORY: No accessory muscle use. Mild wheezing bilaterally. GASTROINTESTINAL: Abdomen soft, non-tender, nondistended. Hepatic and splenic margins not palpable. MUSCULOSKELETAL: No obvious deformities. No clubbing. No cyanosis. No edema. NEUROLOGICAL: Awake and alert. No obvious cranial nerve deficits. Motor grossly within normal limits. Normal speech. PSYCHIATRIC: Appropriate mood and affect; insight and judgment normal. Data Data Last Documented VS Vital Signs Date Time Temp Pulse Resp B/P Pulse Ox O2 Delivery O2 Flow Rate FiO2 12/26/16 11:59 98.6 116 18 94/64 95 MDM Medical Decision Making Medical Screen Exam Complete: Yes Emergency Medical Condition: Yes Medical Record Reviewed: Yes Differential Diagnosis Homelessness, malingering, alcoholism, depression Narrative Course This is a 56-year-old male frequent visitor to this emergency department who presents for evaluation. He initially told the place that he was suicidal in order to get a ride here. Upon my examination he admits that he is actually not suicidal and would prefer to go to a detoxification center such as [facility] [place] to help with his alcoholism. I don't feel that this patient would benefit from acute psychiatric hospitalization at this time. He is requesting a bus pass to return to the [facility] and this will be provided to him. He will also be given something to eat prior to discharge. Diagnosis Primary Impression: Alcohol abuse Referrals: [facility] Pt SpecificInfo: No Change to Meds Disposition: 01 DISCHARGE HOME Condition: Stable Sudarshan Fallon Dec 26, 2016 14:33
[2016-12-26 14:34] VITALS: BP 94/59; PULSE 111; RESP 18
== END 2016-12-26 14:51 | disposition home or self-care (01) ==
LOC: NEPJ 11:57
DX: F10.10 Alcohol abuse, uncomplicated (principal); F31.9 Bipolar disorder, unspecified; I25.10 Atherosclerotic heart disease of native coronary artery without angina pectoris; I50.9 Heart failure, unspecified; J44.9 Chronic obstructive pulmonary disease, unspecified; K21.9 Gastro-esophageal reflux disease without esophagitis; F20.9 Schizophrenia, unspecified; F17.200 Nicotine dependence, unspecified, uncomplicated; Z86.73 Personal history of transient ischemic attack (TIA), and cerebral infarction without residual deficits
CPT/HCPCS: 99281

== ENCOUNTER 2016-12-28 11:29 | Emergency (ER) | payer MEDICARE, OTHER ==
[~2016-12-28] VITALS: Ht 160 cm; Wt 65.0 kg
[2016-12-28 11:44] VITALS: BP 112/71; PULSE 85; RESP 16; TEMP 98.1; O2SAT 96
[2016-12-28 12:47] LABS: AUTOMATED NEUTROPHIL # 3.2 TH/MM3 (1.8-7.7); BASOPHIL % 0.7 % (0.0-2.0); EOSINOPHIL # 0.3 TH/MM3 (0-0.4); EOSINOPHIL % 4.3 % (0.0-4.0); HEMATOCRIT 47.6 % (39.0-51.0); HEMO FLAGS DIFF FINAL; LYMPH % 40.2 % (9.0-44.0); LYMPHOCYTE # 2.7 TH/MM3 (1.0-4.8); MEAN CELL VOLUME 95.9 FL (80.0-100.0); MEAN CORPUSCULAR HGB CONC 34.4 % (32.0-36.0); MONO % 6.2 % (0.0-8.0); NEUT % 48.6 % (16.0-70.0); PLATELET COUNT 185 TH/MM3 (150-450); RED BLOOD COUNT 4.96 MIL/MM3 (4.50-5.90); RED CELL DISTRIBUTION WIDTH 15.6 % (11.6-17.2); WHITE BLOOD COUNT 6.6 TH/MM3 (4.0-11.0)
--- NOTE | 2016-12-28 12:53 | PD ---
HPI Chief Complaint: Suicide Ideation/Attempt Time Seen by Provider: 12:00 Travel History International Travel<30 days: No Contact w/Intl Traveler<30days: No Traveled to known affect area: No History of Present Illness HPI 56-year-old male here under Silver act today reporting suicidal ideation. Patient reports to drinking alcohol prior to arrival. He reports he drank 2 4 LOCOS. Patient states his plan to harm himself is by firearm. According to the EMR patient has been seen and treated for the same complaint multiple times. He denies headache, chest pain, shortness breath, abdominal pain. PFSH Past Medical History Hx Anticoagulant Therapy: Yes (asa) AAA: No ADD: No ADHD: No Alzheimer's Disease: No Anemia: No Arthritis: Yes Asthma: Yes Atrial Fibrillation: No Autoimmune Disease: No Blood Disorders: No Bipolar Disorder: Yes Anxiety: Yes Depression: Yes Cancer: No Cardiac Catheterization: Yes Cardiomyopathy: No Cardiovascular Problems: Yes (CAD, CARDIAC STENT ) Cerebral Palsy: No High Cholesterol: Yes Chemotherapy: No Chest Pain: No Congestive Heart Failure: Yes Cirrhosis: No COPD: Yes Cerebrovascular Accident: Yes Coronary Artery Disease: Yes Cystic Fibrosis: No Dementia: No Developmental Delay: No Diabetes: No Diminished Hearing: No Endocrine: No Gastrointestinal Disorders: Yes (Acid reflux) GERD: Yes Glaucoma: No Gout: No Genitourinary: No Hepatitis: No Hiatal Hernia: No Heparin Induced Thrombocytopen: No Herniated Disk: No Hypertension: No Immune Disorder: No Inguinal Hernia: No Implanted Vascular Access Dvce: No Insomnia: Yes Kidney Stones: No Musculoskeletal: Yes Neurologic: Yes Parkinson's Disease: No Psychiatric: Yes Reproductive: No Respiratory: Yes Resp. Syncytial Virus (RSV): No Integumentary: Yes Immunizations Current: Yes Migraines: No Myocardial Infarction: Yes Pancreatitis: No Radiation Therapy: No Renal Failure: No Schizophrenia: Yes Seizures: Yes Shingles: No Sickle Cell Disease: No Sleep Apnea: Yes Thyroid Disease: No Ulcer: No Menopausal: No Past Surgical History Abdominal Aneurysm Repair: No Abdominal Surgery: No AICD: No Appendectomy: No Arteriovenous Shunt: No Cholecystectomy: No Coronary Stent: Yes Ear Surgery: No Endocrine Surgery: No Eye Surgery: No Genitourinary Surgery: No Gynecologic Surgery: No Joint Replacement: No Mastectomy: No Neurologic Surgery: No Oral Surgery: No Pacemaker: No Prostatectomy: No Thoracic Surgery: No Tonsillectomy: Yes Tympanostomy Tube: No Valve Replacement: No Social History Alcohol Use: Yes (ETOH ABUSE ; 4 beers today) Tobacco Use: Yes (1 PPD) Substance Use: Yes (POT) Allergies-Medications (Allergen,Severity, Reaction): Coded Allergies: Codeine (Verified Allergy, Mild, RASH, 12/28/16) *MDRO Multi-Drug Resistant Organism (Verified Adverse Reaction, Unknown, ) 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, 07/31/16) Reported Meds & Prescriptions Reported Meds & Active Scripts Active Deltasone (Prednisone) 20 Mg Tab 20 Mg PO BID 5 Days Flovent Hfa 12 GM Inh (Fluticasone Propionate) 110 Mcg/Act Inh 2 Puff INH BID Ventolin Hfa 18 GM Inh (Albuterol Sulfate) 90 Mcg/Act Aer 2 Puff INH Q4H PRN Atrovent HFA 12.9 GM Inh (Ipratropium [place]) 17 Mcg/Act Aer 2 Puff INH Q6HR PRN Deltasone (Prednisone) 20 Mg Tab 20 Mg PO TID Reported Trazodone (Trazodone HCl) 300 Mg Tab 300 Mg PO HS Risperdal (Risperidone) 3 Mg Tab 3 Mg PO Q12HR Review of Systems Except as stated in HPI: all other systems reviewed are Neg General / Constitutional: No: Fever Eyes: No: Visual changes HENT: No: Headaches Cardiovascular: No: Chest Pain or Discomfort Respiratory: No: Shortness of Breath Gastrointestinal: No: Abdominal Pain Genitourinary: No: Dysuria Psychiatric: Positive: Suicidal Ideations Physical Exam Narrative GENERAL: Alert Disheveled-appearing male. he smells of alcohol. SKIN: Focused skin assessment warm/dry. HEAD: Normocephalic. EYES: No scleral icterus. No injection or drainage. NECK: Supple, trachea midline. No JVD or lymphadenopathy. CARDIOVASCULAR: Regular rate and rhythm without murmurs, gallops, or rubs. RESPIRATORY: Breath sounds equal bilaterally. No accessory muscle use. GASTROINTESTINAL: Abdomen soft, non-tender, nondistended. MUSCULOSKELETAL: No cyanosis, or edema. BACK: Nontender without obvious deformity. No CVA tenderness. Data Data Last Documented VS Vital Signs Date Time Temp Pulse Resp B/P Pulse Ox O2 Delivery O2 Flow Rate FiO2 12/28/16 11:44 98.1 85 16 112/71 96 Orders Complete Blood Count With Diff (12/28/16 12:00) Comprehensive Metabolic Panel (12/28/16 12:00) Psych Screen (12/28/16 12:00) Drug Screen, Random Urine (12/28/16 12:00) Alcohol (Ethanol) (12/28/16 12:00) Salicylates (Aspirin) (12/28/16 12:00) Tylenol (Acetaminophen) (12/28/16 12:00) Labs Laboratory Tests Test 12/28/16 12:15 White Blood Count 6.6 TH/MM3 Red Blood Count 4.96 MIL/MM3 Hemoglobin 16.4 GM/DL Hematocrit 47.6 % Mean Corpuscular Volume 95.9 FL Mean Corpuscular Hemoglobin 33.0 PG Mean Corpuscular Hemoglobin 34.4 % Concent Red Cell Distribution Width 15.6 % Platelet Count 185 TH/MM3 Mean Platelet Volume 7.8 FL Neutrophils (%) (Auto) 48.6 % Lymphocytes (%) (Auto) 40.2 % Monocytes (%) (Auto) 6.2 % Eosinophils (%) (Auto) 4.3 % Basophils (%) (Auto) 0.7 % Neutrophils # (Auto) 3.2 TH/MM3 Lymphocytes # (Auto) 2.7 TH/MM3 Monocytes # (Auto) 0.4 TH/MM3 Eosinophils # (Auto) 0.3 TH/MM3 Basophils # (Auto) 0.0 TH/MM3 CBC Comment DIFF FINAL Differential Comment Sodium Level 137 MEQ/L Potassium Level 4.1 MEQ/L Chloride Level 103 MEQ/L Carbon Dioxide Level 24.0 MEQ/L Anion Gap 10 MEQ/L Blood Urea Nitrogen 5 MG/DL Creatinine 0.72 MG/DL Estimat Glomerular Filtration 113 ML/MIN Rate Random Glucose 84 MG/DL Calcium Level 8.7 MG/DL Total Bilirubin 0.5 MG/DL Aspartate Amino Transf 81 U/L (AST/SGOT) Alanine Aminotransferase 113 U/L (ALT/SGPT) Alkaline Phosphatase 156 U/L Total Protein 7.6 GM/DL Albumin 3.9 GM/DL Salicylates Level 8.9 MG/DL Urine Opiates Screen NEG Acetaminophen Level LESS THAN 2.0 MCG/ML Urine Barbiturates Screen NEG Urine Amphetamines Screen NEG Urine Benzodiazepines Screen NEG Urine Cocaine Screen NEG Urine Cannabinoids Screen NEG Ethyl Alcohol Level 229 MG/DL MDM Medical Decision Making Medical Screen Exam Complete: Yes Emergency Medical Condition: Yes Differential Diagnosis Suicidal ideation, substance induced mood disorder, alcohol abuse Narrative Course 56-year-old male with history of alcohol abuse presents emergency Department with suicidal ideation. Patient has a formalized plan. He is under Silver act. Labs ordered and pending. Once patient is medically cleared he will receive psychiatric evaluation. CBC unremarkable BMP unremarkable Alcohol level 229 Tox screen negative Patient is medically cleared. Pending psych evaluation Diagnosis Primary Impression: Suicidal ideation Additional Impression: Alcohol abuse Jyotsna Khan Dec 28, 2016 12:53
[2016-12-28 12:55] LABS: AMPHETAMINE, URINE NEG (NEG); BARBITURATES, URINE NEG (NEG); COCAINE, URINE NEG (NEG)
[2016-12-28 13:02] LABS: ALT (GPT) 113 U/L (12-78)
[2016-12-28 13:04] LABS: ALKALINE PHOSPHATASE 156 U/L (45-117); TOTAL BILIRUBIN ADULT 0.5 MG/DL (0.2-1.0)
[2016-12-28 13:09] LABS: ANION GAP 10 MEQ/L (5-15); AST (GOT) 81 U/L (15-37); BLOOD UREA NITROGEN 5 MG/DL (7-18); CHLORIDE 103 MEQ/L (98-107); GLOMERULAR FILTRATION RATE 113 ML/MIN (>89); SODIUM (NA) 137 MEQ/L (136-145)
[2016-12-28 13:16] LABS: POTASSIUM 4.1 MEQ/L (3.5-5.1)
[2016-12-28 13:17] LABS: ACETAMINOPHEN LESS THAN 2.0 MCG/ML (10.0-30.0)
--- NOTE | 2016-12-28 14:35 | PD ---
History of Present Illness Chief Complaint: Suicide Ideation/Attempt Time Seen by Provider: 14:30 Travel History International Travel<30 Days: No Contact w/Intl Traveler<30days: No Known affected area: No History of Present Illness: This is a 56-year-old male well known to this physician and the staff here in [facility]. He has a long history of alcohol abuse and alcohol dependence. Patient was apparently Silver acted for making suicidal comments. At this time the patient is slightly less intoxicated and is denying being suicidal. In fact, he denies any suicidal or homicidal ideation, plan or intent. He is alert and oriented 3. His cognition is intact and he is verbally darren for safety. He is calm pleasant and cooperative. He admits to consuming alcohol this morning. His alcohol level is approximately 200, which compared to earlier visits by this man, is relatively low alcohol level. Still, the patient will be evaluated and observed over the next several hours as his alcohol level drops. If he continues to demonstrate his current level of stability, he may be released. CIWA protocols will be initiated just to be safe. PFSH Past Medical History Hx Anticoagulant Therapy: Yes (asa) AAA: No ADD: No ADHD: No Alzheimer's Disease: No Anemia: No Arthritis: Yes Asthma: Yes Atrial Fibrillation: No Autoimmune Disease: No Blood Disorders: No Bipolar Disorder: Yes Anxiety: Yes Depression: Yes Cancer: No Cardiac Catheterization: Yes Cardiomyopathy: No Cardiovascular Problems: Yes (CAD, CARDIAC STENT ) Cerebral Palsy: No High Cholesterol: Yes Chemotherapy: No Chest Pain: No Congestive Heart Failure: Yes Cirrhosis: No COPD: Yes Cerebrovascular Accident: Yes Coronary Artery Disease: Yes Cystic Fibrosis: No Dementia: No Developmental Delay: No Diabetes: No Diminished Hearing: No Endocrine: No Gastrointestinal Disorders: Yes (Acid reflux) GERD: Yes Glaucoma: No Gout: No Genitourinary: No Hepatitis: No Hiatal Hernia: No Heparin Induced Thrombocytopen: No Herniated Disk: No Hypertension: No Immune Disorder: No Inguinal Hernia: No Implanted Vascular Access Dvce: No Insomnia: Yes Kidney Stones: No Musculoskeletal: Yes Neurologic: Yes Parkinson's Disease: No Psychiatric: Yes Reproductive: No Respiratory: Yes Resp. Syncytial Virus (RSV): No Integumentary: Yes Immunizations Current: Yes Migraines: No Myocardial Infarction: Yes Pancreatitis: No Radiation Therapy: No Renal Failure: No Schizophrenia: Yes Seizures: Yes Shingles: No Sickle Cell Disease: No Sleep Apnea: Yes Thyroid Disease: No Ulcer: No Menopausal: No Past Surgical History Abdominal Aneurysm Repair: No Abdominal Surgery: No AICD: No Appendectomy: No Arteriovenous Shunt: No Cholecystectomy: No Coronary Stent: Yes Ear Surgery: No Endocrine Surgery: No Eye Surgery: No Genitourinary Surgery: No Gynecologic Surgery: No Joint Replacement: No Mastectomy: No Neurologic Surgery: No Oral Surgery: No Pacemaker: No Prostatectomy: No Thoracic Surgery: No Tonsillectomy: Yes Tympanostomy Tube: No Valve Replacement: No Psychiatric History Psychiatric History Hx Psychiatric Treatment: Multiple detox admissions, Multiple Ed visits for alcohol intoxication History of Inpatient Treatment: Yes Guns or firearms in home: No Social History Hx Alcohol Use: Yes (ETOH ABUSE ; 4 beers today) Hx Tobacco Use: Yes (1 PPD) Hx Substance Use: Yes (POT) Substance Use Type: Alcohol, Marijuana Other Substances Used: PT IS A CHRONIC ALCOHOLIC Hx of Substance Use Treatment: Yes Allergies-Medications (Allergen,Severity, Reaction): Coded Allergies: Codeine (Verified Allergy, Mild, RASH, 12/28/16) *MDRO Multi-Drug Resistant Organism (Verified Adverse Reaction, Unknown, ) 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, 07/31/16) Reported Meds & Prescriptions Reported Meds & Active Scripts Active Deltasone (Prednisone) 20 Mg Tab 20 Mg PO BID 5 Days Flovent Hfa 12 GM Inh (Fluticasone Propionate) 110 Mcg/Act Inh 2 Puff INH BID Ventolin Hfa 18 GM Inh (Albuterol Sulfate) 90 Mcg/Act Aer 2 Puff INH Q4H PRN Atrovent HFA 12.9 GM Inh (Ipratropium [place]) 17 Mcg/Act Aer 2 Puff INH Q6HR PRN Deltasone (Prednisone) 20 Mg Tab 20 Mg PO TID Reported Trazodone (Trazodone HCl) 300 Mg Tab 300 Mg PO HS Risperdal (Risperidone) 3 Mg Tab 3 Mg PO Q12HR Review of Systems ROS Limitations: Intoxication Except as stated in HPI: all other systems reviewed are Neg Exam Alert: Yes [place]: Person, Place, Date, Situation Mood: Calm Affect: Appropriate Speech: Clear, Logical Eye Contact: Normal Memory Intact: Immediate, Recent, Remote Insight/Judgement Adequate MDM Medical Decision Making Medical Record Reviewed: Yes Assessment/Plan 56-year-old male with long history of alcohol abuse, Silver acted by law enforcement for reportedly making suicidal threats. At this time the patient's alcohol level continues to drop and his level of clinical intoxication appears to be minimal. He is verbally darren for safety and denies any suicidal or homicidal ideation, plan or intent. His cognition is intact and he is competent to contract for safety. He will be observed over the next several hours but if he continues to show stability, he may be released. This physician is once again encouraging him to stop drinking and attend AA meetings as well as treatment at [facility]. Orders Complete Blood Count With Diff (12/28/16 12:00) Comprehensive Metabolic Panel (12/28/16 12:00) Psych Screen (12/28/16 12:00) Drug Screen, Random Urine (12/28/16 12:00) Alcohol (Ethanol) (12/28/16 12:00) Salicylates (Aspirin) (12/28/16 12:00) Tylenol (Acetaminophen) (12/28/16 12:00) Results Vital Signs Date Time Temp Pulse Resp B/P Pulse Ox O2 Delivery O2 Flow Rate FiO2 12/28/16 11:44 98.1 85 16 112/71 96 Laboratory Tests Test 12/28/16 12:15 White Blood Count 6.6 Red Blood Count 4.96 Hemoglobin 16.4 Hematocrit 47.6 Mean Corpuscular Volume 95.9 Mean Corpuscular Hemoglobin 33.0 Mean Corpuscular Hemoglobin 34.4 Concent Red Cell Distribution Width 15.6 Platelet Count 185 Mean Platelet Volume 7.8 Neutrophils (%) (Auto) 48.6 Lymphocytes (%) (Auto) 40.2 Monocytes (%) (Auto) 6.2 Eosinophils (%) (Auto) 4.3 Basophils (%) (Auto) 0.7 Neutrophils # (Auto) 3.2 Lymphocytes # (Auto) 2.7 Monocytes # (Auto) 0.4 Eosinophils # (Auto) 0.3 Basophils # (Auto) 0.0 CBC Comment DIFF FINAL Differential Comment Sodium Level 137 Potassium Level 4.1 Chloride Level 103 Carbon Dioxide Level 24.0 Anion Gap 10 Blood Urea Nitrogen 5 Creatinine 0.72 Estimat Glomerular Filtration 113 Rate Random Glucose 84 Calcium Level 8.7 Total Bilirubin 0.5 Aspartate Amino Transf 81 (AST/SGOT) Alanine Aminotransferase 113 (ALT/SGPT) Alkaline Phosphatase 156 Total Protein 7.6 Albumin 3.9 Salicylates Level 8.9 Urine Opiates Screen NEG Acetaminophen Level LESS THAN 2.0 Urine Barbiturates Screen NEG Urine Amphetamines Screen NEG Urine Benzodiazepines Screen NEG Urine Cocaine Screen NEG Urine Cannabinoids Screen NEG Ethyl Alcohol Level 229 Diagnosis Primary Impression: Alcohol abuse Noah Michael MD Dec 28, 2016 14:35
[2016-12-28] MEDS ORDERED: LORazepam 1 MG TAB PO PRN (14:45)
[2016-12-28] MEDS ORDERED: LORazepam 2 MG TAB PO PRN (14:45)
[2016-12-28] MEDS ORDERED: LORazepam 2 MG/ML VIAL IV PUSH PRN ×4 (14:45)
[2016-12-28] MEDS ORDERED: FLUMAZENIL 0.5 MG/5 ML VIAL IV PUSH PRN (14:45)
[2016-12-28 16:12] VITALS: BP 124/92; PULSE 98; RESP 18; O2SAT 95
== END 2016-12-28 16:38 | disposition home or self-care (01) ==
LOC: NEPD 11:29 → NEPJ 16:38
DX: R45.851 Suicidal ideations (principal); F10.10 Alcohol abuse, uncomplicated; E78.00 Pure hypercholesterolemia, unspecified; I25.2 Old myocardial infarction; G47.30 Sleep apnea, unspecified; F17.200 Nicotine dependence, unspecified, uncomplicated; Z79.899 Other long term (current) drug therapy; Z79.82 Long term (current) use of aspirin; Z87.39 Personal history of other diseases of the musculoskeletal system and connective tissue; Z87.09 Personal history of other diseases of the respiratory system; Z86.59 Personal history of other mental and behavioral disorders; Z86.79 Personal history of other diseases of the circulatory system; Z87.19 Personal history of other diseases of the digestive system; Z86.69 Personal history of other diseases of the nervous system and sense organs
CPT/HCPCS: 80053; 80307; 85025; 99284

== ENCOUNTER 2016-12-30 08:05 | Emergency (ER) | payer MEDICARE, OTHER ==
[~2016-12-30] VITALS: Ht 160 cm; Wt 62.0 kg
[2016-12-30 08:14] VITALS: BP 127/78; PULSE 108; RESP 20; TEMP 98.3; O2SAT 94
--- NOTE | 2016-12-30 08:33 | PD ---
HPI Chief Complaint: Psychiatric Symptoms Time Seen by Provider: 08:33 Travel History International Travel<30 days: No Contact w/Intl Traveler<30days: No Traveled to known affect area: No History of Present Illness HPI 56-year-old male presents emergency department threatening to throw himself into moving traffic to kill himself because of bipolar and depression. Says he occasionally has visual and auditory hallucinations. Denies alcohol use in approximately one week. Denies illicit drug use. Has no other medical complaints. No other modifying factors or associated signs and symptoms. PFSH Past Medical History Hx Anticoagulant Therapy: Yes (asa) AAA: No ADD: No ADHD: No Alzheimer's Disease: No Anemia: No Arthritis: Yes Asthma: Yes Atrial Fibrillation: No Autoimmune Disease: No Blood Disorders: No Bipolar Disorder: Yes Anxiety: Yes Depression: Yes Cancer: No Cardiac Catheterization: Yes Cardiomyopathy: No Cardiovascular Problems: Yes (CAD, CARDIAC STENT ) Cerebral Palsy: No High Cholesterol: Yes Chemotherapy: No Chest Pain: No Congestive Heart Failure: Yes Cirrhosis: No COPD: Yes Cerebrovascular Accident: Yes Coronary Artery Disease: Yes Cystic Fibrosis: No Dementia: No Developmental Delay: No Diabetes: No Diminished Hearing: No Endocrine: No Gastrointestinal Disorders: Yes (Acid reflux) GERD: Yes Glaucoma: No Gout: No Genitourinary: No Hepatitis: No Hiatal Hernia: No Heparin Induced Thrombocytopen: No Herniated Disk: No Hypertension: No Immune Disorder: No Inguinal Hernia: No Implanted Vascular Access Dvce: No Insomnia: Yes Kidney Stones: No Musculoskeletal: Yes Neurologic: Yes Parkinson's Disease: No Psychiatric: Yes Reproductive: No Respiratory: Yes Resp. Syncytial Virus (RSV): No Integumentary: Yes Immunizations Current: Yes Migraines: No Myocardial Infarction: Yes Pancreatitis: No Radiation Therapy: No Renal Failure: No Schizophrenia: Yes Seizures: Yes Shingles: No Sickle Cell Disease: No Sleep Apnea: Yes Thyroid Disease: No Ulcer: No Tetanus Vaccination: < 5 Years Influenza Vaccination: No Menopausal: No Past Surgical History Abdominal Aneurysm Repair: No Abdominal Surgery: No AICD: No Appendectomy: No Arteriovenous Shunt: No Cholecystectomy: No Coronary Stent: Yes Ear Surgery: No Endocrine Surgery: No Eye Surgery: No Genitourinary Surgery: No Gynecologic Surgery: No Joint Replacement: No Mastectomy: No Neurologic Surgery: No Oral Surgery: No Pacemaker: No Prostatectomy: No Thoracic Surgery: No Tonsillectomy: Yes Tympanostomy Tube: No Valve Replacement: No Other Surgery: Yes (Right wrist, accidentally cut self) Social History Alcohol Use: No (STATES QUIT 12/24/2016) Tobacco Use: Yes (1 PPD) Substance Use: Yes (POT) Allergies-Medications (Allergen,Severity, Reaction): Coded Allergies: Codeine (Verified Allergy, Mild, RASH, 12/28/16) *MDRO Multi-Drug Resistant Organism (Verified Adverse Reaction, Unknown, ) 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, 07/31/16) Reported Meds & Prescriptions Reported Meds & Active Scripts Active Deltasone (Prednisone) 20 Mg Tab 20 Mg PO BID 5 Days Flovent Hfa 12 GM Inh (Fluticasone Propionate) 110 Mcg/Act Inh 2 Puff INH BID Ventolin Hfa 18 GM Inh (Albuterol Sulfate) 90 Mcg/Act Aer 2 Puff INH Q4H PRN Atrovent HFA 12.9 GM Inh (Ipratropium [place]) 17 Mcg/Act Aer 2 Puff INH Q6HR PRN Deltasone (Prednisone) 20 Mg Tab 20 Mg PO TID Reported Trazodone (Trazodone HCl) 300 Mg Tab 300 Mg PO HS Risperdal (Risperidone) 3 Mg Tab 3 Mg PO Q12HR Review of Systems Except as stated in HPI: all other systems reviewed are Neg Physical Exam Narrative GENERAL: Well-nourished, well-developed male patient, in no acute distress; disheveled SKIN: Warm and dry. HEAD: Atraumatic. Normocephalic. EYES: Pupils equal and round. ENT: Mucosa pink and moist. NECK: Supple. Trachea midline. CARDIOVASCULAR: Regular rate and rhythm. No murmur appreciated. RESPIRATORY: No accessory muscle use. Clear to auscultation. Breath sounds equal bilaterally. GASTROINTESTINAL: Abdomen soft, non-tender, nondistended. Hepatic and splenic margins not palpable. Bowel sounds are active 4 quadrants. MUSCULOSKELETAL: No obvious deformities. No clubbing. No cyanosis. No edema. NEUROLOGICAL: Awake and alert. Oriented 3. No obvious cranial nerve deficits. Motor grossly within normal limits. Normal speech. Moves all extremities. 5/5 strength to all extremities. PSYCHIATRIC: No delusional thought processes. No hallucinations. Data Data Last Documented VS Vital Signs Date Time Temp Pulse Resp B/P Pulse Ox O2 Delivery O2 Flow Rate FiO2 12/30/16 08:14 98.3 108 20 127/78 94 Orders Complete Blood Count With Diff (12/30/16 08:29) Comprehensive Metabolic Panel (12/30/16 08:29) Psych Screen (12/30/16 08:29) Drug Screen, Random Urine (12/30/16 08:29) Alcohol (Ethanol) (12/30/16 08:29) Salicylates (Aspirin) (12/30/16 08:29) Tylenol (Acetaminophen) (12/30/16 08:29) MDM Medical Decision Making Medical Screen Exam Complete: Yes Emergency Medical Condition: Yes Medical Record Reviewed: Yes Differential Diagnosis depression, bipolar, suicidal ideation, medical clearance for psych evaluation Narrative Course 56-year-old male well known to [facility] emergency department and has been seen multiple times within the past week. Patient presents under a Silver act. Physical examination and vital signs are essentially unremarkable. Patient has no medical complaints to report. Psych screen has been ordered. If the laboratory results are unremarkable, the patient will be medically cleared for psychiatric evaluation and disposition. Diagnosis Primary Impression: Medical clearance for psychiatric admission Condition: Stable Angelina Mancilla Dec 30, 2016 08:33
[2016-12-30 09:03] LABS: AUTOMATED NEUTROPHIL # 7.7 TH/MM3 (1.8-7.7); BASOPHIL % 0.4 % (0.0-2.0); EOSINOPHIL # 0.1 TH/MM3 (0-0.4); EOSINOPHIL % 1.1 % (0.0-4.0); HEMATOCRIT 45.2 % (39.0-51.0); HEMO FLAGS DIFF FINAL; LYMPH % 10.5 % (9.0-44.0); LYMPHOCYTE # 1.1 TH/MM3 (1.0-4.8); MEAN CORPUSCULAR HEMOGLOBIN 33.1 PG (27.0-34.0); MEAN CORPUSCULAR HGB CONC 35.3 % (32.0-36.0); MONO % 10.5 % (0.0-8.0); NEUT % 77.5 % (16.0-70.0); PLATELET COUNT 196 TH/MM3 (150-450); RED BLOOD COUNT 4.81 MIL/MM3 (4.50-5.90); RED CELL DISTRIBUTION WIDTH 15.9 % (11.6-17.2)
[2016-12-30 09:19] LABS: ANION GAP 12 MEQ/L (5-15); AST (GOT) 77 U/L (15-37); BICARBONATE 20.2 MEQ/L (21.0-32.0); BLOOD UREA NITROGEN 10 MG/DL (7-18); CHLORIDE 102 MEQ/L (98-107); GLOMERULAR FILTRATION RATE 118 ML/MIN (>89); SODIUM (NA) 134 MEQ/L (136-145)
[2016-12-30 09:21] LABS: AMPHETAMINE, URINE NEG (NEG); BARBITURATES, URINE NEG (NEG); COCAINE, URINE NEG (NEG)
[2016-12-30 09:22] LABS: ALKALINE PHOSPHATASE 159 U/L (45-117); ALT (GPT) 79 U/L (12-78); TOTAL BILIRUBIN ADULT 1.1 MG/DL (0.2-1.0)
[2016-12-30 09:28] LABS: ACETAMINOPHEN LESS THAN 2.0 MCG/ML (10.0-30.0)
--- NOTE | 2016-12-30 12:58 | PD ---
History of Present Illness Chief Complaint: Psychiatric Symptoms Time Seen by Provider: 12:45 Travel History International Travel<30 Days: No Contact w/Intl Traveler<30days: No Known affected area: No Legal Status Legal Status: Silver Act Silver Act Signed By: History of Present Illness: 56-year-old male, well known to this physician, admitted under a Silver act for reportedly making suicidal threats. Patient told the medicine ED doctor that he had not consumed alcohol in 1 week. However, he was here several days ago positive for drugs and alcohol. Patient has indicated little or no interest in stopping his alcohol and drug use. He does not appear to have any significant objective clinical signs of bipolar or major depression. His [place] problems continue to be alcohol abuse and intermittent drug abuse. This has gotten worse over the last several months as the patient receives Social Security disability checks, which she spends on alcohol and drugs. At this time he is not suicidal or homicidal or psychotic. This physician is once again referring him to [facility] and [facility] for treatment. PFSH Past Medical History Hx Anticoagulant Therapy: Yes (asa) AAA: No ADD: No ADHD: No Alzheimer's Disease: No Anemia: No Arthritis: Yes Asthma: Yes Atrial Fibrillation: No Autoimmune Disease: No Blood Disorders: No Bipolar Disorder: Yes Anxiety: Yes Depression: Yes Cancer: No Cardiac Catheterization: Yes Cardiomyopathy: No Cardiovascular Problems: Yes (CAD, CARDIAC STENT ) Cerebral Palsy: No High Cholesterol: Yes Chemotherapy: No Chest Pain: No Congestive Heart Failure: Yes Cirrhosis: No COPD: Yes Cerebrovascular Accident: Yes Coronary Artery Disease: Yes Cystic Fibrosis: No Dementia: No Developmental Delay: No Diabetes: No Diminished Hearing: No Endocrine: No Gastrointestinal Disorders: Yes (Acid reflux) GERD: Yes Glaucoma: No Gout: No Genitourinary: No Hepatitis: No Hiatal Hernia: No Heparin Induced Thrombocytopen: No Herniated Disk: No Hypertension: No Immune Disorder: No Inguinal Hernia: No Implanted Vascular Access Dvce: No Insomnia: Yes Kidney Stones: No Musculoskeletal: Yes Neurologic: Yes Parkinson's Disease: No Psychiatric: Yes Reproductive: No Respiratory: Yes Resp. Syncytial Virus (RSV): No Integumentary: Yes Immunizations Current: Yes Migraines: No Myocardial Infarction: Yes Pancreatitis: No Radiation Therapy: No Renal Failure: No Schizophrenia: Yes Seizures: Yes Shingles: No Sickle Cell Disease: No Sleep Apnea: Yes Thyroid Disease: No Ulcer: No Tetanus Vaccination: < 5 Years Influenza Vaccination: No Menopausal: No Past Surgical History Abdominal Aneurysm Repair: No Abdominal Surgery: No AICD: No Appendectomy: No Arteriovenous Shunt: No Cholecystectomy: No Coronary Stent: Yes Ear Surgery: No Endocrine Surgery: No Eye Surgery: No Genitourinary Surgery: No Gynecologic Surgery: No Joint Replacement: No Mastectomy: No Neurologic Surgery: No Oral Surgery: No Pacemaker: No Prostatectomy: No Thoracic Surgery: No Tonsillectomy: Yes Tympanostomy Tube: No Valve Replacement: No Other Surgery: Yes (Right wrist, accidentally cut self) Psychiatric History Psychiatric History Hx Psychiatric Treatment: Multiple detox admissions, Multiple Ed visits for alcohol intoxication History of Inpatient Treatment: Yes Social History Hx Alcohol Use: No (STATES QUIT 12/24/2016) Hx Tobacco Use: Yes (1 PPD) Hx Substance Use: Yes (POT) Substance Use Type: Alcohol, Marijuana Other Substances Used: PT IS A CHRONIC ALCOHOLIC Hx of Substance Use Treatment: Yes Allergies-Medications (Allergen,Severity, Reaction): Coded Allergies: Codeine (Verified Allergy, Mild, RASH, 12/28/16) *MDRO Multi-Drug Resistant Organism (Verified Adverse Reaction, Unknown, ) 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, 07/31/16) Reported Meds & Prescriptions Reported Meds & Active Scripts Active Deltasone (Prednisone) 20 Mg Tab 20 Mg PO BID 5 Days Flovent Hfa 12 GM Inh (Fluticasone Propionate) 110 Mcg/Act Inh 2 Puff INH BID Ventolin Hfa 18 GM Inh (Albuterol Sulfate) 90 Mcg/Act Aer 2 Puff INH Q4H PRN Atrovent HFA 12.9 GM Inh (Ipratropium [place]) 17 Mcg/Act Aer 2 Puff INH Q6HR PRN Deltasone (Prednisone) 20 Mg Tab 20 Mg PO TID Reported Trazodone (Trazodone HCl) 300 Mg Tab 300 Mg PO HS Risperdal (Risperidone) 3 Mg Tab 3 Mg PO Q12HR Review of Systems Except as stated in HPI: all other systems reviewed are Neg Exam Alert: Yes [place]: Person, Place, Date, Situation Mood: Calm Affect: Appropriate Speech: Clear, Logical Eye Contact: Normal Memory Intact: Immediate, Recent, Remote Insight/Judgement Adequate MDM Medical Decision Making Medical Record Reviewed: Yes Assessment/Plan Silver act is being lifted and patient is being discharged. This physician understands the risks the patient takes when he drinks but until he is ready to obtain help for his alcohol problem, psychiatric hospitalization is not felt to be advisable. Orders Complete Blood Count With Diff (12/30/16 08:29) Comprehensive Metabolic Panel (12/30/16 08:29) Psych Screen (12/30/16 08:29) Drug Screen, Random Urine (12/30/16 08:29) Alcohol (Ethanol) (12/30/16 08:29) Salicylates (Aspirin) (12/30/16 08:29) Tylenol (Acetaminophen) (12/30/16 08:29) Results Vital Signs Date Time Temp Pulse Resp B/P Pulse Ox O2 Delivery O2 Flow Rate FiO2 12/30/16 08:14 98.3 108 20 127/78 94 Laboratory Tests Test 12/30/16 12/30/16 08:29 08:35 Urine Opiates Screen NEG Urine Barbiturates Screen NEG Urine Amphetamines Screen NEG Urine Benzodiazepines Screen NEG Urine Cocaine Screen NEG Urine Cannabinoids Screen NEG White Blood Count 10.0 Red Blood Count 4.81 Hemoglobin 15.9 Hematocrit 45.2 Mean Corpuscular Volume 94.0 Mean Corpuscular Hemoglobin 33.1 Mean Corpuscular Hemoglobin 35.3 Concent Red Cell Distribution Width 15.9 Platelet Count 196 Mean Platelet Volume 8.1 Neutrophils (%) (Auto) 77.5 Lymphocytes (%) (Auto) 10.5 Monocytes (%) (Auto) 10.5 Eosinophils (%) (Auto) 1.1 Basophils (%) (Auto) 0.4 Neutrophils # (Auto) 7.7 Lymphocytes # (Auto) 1.1 Monocytes # (Auto) 1.0 Eosinophils # (Auto) 0.1 Basophils # (Auto) 0.0 CBC Comment DIFF FINAL Differential Comment Sodium Level 134 Potassium Level 4.0 Chloride Level 102 Carbon Dioxide Level 20.2 Anion Gap 12 Blood Urea Nitrogen 10 Creatinine 0.69 Estimat Glomerular Filtration 118 Rate Random Glucose 92 Calcium Level 9.4 Total Bilirubin 1.1 Aspartate Amino Transf 77 (AST/SGOT) Alanine Aminotransferase 79 (ALT/SGPT) Alkaline Phosphatase 159 Total Protein 7.7 Albumin 4.2 Salicylates Level 9.6 Acetaminophen Level LESS THAN 2.0 Ethyl Alcohol Level LESS THAN 3 Diagnosis Primary Impression: Medical clearance for psychiatric admission Additional Impression: Alcohol abuse Condition: Stable Problem Qualifiers Noah Michael MD Dec 30, 2016 12:58
[2016-12-30 13:19] VITALS: BP 119/65; PULSE 94; TEMP 98.8; O2SAT 93
[2016-12-30 13:28] VITALS: BP 119/65; PULSE 94; RESP 20; O2SAT 93
== END 2016-12-30 14:48 | disposition home or self-care (01) ==
LOC: NEPD 08:05 → NEPJ 14:48
DX: F10.10 Alcohol abuse, uncomplicated (principal); E78.00 Pure hypercholesterolemia, unspecified; F20.9 Schizophrenia, unspecified; F31.9 Bipolar disorder, unspecified; I25.10 Atherosclerotic heart disease of native coronary artery without angina pectoris; I25.2 Old myocardial infarction; I50.9 Heart failure, unspecified; Z86.73 Personal history of transient ischemic attack (TIA), and cerebral infarction without residual deficits; Z87.891 Personal history of nicotine dependence; Z95.5 Presence of coronary angioplasty implant and graft; Z79.82 Long term (current) use of aspirin
CPT/HCPCS: 80053; 80307; 85025; 99284

== ENCOUNTER 2017-01-13 22:51 | Emergency (ER) | payer MEDICARE, OTHER ==
[~2017-01-13] VITALS: Ht 160 cm; Wt 70.0 kg
[2017-01-13 23:02] VITALS: BP 121/78; PULSE 70; RESP 18; O2SAT 99
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
[2017-01-13 23:46] VITALS: BP 118/85; PULSE 83; RESP 16; TEMP 98.7; O2SAT 98
== END 2017-01-14 00:08 | disposition home or self-care (01) ==
LOC: NEDAMB 22:51 → NEPE 01-14 00:08
DX: F10.10 Alcohol abuse, uncomplicated (principal); I25.10 Atherosclerotic heart disease of native coronary artery without angina pectoris; I50.9 Heart failure, unspecified; I25.2 Old myocardial infarction; J44.9 Chronic obstructive pulmonary disease, unspecified; Z95.5 Presence of coronary angioplasty implant and graft; Z86.73 Personal history of transient ischemic attack (TIA), and cerebral infarction without residual deficits
CPT/HCPCS: 99283

== ENCOUNTER 2017-01-14 00:19 | Emergency (ER) | payer MEDICARE, OTHER ==
[~2017-01-14] VITALS: Ht 160 cm; Wt 66.0 kg
[2017-01-14 00:22] VITALS: BP 147/83; PULSE 95; RESP 14; TEMP 98.4; O2SAT 95
--- NOTE | 2017-01-14 01:05 | PD ---
HPI Chief Complaint: Suicide Ideation/Attempt Time Seen by Provider: 01:00 Travel History International Travel<30 days: No Contact w/Intl Traveler<30days: No Traveled to known affect area: No History of Present Illness HPI 56-year-old male, frequent visitor to this emergency department, who presents for evaluation. This patient was just discharged and immediately returned claiming that he wanted to kill himself. This is a frequent complaint of this patient. He typically says that he is considering jumping off of a bridge. Upon additional questioning he admits that he does not want to kill himself but he would like some place to sleephe reports that there is a porch that he typically sleeps on but it is a long walk and ideally he would like some sort of ride to this porch. He has no other complaints at this time. PFSH Past Medical History Hx Anticoagulant Therapy: Yes (asa) AAA: No ADD: No ADHD: No Alzheimer's Disease: No Anemia: No Arthritis: Yes Asthma: Yes Atrial Fibrillation: No Autoimmune Disease: No Blood Disorders: No Bipolar Disorder: Yes Anxiety: Yes Depression: Yes Cancer: No Cardiac Catheterization: Yes Cardiomyopathy: No Cardiovascular Problems: Yes (CAD, CARDIAC STENT ) Cerebral Palsy: No High Cholesterol: Yes Chemotherapy: No Chest Pain: No Congestive Heart Failure: Yes Cirrhosis: No COPD: Yes Cerebrovascular Accident: Yes Coronary Artery Disease: Yes Cystic Fibrosis: No Dementia: No Developmental Delay: No Diabetes: No Diminished Hearing: No Endocrine: No Gastrointestinal Disorders: Yes (Acid reflux) GERD: Yes Glaucoma: No Gout: No Genitourinary: No Hepatitis: No Hiatal Hernia: No Heparin Induced Thrombocytopen: No Herniated Disk: No Hypertension: No Immune Disorder: No Inguinal Hernia: No Implanted Vascular Access Dvce: No Insomnia: Yes Kidney Stones: No Musculoskeletal: Yes Neurologic: Yes Parkinson's Disease: No Psychiatric: Yes Reproductive: No Respiratory: Yes Resp. Syncytial Virus (RSV): No Integumentary: Yes Immunizations Current: Yes Migraines: No Myocardial Infarction: Yes Pancreatitis: No Radiation Therapy: No Renal Failure: No Schizophrenia: Yes Seizures: Yes Shingles: No Sickle Cell Disease: No Sleep Apnea: Yes Thyroid Disease: No Ulcer: No Menopausal: No Past Surgical History Abdominal Aneurysm Repair: No Abdominal Surgery: No AICD: No Appendectomy: No Arteriovenous Shunt: No Cholecystectomy: No Coronary Stent: Yes Ear Surgery: No Endocrine Surgery: No Eye Surgery: No Genitourinary Surgery: No Gynecologic Surgery: No Joint Replacement: No Mastectomy: No Neurologic Surgery: No Oral Surgery: No Pacemaker: No Prostatectomy: No Thoracic Surgery: No Tonsillectomy: Yes Tympanostomy Tube: No Valve Replacement: No Other Surgery: Yes (Right wrist, accidentally cut self) Social History Alcohol Use: Yes (12 PACK/DAY (QUIT 01-07-17)) Tobacco Use: Yes (1 PACK PER WEEK) Substance Use: Yes (MARIJUANA) Allergies-Medications (Allergen,Severity, Reaction): Coded Allergies: codeine (Unverified Allergy, Mild, RASH, 01/13/17) *MDRO Multi-Drug Resistant Organism (Verified Adverse Reaction, Unknown, ) 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, 07/31/16) Reported Meds & Prescriptions Reported Meds & Active Scripts Active Deltasone (Prednisone) 20 Mg Tab 20 Mg PO BID 5 Days Flovent Hfa 12 GM Inh (Fluticasone Propionate) 110 Mcg/Act Inh 2 Puff INH BID Ventolin Hfa 18 GM Inh (Albuterol Sulfate) 90 Mcg/Act Aer 2 Puff INH Q4H PRN Atrovent HFA 12.9 GM Inh (Ipratropium [place]) 17 Mcg/Act Aer 2 Puff INH Q6HR PRN Deltasone (Prednisone) 20 Mg Tab 20 Mg PO TID Reported Trazodone (Trazodone HCl) 300 Mg Tab 300 Mg PO HS Risperdal (Risperidone) 3 Mg Tab 3 Mg PO Q12HR Review of Systems Except as stated in HPI: all other systems reviewed are Neg Physical Exam Narrative GENERAL: Disheveled-appearing male who is sleeping on initial examination but he is easily arousable. SKIN: Warm and dry. HEAD: Atraumatic. Normocephalic. EYES: Pupils equal and round. No scleral icterus. No injection or drainage. ENT: No nasal bleeding or discharge. Mucous membranes pink and moist. NECK: Trachea midline. No JVD. CARDIOVASCULAR: Regular rate and rhythm. No murmur appreciated. RESPIRATORY: No accessory muscle use. Slight wheezing. GASTROINTESTINAL: Abdomen soft, non-tender, nondistended. Hepatic and splenic margins not palpable. MUSCULOSKELETAL: No obvious deformities. NEUROLOGICAL: Awake and alert. No obvious cranial nerve deficits. Motor grossly within normal limits. Normal speech. PSYCHIATRIC: Appropriate mood and affect; insight and judgment normal. Data Data Last Documented VS Vital Signs Date Time Temp Pulse Resp B/P Pulse Ox O2 Delivery O2 Flow Rate FiO2 01/14/17 00:22 98.4 95 14 147/83 95 Room Air MDM Medical Decision Making Medical Screen Exam Complete: Yes Emergency Medical Condition: Yes Medical Record Reviewed: Yes Differential Diagnosis Malingering, intoxication, depression Narrative Course This is a 56-year-old male who was just discharged and returned claiming that he wanted to kill himself. It appears that this patient is malingering in an effort to have some place to sleep. Upon additional questioning he admits that he does not want to kill himself but he would like to get a ride back to the porch that he typically sleeps on. This patient would not benefit from acute psychiatric hospitalization. I therefore requested a taxi pass culture from the case fitter as the patient would likely continue to attempt to return tonight in an effort to have some place to sleep. He is stable for discharge. Diagnosis Primary Impression: Malingering Med/Other Pt SpecificInfo: No Change to Meds Disposition: 01 DISCHARGE HOME Condition: Stable Sudarshan Fallon Jan 14, 2017 01:05
== END 2017-01-14 01:44 | disposition home or self-care (01) ==
LOC: NEPD 00:19
DX: Z76.5 Malingerer [conscious simulation] (principal); F31.9 Bipolar disorder, unspecified; J45.909 Unspecified asthma, uncomplicated; F41.9 Anxiety disorder, unspecified; I50.9 Heart failure, unspecified; J44.9 Chronic obstructive pulmonary disease, unspecified; I25.10 Atherosclerotic heart disease of native coronary artery without angina pectoris; F17.200 Nicotine dependence, unspecified, uncomplicated; Z86.73 Personal history of transient ischemic attack (TIA), and cerebral infarction without residual deficits
CPT/HCPCS: 99281

== ENCOUNTER 2017-01-14 13:42 | Emergency (ER) | payer MEDICARE, OTHER ==
[2017-01-14] MEDS ORDERED: RESP: ALBUTEROL 2.5 MG/IPRATROPIUM 0.5 MG NEB (SCH) INH ONE (14:30)
[2017-01-14 15:05] VITALS: BP 112/63; PULSE 80; RESP 18; TEMP 97.6; O2SAT 96
--- NOTE | 2017-01-14 15:14 | PD ---
HPI Chief Complaint: Psychiatric Symptoms Time Seen by Provider: 15:10 Travel History International Travel<30 days: No Contact w/Intl Traveler<30days: No History of Present Illness HPI 56-year-old male who is well-known to the emergency department for alcoholism presents to the emergency Department under [place] act by local police. The patient states he is feeling suicidal yesterday he attempted to jump from the [place] bridge twice. However, he states he is a good swimmer and was able to swim. This is the patient's usual story. He denies any suicidal ideation to me at this time. He states he has a history of COPD and bipolar disorder. He is not currently on any medications. Patient states that he is an alcoholic and needs detox. He states that he drank a significant amount of alcohol today. Patient denies any medical complaints to me. PFSH Past Medical History Hx Anticoagulant Therapy: Yes (asa) AAA: No ADD: No ADHD: No Alzheimer's Disease: No Anemia: No Arthritis: Yes Asthma: Yes Atrial Fibrillation: No Autoimmune Disease: No Blood Disorders: No Bipolar Disorder: Yes Anxiety: Yes Depression: Yes Cancer: No Cardiac Catheterization: Yes Cardiomyopathy: No Cardiovascular Problems: Yes (CAD, CARDIAC STENT ) Cerebral Palsy: No High Cholesterol: Yes Chemotherapy: No Chest Pain: No Congestive Heart Failure: Yes Cirrhosis: No COPD: Yes Cerebrovascular Accident: Yes Coronary Artery Disease: Yes Cystic Fibrosis: No Dementia: No Developmental Delay: No Diabetes: No Diminished Hearing: No Endocrine: No Gastrointestinal Disorders: Yes (Acid reflux) GERD: Yes Glaucoma: No Gout: No Genitourinary: No Hepatitis: No Hiatal Hernia: No Heparin Induced Thrombocytopen: No Herniated Disk: No Hypertension: No Immune Disorder: No Inguinal Hernia: No Implanted Vascular Access Dvce: No Insomnia: Yes Kidney Stones: No Musculoskeletal: Yes Neurologic: Yes Parkinson's Disease: No Psychiatric: Yes Reproductive: No Respiratory: Yes Resp. Syncytial Virus (RSV): No Integumentary: Yes Immunizations Current: Yes Migraines: No Myocardial Infarction: Yes Pancreatitis: No Radiation Therapy: No Renal Failure: No Schizophrenia: Yes Seizures: Yes Shingles: No Sickle Cell Disease: No Sleep Apnea: Yes Thyroid Disease: No Ulcer: No Menopausal: No Past Surgical History Abdominal Aneurysm Repair: No Abdominal Surgery: No AICD: No Appendectomy: No Arteriovenous Shunt: No Cholecystectomy: No Coronary Stent: Yes Ear Surgery: No Endocrine Surgery: No Eye Surgery: No Genitourinary Surgery: No Gynecologic Surgery: No Joint Replacement: No Mastectomy: No Neurologic Surgery: No Oral Surgery: No Pacemaker: No Prostatectomy: No Thoracic Surgery: No Tonsillectomy: Yes Tympanostomy Tube: No Valve Replacement: No Other Surgery: Yes (Right wrist, accidentally cut self) Social History Alcohol Use: Yes (12 PACK/DAY (QUIT 01-07-17)) Tobacco Use: Yes (1 PACK PER WEEK) Substance Use: Yes (MARIJUANA) Allergies-Medications (Allergen,Severity, Reaction): Coded Allergies: codeine (Unverified Allergy, Mild, RASH, 01/13/17) *MDRO Multi-Drug Resistant Organism (Verified Adverse Reaction, Unknown, ) 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, 07/31/16) Reported Meds & Prescriptions Reported Meds & Active Scripts Active Deltasone (Prednisone) 20 Mg Tab 20 Mg PO BID 5 Days Flovent Hfa 12 GM Inh (Fluticasone Propionate) 110 Mcg/Act Inh 2 Puff INH BID Ventolin Hfa 18 GM Inh (Albuterol Sulfate) 90 Mcg/Act Aer 2 Puff INH Q4H PRN Atrovent HFA 12.9 GM Inh (Ipratropium [place]) 17 Mcg/Act Aer 2 Puff INH Q6HR PRN Deltasone (Prednisone) 20 Mg Tab 20 Mg PO TID Reported Trazodone (Trazodone HCl) 300 Mg Tab 300 Mg PO HS Risperdal (Risperidone) 3 Mg Tab 3 Mg PO Q12HR Review of Systems Except as stated in HPI: all other systems reviewed are Neg Physical Exam Narrative GENERAL: Disheveled male patient, afebrile. SKIN: Focused skin assessment warm/dry. HEAD: Normocephalic. EYES: No scleral icterus. No injection or drainage. NECK: Supple, trachea midline. No JVD or lymphadenopathy. CARDIOVASCULAR: Regular rate and rhythm without murmurs, gallops, or rubs. RESPIRATORY: Breath sounds equal bilaterally. No accessory muscle use. Lungs sounds with expiratory wheezes noted. GASTROINTESTINAL: Abdomen soft, non-tender, nondistended. MUSCULOSKELETAL: No cyanosis, or edema. BACK: Nontender without obvious deformity. No CVA tenderness. Data Data Last Documented VS Vital Signs Date Time Temp Pulse Resp B/P Pulse Ox O2 Delivery O2 Flow Rate FiO2 01/14/17 15:05 97.6 80 18 112/63 96 Orders Diet Regular Basic (01/14/17 Dinner) Albuterol-Ipratropium Neb (Duoneb Neb) (01/14/17 14:30) MDM Medical Decision Making Medical Screen Exam Complete: Yes Emergency Medical Condition: Yes Medical Record Reviewed: Yes Differential Diagnosis Alcohol intoxication versus alcohol-induced mood disorder versus bipolar disorder versus COPD Narrative Course 56-year-old male presents to the emergency Department under Silver act the local police. Patient is well-known to the emergency department. He denies any suicidal ideation to me. Patient is given DuoNeb 1. I reviewed previous labs. Patient is medically cleared for psychiatric screening and disposition. Mental health screening discussed with the patient. Psychiatric screen ordered. Diagnosis Primary Impression: Alcohol-induced mood disorder Additional Instructions: Patient is medically cleared for psychiatric screening and disposition. Condition: Stable Louise Alvarez Jan 14, 2017 15:14
[2017-01-14 18:59] VITALS: BP 102/60; PULSE 82; RESP 18; O2SAT 98
[2017-01-14 22:08] VITALS: BP 127/86; PULSE 85; RESP 19; O2SAT 94
[2017-01-15 02:21] VITALS: BP 144/88; PULSE 67; RESP 19; O2SAT 95
[2017-01-15 06:27] VITALS: BP 138/91; PULSE 58; RESP 19; O2SAT 96
[2017-01-15 10:00] VITALS: BP 105/71; PULSE 82; RESP 18
[2017-01-15] MEDS ORDERED: RESP: ALBUTEROL 2.5 MG/IPRATROPIUM 0.5 MG NEB (SCH) INH ONE (11:15)
--- NOTE | 2017-01-15 13:21 | PD ---
History of Present Illness Chief Complaint: Psychiatric Symptoms Time Seen by Provider: 13:15 Travel History International Travel<30 Days: No Contact w/Intl Traveler<30days: No Known affected area: No History of Present Illness: 56-year-old male very well known to this physician and the staff of psychiatry here in the emergency department. Multiple visits for alcoholism. Patient is currently sober and would like to receive treatment at [facility]. He denies suicidal or homicidal ideation, plan or intent. His cognition is intact and he has no psychotic symptoms. He is verbally darren for safety at this time [facility] Past Medical History Hx Anticoagulant Therapy: Yes (asa) AAA: No ADD: No ADHD: No Alzheimer's Disease: No Anemia: No Arthritis: Yes Asthma: Yes Atrial Fibrillation: No Autoimmune Disease: No Blood Disorders: No Bipolar Disorder: Yes Anxiety: Yes Depression: Yes Cancer: No Cardiac Catheterization: Yes Cardiomyopathy: No Cardiovascular Problems: Yes (CAD, CARDIAC STENT ) Cerebral Palsy: No High Cholesterol: Yes Chemotherapy: No Chest Pain: No Congestive Heart Failure: Yes Cirrhosis: No COPD: Yes Cerebrovascular Accident: Yes Coronary Artery Disease: Yes Cystic Fibrosis: No Dementia: No Developmental Delay: No Diabetes: No Diminished Hearing: No Endocrine: No Gastrointestinal Disorders: Yes (Acid reflux) GERD: Yes Glaucoma: No Gout: No Genitourinary: No Hepatitis: No Hiatal Hernia: No Heparin Induced Thrombocytopen: No Herniated Disk: No Hypertension: No Immune Disorder: No Inguinal Hernia: No Implanted Vascular Access Dvce: No Insomnia: Yes Kidney Stones: No Musculoskeletal: Yes Neurologic: Yes Parkinson's Disease: No Psychiatric: Yes Reproductive: No Respiratory: Yes Resp. Syncytial Virus (RSV): No Integumentary: Yes Immunizations Current: Yes Migraines: No Myocardial Infarction: Yes Pancreatitis: No Radiation Therapy: No Renal Failure: No Schizophrenia: Yes Seizures: Yes Shingles: No Sickle Cell Disease: No Sleep Apnea: Yes Thyroid Disease: No Ulcer: No Menopausal: No Past Surgical History Abdominal Aneurysm Repair: No Abdominal Surgery: No AICD: No Appendectomy: No Arteriovenous Shunt: No Cholecystectomy: No Coronary Stent: Yes Ear Surgery: No Endocrine Surgery: No Eye Surgery: No Genitourinary Surgery: No Gynecologic Surgery: No Joint Replacement: No Mastectomy: No Neurologic Surgery: No Oral Surgery: No Pacemaker: No Prostatectomy: No Thoracic Surgery: No Tonsillectomy: Yes Tympanostomy Tube: No Valve Replacement: No Other Surgery: Yes (Right wrist, accidentally cut self) Psychiatric History Psychiatric History Hx Psychiatric Treatment: Multiple detox admissions, Multiple Ed visits for alcohol intoxication History of Inpatient Treatment: Yes Guns or firearms in home: No Social History Hx Alcohol Use: Yes (12 PACK/DAY (QUIT 01-07-17)) Hx Tobacco Use: Yes (1 PACK PER WEEK) Hx Substance Use: Yes (MARIJUANA) Substance Use Type: Alcohol, Marijuana Other Substances Used: PT IS A CHRONIC ALCOHOLIC Hx of Substance Use Treatment: Yes Allergies-Medications (Allergen,Severity, Reaction): Coded Allergies: codeine (Unverified Allergy, Mild, RASH, 01/13/17) *MDRO Multi-Drug Resistant Organism (Verified Adverse Reaction, Unknown, ) 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, 07/31/16) Reported Meds & Prescriptions Reported Meds & Active Scripts Active Deltasone (Prednisone) 20 Mg Tab 20 Mg PO BID 5 Days Flovent Hfa 12 GM Inh (Fluticasone Propionate) 110 Mcg/Act Inh 2 Puff INH BID Ventolin Hfa 18 GM Inh (Albuterol Sulfate) 90 Mcg/Act Aer 2 Puff INH Q4H PRN Atrovent HFA 12.9 GM Inh (Ipratropium [place]) 17 Mcg/Act Aer 2 Puff INH Q6HR PRN Deltasone (Prednisone) 20 Mg Tab 20 Mg PO TID Reported Trazodone (Trazodone HCl) 300 Mg Tab 300 Mg PO HS Risperdal (Risperidone) 3 Mg Tab 3 Mg PO Q12HR Review of Systems Except as stated in HPI: all other systems reviewed are Neg Exam Alert: Yes [place]: Person, Place, Date, Situation Mood: Calm Affect: Appropriate Speech: Clear, Logical Eye Contact: Normal Memory Intact: Immediate, Recent, Remote Insight/Judgement Adequate MDM Medical Decision Making Medical Record Reviewed: Yes Assessment/Plan 56-year-old male with long history of alcoholism, no longer intoxicated and does not qualify for Silver act or inpatient psychiatric hospitalization. Cognition is intact and patient is verbally darren for safety. He wants treatment at [facility] and this is being facilitated. Orders Diet Regular Basic (01/14/17 Dinner) Albuterol-Ipratropium Neb (Duoneb Neb) (01/14/17 14:30) Diet Regular Basic (01/15/17 Breakfast) Albuterol-Ipratropium Neb (Duoneb Neb) (01/15/17 11:15) Diet Regular Basic (01/15/17 Lunch) Results Vital Signs Date Time Temp Pulse Resp B/P Pulse Ox O2 Delivery O2 Flow Rate FiO2 01/15/17 10:00 82 18 105/71 Room Air 01/15/17 06:27 58 19 138/91 96 Room Air 01/15/17 02:21 67 19 144/88 95 Room Air 01/14/17 22:08 85 19 127/86 94 Room Air 01/14/17 18:59 82 18 102/60 98 Room Air 01/14/17 15:05 97.6 80 18 112/63 96 Diagnosis Primary Impression: Alcohol abuse Additional Instructions: Patient is medically cleared for psychiatric screening and disposition. Condition: Stable Noah Michael MD Jan 15, 2017 13:21
== END 2017-01-15 14:36 | disposition home or self-care (01) ==
LOC: NEPJ 13:42
DX: F10.10 Alcohol abuse, uncomplicated (principal); F31.9 Bipolar disorder, unspecified; F20.9 Schizophrenia, unspecified; I25.10 Atherosclerotic heart disease of native coronary artery without angina pectoris; I50.9 Heart failure, unspecified; J44.9 Chronic obstructive pulmonary disease, unspecified; K21.9 Gastro-esophageal reflux disease without esophagitis; F17.200 Nicotine dependence, unspecified, uncomplicated; F41.9 Anxiety disorder, unspecified; Z76.5 Malingerer [conscious simulation]; I25.2 Old myocardial infarction; Z86.73 Personal history of transient ischemic attack (TIA), and cerebral infarction without residual deficits
CPT/HCPCS: 94664; 99284

== ENCOUNTER 2017-01-15 19:18 | Emergency (ER) | payer MEDICARE, OTHER ==
[~2017-01-15] VITALS: Ht 160 cm; Wt 66.0 kg
[2017-01-15 19:20] VITALS: BP 127/80; PULSE 88; RESP 16; TEMP 98.6; O2SAT 94
--- NOTE | 2017-01-15 19:25 | PD ---
Physical Exam Time Seen by Provider: 19:23 Narrative 56 y/o male alcoholic, frequent visitor to this emergency room, complaining of wheezing and cough as well as L arm pain. Symptom onset 38 years ago, worse this morning. Hx of copd. Vital signs reviewed. Seen at triage desk. Awaiting bed placement. Data Data Last Documented VS Vital Signs Date Time Temp Pulse Resp B/P Pulse Ox O2 Delivery O2 Flow Rate FiO2 01/15/17 19:20 98.6 88 16 127/80 94 MDM Medical Record Reviewed: Yes Supervised Visit with BOB: Sudarshan Younger Jan 15, 2017 19:25
--- NOTE | 2017-01-15 22:27 | RADRPT ---
EXAM DATE/TIME: 01/15/2017 22:16 [facility] COMPARISON: CHEST SINGLE AP, December 23, 2016, 11:11. INDICATIONS : Shortness of breath. MEDICAL HISTORY : Chronic obstructive pulmonary disease. Asthma. Bipolar disorder. SURGICAL HISTORY : None. ENCOUNTER: Initial ACUITY: 1 day PAIN SCORE: 0/10 LOCATION: Bilateral chest FINDINGS: No infiltrate, effusion or pneumothorax. Mild scarring seen in the bases, mostly on the left. Probabl e underlying emphysema. Heart size stable, normal. There are old, healed right rib fractures. CONCLUSION: No acute cardiopulmonary disease demonstrated. Santhosh Magallanes MD on January 15, 2017 at 22:25 Board Certified Radiologist. This report was verified electronically.
[2017-01-15 22:30] VITALS: BP 113/67; PULSE 97; RESP 18; TEMP 99.1; O2SAT 95
[2017-01-15] MEDS ORDERED: RESP: ALBUTEROL 2.5 MG/IPRATROPIUM 0.5 MG NEB (SCH) INH ONE (23:15)
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
[2017-01-16] MEDS ORDERED: diphenhydrAMINE HCL 50 MG/ML VIAL IM ONE (01:30)
[2017-01-16 07:05] VITALS: BP 122/88; PULSE 80; RESP 18; O2SAT 97
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
== END 2017-01-16 09:39 | disposition home or self-care (01) ==
LOC: NEPJ 19:18
DX: F10.24 Alcohol dependence with alcohol-induced mood disorder (principal); K21.9 Gastro-esophageal reflux disease without esophagitis; G47.33 Obstructive sleep apnea (adult) (pediatric); F31.9 Bipolar disorder, unspecified; F20.9 Schizophrenia, unspecified; Z76.5 Malingerer [conscious simulation]; I25.10 Atherosclerotic heart disease of native coronary artery without angina pectoris; I50.9 Heart failure, unspecified; J44.9 Chronic obstructive pulmonary disease, unspecified; F17.200 Nicotine dependence, unspecified, uncomplicated; F41.9 Anxiety disorder, unspecified; I25.2 Old myocardial infarction; Z86.73 Personal history of transient ischemic attack (TIA), and cerebral infarction without residual deficits
CPT/HCPCS: 71010; 94664; 96372; 99284; J1200

== ENCOUNTER 2017-01-16 14:00 | Emergency (ER) | payer MEDICARE, OTHER ==
[~2017-01-16] VITALS: Ht 160 cm; Wt 65.0 kg
== END 2017-01-16 15:00 | disposition left against medical advice (07) ==
LOC: NEPJ 14:00
DX: R45.851 Suicidal ideations (principal); Z53.21 Procedure and treatment not carried out due to patient leaving prior to being seen by health care provider
CPT/HCPCS: 99281

== ENCOUNTER 2017-01-16 17:28 | Emergency (ER) | payer MEDICARE, OTHER ==
[~2017-01-16] VITALS: Ht 160 cm; Wt 60.0 kg
[2017-01-16 17:31] VITALS: BP 134/77; PULSE 84; RESP 15; TEMP 98.3; O2SAT 95
[2017-01-16 18:56] VITALS: BP 113/64; PULSE 107; RESP 18; O2SAT 98
--- NOTE | 2017-01-16 19:44 | PD ---
HPI Chief Complaint: Suicide Ideation/Attempt Time Seen by Provider: 19:35 Travel History International Travel<30 days: No Contact w/Intl Traveler<30days: No Traveled to known affect area: No History of Present Illness HPI This is a 56-year-old male frequent visitor to this emergency department, seen here 3 times today, who presents requesting psychiatric evaluation in a blanket. The patient reports that when he drinks he feels suicidal. He reports that he had some alcohol earlier today and was feeling suicidal but now he feels better and he no longer feels suicidal. He reports that he would like to eventually quit drinking and he is working on that. His only complaint at this time is that he was cold and like a blanket. He has no other complaints. PFSH Past Medical History Hx Anticoagulant Therapy: Yes (asa) AAA: No ADD: No ADHD: No Alzheimer's Disease: No Anemia: No Arthritis: Yes Asthma: Yes Atrial Fibrillation: No Autoimmune Disease: No Blood Disorders: No Bipolar Disorder: Yes Anxiety: Yes Depression: Yes Cancer: No Cardiac Catheterization: Yes Cardiomyopathy: No Cardiovascular Problems: Yes (CAD, CARDIAC STENT ) Cerebral Palsy: No High Cholesterol: Yes Chemotherapy: No Chest Pain: No Congestive Heart Failure: Yes Cirrhosis: No COPD: Yes Coronary Artery Disease: Yes Cystic Fibrosis: No Dementia: No Developmental Delay: No Diabetes: No Diminished Hearing: No Endocrine: No Gastrointestinal Disorders: Yes (Acid reflux) GERD: Yes Glaucoma: No Gout: No Genitourinary: No Hepatitis: No Hiatal Hernia: No Heparin Induced Thrombocytopen: No Herniated Disk: No Hypertension: No Immune Disorder: No Inguinal Hernia: No Implanted Vascular Access Dvce: No Insomnia: Yes Kidney Stones: No Musculoskeletal: Yes Neurologic: Yes Parkinson's Disease: No Psychiatric: Yes Reproductive: No Respiratory: Yes (copd) Resp. Syncytial Virus (RSV): No Integumentary: Yes Immunizations Current: Yes Migraines: No Myocardial Infarction: Yes Pancreatitis: No Radiation Therapy: No Renal Failure: No Schizophrenia: Yes Seizures: Yes Shingles: No Sickle Cell Disease: No Sleep Apnea: Yes Thyroid Disease: No Ulcer: No Menopausal: No Past Surgical History Abdominal Aneurysm Repair: No Abdominal Surgery: No AICD: No Appendectomy: No Arteriovenous Shunt: No Cholecystectomy: No Coronary Stent: Yes Ear Surgery: No Endocrine Surgery: No Eye Surgery: No Genitourinary Surgery: No Gynecologic Surgery: No Joint Replacement: No Mastectomy: No Neurologic Surgery: No Oral Surgery: No Pacemaker: No Prostatectomy: No Thoracic Surgery: No Tonsillectomy: Yes Tympanostomy Tube: No Valve Replacement: No Other Surgery: Yes (Right wrist, accidentally cut self) Social History Alcohol Use: Yes (4 beers per day) Tobacco Use: Yes (1 PACK PER WEEK) Substance Use: Yes (MARIJUANA) Allergies-Medications (Allergen,Severity, Reaction): Coded Allergies: codeine (Unverified Allergy, Mild, RASH, 01/15/17) *MDRO Multi-Drug Resistant Organism (Verified Adverse Reaction, Unknown, ) 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, 07/31/16) Reported Meds & Prescriptions Reported Meds & Active Scripts Active Deltasone (Prednisone) 20 Mg Tab 20 Mg PO BID 5 Days Flovent Hfa 12 GM Inh (Fluticasone Propionate) 110 Mcg/Act Inh 2 Puff INH BID Ventolin Hfa 18 GM Inh (Albuterol Sulfate) 90 Mcg/Act Aer 2 Puff INH Q4H PRN Atrovent HFA 12.9 GM Inh (Ipratropium [place]) 17 Mcg/Act Aer 2 Puff INH Q6HR PRN Deltasone (Prednisone) 20 Mg Tab 20 Mg PO TID Reported Trazodone (Trazodone HCl) 300 Mg Tab 300 Mg PO HS Risperdal (Risperidone) 3 Mg Tab 3 Mg PO Q12HR Review of Systems Except as stated in HPI: all other systems reviewed are Neg Physical Exam Narrative GENERAL: Well-nourished male in no acute distress SKIN: Warm and dry. HEAD: Atraumatic. Normocephalic. EYES: Pupils equal and round. No scleral icterus. No injection or drainage. ENT: No nasal bleeding or discharge. Mucous membranes pink and moist. NECK: Trachea midline. No JVD. CARDIOVASCULAR: Regular rate and rhythm. No murmur appreciated. RESPIRATORY: No accessory muscle use. Clear to auscultation. Breath sounds equal bilaterally. MUSCULOSKELETAL: No obvious deformities. Normal gait NEUROLOGICAL: Awake and alert. No obvious cranial nerve deficits. Motor grossly within normal limits. Normal speech. PSYCHIATRIC: Appropriate mood and affect; insight and judgment normal. Data Data Last Documented VS Vital Signs Date Time Temp Pulse Resp B/P Pulse Ox O2 Delivery O2 Flow Rate FiO2 01/16/17 18:56 107 18 113/64 98 Room Air 01/16/17 17:31 98.3 MDM Medical Decision Making Medical Screen Exam Complete: Yes Emergency Medical Condition: Yes Medical Record Reviewed: Yes Differential Diagnosis Malingering, alcohol intoxication, acute psychosis, major depressive disorder Narrative Course This is a 56-year-old male who presents requesting evaluation. He says that when he drinks he feels suicidal. He drinks alcohol earlier today and no longer feels suicidal. This patient has exhibited clear evidence of malingering during his many recent visits. He typically comes here requesting a place to sleep and then would like to leave in the morning. This patient would not benefit from acute psychiatric evaluation. He was just seen by the psychiatric team this morning and discharged. He is denying any suicidal ideation at this time. It was once again reiterated to this patient that this is not a detoxification center and it was recommended that he follow-up at [facility] for help with his alcoholism. He is stable for discharge. Diagnosis Primary Impression: Malingering Additional Instructions: Consider following up with a detoxification center such as [facility] for any emergent medical conditions. Med/Other Pt SpecificInfo: No Change to Meds Disposition: 01 DISCHARGE HOME Condition: Stable Sudarshan Fallon Jan 16, 2017 19:44
== END 2017-01-16 19:51 | disposition home or self-care (01) ==
LOC: NEPJ 17:28
DX: Z76.5 Malingerer [conscious simulation] (principal); E78.00 Pure hypercholesterolemia, unspecified; F10.24 Alcohol dependence with alcohol-induced mood disorder; G47.33 Obstructive sleep apnea (adult) (pediatric); K21.9 Gastro-esophageal reflux disease without esophagitis; F31.9 Bipolar disorder, unspecified; F20.9 Schizophrenia, unspecified; I25.10 Atherosclerotic heart disease of native coronary artery without angina pectoris; I50.9 Heart failure, unspecified; J44.9 Chronic obstructive pulmonary disease, unspecified; F17.200 Nicotine dependence, unspecified, uncomplicated; F41.9 Anxiety disorder, unspecified; I25.2 Old myocardial infarction; Z79.82 Long term (current) use of aspirin; Z87.39 Personal history of other diseases of the musculoskeletal system and connective tissue; Z87.09 Personal history of other diseases of the respiratory system; Z86.59 Personal history of other mental and behavioral disorders; Z86.79 Personal history of other diseases of the circulatory system; Z87.19 Personal history of other diseases of the digestive system; Z86.69 Personal history of other diseases of the nervous system and sense organs; Z86.73 Personal history of transient ischemic attack (TIA), and cerebral infarction without residual deficits
CPT/HCPCS: 99284; J1200

== ENCOUNTER 2017-01-19 16:21 | Emergency (ER) | payer MEDICARE, OTHER ==
[~2017-01-19] VITALS: Ht 160 cm; Wt 61.0 kg
[2017-01-19 17:17] VITALS: BP 134/83; PULSE 96; RESP 22; TEMP 98.3; O2SAT 99
--- NOTE | 2017-01-19 18:36 | PD ---
HPI Chief Complaint: Suicide Ideation/Attempt Time Seen by Provider: 18:09 Travel History International Travel<30 days: No Contact w/Intl Traveler<30days: No Traveled to known affect area: No History of Present Illness HPI 56- year old male presents to the ED by [facility]AC due to Silver Act. The patient reports with a smile on his face that he wants to kill himself by jumping off of a bridge, however he denies any homicidal ideations. The patient reports that he is supposed to be on Trazodone, Risperidal, and Librium but is unable to afford it and therefore has not taken any medications for the past month. The patient reports a history of COPD and Bipolar. He states the only pain he has is from a healing cut on his left forearm. He reports no other pain. Patient reports he is an alcoholic and has only had 1 beer today. PFSH Past Medical History Hx Anticoagulant Therapy: Yes (asa) AAA: No ADD: No ADHD: No Alzheimer's Disease: No Anemia: No Arthritis: Yes Asthma: Yes Atrial Fibrillation: No Autoimmune Disease: No Blood Disorders: No Bipolar Disorder: Yes Anxiety: Yes Depression: Yes Cancer: No Cardiac Catheterization: Yes Cardiomyopathy: No Cardiovascular Problems: Yes (CAD, CARDIAC STENT ) Cerebral Palsy: No High Cholesterol: Yes Chemotherapy: No Chest Pain: No Congestive Heart Failure: Yes Cirrhosis: No COPD: Yes Coronary Artery Disease: Yes Cystic Fibrosis: No Dementia: No Developmental Delay: No Diabetes: No Diminished Hearing: No Endocrine: No Gastrointestinal Disorders: Yes (Acid reflux) GERD: Yes Glaucoma: No Gout: No Genitourinary: No Hepatitis: No Hiatal Hernia: No Heparin Induced Thrombocytopen: No Herniated Disk: No Hypertension: No Immune Disorder: No Inguinal Hernia: No Implanted Vascular Access Dvce: No Insomnia: Yes Kidney Stones: No Musculoskeletal: Yes Neurologic: Yes Parkinson's Disease: No Psychiatric: Yes Reproductive: No Respiratory: Yes (copd) Resp. Syncytial Virus (RSV): No Integumentary: Yes Immunizations Current: Yes Migraines: No Myocardial Infarction: Yes Pancreatitis: No Radiation Therapy: No Renal Failure: No Schizophrenia: Yes Seizures: Yes Shingles: No Sickle Cell Disease: No Sleep Apnea: Yes Thyroid Disease: No Ulcer: No Menopausal: No Past Surgical History Abdominal Aneurysm Repair: No Abdominal Surgery: No AICD: No Appendectomy: No Arteriovenous Shunt: No Cholecystectomy: No Coronary Stent: Yes Ear Surgery: No Endocrine Surgery: No Eye Surgery: No Genitourinary Surgery: No Gynecologic Surgery: No Joint Replacement: No Mastectomy: No Neurologic Surgery: No Oral Surgery: No Pacemaker: No Prostatectomy: No Thoracic Surgery: No Tonsillectomy: Yes Tympanostomy Tube: No Valve Replacement: No Other Surgery: Yes (Right wrist, accidentally cut self) Social History Alcohol Use: Yes (4 beers per day) Tobacco Use: Yes (1 PACK PER WEEK) Substance Use: Yes (MARIJUANA) Allergies-Medications (Allergen,Severity, Reaction): Coded Allergies: codeine (Unverified Allergy, Mild, RASH, 01/19/17) *MDRO Multi-Drug Resistant Organism (Verified Adverse Reaction, Unknown, ) 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, 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) Reported Meds & Prescriptions Reported Meds & Active Scripts Active Deltasone (Prednisone) 20 Mg Tab 20 Mg PO BID 5 Days Flovent Hfa 12 GM Inh (Fluticasone Propionate) 110 Mcg/Act Inh 2 Puff INH BID Ventolin Hfa 18 GM Inh (Albuterol Sulfate) 90 Mcg/Act Aer 2 Puff INH Q4H PRN Atrovent HFA 12.9 GM Inh (Ipratropium [place]) 17 Mcg/Act Aer 2 Puff INH Q6HR PRN Deltasone (Prednisone) 20 Mg Tab 20 Mg PO TID Reported Trazodone (Trazodone HCl) 300 Mg Tab 300 Mg PO HS Risperdal (Risperidone) 3 Mg Tab 3 Mg PO Q12HR Review of Systems General / Constitutional: No: Fever, Chills, Weight Gain, Weight Loss, Other Eyes: No: Diploplia, Blurred Vision, Photophobia, Drainage, Redness, Foreign Body Sensation, Pain, Tearing, Blind Spots, Visual changes, Blindness, Other HENT: No: Headaches, Vertigo, Lightheadedness, Sore Throat, Rhinitis, Rhinorrhea, Congestion, Nosebleed, Neck Stiffness, Neck Pain, Masses, Gingival Bleeding, Dental Difficulties, Ear Discharge, Earache, Other Cardiovascular: No: Chest Pain or Discomfort, Palpitations, Irregular Rhythm, Tachycardia, Diaphoresis, Syncope, Dyspnea on exertion, Varicosities, Edema, Cyanosis, Varicosities, Phlebitis, Claudication, Other Respiratory: No: Cough, Shortness of Breath, Wheezing, Sneezing, Orthopnea, Hemoptysis, Stridor, Night Sweats, Pleuritic Pain, Other Gastrointestinal: No: Nausea, Vomiting, Diarrhea, Abdominal Pain, Hematemesis, Hematochezia, Constipation, Changes in Bowel Habits, Indigestion, Dysphagia, Loss of Appetite, Other Genitourinary: No: Urgency, Frequency, Dysuria, Nocturia, Hematuria, Decreased Urinary Output, Oliguria, Hesitancy, Dribbling, Incontinence, Pelvic Pain, Flank Pain, Dyspareunia, Discharge, Dysmenorrhea, Menorrhagia, Metorrhagia, Vaginal Bleeding, Other Musculoskeletal: Positive: Pain (left forearm), No: Myalgias, Arthralgias, Limited ROM, Weakness, Cramping, Edema, Atrophy, Other Skin: No Rash, No Itching, No Dryness, No Lumps, No Hives, No Change in Pigmentation, No Change in nails, No Alopecia, No Lesions, No Breast Lumps, No Breast Tenderness, No Breast Swelling, No Other Neurologic: No: Weakness, Dizziness, Syncope, Focal Abnormalities, Coordination Problem, Tremor, Ataxia, Headache, Change in Mentation, Slurred Speech, Paresthesia, Incontinence, Seizures, Sensory Disturbance, Other Psychiatric: Positive: Suicidal Ideations, Mood Disorder, Substance Abuse, No: Anxiety, Depression, Disorder of Thought, Homicidal Ideation, Other Endocrine: No: Heat Intolerance, Cold Intolerance, Polyuria, Polydipsia, Other Hematologic/Lymphatic: No: Easy Bruising, Lymph Node Enlargement, Other Physical Exam Narrative GENERAL: SKIN: Warm and dry. 1 cm purulent mass on the right wrist, erythematous. HEAD: Atraumatic. Normocephalic. EYES: Pupils equal and round. No scleral icterus. No injection or drainage. ENT: No nasal bleeding or discharge. Mucous membranes pink and moist. NECK: Trachea midline. No JVD. CARDIOVASCULAR: Regular rate and rhythm. No S3, S4, or murmurs. RESPIRATORY: No accessory muscle use. Clear to auscultation. Breath sounds equal bilaterally. No wheezes, rales or rhonchi. GASTROINTESTINAL: Abdomen soft, non-tender, nondistended. Hepatic and splenic margins not palpable. MUSCULOSKELETAL: Abscess to right wrist. Extremities without clubbing, cyanosis , or edema. No obvious deformities. 2+ pulses bilaterally. NEUROLOGICAL: Awake and alert. No obvious cranial nerve deficits. Motor grossly within normal limits. Five out of 5 muscle strength in the arms and legs. Normal speech. PSYCHIATRIC: Appropriate mood and affect; insight and judgment normal. Data Data Last Documented VS Vital Signs Date Time Temp Pulse Resp B/P (MAP) Pulse Ox O2 Delivery O2 Flow Rate FiO2 01/19/17 17:17 98.3 96 22 134/83 (100) 99 Orders Orders Complete Blood Count With Diff (01/19/17 18:03) Comprehensive Metabolic Panel (01/19/17 18:03) Psych Screen (01/19/17 18:03) Wound Culture And Gram Stain (01/19/17 18:44) Wound Care (01/19/17 18:44) Lidocai-Epi 1%-1:100,000 Inj (Xylocaine- (01/19/17 18:45) Labs Laboratory Tests Test 01/19/17 18:37 White Blood Count 6.3 TH/MM3 Red Blood Count 5.15 MIL/MM3 Hemoglobin 17.0 GM/DL Hematocrit 50.5 % Mean Corpuscular Volume 98.1 FL Mean Corpuscular Hemoglobin 33.1 PG Mean Corpuscular Hemoglobin Concent 33.7 % Red Cell Distribution Width 16.1 % Platelet Count 229 TH/MM3 Mean Platelet Volume 7.5 FL Neutrophils (%) (Auto) 60.0 % Lymphocytes (%) (Auto) 27.0 % Monocytes (%) (Auto) 10.3 % Eosinophils (%) (Auto) 2.0 % Basophils (%) (Auto) 0.7 % Neutrophils # (Auto) 3.8 TH/MM3 Lymphocytes # (Auto) 1.7 TH/MM3 Monocytes # (Auto) 0.7 TH/MM3 Eosinophils # (Auto) 0.1 TH/MM3 Basophils # (Auto) 0.0 TH/MM3 CBC Comment DIFF FINAL Differential Comment Blood Urea Nitrogen 9 MG/DL Creatinine 0.91 MG/DL Random Glucose 122 MG/DL Total Protein 8.4 GM/DL Albumin 4.2 GM/DL Calcium Level 8.8 MG/DL Alkaline Phosphatase 147 U/L Aspartate Amino Transf (AST/SGOT) 75 U/L Alanine Aminotransferase (ALT/SGPT) 47 U/L Total Bilirubin 0.4 MG/DL Sodium Level 138 MEQ/L Potassium Level 3.9 MEQ/L Chloride Level 102 MEQ/L Carbon Dioxide Level 27.3 MEQ/L Anion Gap 9 MEQ/L Estimat Glomerular Filtration Rate 86 ML/MIN MDM Medical Decision Making Medical Screen Exam Complete: Yes Emergency Medical Condition: Yes Medical Record Reviewed: Yes Interpretation(s) CBC & BMP Diagram 01/19/17 18:37 Total Protein 8.4 H, Albumin 4.2, Calcium Level 8.8, Alkaline Phosphatase 147 H , Aspartate Amino Transf (AST/SGOT) 75 H, Alanine Aminotransferase (ALT/SGPT) 47 , Total Bilirubin 0.4 Differential Diagnosis Alcohol Intoxication versus Silver Act versus Bipolar Disorder versus abscess Narrative Course 56-year-old male that presents to the ED for evaluation of psych. Patient was properly examined and was found to have signs and symptoms consistent with psych. Labs were drawn. Patient was medically clear. Before patient was medically clear and was informed by one of the ED techs that patient has a small abscess on his right wrist which she did not mention to any of the staff and I did not notice initially. After explained procedure to the patient and she agreed to it abscess was incised and drained as stated in procedure note. Patient was started on Bactrim. Patient was medically clear. Okay to be seen by psych. Mental health screening was discussed with the patient. Procedures Procedure Narrative After the risks and benefits were discussed the following procedure was performed: INCISION AND DRAINAGE OF ABSCESS: The area was prepped and was sterilely draped. A subcutaneous wheal of 1 % Xylocaine with a total number 5 mL was used to anesthetize the area. The area was properly anesthetized. A number 11 scalpel was used to make a 0.5 -cm incision across the area of the abscess. Cultures were obtained. The abscess was drained an irrigated with normal saline. Sterile dressing applied. Diagnosis Primary Impression: Abscess, wrist Additional Impressions: Suicidal ideation Alcohol abuse Rodríguez Last Jan 19, 2017 18:36
[2017-01-19] MEDS ORDERED: LIDOCAINE 1%/EPINEPHrine 1:100,000 SOLN 20 ML VIAL INFIL ONE (18:45)
[2017-01-19 19:02] LABS: AUTOMATED NEUTROPHIL # 3.8 TH/MM3 (1.8-7.7); BASOPHIL % 0.7 % (0.0-2.0); EOSINOPHIL # 0.1 TH/MM3 (0-0.4); HEMATOCRIT 50.5 % (39.0-51.0); HEMO FLAGS DIFF FINAL; LYMPHOCYTE # 1.7 TH/MM3 (1.0-4.8); MEAN CELL VOLUME 98.1 FL (80.0-100.0); MEAN CORPUSCULAR HEMOGLOBIN 33.1 PG (27.0-34.0); MEAN CORPUSCULAR HGB CONC 33.7 % (32.0-36.0); MONO % 10.3 % (0.0-8.0); PLATELET COUNT 229 TH/MM3 (150-450); RED BLOOD COUNT 5.15 MIL/MM3 (4.50-5.90); RED CELL DISTRIBUTION WIDTH 16.1 % (11.6-17.2); WHITE BLOOD COUNT 6.3 TH/MM3 (4.0-11.0)
[2017-01-19 19:13] LABS: ALKALINE PHOSPHATASE 147 U/L (45-117); TOTAL BILIRUBIN ADULT 0.4 MG/DL (0.2-1.0)
[2017-01-19 19:20] LABS: ALT (GPT) 47 U/L (12-78); ANION GAP 9 MEQ/L (5-15); AST (GOT) 75 U/L (15-37); BICARBONATE 27.3 MEQ/L (21.0-32.0); BLOOD UREA NITROGEN 9 MG/DL (7-18); CHLORIDE 102 MEQ/L (98-107); GLOMERULAR FILTRATION RATE 86 ML/MIN (>89); POTASSIUM 3.9 MEQ/L (3.5-5.1); SODIUM (NA) 138 MEQ/L (136-145)
--- NOTE | 2017-01-19 19:24 | PD ---
Data Data Last Documented VS Vital Signs Date Time Temp Pulse Resp B/P (MAP) Pulse Ox O2 Delivery O2 Flow Rate FiO2 01/20/17 11:24 97.7 76 18 127/79 (95) 01/20/17 06:20 95 Room Air Orders Orders Complete Blood Count With Diff (01/19/17 18:03) Comprehensive Metabolic Panel (01/19/17 18:03) Psych Screen (01/19/17 18:03) Wound Culture And Gram Stain (01/19/17 18:44) Wound Care (01/19/17 18:44) Lidocai-Epi 1%-1:100,000 Inj (Xylocaine- (01/19/17 18:45) Diphenhydramine (Benadryl) (01/20/17 02:30) Diet Regular Basic (01/20/17 Breakfast) Labs Laboratory Tests Test 01/19/17 18:37 White Blood Count 6.3 TH/MM3 Red Blood Count 5.15 MIL/MM3 Hemoglobin 17.0 GM/DL Hematocrit 50.5 % Mean Corpuscular Volume 98.1 FL Mean Corpuscular Hemoglobin 33.1 PG Mean Corpuscular Hemoglobin Concent 33.7 % Red Cell Distribution Width 16.1 % Platelet Count 229 TH/MM3 Mean Platelet Volume 7.5 FL Neutrophils (%) (Auto) 60.0 % Lymphocytes (%) (Auto) 27.0 % Monocytes (%) (Auto) 10.3 % Eosinophils (%) (Auto) 2.0 % Basophils (%) (Auto) 0.7 % Neutrophils # (Auto) 3.8 TH/MM3 Lymphocytes # (Auto) 1.7 TH/MM3 Monocytes # (Auto) 0.7 TH/MM3 Eosinophils # (Auto) 0.1 TH/MM3 Basophils # (Auto) 0.0 TH/MM3 CBC Comment DIFF FINAL Differential Comment Blood Urea Nitrogen 9 MG/DL Creatinine 0.91 MG/DL Random Glucose 122 MG/DL Total Protein 8.4 GM/DL Albumin 4.2 GM/DL Calcium Level 8.8 MG/DL Alkaline Phosphatase 147 U/L Aspartate Amino Transf (AST/SGOT) 75 U/L Alanine Aminotransferase (ALT/SGPT) 47 U/L Total Bilirubin 0.4 MG/DL Sodium Level 138 MEQ/L Potassium Level 3.9 MEQ/L Chloride Level 102 MEQ/L Carbon Dioxide Level 27.3 MEQ/L Anion Gap 9 MEQ/L Estimat Glomerular Filtration Rate 86 ML/MIN MDM Supervised Visit with BOB: Yes Narrative Course I, Dr. Templeton, have reviewed the advance practice practitioner's documentation and am in agreement, met with the patient face to face, made the diagnosis, and the medical decision making was done by me. *My assessment and Findings: Patient is a 56-year-old male well known to me in this department for repeat evaluation for suicidal ideation. He is Silver acted today by outside police for same. Patient does complain of some right wrist swelling over an area that he had recently self mutilated with laceration. Skin is intact, there is some minimal tenderness over-sized area of induration. This could be consistent with an inclusion cyst vital sister given the history could be an abscess. He has indications for I&D, I&D was performed and showed no discharge. I did feel a pop and release consistent with a viable cyst. Patient will be placed on empiric antibiotics. He is medically cleared for psychiatric evaluation and disposition. Procedures Procedure Narrative Incision and drainage: After informed consent the patient was incision and drainage by me with PA student assisting. Patient was cleaned with alcohol prep , anesthetized 1% plain lidocaine. 3 small skin incisions made all of which yielded no purulent discharge. Patient was dressed with a Band-Aid, hemostasis achieved. Diagnosis Primary Impression: Abscess, wrist Scripts Sulfamethoxazole-Trimethoprim (Bactrim DS) 800-160 Mg Tab 1 TAB PO BID for Infection for 10 Days, TAB 0 Refills Prov: Bigg Templeton MD 01/19/17 Condition: Stable Bigg Templeton MD Jan 19, 2017 19:24
[2017-01-19] MEDS ORDERED: BACT800T5 PO (20:15)
[2017-01-19 20:29] VITALS: BP_SYST 11; BP_SYST 111; BP_DIAS 65; PULSE 103; RESP 18; O2SAT 94
[2017-01-19 22:00] VITALS: BP 116/65; PULSE 97; RESP 18; O2SAT 93
[2017-01-20] MEDS ORDERED: diphenhydrAMINE HCL 25 MG CAP PO ONE (02:30)
[2017-01-20 06:20] VITALS: BP 127/79; PULSE 76; RESP 18; O2SAT 95
--- NOTE | 2017-01-20 10:41 | PD ---
History of Present Illness Chief Complaint: Suicide Ideation/Attempt Time Seen by Provider: 10:30 Travel History International Travel<30 Days: No Contact w/Intl Traveler<30days: No Known affected area: No Legal Status Legal Status: Silver Act Silver Act Signed By: Rubina Silver Act Comment: 01/19/2017 1602 PM History of Present Illness: 56-year-old male brought in under a Silver act for making suicidal statements. Patient is well known to this physician and the staff at [place] [facility] emergency department. He is now sober and he is verbally darren for safety. He denies any suicidal or homicidal ideation, plan or intent. He has no psychotic symptoms and his cognition is intact. He is acknowledging that he needs to stop drinking alcohol. However, he is not ready to go to [facility] [place] for further treatment. PFSH Past Medical History Hx Anticoagulant Therapy: Yes (asa) AAA: No ADD: No ADHD: No Alzheimer's Disease: No Anemia: No Arthritis: Yes Asthma: Yes Atrial Fibrillation: No Autoimmune Disease: No Blood Disorders: No Bipolar Disorder: Yes Anxiety: Yes Depression: Yes Cancer: No Cardiac Catheterization: Yes Cardiomyopathy: No Cardiovascular Problems: Yes (CAD, CARDIAC STENT ) Cerebral Palsy: No High Cholesterol: Yes Chemotherapy: No Chest Pain: No Congestive Heart Failure: Yes Cirrhosis: No COPD: Yes Coronary Artery Disease: Yes Cystic Fibrosis: No Dementia: No Developmental Delay: No Diabetes: No Diminished Hearing: No Endocrine: No Gastrointestinal Disorders: Yes (Acid reflux) GERD: Yes Glaucoma: No Gout: No Genitourinary: No Hepatitis: No Hiatal Hernia: No Heparin Induced Thrombocytopen: No Herniated Disk: No Hypertension: No Immune Disorder: No Inguinal Hernia: No Implanted Vascular Access Dvce: No Insomnia: Yes Kidney Stones: No Musculoskeletal: Yes Neurologic: Yes Parkinson's Disease: No Psychiatric: Yes Reproductive: No Respiratory: Yes (copd) Resp. Syncytial Virus (RSV): No Integumentary: Yes Immunizations Current: Yes Migraines: No Myocardial Infarction: Yes Pancreatitis: No Radiation Therapy: No Renal Failure: No Schizophrenia: Yes Seizures: Yes Shingles: No Sickle Cell Disease: No Sleep Apnea: Yes Thyroid Disease: No Ulcer: No Menopausal: No Past Surgical History Abdominal Aneurysm Repair: No Abdominal Surgery: No AICD: No Appendectomy: No Arteriovenous Shunt: No Cholecystectomy: No Coronary Stent: Yes Ear Surgery: No Endocrine Surgery: No Eye Surgery: No Genitourinary Surgery: No Gynecologic Surgery: No Joint Replacement: No Mastectomy: No Neurologic Surgery: No Oral Surgery: No Pacemaker: No Prostatectomy: No Thoracic Surgery: No Tonsillectomy: Yes Tympanostomy Tube: No Valve Replacement: No Other Surgery: Yes (Right wrist, accidentally cut self) Psychiatric History Psychiatric History Hx Psychiatric Treatment: Multiple detox admissions, Multiple Ed visits for alcohol intoxication History of Inpatient Treatment: Yes Guns or firearms in home: No Social History Hx Alcohol Use: Yes (4 beers per day) Hx Tobacco Use: Yes (1 PACK PER WEEK) Hx Substance Use: Yes (MARIJUANA) Substance Use Type: Alcohol, Marijuana, Cocaine Other Substances Used: PT IS A CHRONIC ALCOHOLIC Hx of Substance Use Treatment: Yes Allergies-Medications (Allergen,Severity, Reaction): Coded Allergies: codeine (Unverified Allergy, Mild, RASH, 01/19/17) *MDRO Multi-Drug Resistant Organism (Verified Adverse Reaction, Unknown, ) 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, 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) Reported Meds & Prescriptions Reported Meds & Active Scripts Active Bactrim DS (Sulfamethoxazole-Trimethoprim) 800-160 Mg Tab 1 Tab PO BID 10 Days Deltasone (Prednisone) 20 Mg Tab 20 Mg PO BID 5 Days Flovent Hfa 12 GM Inh (Fluticasone Propionate) 110 Mcg/Act Inh 2 Puff INH BID Ventolin Hfa 18 GM Inh (Albuterol Sulfate) 90 Mcg/Act Aer 2 Puff INH Q4H PRN Atrovent HFA 12.9 GM Inh (Ipratropium [place]) 17 Mcg/Act Aer 2 Puff INH Q6HR PRN Deltasone (Prednisone) 20 Mg Tab 20 Mg PO TID Reported Trazodone (Trazodone HCl) 300 Mg Tab 300 Mg PO HS Risperdal (Risperidone) 3 Mg Tab 3 Mg PO Q12HR Review of Systems Except as stated in HPI: all other systems reviewed are Neg Exam Alert: Yes [place]: Person, Place, Date, Situation Mood: Calm Affect: Appropriate Speech: Clear, Logical Eye Contact: Normal Memory Intact: Immediate, Recent, Remote Insight/Judgement Adequate MDM Medical Decision Making Medical Record Reviewed: Yes Assessment/Plan Patient's medical record reviewed and this physician spoke with his nurse. Even though patient declines treatment at [facility] [place] at this time, he does not qualify for Silver act or inpatient involuntary psychiatric hospitalization. He denies suicidal or homicidal ideation, plan or intent. He is verbally darren for safety. He is competent to do so. He has no psychosis and his cognition is intact. Orders Orders Complete Blood Count With Diff (01/19/17 18:03) Comprehensive Metabolic Panel (01/19/17 18:03) Psych Screen (01/19/17 18:03) Wound Culture And Gram Stain (01/19/17 18:44) Wound Care (01/19/17 18:44) Lidocai-Epi 1%-1:100,000 Inj (Xylocaine- (01/19/17 18:45) Diphenhydramine (Benadryl) (01/20/17 02:30) Diet Regular Basic (01/20/17 Breakfast) Results Vital Signs Date Time Temp Pulse Resp B/P (MAP) Pulse Ox O2 Delivery O2 Flow Rate FiO2 01/20/17 06:20 76 18 127/79 (95) 95 Room Air 01/19/17 22:00 97 18 116/65 (82) 93 Room Air 01/19/17 20:29 103 18 111/65 (80) 94 Room Air 01/19/17 17:17 98.3 96 22 134/83 (100) 99 Laboratory Tests Test 01/19/17 18:37 White Blood Count 6.3 Red Blood Count 5.15 Hemoglobin 17.0 Hematocrit 50.5 Mean Corpuscular Volume 98.1 Mean Corpuscular Hemoglobin 33.1 Mean Corpuscular Hemoglobin Concent 33.7 Red Cell Distribution Width 16.1 Platelet Count 229 Mean Platelet Volume 7.5 Neutrophils (%) (Auto) 60.0 Lymphocytes (%) (Auto) 27.0 Monocytes (%) (Auto) 10.3 Eosinophils (%) (Auto) 2.0 Basophils (%) (Auto) 0.7 Neutrophils # (Auto) 3.8 Lymphocytes # (Auto) 1.7 Monocytes # (Auto) 0.7 Eosinophils # (Auto) 0.1 Basophils # (Auto) 0.0 CBC Comment DIFF FINAL Differential Comment Blood Urea Nitrogen 9 Creatinine 0.91 Random Glucose 122 Total Protein 8.4 Albumin 4.2 Calcium Level 8.8 Alkaline Phosphatase 147 Aspartate Amino Transf (AST/SGOT) 75 Alanine Aminotransferase (ALT/SGPT) 47 Total Bilirubin 0.4 Sodium Level 138 Potassium Level 3.9 Chloride Level 102 Carbon Dioxide Level 27.3 Anion Gap 9 Estimat Glomerular Filtration Rate 86 Diagnosis Primary Impression: Adjustment disorder with mixed disturbance of emotions and conduct Additional Impression: Alcohol abuse Prescriptions Sulfamethoxazole-Trimethoprim (Bactrim DS) 800-160 Mg Tab 1 TAB PO BID for Infection for 10 Days, TAB 0 Refills Prov: Bigg Templeton MD 01/19/17 Problem Qualifiers Noah Michael MD Jan 20, 2017 10:41
[2017-01-20 11:24] VITALS: BP 127/79; TEMP 97.7
== END 2017-01-20 11:29 | disposition home or self-care (01) ==
LOC: NEDAMB 16:21 → NEPJ 01-20 11:29
DX: F43.29 Adjustment disorder with other symptoms (principal); F10.10 Alcohol abuse, uncomplicated; L02.413 Cutaneous abscess of right upper limb; J44.9 Chronic obstructive pulmonary disease, unspecified
CPT/HCPCS: 10060; 80053; 85025

== ENCOUNTER 2017-01-20 18:37 | Emergency (ER) | payer MEDICARE, OTHER ==
[~2017-01-20] VITALS: Ht 160 cm; Wt 65.0 kg
[~2017-01-20 18:37] MED LIST changes: +BACT800T5 PO
[2017-01-20 18:39] VITALS: BP 98/62; PULSE 109; RESP 20; TEMP 98.8; O2SAT 94
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
--- NOTE | 2017-01-21 11:47 | PD ---
History of Present Illness Chief Complaint: Psychiatric Symptoms Time Seen by Provider: 11:45 Travel History International Travel<30 Days: No Contact w/Intl Traveler<30days: No Known affected area: No Legal Status Legal Status: Voluntary History of Present Illness: History of Present Illness HPI The patient is a 56-year-old male with history of alcohol use disorder who presents to emergency department on a voluntary basis for alcohol intoxication and suicidal ideation. The patient is well-known to the emergency department, has been seen several times this week for alcohol intoxication and suicidal ideation. The patient was monitored in secure environment until he was clinically sober. Patient seen with Dariel case aide. Patient is is eating a meal and appears content. dressed in shorts and a t shirt. Poor hygiene and disheveled. He is calm and states " I just drank and when I drink I feel suicidal. I need to quit". He is not suicidal or homicidal and there is no indication of any psychosis, ector. PFSH Past Medical History Hx Anticoagulant Therapy: Yes (asa) AAA: No ADD: No ADHD: No Alzheimer's Disease: No Anemia: No Arthritis: Yes Asthma: Yes Atrial Fibrillation: No Autoimmune Disease: No Blood Disorders: No Bipolar Disorder: Yes Anxiety: Yes Depression: Yes Cancer: No Cardiac Catheterization: Yes Cardiomyopathy: No Cardiovascular Problems: Yes (CAD, CARDIAC STENT ) Cerebral Palsy: No High Cholesterol: Yes Chest Pain: No Congestive Heart Failure: Yes Cirrhosis: No COPD: Yes Coronary Artery Disease: Yes Cystic Fibrosis: No Dementia: No Developmental Delay: No Diabetes: No Diminished Hearing: No Endocrine: No Gastrointestinal Disorders: Yes (Acid reflux) GERD: Yes Glaucoma: No Gout: No Genitourinary: No Hepatitis: No Hiatal Hernia: No Heparin Induced Thrombocytopen: No Herniated Disk: No Hypertension: No Immune Disorder: No Inguinal Hernia: No Implanted Vascular Access Dvce: No Insomnia: Yes Kidney Stones: No Musculoskeletal: Yes Neurologic: Yes Parkinson's Disease: No Psychiatric: Yes (multiple ED/detox admissions; chronic alcoholic) Reproductive: No Respiratory: Yes (copd) Resp. Syncytial Virus (RSV): No Integumentary: Yes Immunizations Current: Yes Migraines: No Myocardial Infarction: Yes Pancreatitis: No Radiation Therapy: No Renal Failure: No Schizophrenia: Yes Seizures: Yes Shingles: No Sickle Cell Disease: No Sleep Apnea: Yes Thyroid Disease: No Ulcer: No Past Surgical History Abdominal Aneurysm Repair: No Abdominal Surgery: No AICD: No Appendectomy: No Arteriovenous Shunt: No Cholecystectomy: No Coronary Stent: Yes Ear Surgery: No Endocrine Surgery: No Eye Surgery: No Genitourinary Surgery: No Gynecologic Surgery: No Joint Replacement: No Mastectomy: No Oral Surgery: No Pacemaker: No Prostatectomy: No Thoracic Surgery: No Tonsillectomy: Yes Tympanostomy Tube: No Valve Replacement: No Other Surgery: Yes (Right wrist, accidentally cut self) Psychiatric History Psychiatric History Hx Psychiatric Treatment: Multiple detox admissions, Multiple Ed visits for alcohol intoxication History of Inpatient Treatment: Yes Guns or firearms in home: No Social History Single male. homeless. on disability Hx Alcohol Use: Yes (4 beers per day) Hx Tobacco Use: Yes (1 PACK PER WEEK) Hx Substance Use: Yes (MARIJUANA, cocaine) Substance Use Type: Alcohol, Marijuana, Cocaine Other Substances Used: PT IS A CHRONIC ALCOHOLIC Hx of Substance Use Treatment: Yes Allergies-Medications (Allergen,Severity, Reaction): Coded Allergies: codeine (Unverified Allergy, Mild, RASH, 01/20/17) *MDRO Multi-Drug Resistant Organism (Verified Adverse Reaction, Unknown, ) 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, 07/31/16) Reported Meds & Prescriptions Reported Meds & Active Scripts Active Bactrim DS (Sulfamethoxazole-Trimethoprim) 800-160 Mg Tab 1 Tab PO BID 10 Days Deltasone (Prednisone) 20 Mg Tab 20 Mg PO BID 5 Days Flovent Hfa 12 GM Inh (Fluticasone Propionate) 110 Mcg/Act Inh 2 Puff INH BID Ventolin Hfa 18 GM Inh (Albuterol Sulfate) 90 Mcg/Act Aer 2 Puff INH Q4H PRN Atrovent HFA 12.9 GM Inh (Ipratropium [place]) 17 Mcg/Act Aer 2 Puff INH Q6HR PRN Deltasone (Prednisone) 20 Mg Tab 20 Mg PO TID Reported Trazodone (Trazodone HCl) 300 Mg Tab 300 Mg PO HS Risperdal (Risperidone) 3 Mg Tab 3 Mg PO Q12HR Review of Systems Except as stated in HPI: all other systems reviewed are Neg Exam Alert: Yes [place]: Person (ox4) Mood: Calm Affect: Appropriate Speech: Clear, Logical Eye Contact: Normal Memory Intact: Comment (No impairment) Hallucinations: Olfactory, Other (negative) Delusions: No Suicidal: Ideation (deneis any) Homicidal: Ideation (deneis any) Insight/Judgement Poor. Not impaired. MDM Medical Decision Making Medical Record Reviewed: Yes Assessment/Plan The patient is a 56-year-old male with history of alcohol use disorder who presents to emergency department on a voluntary basis for alcohol intoxication and suicidal ideation. Once clinically sober and once he has eaten he denies any suicidal or homicidal ideation, intent or plan. He states that he gets drunk and then feels suicidal. The patient again is counseled on treatment for substance use at [facility]. He requests bus passes Cleared for discharge from psychiatry Orders Orders Alcohol (Ethanol) (01/21/17 04:01) Psych Screen (01/21/17 04:01) Diet Regular Basic (01/21/17 Lunch) Results Vital Signs Date Time Temp Pulse Resp B/P (MAP) Pulse Ox O2 Delivery O2 Flow Rate FiO2 01/20/17 18:39 98.8 109 20 98/62 (74) 94 Room Air Laboratory Tests Test 01/21/17 04:20 Ethyl Alcohol Level 117 Diagnosis Primary Impression: Alcohol-induced mood disorder Additional Impression: Alcohol intoxication Psychiatrically Cleared: Yes Med/ Other Pt Specific Info: No Meds Exist/No RX given Disposition: 01 DISCHARGE HOME Condition: Stable Problem Qualifiers Additional Impression: Alcohol intoxication Qualified Codes: F10.920 - Alcohol use, unspecified with intoxication, uncomplicated Viveros,Rachel Chilel [facility] Jan 21, 2017 11:47
== END 2017-01-21 12:12 | disposition home or self-care (01) ==
LOC: NEPE 18:37 → NEDAMB 01-21 12:12
DX: F10.14 Alcohol abuse with alcohol-induced mood disorder (principal); Y90.5 Blood alcohol level of 100-119 mg/100 ml; Z79.899 Other long term (current) drug therapy
CPT/HCPCS: 80307; 99283

== ENCOUNTER 2017-01-22 14:24 | Emergency (ER) | payer MEDICARE, OTHER ==
[~2017-01-22] VITALS: Ht 167.6 cm; Wt 65.0 kg
[2017-01-22 14:27] VITALS: BP 135/64; PULSE 84; RESP 15; TEMP 98.2; O2SAT 98
--- NOTE | 2017-01-22 19:15 | PD ---
HPI Chief Complaint: Psychiatric Symptoms Time Seen by Provider: 19:15 Travel History International Travel<30 days: No Contact w/Intl Traveler<30days: No Traveled to known affect area: No History of Present Illness HPI 56-year-old white male presents to emergency Department with complaints of feeling depressed and suicidal. This is a patient well-known to the ER staff due to multiple, multiple ER visits. Patient has a history of alcohol dependency. The patient states that he would like to get help and needs a place to stay as well. He states that he has no way of getting around. He denies any active medical complaints. He does have chronic COPD and continues to smoke. PFSH Past Medical History Hx Anticoagulant Therapy: Yes (asa) AAA: No ADD: No ADHD: No Alzheimer's Disease: No Anemia: No Arthritis: Yes Asthma: Yes Atrial Fibrillation: No Autoimmune Disease: No Blood Disorders: No Bipolar Disorder: Yes Anxiety: Yes Depression: Yes Cancer: No Cardiac Catheterization: Yes Cardiomyopathy: No Cardiovascular Problems: Yes (CAD, CARDIAC STENT ) Cerebral Palsy: No High Cholesterol: Yes Chest Pain: No Congestive Heart Failure: Yes Cirrhosis: No COPD: Yes Coronary Artery Disease: Yes Cystic Fibrosis: No Dementia: No Developmental Delay: No Diabetes: No Diminished Hearing: No Endocrine: No Gastrointestinal Disorders: Yes (Acid reflux) GERD: Yes Glaucoma: No Gout: No Genitourinary: No Hepatitis: No Hiatal Hernia: No Heparin Induced Thrombocytopen: No Herniated Disk: No Hypertension: No Immune Disorder: No Inguinal Hernia: No Implanted Vascular Access Dvce: No Insomnia: Yes Kidney Stones: No Musculoskeletal: Yes Neurologic: Yes Parkinson's Disease: No Psychiatric: Yes (multiple ED/detox admissions; chronic alcoholic) Reproductive: No Respiratory: Yes (copd) Resp. Syncytial Virus (RSV): No Integumentary: Yes Immunizations Current: Yes Migraines: No Myocardial Infarction: Yes Pancreatitis: No Radiation Therapy: No Renal Failure: No Schizophrenia: Yes Seizures: Yes Shingles: No Sickle Cell Disease: No Sleep Apnea: Yes Thyroid Disease: No Ulcer: No Past Surgical History Abdominal Aneurysm Repair: No Abdominal Surgery: No AICD: No Appendectomy: No Arteriovenous Shunt: No Cholecystectomy: No Coronary Stent: Yes Ear Surgery: No Endocrine Surgery: No Eye Surgery: No Genitourinary Surgery: No Gynecologic Surgery: No Joint Replacement: No Mastectomy: No Oral Surgery: No Pacemaker: No Prostatectomy: No Thoracic Surgery: No Tonsillectomy: Yes Tympanostomy Tube: No Valve Replacement: No Other Surgery: Yes (Right wrist, accidentally cut self) Social History Alcohol Use: Yes (4 beers per day) Tobacco Use: Yes (1 PACK PER WEEK) Substance Use: Yes (MARIJUANA, cocaine) Allergies-Medications (Allergen,Severity, Reaction): Coded Allergies: codeine (Unverified Allergy, Mild, RASH, 01/20/17) *MDRO Multi-Drug Resistant Organism (Verified Adverse Reaction, Unknown, ) 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, 07/31/16) Reported Meds & Prescriptions Reported Meds & Active Scripts Active Bactrim DS (Sulfamethoxazole-Trimethoprim) 800-160 Mg Tab 1 Tab PO BID 10 Days Deltasone (Prednisone) 20 Mg Tab 20 Mg PO BID 5 Days Flovent Hfa 12 GM Inh (Fluticasone Propionate) 110 Mcg/Act Inh 2 Puff INH BID Ventolin Hfa 18 GM Inh (Albuterol Sulfate) 90 Mcg/Act Aer 2 Puff INH Q4H PRN Atrovent HFA 12.9 GM Inh (Ipratropium [place]) 17 Mcg/Act Aer 2 Puff INH Q6HR PRN Deltasone (Prednisone) 20 Mg Tab 20 Mg PO TID Reported Trazodone (Trazodone HCl) 300 Mg Tab 300 Mg PO HS Risperdal (Risperidone) 3 Mg Tab 3 Mg PO Q12HR Review of Systems Except as stated in HPI: all other systems reviewed are Neg Psychiatric: Positive: Depression, Suicidal Ideations, Substance Abuse, No: Anxiety, Disorder of Thought, Mood Disorder, Homicidal Ideation Physical Exam Narrative GENERAL: Well-nourished, well-developed patient. SKIN: Warm and dry. HEAD: Normocephalic and atraumatic. EYES: No scleral icterus. No injection or drainage. ENT: No nasal drainage noted. Mucous membranes pink. Airway patent. NECK: Supple, trachea midline. Moves head freely without obvious discomfort. CARDIOVASCULAR: Regular rate and rhythm without murmurs, gallops, or rubs. RESPIRATORY: Decreased Breath sounds equal bilaterally. Few expiratory wheezes. No accessory muscle use. GASTROINTESTINAL: Abdomen soft, non-tender, nondistended. EXTREMITIES: No cyanosis or edema. BACK: Nontender without obvious deformity. No CVA tenderness. NEURO: Patient is alert and oriented. no sensorimotor deficits. Nonfocal. Normal speech. PSYCH: No delusions. No auditory or visual hallucinations. Data Data Last Documented VS Vital Signs Date Time Temp Pulse Resp B/P (MAP) Pulse Ox O2 Delivery O2 Flow Rate FiO2 01/22/17 14:27 98.2 84 15 135/64 (87) 98 MDM Medical Decision Making Medical Screen Exam Complete: Yes Emergency Medical Condition: Yes Medical Record Reviewed: Yes Differential Diagnosis MDM: High Differential diagnoses: Schizophrenia, schizoaffective disorder, bipolar, anxiety, depression, adjustment reaction, mood disorder NOS, infection, electrolyte abnormality, malingering. Narrative Course Mental health screening discussed with the patient. Psychiatric screen ordered. The patient has been medically cleared. The patient has been seen by the psych nurse practitioner. She does not feel the patient requires inpatient management. He is given outpatient treatment information as well as to bus passes. The patient states that he is here for help and he does not believe that he hasn't received it. This has been relayed to Dr. Flores and he will make the final plan for disposition. The patient has been seen by Dr. Flores. He feels comfortable letting the patient go home. Diagnosis Primary Impression: Alcohol-induced mood disorder Patient Instructions: General Instructions Additional Instructions: Rest. Follow-up with the recommendations of the psych nurse practitioner. Return to the ER for emergencies. Med/Other Pt SpecificInfo: No Meds Exist/No RX given Disposition: 01 DISCHARGE HOME Condition: Stable Mannie Bustos Jan 22, 2017 19:15
--- NOTE | 2017-01-22 19:18 | PD ---
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 He states " I have no place to go and I need help". He reports that he drank one beer today and that he is ready to get some help. He also states " I came here to get twenty four hours so that I can think about what I am going to do" . he requests bus passes to get back home and to get himself to [facility] detox. He is alert, oriented, disheveled and malodorous , speech is clear . He does not appear intoxicated although he admits to having had " one beer". No psychosis, no ector. Patient states that when he drinks he has suicidal thoughts with no plan reported. PFSH Past Medical History Hx Anticoagulant Therapy: Yes (asa) AAA: No ADD: No ADHD: No Alzheimer's Disease: No Anemia: No Arthritis: Yes Asthma: Yes Atrial Fibrillation: No Autoimmune Disease: No Blood Disorders: No Bipolar Disorder: Yes Anxiety: Yes Depression: Yes Cancer: No Cardiac Catheterization: Yes Cardiomyopathy: No Cardiovascular Problems: Yes (CAD, CARDIAC STENT ) Cerebral Palsy: No High Cholesterol: Yes Chest Pain: No Congestive Heart Failure: Yes Cirrhosis: No COPD: Yes Coronary Artery Disease: Yes Cystic Fibrosis: No Dementia: No Developmental Delay: No Diabetes: No Diminished Hearing: No Endocrine: No Gastrointestinal Disorders: Yes (Acid reflux) GERD: Yes Glaucoma: No Gout: No Genitourinary: No Hepatitis: No Hiatal Hernia: No Heparin Induced Thrombocytopen: No Herniated Disk: No Hypertension: No Immune Disorder: No Inguinal Hernia: No Implanted Vascular Access Dvce: No Insomnia: Yes Kidney Stones: No Musculoskeletal: Yes Neurologic: Yes Parkinson's Disease: No Psychiatric: Yes (multiple ED/detox admissions; chronic alcoholic) Reproductive: No Respiratory: Yes (copd) Resp. Syncytial Virus (RSV): No Integumentary: Yes Immunizations Current: Yes Migraines: No Myocardial Infarction: Yes Pancreatitis: No Radiation Therapy: No Renal Failure: No Schizophrenia: Yes Seizures: Yes Shingles: No Sickle Cell Disease: No Sleep Apnea: Yes Thyroid Disease: No Ulcer: No Past Surgical History Abdominal Aneurysm Repair: No Abdominal Surgery: No AICD: No Appendectomy: No Arteriovenous Shunt: No Cholecystectomy: No Coronary Stent: Yes Ear Surgery: No Endocrine Surgery: No Eye Surgery: No Genitourinary Surgery: No Gynecologic Surgery: No Joint Replacement: No Mastectomy: No Oral Surgery: No Pacemaker: No Prostatectomy: No Thoracic Surgery: No Tonsillectomy: Yes Tympanostomy Tube: No Valve Replacement: No Other Surgery: Yes (Right wrist, accidentally cut self) Psychiatric History Psychiatric History Hx Psychiatric Treatment: Multiple detox admissions, Multiple Ed visits for alcohol intoxication History of Inpatient Treatment: Yes Guns or firearms in home: No Social History Hx Alcohol Use: Yes (4 beers per day) Hx Tobacco Use: Yes (1 PACK PER WEEK) Hx Substance Use: Yes (MARIJUANA, cocaine) Substance Use Type: Alcohol, Marijuana, Cocaine Other Substances Used: PT IS A CHRONIC ALCOHOLIC Hx of Substance Use Treatment: Yes Family Psychiatric History Negative Allergies-Medications (Allergen,Severity, Reaction): Coded Allergies: codeine (Unverified Allergy, Mild, RASH, 01/22/17) *MDRO Multi-Drug Resistant Organism (Verified Adverse Reaction, Unknown, ) 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, 07/31/16) Reported Meds & Prescriptions Reported Meds & Active Scripts Active Bactrim DS (Sulfamethoxazole-Trimethoprim) 800-160 Mg Tab 1 Tab PO BID 10 Days Deltasone (Prednisone) 20 Mg Tab 20 Mg PO BID 5 Days Flovent Hfa 12 GM Inh (Fluticasone Propionate) 110 Mcg/Act Inh 2 Puff INH BID Ventolin Hfa 18 GM Inh (Albuterol Sulfate) 90 Mcg/Act Aer 2 Puff INH Q4H PRN Atrovent HFA 12.9 GM Inh (Ipratropium [place]) 17 Mcg/Act Aer 2 Puff INH Q6HR PRN Deltasone (Prednisone) 20 Mg Tab 20 Mg PO TID Reported Trazodone (Trazodone HCl) 300 Mg Tab 300 Mg PO HS Risperdal (Risperidone) 3 Mg Tab 3 Mg PO Q12HR Exam Alert: Yes [place]: Person (ox4) Mood: Calm Affect: Appropriate Speech: Clear, Logical Eye Contact: Normal Memory Intact: Comment (Not formally tetsed) Hallucinations: Other (Negative) Delusions: No Suicidal: Ideation (Negative. ) Homicidal: Ideation (negative) Insight/Judgement Poor. Poor MDM Medical Decision Making Medical Record Reviewed: Yes Assessment/Plan 56 year old male with history of alcohol dependence who presents to ED requesting psychiatric evaluation with complaint of feeling suicidal. He reports that he had one beer today and that he feels suicidal when he drinks. He is also requesting to be kept in the hospital twenty four hours so that he can think about what he wants to do. He also is requesting to be sent to [facility] for treatment. " this time I really want the help". Patient is clearly bargaining in order to obtain senior living for the night. Due to his chronic alcohol use and dependence he presents a chronic risk to self due to self harm but this risk will not be ameliorated by a psychiatric hospitalization. Patient requires substance abuse treatment services. He is advised he will get the referrals for [facility] as well as bus transportation to get there. He accepts plan. He is cleared from psychiatry for discharge. Results Vital Signs Date Time Temp Pulse Resp B/P (MAP) Pulse Ox O2 Delivery O2 Flow Rate FiO2 01/22/17 14:27 98.2 84 15 135/64 (87) 98 Diagnosis Primary Impression: Alcohol dependence Psychiatrically Cleared: Yes Disposition: 01 DISCHARGE HOME Condition: Stable Problem Qualifiers Primary Impression: Alcohol dependence Qualified Codes: F10.20 - Alcohol dependence, uncomplicated Rachel Viveros [facility] Jan 22, 2017 19:18
== END 2017-01-22 20:18 | disposition home or self-care (01) ==
LOC: NEPD 14:24
DX: F10.20 Alcohol dependence, uncomplicated (principal); R45.851 Suicidal ideations; F31.9 Bipolar disorder, unspecified; F41.9 Anxiety disorder, unspecified; I25.10 Atherosclerotic heart disease of native coronary artery without angina pectoris; I50.9 Heart failure, unspecified; J44.9 Chronic obstructive pulmonary disease, unspecified; K21.9 Gastro-esophageal reflux disease without esophagitis; F20.9 Schizophrenia, unspecified
CPT/HCPCS: 99283

== ENCOUNTER 2017-01-22 20:28 | Emergency (ER) | payer MEDICARE, OTHER ==
[~2017-01-22] VITALS: Ht 160 cm; Wt 60.0 kg
[2017-01-22 20:32] VITALS: BP 125/76; PULSE 116; RESP 15; TEMP 99.2; O2SAT 96
--- NOTE | 2017-01-22 23:20 | PD ---
HPI Chief Complaint: Suicide Ideation/Attempt Time Seen by Provider: 23:16 Travel History International Travel<30 days: No Contact w/Intl Traveler<30days: No Traveled to known affect area: No History of Present Illness HPI 56-year-old white male presents a second time this evening after being just discharged stating that he is suicidal and needs help with alcohol abuse. The patient states that he did not take the bus to [facility] for his evaluation. He states that he does not have any way of getting there. The patient denies any changes since his last visit a few hours ago. PFSH Past Medical History Hx Anticoagulant Therapy: Yes (asa) AAA: No ADD: No ADHD: No Alzheimer's Disease: No Anemia: No Arthritis: Yes Asthma: Yes Atrial Fibrillation: No Autoimmune Disease: No Blood Disorders: No Bipolar Disorder: Yes Anxiety: Yes Depression: Yes Cancer: No Cardiac Catheterization: Yes Cardiomyopathy: No Cardiovascular Problems: Yes (CAD, CARDIAC STENT ) Cerebral Palsy: No High Cholesterol: Yes Chest Pain: No Congestive Heart Failure: Yes Cirrhosis: No COPD: Yes Coronary Artery Disease: Yes Cystic Fibrosis: No Dementia: No Developmental Delay: No Diabetes: No Diminished Hearing: No Endocrine: No Gastrointestinal Disorders: Yes (Acid reflux) GERD: Yes Glaucoma: No Gout: No Genitourinary: No Hepatitis: No Hiatal Hernia: No Heparin Induced Thrombocytopen: No Herniated Disk: No Hypertension: No Immune Disorder: No Inguinal Hernia: No Implanted Vascular Access Dvce: No Insomnia: Yes Kidney Stones: No Musculoskeletal: Yes Neurologic: Yes Parkinson's Disease: No Psychiatric: Yes (multiple ED/detox admissions; chronic alcoholic) Reproductive: No Respiratory: Yes (copd) Resp. Syncytial Virus (RSV): No Integumentary: Yes Immunizations Current: Yes Migraines: No Myocardial Infarction: Yes Pancreatitis: No Radiation Therapy: No Renal Failure: No Schizophrenia: Yes Seizures: Yes Shingles: No Sickle Cell Disease: No Sleep Apnea: Yes Thyroid Disease: No Ulcer: No Tetanus Vaccination: < 5 Years Menopausal: No Past Surgical History Abdominal Aneurysm Repair: No Abdominal Surgery: No AICD: No Appendectomy: No Arteriovenous Shunt: No Cholecystectomy: No Coronary Stent: Yes Ear Surgery: No Endocrine Surgery: No Eye Surgery: No Genitourinary Surgery: No Gynecologic Surgery: No Joint Replacement: No Mastectomy: No Oral Surgery: No Pacemaker: No Prostatectomy: No Thoracic Surgery: No Tonsillectomy: Yes Tympanostomy Tube: No Valve Replacement: No Other Surgery: Yes (Right wrist, accidentally cut self) Social History Alcohol Use: Yes (4 beers per day) Tobacco Use: Yes (1 PACK PER WEEK) Substance Use: Yes (MARIJUANA, cocaine) Allergies-Medications (Allergen,Severity, Reaction): Coded Allergies: codeine (Unverified Allergy, Mild, RASH, 01/22/17) *MDRO Multi-Drug Resistant Organism (Verified Adverse Reaction, Unknown, ) 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, 07/31/16) Reported Meds & Prescriptions Reported Meds & Active Scripts Active Reported Trazodone (Trazodone HCl) 300 Mg Tab 300 Mg PO HS Risperdal (Risperidone) 3 Mg Tab 3 Mg PO Q12HR Review of Systems Except as stated in HPI: all other systems reviewed are Neg Physical Exam Narrative GENERAL: This is a well-nourished, well-developed patient, in no apparent distress. SKIN: No rashes, ecchymoses or lesions. Warm and dry. HEAD: Atraumatic. Normocephalic. EYES: PERRL, EOMI, no discharge or injection. No scleral icterus. EARS: Clear NOSE: Nasal turbinates appear normal. THROAT: Mucosa pink and moist. Airway patent. NECK: Trachea midline. supple, moves head freely. LUNGS: Clear to auscultation. CV: Regular in rhythm. ABDOMEN: Soft nontender. EXT: No clubbing cyanosis or edema. Data Data Last Documented VS Vital Signs Date Time Temp Pulse Resp B/P (MAP) Pulse Ox O2 Delivery O2 Flow Rate FiO2 01/22/17 20:32 99.2 116 15 125/76 (92) 96 Room Air MDM Medical Decision Making Medical Screen Exam Complete: Yes Emergency Medical Condition: Yes Medical Record Reviewed: Yes Differential Diagnosis Differential diagnoses: Substance abuse, intoxication, alcohol induced mood disorder, depression, malingering Narrative Course The patient is advised that he can take his 2 bus tickets and make his way to [facility] to be evaluated for his depression and suicidal thoughts. He also can be evaluated for his alcohol abuse. The patient now understands that he can go on his own. The bus in the morning at 6:30. Patient verbally states understanding. He will be allowed to sleep in the triage waiting room until 6: 30 in the morning when the buses run. Diagnosis Primary Impression: Medical clearance for psychiatric admission Additional Impression: Alcohol dependence Qualified Codes: F10.20 - Alcohol dependence, uncomplicated Patient Instructions: General Instructions Additional Instructions: Rest. Increase fluids. Avoid alcohol. Avoid illegal substances. Follow-up with [facility] for detox. Do not operate a car or any heavy machinery under the influence of alcohol or drugs. Follow-up with a medical doctor this week. Return to the ER for emergencies Med/Other Pt SpecificInfo: No Change to Meds Disposition: 01 DISCHARGE HOME Condition: Stable (no) Mannie Bustos Jan 22, 2017 23:20
== END 2017-01-22 23:41 | disposition home or self-care (01) ==
LOC: NEPD 20:28
DX: F10.20 Alcohol dependence, uncomplicated (principal); F31.9 Bipolar disorder, unspecified; I25.10 Atherosclerotic heart disease of native coronary artery without angina pectoris; I50.9 Heart failure, unspecified; J44.9 Chronic obstructive pulmonary disease, unspecified; K21.9 Gastro-esophageal reflux disease without esophagitis; F20.9 Schizophrenia, unspecified; I25.2 Old myocardial infarction; F41.9 Anxiety disorder, unspecified
CPT/HCPCS: 99283

== ENCOUNTER 2017-01-26 17:19 | Emergency (ER) | payer MEDICARE, OTHER ==
[~2017-01-26] VITALS: Ht 160 cm; Wt 62.0 kg
[~2017-01-26 17:19] MED LIST changes: -BACT800T5 PO; -FLUTI110I INH; -IPRA17I INH; -PRED-503 PO; -VENTAER INH
--- NOTE | 2017-01-26 17:29 | PD ---
Physical Exam Time Seen by Provider: 17:25 Narrative 56yo M c/o R sided dental pain since yesterday. Denies sore throat, difficulty swallowing. Cannot verify if pain is upper or lower. Denies fever, vomiting. +nausea. Patient seen in triage. VS reviewed. Patient awaiting bed placement. Data Data Last Documented VS Vital Signs Date Time Temp Pulse Resp B/P (MAP) Pulse Ox O2 Delivery O2 Flow Rate FiO2 01/26/17 17:30 97.7 89 12 132/73 (92) 99 Orders Orders Complete Blood Count With Diff (01/26/17 17:37) Comprehensive Metabolic Panel (01/26/17 17:37) Alcohol (Ethanol) (01/26/17 17:37) Urinalysis - C+S If Indicated (01/26/17 17:37) Drug Screen, Random Urine (01/26/17 17:37) Labs Laboratory Tests Test 01/26/17 17:50 MDM Supervised Visit with BOB: Angelina Segovia Jan 26, 2017 17:29
[2017-01-26 17:30] VITALS: BP 132/73; PULSE 89; RESP 12; TEMP 97.7; O2SAT 99
[2017-01-26 18:12] LABS: AUTOMATED NEUTROPHIL # 3.5 TH/MM3 (1.8-7.7); BASOPHIL # 0.1 TH/MM3 (0-0.2); BASOPHIL % 1.2 % (0.0-2.0); EOSINOPHIL # 0.2 TH/MM3 (0-0.4); HEMATOCRIT 48.7 % (39.0-51.0); HEMO FLAGS DIFF FINAL; LYMPH % 33.9 % (9.0-44.0); LYMPHOCYTE # 2.2 TH/MM3 (1.0-4.8); MEAN CELL VOLUME 97.5 FL (80.0-100.0); MEAN CORPUSCULAR HEMOGLOBIN 33.3 PG (27.0-34.0); MEAN CORPUSCULAR HGB CONC 34.2 % (32.0-36.0); MONO % 7.6 % (0.0-8.0); NEUT % 54.3 % (16.0-70.0); PLATELET COUNT 312 TH/MM3 (150-450); RED CELL DISTRIBUTION WIDTH 16.1 % (11.6-17.2); WHITE BLOOD COUNT 6.4 TH/MM3 (4.0-11.0)
[2017-01-26 18:18] LABS: BLOOD, URINE TRACE (NEG); COMMENT (UR) CULT NOT INDICATED; CULTURE IF INDICATED CULT NOT INDICATED; GLUCOSE,URINE NEG (NEG); HYALINE CAST, URINE 10 /lpf (RARE); KETONE, URINE 10 mg/dL (NEG); NITRITE,URINE NEG (NEG); SQUAMOUS EPITHELIAL CELL URINE <1 /hpf (0-5); URINE COLOR YELLOW (YELLW/STRAW)
[2017-01-26 18:32] LABS: ANION GAP 9 MEQ/L (5-15); AST (GOT) 37 U/L (15-37); BICARBONATE 24.2 MEQ/L (21.0-32.0); BLOOD UREA NITROGEN 9 MG/DL (7-18); CHLORIDE 105 MEQ/L (98-107); GLOMERULAR FILTRATION RATE 113 ML/MIN (>89); POTASSIUM 4.3 MEQ/L (3.5-5.1); SODIUM (NA) 138 MEQ/L (136-145)
[2017-01-26 18:33] LABS: ALT (GPT) 31 U/L (12-78)
[2017-01-26 18:36] LABS: ALKALINE PHOSPHATASE 167 U/L (45-117); TOTAL BILIRUBIN ADULT 0.3 MG/DL (0.2-1.0)
[2017-01-26 18:38] LABS: ALCOHOL 341 MG/DL (0-5)
--- NOTE | 2017-01-26 19:48 | PD ---
HPI Chief Complaint: Psychiatric Symptoms Time Seen by Provider: 19:16 Travel History International Travel<30 days: No Contact w/Intl Traveler<30days: No Traveled to known affect area: No History of Present Illness HPI 56-year-old male with long-standing history of substance-induced disorder, alcohol dependency, presents to the emergency department under a Silver act for psychiatric evaluation. Patient has his recurrent plan to [place]. States he cannot afford his medications. He has no other symptoms to report. PFSH Past Medical History Medical History: Unable to Obtain Hx Anticoagulant Therapy: Yes (asa) AAA: No ADD: No ADHD: No Alzheimer's Disease: No Anemia: No Arthritis: Yes Asthma: Yes Atrial Fibrillation: No Autoimmune Disease: No Blood Disorders: No Bipolar Disorder: Yes Anxiety: Yes Depression: Yes Cancer: No Cardiac Catheterization: Yes Cardiomyopathy: No Cardiovascular Problems: Yes (CAD, CARDIAC STENT ) Cerebral Palsy: No High Cholesterol: Yes Chest Pain: No Congestive Heart Failure: Yes Cirrhosis: No COPD: Yes Coronary Artery Disease: Yes Cystic Fibrosis: No Dementia: No Developmental Delay: No Diabetes: No Diminished Hearing: No Endocrine: No Gastrointestinal Disorders: Yes (Acid reflux) GERD: Yes Glaucoma: No Gout: No Genitourinary: No Hepatitis: No Hiatal Hernia: No Heparin Induced Thrombocytopen: No Herniated Disk: No Hypertension: No Immune Disorder: No Inguinal Hernia: No Implanted Vascular Access Dvce: No Insomnia: Yes Kidney Stones: No Musculoskeletal: Yes Neurologic: Yes Parkinson's Disease: No Psychiatric: Yes (multiple ED/detox admissions; chronic alcoholic) Reproductive: No Respiratory: Yes (copd) Resp. Syncytial Virus (RSV): No Integumentary: Yes Immunizations Current: Yes Migraines: No Myocardial Infarction: Yes Pancreatitis: No Radiation Therapy: No Renal Failure: No Schizophrenia: Yes Seizures: Yes Shingles: No Sickle Cell Disease: No Sleep Apnea: Yes Thyroid Disease: No Ulcer: No Influenza Vaccination: No Menopausal: No Past Surgical History Abdominal Aneurysm Repair: No Abdominal Surgery: No AICD: No Appendectomy: No Arteriovenous Shunt: No Cholecystectomy: No Coronary Stent: Yes Ear Surgery: No Endocrine Surgery: No Eye Surgery: No Genitourinary Surgery: No Gynecologic Surgery: No Joint Replacement: No Mastectomy: No Oral Surgery: No Pacemaker: No Prostatectomy: No Thoracic Surgery: No Tonsillectomy: Yes Tympanostomy Tube: No Valve Replacement: No Other Surgery: Yes (Right wrist, accidentally cut self) Social History Alcohol Use: Yes (4 beers per day) Tobacco Use: Yes (1 PACK PER WEEK) Substance Use: Yes (MARIJUANA, cocaine) Allergies-Medications (Allergen,Severity, Reaction): Coded Allergies: codeine (Unverified Allergy, Mild, RASH, 01/22/17) *MDRO Multi-Drug Resistant Organism (Verified Adverse Reaction, Unknown, ) 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, 07/31/16) Reported Meds & Prescriptions Reported Meds & Active Scripts Active Reported Trazodone (Trazodone HCl) 300 Mg Tab 300 Mg PO HS Risperdal (Risperidone) 3 Mg Tab 3 Mg PO Q12HR Review of Systems Except as stated in HPI: all other systems reviewed are Neg Physical Exam Narrative GENERAL: Well-nourished male patient, in no acute distress SKIN: Focused skin assessment warm/dry. HEAD: Atraumatic. Normocephalic. EYES: Pupils equal and round. No scleral icterus. No injection or drainage. ENT: No nasal bleeding or discharge. Mucous membranes pink and moist. NECK: Trachea midline. No JVD. CARDIOVASCULAR: Regular rate and rhythm. No murmur appreciated. RESPIRATORY: No accessory muscle use. Coarse to auscultation. Breath sounds equal bilaterally. GASTROINTESTINAL: Abdomen soft, non-tender, nondistended. Hepatic and splenic margins not palpable. MUSCULOSKELETAL: No obvious deformities. No clubbing. No cyanosis. No edema. NEUROLOGICAL: Awake and alert. No obvious cranial nerve deficits. Motor grossly within normal limits. Normal speech. Data Data Last Documented VS Vital Signs Date Time Temp Pulse Resp B/P (MAP) Pulse Ox O2 Delivery O2 Flow Rate FiO2 01/26/17 17:30 97.7 89 12 132/73 (92) 99 Orders Orders Complete Blood Count With Diff (01/26/17 17:37) Comprehensive Metabolic Panel (01/26/17 17:37) Alcohol (Ethanol) (01/26/17 17:37) Urinalysis - C+S If Indicated (01/26/17 17:37) Drug Screen, Random Urine (01/26/17 17:37) Labs Laboratory Tests Test 01/26/17 17:50 White Blood Count 6.4 TH/MM3 Red Blood Count 5.00 MIL/MM3 Hemoglobin 16.7 GM/DL Hematocrit 48.7 % Mean Corpuscular Volume 97.5 FL Mean Corpuscular Hemoglobin 33.3 PG Mean Corpuscular Hemoglobin Concent 34.2 % Red Cell Distribution Width 16.1 % Platelet Count 312 TH/MM3 Mean Platelet Volume 7.2 FL Neutrophils (%) (Auto) 54.3 % Lymphocytes (%) (Auto) 33.9 % Monocytes (%) (Auto) 7.6 % Eosinophils (%) (Auto) 3.0 % Basophils (%) (Auto) 1.2 % Neutrophils # (Auto) 3.5 TH/MM3 Lymphocytes # (Auto) 2.2 TH/MM3 Monocytes # (Auto) 0.5 TH/MM3 Eosinophils # (Auto) 0.2 TH/MM3 Basophils # (Auto) 0.1 TH/MM3 CBC Comment DIFF FINAL Differential Comment Urine Color YELLOW Urine Turbidity CLEAR Urine pH 5.0 Urine Specific [place] 1.014 Urine Protein 30 mg/dL Urine Glucose (UA) NEG mg/dL Urine Ketones 10 mg/dL Urine Occult Blood TRACE Urine Nitrite NEG Urine Bilirubin NEG Urine Urobilinogen LESS THAN 2.0 MG/DL Urine Leukocyte Esterase NEG Urine WBC 1 /hpf Urine Squamous Epithelial Cells <1 /hpf Urine Hyaline Casts 10 /lpf Microscopic Urinalysis Comment CULT NOT INDICATED Blood Urea Nitrogen 9 MG/DL Creatinine 0.72 MG/DL Random Glucose 73 MG/DL Total Protein 7.7 GM/DL Albumin 4.0 GM/DL Calcium Level 7.9 MG/DL Alkaline Phosphatase 167 U/L Aspartate Amino Transf (AST/SGOT) 37 U/L Alanine Aminotransferase (ALT/SGPT) 31 U/L Total Bilirubin 0.3 MG/DL Sodium Level 138 MEQ/L Potassium Level 4.3 MEQ/L Chloride Level 105 MEQ/L Carbon Dioxide Level 24.2 MEQ/L Anion Gap 9 MEQ/L Estimat Glomerular Filtration Rate 113 ML/MIN Urine Opiates Screen NEG Urine Barbiturates Screen NEG Urine Amphetamines Screen NEG Urine Benzodiazepines Screen NEG Urine Cocaine Screen NEG Urine Cannabinoids Screen NEG Ethyl Alcohol Level 341 MG/DL [facility] Medical Decision Making Medical Screen Exam Complete: Yes Emergency Medical Condition: Yes Medical Record Reviewed: Yes Differential Diagnosis Mood disorder versus personality disorder versus adjustment reaction disorder versus alcoholism versus malingering Narrative Course 56-year-old male presents to emergency department under Silver act for psychiatric evaluation. Patient has history of bipolar disorder and alcohol and is being disorder. Appears without distress. Lab work is without acute concern. Patient is medically cleared and a psychiatric screening for further evaluation and disposition. Mental health screening discussed with the patient. Psychiatric screen ordered. Diagnosis Primary Impression: Alcohol-induced mood disorder Additional Impression: History of bipolar disorder Condition: Stable Gina Pelaez Jan 26, 2017 19:48
[2017-01-27 00:32] VITALS: BP 121/73; PULSE 112; RESP 22; O2SAT 93
[2017-01-27] MEDS ORDERED: LORazepam 2 MG/ML VIAL IV PUSH PRN ×4 (00:45)
[2017-01-27] MEDS ORDERED: LORazepam 1 MG TAB PO PRN (00:45)
[2017-01-27] MEDS ORDERED: LORazepam 2 MG TAB PO PRN (00:45)
[2017-01-27 02:04] VITALS: BP 117/70; PULSE 91; RESP 18; O2SAT 97
[2017-01-27 06:00] VITALS: BP 128/74; PULSE 80; RESP 19; O2SAT 95
--- NOTE | 2017-01-27 10:07 | PD ---
Physical Exam Date Seen by Provider: Jan 27, 2017 Time Seen by Provider: 10:06 Narrative Silver acted is limited by Dr. Michael. Patient is still medically stable and ready for discharge. Data Data Last Documented VS Vital Signs Date Time Temp Pulse Resp B/P (MAP) Pulse Ox O2 Delivery O2 Flow Rate FiO2 01/27/17 06:00 80 19 128/74 (92) 95 Room Air 01/26/17 17:30 97.7 Orders Orders Complete Blood Count With Diff (01/26/17 17:37) Comprehensive Metabolic Panel (01/26/17 17:37) Alcohol (Ethanol) (01/26/17 17:37) Urinalysis - C+S If Indicated (01/26/17 17:37) Drug Screen, Random Urine (01/26/17 17:37) Psych Screen (01/27/17 00:32) Alcohol Withdrawal Asmt-Ciwa Q4HX18 (01/27/17 00:42) Lorazepam (Ativan) (01/27/17 00:45) Lorazepam Inj (Ativan Inj) (01/27/17 00:45) Lorazepam (Ativan) (01/27/17 00:45) Lorazepam Inj (Ativan Inj) (01/27/17 00:45) Lorazepam Inj (Ativan Inj) (01/27/17 00:45) Lorazepam Inj (Ativan Inj) (01/27/17 00:45) Diet Regular Basic (01/27/17 Breakfast) Labs Laboratory Tests Test 01/26/17 17:50 White Blood Count 6.4 TH/MM3 Red Blood Count 5.00 MIL/MM3 Hemoglobin 16.7 GM/DL Hematocrit 48.7 % Mean Corpuscular Volume 97.5 FL Mean Corpuscular Hemoglobin 33.3 PG Mean Corpuscular Hemoglobin Concent 34.2 % Red Cell Distribution Width 16.1 % Platelet Count 312 TH/MM3 Mean Platelet Volume 7.2 FL Neutrophils (%) (Auto) 54.3 % Lymphocytes (%) (Auto) 33.9 % Monocytes (%) (Auto) 7.6 % Eosinophils (%) (Auto) 3.0 % Basophils (%) (Auto) 1.2 % Neutrophils # (Auto) 3.5 TH/MM3 Lymphocytes # (Auto) 2.2 TH/MM3 Monocytes # (Auto) 0.5 TH/MM3 Eosinophils # (Auto) 0.2 TH/MM3 Basophils # (Auto) 0.1 TH/MM3 CBC Comment DIFF FINAL Differential Comment Urine Color YELLOW Urine Turbidity CLEAR Urine pH 5.0 Urine Specific [place] 1.014 Urine Protein 30 mg/dL Urine Glucose (UA) NEG mg/dL Urine Ketones 10 mg/dL Urine Occult Blood TRACE Urine Nitrite NEG Urine Bilirubin NEG Urine Urobilinogen LESS THAN 2.0 MG/DL Urine Leukocyte Esterase NEG Urine WBC 1 /hpf Urine Squamous Epithelial Cells <1 /hpf Urine Hyaline Casts 10 /lpf Microscopic Urinalysis Comment CULT NOT INDICATED Blood Urea Nitrogen 9 MG/DL Creatinine 0.72 MG/DL Random Glucose 73 MG/DL Total Protein 7.7 GM/DL Albumin 4.0 GM/DL Calcium Level 7.9 MG/DL Alkaline Phosphatase 167 U/L Aspartate Amino Transf (AST/SGOT) 37 U/L Alanine Aminotransferase (ALT/SGPT) 31 U/L Total Bilirubin 0.3 MG/DL Sodium Level 138 MEQ/L Potassium Level 4.3 MEQ/L Chloride Level 105 MEQ/L Carbon Dioxide Level 24.2 MEQ/L Anion Gap 9 MEQ/L Estimat Glomerular Filtration Rate 113 ML/MIN Urine Opiates Screen NEG Urine Barbiturates Screen NEG Urine Amphetamines Screen NEG Urine Benzodiazepines Screen NEG Urine Cocaine Screen NEG Urine Cannabinoids Screen NEG Ethyl Alcohol Level 341 MG/DL [facility] Medical Record Reviewed: Yes Supervised Visit with BOB: Yes Narrative Course Silver acted is limited by Dr. Michael. Patient is still medically stable and ready for discharge. Diagnosis Primary Impression: Alcohol-induced mood disorder Additional Impression: History of bipolar disorder Patient Instructions: General Instructions Condition: Stable Dariel Demarco Jan 27, 2017 10:07
--- NOTE | 2017-01-27 10:07 | PD ---
History of Present Illness Chief Complaint: Psychiatric Symptoms Time Seen by Provider: 10:00 Travel History International Travel<30 Days: No Contact w/Intl Traveler<30days: No Known affected area: No Legal Status Legal Status: Adrianne Act Silver Act Signed By: Rubina Silver Act Comment: 2016 @ 0676 History of Present Illness: Patient well known to this physician. Chronic alcoholic. Just finished breakfast. Denies any suicidal or homicidal ideation, plan or intent. Cognition is intact and he has no psychotic symptoms. PFSH Past Medical History Medical History: Unable to Obtain Hx Anticoagulant Therapy: Yes (asa) AAA: No ADD: No ADHD: No Alzheimer's Disease: No Anemia: No Arthritis: Yes Asthma: Yes Atrial Fibrillation: No Autoimmune Disease: No Blood Disorders: No Bipolar Disorder: Yes Anxiety: Yes Depression: Yes Cancer: No Cardiac Catheterization: Yes Cardiomyopathy: No Cardiovascular Problems: Yes (CAD, CARDIAC STENT ) Cerebral Palsy: No High Cholesterol: Yes Chest Pain: No Congestive Heart Failure: Yes Cirrhosis: No COPD: Yes Coronary Artery Disease: Yes Cystic Fibrosis: No Dementia: No Developmental Delay: No Diabetes: No Diminished Hearing: No Endocrine: No Gastrointestinal Disorders: Yes (Acid reflux) GERD: Yes Glaucoma: No Gout: No Genitourinary: No Hepatitis: No Hiatal Hernia: No Heparin Induced Thrombocytopen: No Herniated Disk: No Hypertension: No Immune Disorder: No Inguinal Hernia: No Implanted Vascular Access Dvce: No Insomnia: Yes Kidney Stones: No Musculoskeletal: Yes Neurologic: Yes Parkinson's Disease: No Psychiatric: Yes (multiple ED/detox admissions; chronic alcoholic) Reproductive: No Respiratory: Yes (copd) Resp. Syncytial Virus (RSV): No Integumentary: Yes Immunizations Current: Yes Migraines: No Myocardial Infarction: Yes Pancreatitis: No Radiation Therapy: No Renal Failure: No Schizophrenia: Yes Seizures: Yes Shingles: No Sickle Cell Disease: No Sleep Apnea: Yes Thyroid Disease: No Ulcer: No Influenza Vaccination: No Menopausal: No Past Surgical History Abdominal Aneurysm Repair: No Abdominal Surgery: No AICD: No Appendectomy: No Arteriovenous Shunt: No Cholecystectomy: No Coronary Stent: Yes Ear Surgery: No Endocrine Surgery: No Eye Surgery: No Genitourinary Surgery: No Gynecologic Surgery: No Joint Replacement: No Mastectomy: No Oral Surgery: No Pacemaker: No Prostatectomy: No Thoracic Surgery: No Tonsillectomy: Yes Tympanostomy Tube: No Valve Replacement: No Other Surgery: Yes (Right wrist, accidentally cut self) Psychiatric History Psychiatric History Hx Psychiatric Treatment: Multiple detox admissions, Multiple Ed visits for alcohol intoxication History of Inpatient Treatment: Yes Guns or firearms in home: No Social History Hx Alcohol Use: Yes (4 beers per day) Hx Tobacco Use: Yes (1 PACK PER WEEK) Hx Substance Use: Yes (MARIJUANA, cocaine) Substance Use Type: Alcohol, Marijuana, Cocaine Other Substances Used: PT IS A CHRONIC ALCOHOLIC Hx of Substance Use Treatment: Yes Allergies-Medications (Allergen,Severity, Reaction): Coded Allergies: codeine (Unverified Allergy, Mild, RASH, 01/27/17) *MDRO Multi-Drug Resistant Organism (Verified Adverse Reaction, Unknown, ) 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, 07/31/16) Reported Meds & Prescriptions Reported Meds & Active Scripts Active Reported Trazodone (Trazodone HCl) 300 Mg Tab 300 Mg PO HS Risperdal (Risperidone) 3 Mg Tab 3 Mg PO Q12HR Review of Systems Except as stated in HPI: all other systems reviewed are Neg Exam Alert: Yes [place]: Person, Place, Date, Situation Mood: Calm Affect: Appropriate Speech: Clear, Logical Eye Contact: Normal Memory Intact: Immediate, Recent, Remote Insight/Judgement Adequate but continues to drink alcohol. MDM Medical Decision Making Medical Record Reviewed: Yes Assessment/Plan Medical record reviewed and case discussed with nurse. Patient interviewed at his room. Verbally darren for safety and competent to do so. No longer intoxicated. Orders Orders Complete Blood Count With Diff (01/26/17 17:37) Comprehensive Metabolic Panel (01/26/17 17:37) Alcohol (Ethanol) (01/26/17 17:37) Urinalysis - C+S If Indicated (01/26/17 17:37) Drug Screen, Random Urine (01/26/17 17:37) Psych Screen (01/27/17 00:32) Alcohol Withdrawal Asmt-Ciwa [id number] (01/27/17 00:42) Lorazepam (Ativan) (01/27/17 00:45) Lorazepam Inj (Ativan Inj) (01/27/17 00:45) Lorazepam (Ativan) (01/27/17 00:45) Lorazepam Inj (Ativan Inj) (01/27/17 00:45) Lorazepam Inj (Ativan Inj) (01/27/17 00:45) Lorazepam Inj (Ativan Inj) (01/27/17 00:45) Diet Regular Basic (01/27/17 Breakfast) Results Vital Signs Date Time Temp Pulse Resp B/P (MAP) Pulse Ox O2 Delivery O2 Flow Rate FiO2 01/27/17 06:00 80 19 128/74 (92) 95 Room Air 01/27/17 02:04 91 18 117/70 (86) 97 Room Air 01/27/17 00:32 112 22 121/73 (89) 93 Room Air 01/26/17 17:30 97.7 89 12 132/73 (92) 99 Laboratory Tests Test 01/26/17 17:50 White Blood Count 6.4 Red Blood Count 5.00 Hemoglobin 16.7 Hematocrit 48.7 Mean Corpuscular Volume 97.5 Mean Corpuscular Hemoglobin 33.3 Mean Corpuscular Hemoglobin Concent 34.2 Red Cell Distribution Width 16.1 Platelet Count 312 Mean Platelet Volume 7.2 Neutrophils (%) (Auto) 54.3 Lymphocytes (%) (Auto) 33.9 Monocytes (%) (Auto) 7.6 Eosinophils (%) (Auto) 3.0 Basophils (%) (Auto) 1.2 Neutrophils # (Auto) 3.5 Lymphocytes # (Auto) 2.2 Monocytes # (Auto) 0.5 Eosinophils # (Auto) 0.2 Basophils # (Auto) 0.1 CBC Comment DIFF FINAL Differential Comment Urine Color YELLOW Urine Turbidity CLEAR Urine pH 5.0 Urine Specific [place] 1.014 Urine Protein 30 Urine Glucose (UA) NEG Urine Ketones 10 Urine Occult Blood TRACE Urine Nitrite NEG Urine Bilirubin NEG Urine Urobilinogen LESS THAN 2.0 Urine Leukocyte Esterase NEG Urine WBC 1 Urine Squamous Epithelial Cells <1 Urine Hyaline Casts 10 Microscopic Urinalysis Comment CULT NOT INDICATED Blood Urea Nitrogen 9 Creatinine 0.72 Random Glucose 73 Total Protein 7.7 Albumin 4.0 Calcium Level 7.9 Alkaline Phosphatase 167 Aspartate Amino Transf (AST/SGOT) 37 Alanine Aminotransferase (ALT/SGPT) 31 Total Bilirubin 0.3 Sodium Level 138 Potassium Level 4.3 Chloride Level 105 Carbon Dioxide Level 24.2 Anion Gap 9 Estimat Glomerular Filtration Rate 113 Urine Opiates Screen NEG Urine Barbiturates Screen NEG Urine Amphetamines Screen NEG Urine Benzodiazepines Screen NEG Urine Cocaine Screen NEG Urine Cannabinoids Screen NEG Ethyl Alcohol Level 341 Diagnosis Primary Impression: Adjustment disorder with mixed disturbance of emotions and conduct Additional Impression: Alcohol abuse Condition: Stable Problem Qualifiers Noah Michael MD Jan 27, 2017 10:07
== END 2017-01-27 10:49 | disposition home or self-care (01) ==
LOC: NEDAMB 17:19 → NEPJ 01-27 10:49
DX: F10.94 Alcohol use, unspecified with alcohol-induced mood disorder (principal); F31.9 Bipolar disorder, unspecified; F43.25 Adjustment disorder with mixed disturbance of emotions and conduct; J44.9 Chronic obstructive pulmonary disease, unspecified; I50.9 Heart failure, unspecified; I25.10 Atherosclerotic heart disease of native coronary artery without angina pectoris; K21.9 Gastro-esophageal reflux disease without esophagitis; F20.9 Schizophrenia, unspecified; Z79.899 Other long term (current) drug therapy
CPT/HCPCS: 80053; 80307; 81001; 85025; 99284

== ENCOUNTER 2017-01-27 17:23 | Emergency (ER) | payer MEDICARE, OTHER ==
[~2017-01-27] VITALS: Ht 160 cm; Wt 65.0 kg
[2017-01-27 17:27] VITALS: BP 157/62; PULSE 99; RESP 18; TEMP 98.6; O2SAT 98
--- NOTE | 2017-01-27 17:48 | PD ---
Physical Exam Date Seen by Provider: Jan 27, 2017 Time Seen by Provider: 17:46 Narrative 56 yo male here for suicidal ideation. Cannot afford his meds. Suicidal. Well known. Vitals stable in triage. Awaiting bed placement. Data Data Last Documented VS Vital Signs Date Time Temp Pulse Resp B/P (MAP) Pulse Ox O2 Delivery O2 Flow Rate FiO2 01/27/17 17:27 98.6 99 18 157/62 (93) 98 MDM Medical Record Reviewed: Yes Supervised Visit with BOB: Rodríguez Johnson Jan 27, 2017 17:48
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
[2017-01-27 22:00] VITALS: BP 115/78; PULSE 100; RESP 19; O2SAT 96
[2017-01-28 02:00] VITALS: BP 133/86; PULSE 99; RESP 19; O2SAT 94
[2017-01-28 06:00] VITALS: BP 126/90; PULSE 92; RESP 16; O2SAT 95
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
--- NOTE | 2017-01-28 11:18 | PD ---
Physical Exam Date Seen by Provider: Jan 28, 2017 Time Seen by Provider: 11:18 Narrative 1100 hours on 01/28/2017, patient is cleared by Dr. Michael the psychiatrist. Patient's medical issues are stable. Patient is cleared for discharge. Data Data Last Documented VS Vital Signs Date Time Temp Pulse Resp B/P (MAP) Pulse Ox O2 Delivery O2 Flow Rate FiO2 01/28/17 06:00 92 16 126/90 (102) 95 Room Air 01/27/17 17:27 98.6 Orders Orders Diet Regular Basic (01/28/17 Breakfast) Diet Regular Basic (01/28/17 Lunch) MDM Medical Record Reviewed: Yes Supervised Visit with BOB: Yes Narrative Course 1100 hours on 01/28/2017, patient is cleared by Dr. Michael the psychiatrist. Patient's medical issues are stable. Patient is cleared for discharge. Diagnosis Primary Impression: Alcohol abuse Additional Impression: Malingering Patient Instructions: General Instructions Disposition: 01 DISCHARGE HOME Condition: Stable Dariel Demarco Jan 28, 2017 11:18
== END 2017-01-28 12:21 | disposition home or self-care (01) ==
LOC: NEPJ 17:23
DX: F10.10 Alcohol abuse, uncomplicated (principal); F31.9 Bipolar disorder, unspecified; R45.851 Suicidal ideations; J44.9 Chronic obstructive pulmonary disease, unspecified; I25.10 Atherosclerotic heart disease of native coronary artery without angina pectoris; I50.9 Heart failure, unspecified; K21.9 Gastro-esophageal reflux disease without esophagitis; F20.9 Schizophrenia, unspecified; Z76.5 Malingerer [conscious simulation]
CPT/HCPCS: 99284

== ENCOUNTER 2017-01-28 19:35 | Emergency (ER) | payer MEDICARE, OTHER ==
[~2017-01-28] VITALS: Ht 160 cm; Wt 67.0 kg
[2017-01-28 19:37] VITALS: BP 97/68; PULSE 112; RESP 18; TEMP 98.7; O2SAT 95
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
== END 2017-01-29 03:45 | disposition home or self-care (01) ==
LOC: NEPD 19:35
DX: Z76.5 Malingerer [conscious simulation] (principal); F32.9 Major depressive disorder, single episode, unspecified; R45.851 Suicidal ideations; M13.80 Other specified arthritis, unspecified site; J45.909 Unspecified asthma, uncomplicated; F31.9 Bipolar disorder, unspecified; F41.9 Anxiety disorder, unspecified; I25.10 Atherosclerotic heart disease of native coronary artery without angina pectoris; I50.9 Heart failure, unspecified
CPT/HCPCS: 99282

== ENCOUNTER 2017-01-30 19:33 | Emergency (ER) | payer MEDICARE, OTHER ==
[~2017-01-30] VITALS: Ht 160 cm; Wt 60.0 kg
[2017-01-30 19:36] VITALS: BP 100/66; PULSE 97; RESP 16; TEMP 98.6; O2SAT 96
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
== END 2017-01-30 21:17 | disposition home or self-care (01) ==
LOC: NEPD 19:33
DX: F10.20 Alcohol dependence, uncomplicated (principal); F17.200 Nicotine dependence, unspecified, uncomplicated; Z59.0 Homelessness
CPT/HCPCS: 99281

== ENCOUNTER 2017-02-03 10:13 | Emergency (ER) | payer MEDICARE, OTHER ==
[~2017-02-03] VITALS: Ht 160 cm; Wt 60.0 kg
[2017-02-03 10:15] VITALS: BP 120/72; PULSE 88; RESP 20; TEMP 98.6; O2SAT 93
--- NOTE | 2017-02-03 10:34 | PD ---
HPI Chief Complaint: Suicide Ideation/Attempt Time Seen by Provider: 10:25 Travel History International Travel<30 days: No Contact w/Intl Traveler<30days: No Traveled to known affect area: No History of Present Illness HPI The patient is a 56-year-old male who presents emergency department for psychiatric evaluation. The patient is well-known to the emergency department with a history of alcohol intoxication and suicidal ideation. The patient states he quit drinking, however, states his last drink of alcohol was this morning. He does note suicidal ideation, states he is currently homeless, and is unable to afford his medications which include trazodone, Valium, and Risperdal. He denies any homicidal ideation. Symptoms are moderate, exacerbated by a chronic history of alcoholism and noncompliance. PFSH Past Medical History Hx Anticoagulant Therapy: Yes (asa) AAA: No ADD: No ADHD: No Alzheimer's Disease: No Anemia: No Arthritis: Yes Asthma: Yes Atrial Fibrillation: No Autoimmune Disease: No Blood Disorders: No Bipolar Disorder: Yes Anxiety: Yes Depression: Yes Cancer: No Cardiac Catheterization: Yes Cardiomyopathy: No Cardiovascular Problems: Yes (CAD, CARDIAC STENT ) Cerebral Palsy: No High Cholesterol: Yes Chest Pain: No Congestive Heart Failure: Yes Cirrhosis: No COPD: Yes Coronary Artery Disease: Yes Cystic Fibrosis: No Dementia: No Developmental Delay: No Diabetes: No Diminished Hearing: No Endocrine: No Gastrointestinal Disorders: Yes (Acid reflux) GERD: Yes Glaucoma: No Gout: No Genitourinary: No Hepatitis: No Hiatal Hernia: No Heparin Induced Thrombocytopen: No Herniated Disk: No Hypertension: No Immune Disorder: No Inguinal Hernia: No Implanted Vascular Access Dvce: No Insomnia: Yes Kidney Stones: No Musculoskeletal: Yes Neurologic: Yes Parkinson's Disease: No Psychiatric: Yes (multiple ED/detox admissions; chronic alcoholic) Reproductive: No Respiratory: Yes (COPD) Resp. Syncytial Virus (RSV): No Integumentary: Yes Immunizations Current: Yes Migraines: No Myocardial Infarction: Yes Pancreatitis: No Radiation Therapy: No Renal Failure: No Schizophrenia: Yes Seizures: Yes Shingles: No Sickle Cell Disease: No Sleep Apnea: Yes Thyroid Disease: No Ulcer: No Menopausal: No Past Surgical History Abdominal Aneurysm Repair: No Abdominal Surgery: No AICD: No Appendectomy: No Arteriovenous Shunt: No Cholecystectomy: No Coronary Stent: Yes Ear Surgery: No Endocrine Surgery: No Eye Surgery: No Genitourinary Surgery: No Gynecologic Surgery: No Joint Replacement: No Mastectomy: No Oral Surgery: No Pacemaker: No Prostatectomy: No Thoracic Surgery: No Tonsillectomy: Yes Tympanostomy Tube: No Valve Replacement: No Other Surgery: Yes (Right wrist, accidentally cut self) Social History Alcohol Use: Yes (4 beers per day; After leaving ER today stated that he had "one Hurricane".) Tobacco Use: Yes (1 PACK PER WEEK) Substance Use: Yes (MARIJUANA, cocaine Hx) Allergies-Medications (Allergen,Severity, Reaction): Coded Allergies: codeine (Unverified Allergy, Mild, RASH, 01/29/17) *MDRO Multi-Drug Resistant Organism (Verified Adverse Reaction, Unknown, ) 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, 07/31/16) Reported Meds & Prescriptions Reported Meds & Active Scripts Active Reported Trazodone (Trazodone HCl) 300 Mg Tab 300 Mg PO HS Risperdal (Risperidone) 3 Mg Tab 3 Mg PO Q12HR Review of Systems Except as stated in HPI: all other systems reviewed are Neg General / Constitutional: No: Fever Cardiovascular: No: Chest Pain or Discomfort Respiratory: No: Shortness of Breath Gastrointestinal: No: Nausea, Vomiting Psychiatric: Positive: Depression, Suicidal Ideations, Substance Abuse ( alcohol abuse) Physical Exam Narrative GENERAL: Awake, alert, disheveled 56-year-old male who appears his stated age and is in no acute respiratory distress. SKIN: Focused skin assessment warm/dry. HEAD: Atraumatic. Normocephalic. EYES: Pupils equal and round. Mild injection. NECK: Trachea midline. No JVD. CARDIOVASCULAR: Regular rate and rhythm. No murmur appreciated. RESPIRATORY: No accessory muscle use. Clear to auscultation. Breath sounds equal bilaterally. GASTROINTESTINAL: Abdomen soft, non-tender, nondistended. No rebound tenderness. MUSCULOSKELETAL: No obvious deformities. No clubbing. No cyanosis. No edema. NEUROLOGICAL: Awake and alert. No obvious cranial nerve deficits. Motor grossly within normal limits. Normal speech. Nonfocal. PSYCHIATRIC: Appropriate mood and affect; insight and judgment normal. Data Data Last Documented VS Vital Signs Date Time Temp Pulse Resp B/P (MAP) Pulse Ox O2 Delivery O2 Flow Rate FiO2 02/03/17 10:15 98.6 88 20 120/72 (88) 93 Room Air Orders Orders Complete Blood Count With Diff (02/03/17 10:31) Basic Metabolic Panel (Bmp) (02/03/17 10:31) Psych Screen (02/03/17 10:31) Alcohol (Ethanol) (02/03/17 10:31) Labs Laboratory Tests Test 02/03/17 10:50 White Blood Count 7.2 TH/MM3 Red Blood Count 4.62 MIL/MM3 Hemoglobin 15.7 GM/DL Hematocrit 45.1 % Mean Corpuscular Volume 97.7 FL Mean Corpuscular Hemoglobin 33.9 PG Mean Corpuscular Hemoglobin Concent 34.7 % Red Cell Distribution Width 16.9 % Platelet Count 258 TH/MM3 Mean Platelet Volume 7.3 FL Neutrophils (%) (Auto) 65.0 % Lymphocytes (%) (Auto) 23.9 % Monocytes (%) (Auto) 8.7 % Eosinophils (%) (Auto) 1.5 % Basophils (%) (Auto) 0.9 % Neutrophils # (Auto) 4.7 TH/MM3 Lymphocytes # (Auto) 1.7 TH/MM3 Monocytes # (Auto) 0.6 TH/MM3 Eosinophils # (Auto) 0.1 TH/MM3 Basophils # (Auto) 0.1 TH/MM3 CBC Comment DIFF FINAL Differential Comment Blood Urea Nitrogen 5 MG/DL Creatinine 0.62 MG/DL Random Glucose 103 MG/DL Calcium Level 8.0 MG/DL Sodium Level 136 MEQ/L Potassium Level 3.9 MEQ/L Chloride Level 103 MEQ/L Carbon Dioxide Level 25.8 MEQ/L Anion Gap 7 MEQ/L Estimat Glomerular Filtration Rate 134 ML/MIN Ethyl Alcohol Level 275 MG/DL [facility] Medical Decision Making Medical Screen Exam Complete: Yes Emergency Medical Condition: Yes Medical Record Reviewed: Yes Interpretation(s) Laboratory Tests Test 02/03/17 10:50 White Blood Count 7.2 TH/MM3 Red Blood Count 4.62 MIL/MM3 Hemoglobin 15.7 GM/DL Hematocrit 45.1 % Mean Corpuscular Volume 97.7 FL Mean Corpuscular Hemoglobin 33.9 PG Mean Corpuscular Hemoglobin Concent 34.7 % Red Cell Distribution Width 16.9 % Platelet Count 258 TH/MM3 Mean Platelet Volume 7.3 FL Neutrophils (%) (Auto) 65.0 % Lymphocytes (%) (Auto) 23.9 % Monocytes (%) (Auto) 8.7 % Eosinophils (%) (Auto) 1.5 % Basophils (%) (Auto) 0.9 % Neutrophils # (Auto) 4.7 TH/MM3 Lymphocytes # (Auto) 1.7 TH/MM3 Monocytes # (Auto) 0.6 TH/MM3 Eosinophils # (Auto) 0.1 TH/MM3 Basophils # (Auto) 0.1 TH/MM3 CBC Comment DIFF FINAL Differential Comment Blood Urea Nitrogen 5 MG/DL Creatinine 0.62 MG/DL Random Glucose 103 MG/DL Calcium Level 8.0 MG/DL Sodium Level 136 MEQ/L Potassium Level 3.9 MEQ/L Chloride Level 103 MEQ/L Carbon Dioxide Level 25.8 MEQ/L Anion Gap 7 MEQ/L Estimat Glomerular Filtration Rate 134 ML/MIN Ethyl Alcohol Level 275 MG/DL Differential Diagnosis Differential diagnosis includes alcohol intoxication, alcohol abuse, substance induced mood disorder, malingering, homelessness. Narrative Course Labs are drawn and sent. Psychiatric evaluation was ordered. The patient's alcohol level is elevated at 275. The patient is medically cleared to be evaluated by psychiatry. Diagnosis Primary Impression: Alcohol-induced mood disorder Additional Impressions: Drug-induced mental disorder Alcohol abuse Patient Instructions: General Instructions Condition: Stable Andrew Solis MD Feb 03, 2017 10:34
[2017-02-03 11:04] LABS: AUTOMATED NEUTROPHIL # 4.7 TH/MM3 (1.8-7.7); BASOPHIL # 0.1 TH/MM3 (0-0.2); BASOPHIL % 0.9 % (0.0-2.0); EOSINOPHIL # 0.1 TH/MM3 (0-0.4); EOSINOPHIL % 1.5 % (0.0-4.0); HEMATOCRIT 45.1 % (39.0-51.0); HEMO FLAGS DIFF FINAL; LYMPH % 23.9 % (9.0-44.0); LYMPHOCYTE # 1.7 TH/MM3 (1.0-4.8); MEAN CELL VOLUME 97.7 FL (80.0-100.0); MEAN CORPUSCULAR HEMOGLOBIN 33.9 PG (27.0-34.0); MEAN CORPUSCULAR HGB CONC 34.7 % (32.0-36.0); MONO % 8.7 % (0.0-8.0); PLATELET COUNT 258 TH/MM3 (150-450); RED BLOOD COUNT 4.62 MIL/MM3 (4.50-5.90); RED CELL DISTRIBUTION WIDTH 16.9 % (11.6-17.2); WHITE BLOOD COUNT 7.2 TH/MM3 (4.0-11.0)
[2017-02-03 11:20] LABS: BICARBONATE 25.8 MEQ/L (21.0-32.0); POTASSIUM 3.9 MEQ/L (3.5-5.1)
--- NOTE | 2017-02-03 18:24 | PD ---
Physical Exam Time Seen by Provider: 18:22 Data Data Last Documented VS Vital Signs Date Time Temp Pulse Resp B/P (MAP) Pulse Ox O2 Delivery O2 Flow Rate FiO2 02/03/17 10:15 98.6 88 20 120/72 (88) 93 Room Air Orders Orders Complete Blood Count With Diff (02/03/17 10:31) Basic Metabolic Panel (Bmp) (02/03/17 10:31) Psych Screen (02/03/17 10:31) Alcohol (Ethanol) (02/03/17 10:31) Diet Regular Basic (02/03/17 Lunch) Drug Screen, Random Urine (02/03/17 13:17) Diet Regular Basic (02/03/17 Dinner) Labs Laboratory Tests Test 02/03/17 10:50 02/03/17 13:20 White Blood Count 7.2 TH/MM3 Red Blood Count 4.62 MIL/MM3 Hemoglobin 15.7 GM/DL Hematocrit 45.1 % Mean Corpuscular Volume 97.7 FL Mean Corpuscular Hemoglobin 33.9 PG Mean Corpuscular Hemoglobin Concent 34.7 % Red Cell Distribution Width 16.9 % Platelet Count 258 TH/MM3 Mean Platelet Volume 7.3 FL Neutrophils (%) (Auto) 65.0 % Lymphocytes (%) (Auto) 23.9 % Monocytes (%) (Auto) 8.7 % Eosinophils (%) (Auto) 1.5 % Basophils (%) (Auto) 0.9 % Neutrophils # (Auto) 4.7 TH/MM3 Lymphocytes # (Auto) 1.7 TH/MM3 Monocytes # (Auto) 0.6 TH/MM3 Eosinophils # (Auto) 0.1 TH/MM3 Basophils # (Auto) 0.1 TH/MM3 CBC Comment DIFF FINAL Differential Comment Blood Urea Nitrogen 5 MG/DL Creatinine 0.62 MG/DL Random Glucose 103 MG/DL Calcium Level 8.0 MG/DL Sodium Level 136 MEQ/L Potassium Level 3.9 MEQ/L Chloride Level 103 MEQ/L Carbon Dioxide Level 25.8 MEQ/L Anion Gap 7 MEQ/L Estimat Glomerular Filtration Rate 134 ML/MIN Ethyl Alcohol Level 275 MG/DL Urine Opiates Screen NEG Urine Barbiturates Screen NEG Urine Amphetamines Screen NEG Urine Benzodiazepines Screen NEG Urine Cocaine Screen NEG Urine Cannabinoids Screen NEG MDM Medical Record Reviewed: Yes Supervised Visit with BOB: No Narrative Course Please see Dr. Solis's note for complete history of present illness. Briefly this is a patient who is very well-known to this emergency department who initially presented complaining of depression and suicidal ideation. He was medically cleared by Dr. Solis for psychiatric screening. Psychiatric screen has been complete and psychiatry has cleared him for discharge. The patient is currently darren for safety and denying any suicidal ideation. He would like to get a taxi ride to his brother's house. This seems reasonable. He has no current medical complaints. He is stable for discharge. Diagnosis Primary Impression: Alcohol-induced mood disorder Additional Impressions: Drug-induced mental disorder Alcohol abuse Patient Instructions: General Instructions Med/Other Pt SpecificInfo: No Change to Meds Disposition: 01 DISCHARGE HOME Condition: Stable Sudarshan Fallon Feb 03, 2017 18:24
[2017-02-03 18:39] VITALS: BP 120/72; PULSE 88; RESP 20; O2SAT 93
[2017-02-03 18:47] VITALS: BP 116/62; PULSE 108; RESP 18; O2SAT 96
== END 2017-02-03 19:10 | disposition home or self-care (01) ==
LOC: NEPD 10:13 → NEPJ 19:10
DX: F10.94 Alcohol use, unspecified with alcohol-induced mood disorder (principal); F99 Mental disorder, not otherwise specified; F10.10 Alcohol abuse, uncomplicated; R45.851 Suicidal ideations; F31.9 Bipolar disorder, unspecified; F41.9 Anxiety disorder, unspecified; F20.9 Schizophrenia, unspecified; I50.9 Heart failure, unspecified; Z79.899 Other long term (current) drug therapy
CPT/HCPCS: 80048; 80307; 85025; 99283

== ENCOUNTER 2017-02-09 10:25 | Emergency (ER) | payer MEDICARE, OTHER ==
[~2017-02-09] VITALS: Ht 160 cm; Wt 66.0 kg
[2017-02-09 10:27] VITALS: BP 128/83; PULSE 98; RESP 16; TEMP 98.4; O2SAT 98
[2017-02-09] MEDS ORDERED: DEXAMETHASONE SOD PHOS 4 MG/ML VIAL IM ONE (14:45)
[2017-02-09] MEDS: RESP: ALBUTEROL 2.5 MG/IPRATROPIUM 0.5 MG NEB (SCH) INH (15:31)
[2017-02-09] MEDS ORDERED: ALBUAER3 INH (16:24)
--- NOTE | 2017-02-09 16:24 | PD ---
HPI Chief Complaint: Suicide Ideation/Attempt Time Seen by Provider: 14:32 Travel History International Travel<30 days: No Contact w/Intl Traveler<30days: No Traveled to known affect area: No History of Present Illness HPI 56-year-old male complains of coughing, wheezing, suicidal. Patient has history of COPD. Patient has history of alcohol abuse. Patient states that last drink was this morning. Patient has is a smoker. Patient states that he does not have an inhaler with him. Patient denies any fever. Patient denies any headache. Patient denies any chest pain or shortness of breath. Patient denies abdominal pain. Patient denies any focal weakness or numbness of extremity. Patient states that he is suicidal today. Patient has been to the emergency room multiple times in the past with the same complaint. Patient has seen psychiatrist screener multiple times in the past and was clear in the past. Patient has no clear plan today. Patient states that he is homeless and just needs a place to stay. PFSH Past Medical History Hx Anticoagulant Therapy: No AAA: No ADD: No ADHD: No Alzheimer's Disease: No Anemia: No Arthritis: Yes Asthma: Yes Atrial Fibrillation: No Autoimmune Disease: No Blood Disorders: No Bipolar Disorder: Yes Anxiety: Yes Depression: Yes Cancer: No Cardiac Catheterization: Yes Cardiomyopathy: No Cardiovascular Problems: No Cerebral Palsy: No High Cholesterol: Yes Chemotherapy: No Chest Pain: No Congestive Heart Failure: Yes Cirrhosis: No COPD: Yes Cerebrovascular Accident: No Coronary Artery Disease: Yes Cystic Fibrosis: No Dementia: No Developmental Delay: No Diabetes: No Diminished Hearing: No Endocrine: No Gastrointestinal Disorders: Yes (Acid reflux) GERD: Yes Glaucoma: No Gout: No Genitourinary: No Hepatitis: No Hiatal Hernia: No Heparin Induced Thrombocytopen: No Herniated Disk: No Hypertension: No Immune Disorder: No Inguinal Hernia: No Implanted Vascular Access Dvce: No Insomnia: Yes Kidney Stones: No Musculoskeletal: Yes Neurologic: Yes Parkinson's Disease: No Psychiatric: Yes (multiple ED/detox admissions; chronic alcoholic) Reproductive: No Respiratory: Yes (COPD) Resp. Syncytial Virus (RSV): No Integumentary: Yes Immunizations Current: Yes Migraines: No Myocardial Infarction: Yes Pancreatitis: No Radiation Therapy: No Renal Failure: No Schizophrenia: Yes Seizures: Yes Shingles: No Sickle Cell Disease: No Sleep Apnea: Yes Thyroid Disease: No Ulcer: No ?: Not Menopausal: No Past Surgical History Abdominal Aneurysm Repair: No Abdominal Surgery: No AICD: No Appendectomy: No Arteriovenous Shunt: No Cholecystectomy: No Coronary Stent: Yes Ear Surgery: No Endocrine Surgery: No Eye Surgery: No Genitourinary Surgery: No Gynecologic Surgery: No Hysterectomy: No Joint Replacement: No Mastectomy: No Oral Surgery: No Pacemaker: No Prostatectomy: No Thoracic Surgery: No Tonsillectomy: Yes Tympanostomy Tube: No Valve Replacement: No Other Surgery: Yes (Right wrist, accidentally cut self) Social History Alcohol Use: Yes Tobacco Use: Yes (1 PACK PER WEEK) Substance Use: Yes Allergies-Medications (Allergen,Severity, Reaction): Coded Allergies: codeine (Unverified Allergy, Mild, RASH, 01/29/17) *MDRO Multi-Drug Resistant Organism (Verified Adverse Reaction, Unknown, ) 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, 07/31/16) Reported Meds & Prescriptions Reported Meds & Active Scripts Active Reported Trazodone (Trazodone HCl) 300 Mg Tab 300 Mg PO HS Risperdal (Risperidone) 3 Mg Tab 3 Mg PO Q12HR Review of Systems General / Constitutional: No: Fever Eyes: No: Visual changes HENT: No: Headaches Cardiovascular: No: Chest Pain or Discomfort Respiratory: No: Shortness of Breath Gastrointestinal: No: Abdominal Pain Genitourinary: No: Dysuria Musculoskeletal: No: Pain Skin: No Rash Neurologic: No: Weakness Psychiatric: No: Depression Endocrine: No: Polydipsia Hematologic/Lymphatic: No: Easy Bruising Physical Exam Narrative GENERAL: Well-nourished, well-developed patient. SKIN: Focused skin assessment warm/dry. HEAD: Normocephalic. EYES: No scleral icterus. No injection or drainage. NECK: Supple, trachea midline. No JVD or lymphadenopathy. CARDIOVASCULAR: Regular rate and rhythm without murmurs, gallops, or rubs. RESPIRATORY: Breath sounds equal bilaterally. No accessory muscle use. Moderate expiratory wheezes bilaterally. GASTROINTESTINAL: Abdomen soft, non-tender, nondistended. MUSCULOSKELETAL: No cyanosis, or edema. BACK: Nontender without obvious deformity. No CVA tenderness. Neurologic exam: Patient's awake alert oriented 3. Patient moves all extremities well. Patient is steady on his feet. No obvious focal neurological deficit. Data Data Last Documented VS Vital Signs Date Time Temp Pulse Resp B/P (MAP) Pulse Ox O2 Delivery O2 Flow Rate FiO2 02/09/17 10:27 98.4 98 16 128/83 (98) 98 Orders Orders Albuterol-Ipratropium Neb (Duoneb Neb) (02/09/17 14:45) Dexamethasone Inj (Decadron Inj) (02/09/17 14:45) MDM Medical Decision Making Medical Screen Exam Complete: Yes Emergency Medical Condition: Yes Differential Diagnosis Differential diagnosis including acute exacerbation COPD, malingering, substance abuse, bronchitis, pneumonia. Narrative Course 56-year-old male with wheezing, shortness of breath history of EtOH abuse and states that suicidal. Review medical records patient always states that he is suicidal to have a place to stay. Patient was given albuterol with Atrovent unit dose treatment 3, Decadron 8 mg IM and discharged . Diagnosis Primary Impression: COPD with acute exacerbation Additional Impressions: Substance abuse Substance induced mood disorder Patient Instructions: General Instructions Additional Instructions: Albuterol as needed. Follow-up with local physician. Return as needed. Med/Other Pt SpecificInfo: Prescription(s) given Scripts Albuterol 8.5 GM Inh (Proair Hfa 8.5 GM Inh) 90 Mcg/Act Aer 2 PUFF INH Q4-6H Y for SHORTNESS OF BREATH, #1 INHALER 0 Refills 108 mcg/actuation Prov: Beau Rosario MD 02/09/17 Disposition: 01 DISCHARGE HOME Condition: Stable Beau Rosario MD Feb 09, 2017 16:24
== END 2017-02-09 16:10 | disposition home or self-care (01) ==
LOC: NEPD 10:25
DX: J44.1 Chronic obstructive pulmonary disease with (acute) exacerbation (principal); F10.24 Alcohol dependence with alcohol-induced mood disorder; F19.14 Other psychoactive substance abuse with psychoactive substance-induced mood disorder; I25.10 Atherosclerotic heart disease of native coronary artery without angina pectoris; I25.2 Old myocardial infarction; F17.210 Nicotine dependence, cigarettes, uncomplicated; M19.90 Unspecified osteoarthritis, unspecified site; E78.00 Pure hypercholesterolemia, unspecified; I50.9 Heart failure, unspecified; Z79.899 Other long term (current) drug therapy; Z59.0 Homelessness; Z95.5 Presence of coronary angioplasty implant and graft
CPT/HCPCS: 94640; 94664; 96372; 99285; J1100; 99281

== ENCOUNTER 2017-02-09 22:22 | Emergency (ER) | payer MEDICARE, OTHER ==
[~2017-02-09] VITALS: Ht 162.6 cm; Wt 70.0 kg
[~2017-02-09 22:22] MED LIST changes: +ALBUAER3 INH
[2017-02-09 22:34] VITALS: BP 110/77; PULSE 95; RESP 16; TEMP 98.4; O2SAT 96
--- NOTE | 2017-02-09 22:43 | PD ---
HPI Chief Complaint: Psychiatric Symptoms Time Seen by Provider: 22:43 Travel History International Travel<30 days: No Contact w/Intl Traveler<30days: No Traveled to known affect area: No History of Present Illness HPI 56-year-old male well-known to the emergency department with long-standing history of alcohol dependency presents to the emergency department for evaluation under Silver act. Patient has been seen in the hospital today, medically cleared and discharged. He returns tonight saying that every time he drinks he thinks of committing suicide. States that he does not want to . Reports drinking only 1 beer today. Denies any other acute medical needs. PFSH Past Medical History Hx Anticoagulant Therapy: No AAA: No ADD: No ADHD: No Alzheimer's Disease: No Anemia: No Arthritis: Yes Asthma: Yes Atrial Fibrillation: No Autoimmune Disease: No Blood Disorders: No Bipolar Disorder: Yes Anxiety: Yes Depression: Yes Cancer: No Cardiac Catheterization: Yes Cardiomyopathy: No Cardiovascular Problems: No Cerebral Palsy: No High Cholesterol: Yes Chemotherapy: No Chest Pain: No Congestive Heart Failure: Yes Cirrhosis: No COPD: Yes Cerebrovascular Accident: No Coronary Artery Disease: Yes Cystic Fibrosis: No Dementia: No Developmental Delay: No Diabetes: No Diminished Hearing: No Endocrine: No Gastrointestinal Disorders: Yes (Acid reflux) GERD: Yes Glaucoma: No Gout: No Genitourinary: No Hepatitis: No Hiatal Hernia: No Heparin Induced Thrombocytopen: No Herniated Disk: No Hypertension: No Immune Disorder: No Inguinal Hernia: No Implanted Vascular Access Dvce: No Insomnia: Yes Kidney Stones: No Musculoskeletal: Yes Neurologic: Yes Parkinson's Disease: No Psychiatric: Yes (multiple ED/detox admissions; chronic alcoholic) Reproductive: No Respiratory: Yes (COPD) Resp. Syncytial Virus (RSV): No Integumentary: Yes Immunizations Current: Yes Migraines: No Myocardial Infarction: Yes Pancreatitis: No Radiation Therapy: No Renal Failure: No Schizophrenia: Yes Seizures: Yes Shingles: No Sickle Cell Disease: No Sleep Apnea: Yes Thyroid Disease: No Ulcer: No Menopausal: No Past Surgical History Abdominal Aneurysm Repair: No Abdominal Surgery: No AICD: No Appendectomy: No Arteriovenous Shunt: No Cholecystectomy: No Coronary Stent: Yes Ear Surgery: No Endocrine Surgery: No Eye Surgery: No Genitourinary Surgery: No Gynecologic Surgery: No Hysterectomy: No Joint Replacement: No Mastectomy: No Neurologic Surgery: No Oral Surgery: No Pacemaker: No Prostatectomy: No Thoracic Surgery: No Tonsillectomy: Yes Tympanostomy Tube: No Valve Replacement: No Other Surgery: Yes (Right wrist, accidentally cut self) Social History Alcohol Use: Yes Tobacco Use: Yes (1 PACK PER WEEK) Substance Use: Yes Allergies-Medications (Allergen,Severity, Reaction): Coded Allergies: codeine (Unverified Allergy, Mild, RASH, 02/09/17) *MDRO Multi-Drug Resistant Organism (Verified Adverse Reaction, Unknown, ) 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, 07/31/16) Reported Meds & Prescriptions Reported Meds & Active Scripts Active Proair Hfa 8.5 GM Inh (Albuterol Sulfate) 90 Mcg/Act Aer 2 Puff INH Q4-6H PRN 108 mcg/actuation Reported Trazodone (Trazodone HCl) 300 Mg Tab 300 Mg PO HS Risperdal (Risperidone) 3 Mg Tab 3 Mg PO Q12HR Review of Systems Except as stated in HPI: all other systems reviewed are Neg Physical Exam Narrative GENERAL: Unkempt male patient, no acute distress SKIN: Focused skin assessment warm/dry. HEAD: Atraumatic. Normocephalic. EYES: Pupils equal and round. No scleral icterus. No injection or drainage. ENT: No nasal bleeding or discharge. Mucous membranes pink and moist. NECK: Trachea midline. No JVD. CARDIOVASCULAR: Regular rate and rhythm. No murmur appreciated. RESPIRATORY: No accessory muscle use. Coarse to auscultation. Breath sounds equal bilaterally. GASTROINTESTINAL: Abdomen soft, non-tender, nondistended. Hepatic and splenic margins not palpable. MUSCULOSKELETAL: No obvious deformities. No clubbing. No cyanosis. No edema. NEUROLOGICAL: Awake and alert. No obvious cranial nerve deficits. Motor grossly within normal limits. Normal speech. Data Data Last Documented VS Vital Signs Date Time Temp Pulse Resp B/P (MAP) Pulse Ox O2 Delivery O2 Flow Rate FiO2 02/09/17 22:34 98.4 95 16 110/77 (88) 96 Orders Orders Psych Screen (02/09/17 22:44) MDM Medical Decision Making Medical Screen Exam Complete: Yes Emergency Medical Condition: Yes Medical Record Reviewed: Yes Differential Diagnosis Mood disorder versus personality disorder versus adjustment reaction disorder versus substance abuse Narrative Course 56-year-old male presents to emergency department for evaluation under Silver act. Patient appears without distress. Labs will not be repeated at this time. He is medically cleared and undergo psychiatric screening for further evaluation and disposition. Mental health screening discussed with the patient. Psychiatric screen ordered. Diagnosis Primary Impression: Alcohol-induced mood disorder Condition: Stable Gina Pelaez Feb 09, 2017 22:43
[2017-02-10 07:31] VITALS: BP 128/81; PULSE 62; RESP 15; O2SAT 98
--- NOTE | 2017-02-10 09:06 | PD ---
History of Present Illness Chief Complaint: Psychiatric Symptoms Time Seen by Provider: 08:45 Travel History International Travel<30 Days: No Contact w/Intl Traveler<30days: No Known affected area: No Legal Status Legal Status: Silver Act Silver Act Signed By: Rubina Isbell History of Present Illness: History of Present Illness HPI 56-year-old male with history of alcohol dependence well-known to the emergency department , with multiple visits to this ED, who presents to ED under Silver act. He was seen earlier in the day for evaluation of reported breathing problems was medically cleared and discharged. He returned to the ed last night saying that every time he drinks he thinks of committing suicide.he did not make any attempts at harming himself. and he informed ed staff that " does not want to .". No toxicology report available for review. Patient seen in main ed. EMR reviewed he is eating his breakfast. He is dressed casually and is maintaining basic hygiene. His speech is clear and logical. He is clinically sober and does nto exhibit any symptom of withdrawal. He does not appear to be responding ot internal stimuli. he tells me that " when I drink I feel suicdal". He is not suicidal now as he is sober. I reiterate to him that [facility] can provide detox services for him. He does not appear to be interested in these services at this time. he is requesting bus passes to get back to his house. According to the BA he was picked up only 2 miles from the hospital. PFSH Past Medical History Hx Anticoagulant Therapy: No AAA: No ADD: No ADHD: No Alzheimer's Disease: No Anemia: No Arthritis: Yes Asthma: Yes Atrial Fibrillation: No Autoimmune Disease: No Blood Disorders: No Bipolar Disorder: Yes Anxiety: Yes Depression: Yes Cancer: No Cardiac Catheterization: Yes Cardiomyopathy: No Cardiovascular Problems: No Cerebral Palsy: No High Cholesterol: Yes Chemotherapy: No Chest Pain: No Congestive Heart Failure: Yes Cirrhosis: No COPD: Yes Cerebrovascular Accident: No Coronary Artery Disease: Yes Cystic Fibrosis: No Dementia: No Developmental Delay: No Diabetes: No Diminished Hearing: No Endocrine: No Gastrointestinal Disorders: Yes (Acid reflux) GERD: Yes Glaucoma: No Gout: No Genitourinary: No Hepatitis: No Hiatal Hernia: No Heparin Induced Thrombocytopen: No Herniated Disk: No Hypertension: No Immune Disorder: No Inguinal Hernia: No Implanted Vascular Access Dvce: No Insomnia: Yes Kidney Stones: No Musculoskeletal: Yes Neurologic: Yes Parkinson's Disease: No Psychiatric: Yes (multiple ED/detox admissions; chronic alcoholic) Reproductive: No Respiratory: Yes (COPD) Resp. Syncytial Virus (RSV): No Integumentary: Yes Immunizations Current: Yes Migraines: No Myocardial Infarction: Yes Pancreatitis: No Radiation Therapy: No Renal Failure: No Schizophrenia: Yes Seizures: Yes Shingles: No Sickle Cell Disease: No Sleep Apnea: Yes Thyroid Disease: No Ulcer: No Menopausal: No Past Surgical History Abdominal Aneurysm Repair: No Abdominal Surgery: No AICD: No Appendectomy: No Arteriovenous Shunt: No Cholecystectomy: No Coronary Stent: Yes Ear Surgery: No Endocrine Surgery: No Eye Surgery: No Genitourinary Surgery: No Gynecologic Surgery: No Hysterectomy: No Joint Replacement: No Mastectomy: No Neurologic Surgery: No Oral Surgery: No Pacemaker: No Prostatectomy: No Thoracic Surgery: No Tonsillectomy: Yes Tympanostomy Tube: No Valve Replacement: No Other Surgery: Yes (Right wrist, accidentally cut self) Psychiatric History Psychiatric History Hx Psychiatric Treatment: Multiple detox admissions, Multiple Ed visits for alcohol intoxication History of Inpatient Treatment: Yes Guns or firearms in home: No Social History Single male who lives on the front porch of a friend. he is receiving social security and does not work. He is single. Hx Alcohol Use: Yes Hx Tobacco Use: Yes (1 PACK PER WEEK) Hx Substance Use: Yes Substance Use Type: Alcohol Other Substances Used: PT IS A CHRONIC ALCOHOLIC Hx of Substance Use Treatment: Yes Family Psychiatric History Negative Allergies-Medications (Allergen,Severity, Reaction): Coded Allergies: codeine (Unverified Allergy, Mild, RASH, 02/09/17) *MDRO Multi-Drug Resistant Organism (Verified Adverse Reaction, Unknown, ) 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, 07/31/16) Reported Meds & Prescriptions Reported Meds & Active Scripts Active Proair Hfa 8.5 GM Inh (Albuterol Sulfate) 90 Mcg/Act Aer 2 Puff INH Q4-6H PRN 108 mcg/actuation Reported Trazodone (Trazodone HCl) 300 Mg Tab 300 Mg PO HS Risperdal (Risperidone) 3 Mg Tab 3 Mg PO Q12HR Review of Systems Except as stated in HPI: all other systems reviewed are Neg Exam Alert: Yes [place]: Person (ox4) Mood: Calm Affect: Appropriate Speech: Clear, Logical Eye Contact: Normal Memory Intact: Comment (Not impaired) Hallucinations: Other (Negative ) Delusions: No Suicidal: Ideation (Negative) Homicidal: Ideation (Negative) Insight/Judgement Poor. Not impaired. MDM Medical Decision Making Medical Record Reviewed: Yes Assessment/Plan 56-year-old male with history of alcohol dependence well-known to the emergency department , with multiple visits to this ED, who presents to ED under Silver act. He was seen earlier in the day for evaluation of reported breathing problems was medically cleared and discharged. He returned to the ed last night saying that every time he drinks he thinks of committing suicide.he did not make any attempts at harming himself and he informed ed provider that " does not want to ." Patient is clinically sober at this time. He is not suicdal or homicidal. He is not psychotic. He does not meet criteria for Silver Act and is psychiatrically clear for discharge. He is encouraged to follow up with [facility] for substance abuse treatment if he decides to do so. Orders Orders Psych Screen (02/09/17 22:44) Diet Regular Basic (02/10/17 Breakfast) Results Vital Signs Date Time Temp Pulse Resp B/P (MAP) Pulse Ox O2 Delivery O2 Flow Rate FiO2 02/10/17 07:31 62 15 128/81 (97) 98 02/09/17 22:34 98.4 95 16 110/77 (88) 96 Diagnosis Primary Impression: Alcohol-induced mood disorder Psychiatrically Cleared: Yes Med/ Other Pt Specific Info: No Meds Exist/No RX given Disposition: 01 DISCHARGE HOME Condition: Stable Chyna Viveross Trsih Martinezheidi AMADOR Feb 10, 2017 09:05
== END 2017-02-10 09:29 | disposition home or self-care (01) ==
LOC: NEDAMB 22:22 → NEPB 02-10 09:29
DX: F10.24 Alcohol dependence with alcohol-induced mood disorder (principal); F19.10 Other psychoactive substance abuse, uncomplicated; M19.90 Unspecified osteoarthritis, unspecified site; E78.00 Pure hypercholesterolemia, unspecified; J44.9 Chronic obstructive pulmonary disease, unspecified; I25.10 Atherosclerotic heart disease of native coronary artery without angina pectoris; I50.9 Heart failure, unspecified; I25.2 Old myocardial infarction; F17.210 Nicotine dependence, cigarettes, uncomplicated; Z79.899 Other long term (current) drug therapy; Z95.5 Presence of coronary angioplasty implant and graft; Z59.0 Homelessness
CPT/HCPCS: 99281

== ENCOUNTER 2017-07-17 13:33 | Emergency (ER) | payer MEDICARE, OTHER ==
[~2017-07-17] VITALS: Ht 160 cm; Wt 60.0 kg
[2017-07-17 13:38] VITALS: BP 71/42; PULSE 90; RESP 20; TEMP 98.9; O2SAT 98
[2017-07-17 13:43] VITALS: BP 108/62; PULSE 78; RESP 16
[2017-07-17 14:07] LABS: AUTOMATED NEUTROPHIL # 6.3 TH/MM3 (1.8-7.7); BASOPHIL # 0.1 TH/MM3 (0-0.2); BASOPHIL % 0.6 % (0.0-2.0); EOSINOPHIL # 0.1 TH/MM3 (0-0.4); EOSINOPHIL % 1.4 % (0.0-4.0); HEMOGLOBIN 18.5 GM/DL (13.0-17.0); LYMPH % 27.1 % (9.0-44.0); LYMPHOCYTE # 2.8 TH/MM3 (1.0-4.8); MEAN CELL VOLUME 94.6 FL (80.0-100.0); MEAN CORPUSCULAR HGB CONC 34.9 % (32.0-36.0); MEAN PLATELET VOLUME 7.6 FL (7.0-11.0); MONO % 9.2 % (0.0-8.0); MONOCYTE # 0.9 TH/MM3 (0-0.9); NEUT % 61.7 % (16.0-70.0); PLATELET COUNT 272 TH/MM3 (150-450); RED CELL DISTRIBUTION WIDTH 15.8 % (11.6-17.2); WHITE BLOOD COUNT 10.2 TH/MM3 (4.0-11.0)
[2017-07-17 14:09] LABS: BILIRUBIN, URINE NEG (NEG); BLOOD, URINE NEG (NEG); GLUCOSE,URINE NEG (NEG); KETONE, URINE TRACE mg/dL (NEG); NITRITE,URINE NEG (NEG); PH, URINE 5.5 (5.0-8.5); SQUAMOUS EPITHELIAL CELL URINE <1 /hpf (0-5); URINE COLOR LIGHT-YELLOW (YELLW/STRAW); URINE LEUKOCYTE ESTERASE NEG (NEG)
[2017-07-17 14:21] VITALS: BP 109/71
[2017-07-17 14:27] LABS: ALT (GPT) 29 U/L (12-78); AST (GOT) 34 U/L (15-37); BICARBONATE 26.7 MEQ/L (21.0-32.0); BLOOD UREA NITROGEN 10 MG/DL (7-18); CALCIUM 8.8 MG/DL (8.5-10.1); CHLORIDE 103 MEQ/L (98-107); CREATININE 0.82 MG/DL (0.60-1.30); GLOMERULAR FILTRATION RATE 96 ML/MIN (>89); GLUCOSE,RANDOM 88 MG/DL (74-106); SODIUM (NA) 137 MEQ/L (136-145)
[2017-07-17 14:30] LABS: ALKALINE PHOSPHATASE 188 U/L (45-117); TOTAL BILIRUBIN ADULT 0.4 MG/DL (0.2-1.0); TOTAL PROTEIN 7.9 GM/DL (6.4-8.2)
[2017-07-17] MEDS ORDERED: FLUMAZENIL 0.5 MG/5 ML VIAL IV PUSH PRN (15:00)
[2017-07-17] MEDS ORDERED: LORazepam 1 MG TAB PO PRN (15:00)
[2017-07-17] MEDS ORDERED: LORazepam 2 MG TAB PO PRN (15:00)
[2017-07-17] MEDS ORDERED: ONDANSETRON ODT 4 MG TAB PO PRN (15:00)
[2017-07-17] MEDS ORDERED: ACETAMINOPHEN 325 MG TAB PO PRN (15:00)
[2017-07-17] MEDS ORDERED: LORazepam 2 MG/ML VIAL IV PUSH PRN ×4 (15:00)
--- NOTE | 2017-07-17 16:52 | PD ---
HPI Chief Complaint: Suicide Ideation/Attempt Time Seen by Provider: 14:15 Travel History International Travel<30 days: No Contact w/Intl Traveler<30days: No Traveled to known affect area: No History of Present Illness HPI 57-year-old male that presents to the ED for evaluation of alcohol intoxication as well as suicidal ideation. Per patient he has been cranial his drinking but he feels suicidal. Per patient his been depressed. Per patient he is to be medications but he cannot afford them. Per patient his been having a lot of issues because of his alcohol and feeling very depressed and decided to call the police to get help. He denies any injuries or falls recently. Denies any plan. States that all he wants is help. Patient has been here multiple times in the past. Usually for alcohol. He states that he last drank today was one beer. Does smell of alcohol heavily. He is also homeless. He states that his symptoms are worsening for the past couple of days secondary to stresses. Denies any other medical issues. PFSH Past Medical History Hx Anticoagulant Therapy: No AAA: No ADD: No ADHD: No Alzheimer's Disease: No Anemia: No Arthritis: Yes Asthma: Yes Atrial Fibrillation: No Autoimmune Disease: No Blood Disorders: No Bipolar Disorder: Yes Anxiety: Yes Depression: Yes Cancer: No Cardiac Catheterization: Yes Cardiomyopathy: No Cardiovascular Problems: No Cerebral Palsy: No High Cholesterol: Yes Chemotherapy: No Chest Pain: No Congestive Heart Failure: Yes Cirrhosis: No COPD: Yes Cerebrovascular Accident: No Coronary Artery Disease: Yes Cystic Fibrosis: No Dementia: No Developmental Delay: No Diabetes: No Diminished Hearing: No Endocrine: No Gastrointestinal Disorders: Yes (Acid reflux) GERD: Yes Glaucoma: No Gout: No Genitourinary: No Hepatitis: No Hiatal Hernia: No Heparin Induced Thrombocytopen: No Herniated Disk: No Hypertension: No Immune Disorder: No Inguinal Hernia: No Implanted Vascular Access Dvce: No Insomnia: Yes Kidney Stones: No Musculoskeletal: Yes Neurologic: Yes Parkinson's Disease: No Psychiatric: Yes (multiple ED/detox admissions; chronic alcoholic) Reproductive: No Respiratory: Yes (COPD) Resp. Syncytial Virus (RSV): No Integumentary: Yes Immunizations Current: Yes Migraines: No Myocardial Infarction: Yes Pancreatitis: No Radiation Therapy: No Renal Failure: No Schizophrenia: Yes Seizures: Yes Shingles: No Sickle Cell Disease: No Sleep Apnea: Yes Thyroid Disease: No Ulcer: No Menopausal: No Past Surgical History Abdominal Aneurysm Repair: No Abdominal Surgery: No AICD: No Appendectomy: No Arteriovenous Shunt: No Cholecystectomy: No Coronary Stent: Yes Ear Surgery: No Endocrine Surgery: No Eye Surgery: No Genitourinary Surgery: No Gynecologic Surgery: No Hysterectomy: No Joint Replacement: No Mastectomy: No Neurologic Surgery: No Oral Surgery: No Pacemaker: No Prostatectomy: No Thoracic Surgery: No Tonsillectomy: Yes Tympanostomy Tube: No Valve Replacement: No Other Surgery: Yes (Right wrist, accidentally cut self) Social History Alcohol Use: Yes Tobacco Use: Yes (1 PACK PER WEEK) Substance Use: Yes Allergies-Medications (Allergen,Severity, Reaction): Coded Allergies: codeine (Unverified Allergy, Mild, RASH, 02/09/17) *MDRO Multi-Drug Resistant Organism (Verified Adverse Reaction, Unknown, ) 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 HEAD: Atraumatic. Normocephalic. EYES: Pupils equal and round. No scleral icterus. No injection or drainage. ENT: No nasal bleeding or discharge. Mucous membranes pink and moist. Tongue is midline. No uvula deviation. NECK: Trachea midline. No JVD. CARDIOVASCULAR: Regular rate and rhythm. No murmurs, S3, S4. RESPIRATORY: No accessory muscle use. Clear to auscultation. Breath sounds equal bilaterally. GASTROINTESTINAL: Abdomen soft, non-tender, nondistended. Hepatic and splenic margins not palpable. MUSCULOSKELETAL: Extremities without clubbing, cyanosis, or edema. No obvious deformities. Full range of motion of the upper and lower extremities bilaterally. 2+ pulses bilaterally. NEUROLOGICAL: Awake and alert. No obvious cranial nerve deficits. Motor grossly within normal limits. Five out of 5 muscle strength in the arms and legs. Normal speech. PSYCHIATRIC: Intoxicated mood and affect; insight and judgment normal. Data Data Last Documented VS Vital Signs Date Time Temp Pulse Resp B/P (MAP) Pulse Ox O2 Delivery O2 Flow Rate FiO2 07/17/17 14:21 109/71 (84) 07/17/17 13:43 78 16 07/17/17 13:38 98.9 98 Orders Orders Complete Blood Count With Diff (07/17/17 13:50) Comprehensive Metabolic Panel (07/17/17 13:50) Urinalysis - C+S If Indicated (07/17/17 13:50) Psych Screen (07/17/17 13:50) Drug Screen, Random Urine (07/17/17 13:50) Alcohol (Ethanol) (07/17/17 13:50) Alcohol Withdrawal Asmt-Ciwa ONCE (07/17/17 14:48) Ondansetron Odt (Zofran Odt) (07/17/17 15:00) Acetaminophen (Tylenol) (07/17/17 15:00) Flumazenil Inj (Romazicon Inj) (07/17/17 15:00) Lorazepam (Ativan) (07/17/17 15:00) Lorazepam Inj (Ativan Inj) (07/17/17 15:00) Lorazepam (Ativan) (07/17/17 15:00) Lorazepam Inj (Ativan Inj) (07/17/17 15:00) Lorazepam Inj (Ativan Inj) (07/17/17 15:00) Lorazepam Inj (Ativan Inj) (07/17/17 15:00) Labs Laboratory Tests Test 07/17/17 13:50 White Blood Count 10.2 TH/MM3 Red Blood Count 5.60 MIL/MM3 Hemoglobin 18.5 GM/DL Hematocrit 53.0 % Mean Corpuscular Volume 94.6 FL Mean Corpuscular Hemoglobin 33.0 PG Mean Corpuscular Hemoglobin Concent 34.9 % Red Cell Distribution Width 15.8 % Platelet Count 272 TH/MM3 Mean Platelet Volume 7.6 FL Neutrophils (%) (Auto) 61.7 % Lymphocytes (%) (Auto) 27.1 % Monocytes (%) (Auto) 9.2 % Eosinophils (%) (Auto) 1.4 % Basophils (%) (Auto) 0.6 % Neutrophils # (Auto) 6.3 TH/MM3 Lymphocytes # (Auto) 2.8 TH/MM3 Monocytes # (Auto) 0.9 TH/MM3 Eosinophils # (Auto) 0.1 TH/MM3 Basophils # (Auto) 0.1 TH/MM3 CBC Comment DIFF FINAL Differential Comment Urine Color LIGHT-YELLOW Urine Turbidity CLEAR Urine pH 5.5 Urine Specific Jenera 1.003 Urine Protein TRACE mg/dL Urine Glucose (UA) NEG mg/dL Urine Ketones TRACE mg/dL Urine Occult Blood NEG Urine Nitrite NEG Urine Bilirubin NEG Urine Urobilinogen LESS THAN 2.0 MG/DL Urine Leukocyte Esterase NEG Urine RBC LESS THAN 1 /hpf Urine WBC 1 /hpf Urine Squamous Epithelial Cells <1 /hpf Microscopic Urinalysis Comment CULT NOT INDICATED Blood Urea Nitrogen 10 MG/DL Creatinine 0.82 MG/DL Random Glucose 88 MG/DL Total Protein 7.9 GM/DL Albumin 4.0 GM/DL Calcium Level 8.8 MG/DL Alkaline Phosphatase 188 U/L Aspartate Amino Transf (AST/SGOT) 34 U/L Alanine Aminotransferase (ALT/SGPT) 29 U/L Total Bilirubin 0.4 MG/DL Sodium Level 137 MEQ/L Potassium Level 3.9 MEQ/L Chloride Level 103 MEQ/L Carbon Dioxide Level 26.7 MEQ/L Anion Gap 7 MEQ/L Estimat Glomerular Filtration Rate 96 ML/MIN Urine Opiates Screen NEG Urine Barbiturates Screen NEG Urine Amphetamines Screen NEG Urine Benzodiazepines Screen NEG Urine Cocaine Screen NEG Urine Cannabinoids Screen NEG Ethyl Alcohol Level 254 MG/DL MDM Medical Decision Making Medical Screen Exam Complete: Yes Emergency Medical Condition: Yes Medical Record Reviewed: Yes Interpretation(s) CBC & BMP Diagram 07/17/17 13:50 Total Protein 7.9, Albumin 4.0, Calcium Level 8.8, Alkaline Phosphatase 188 H, Aspartate Amino Transf (AST/SGOT) 34, Alanine Aminotransferase (ALT/SGPT) 29, Total Bilirubin 0.4 alcohol in the 200s Differential Diagnosis Depression versus suicidal ideation versus anxiety versus adjustment disorder versus mood disorder versus bipolar disorder versus schizophrenia versus paranoid disorder versus psychosis versus substance abuse versus alcohol abuse versus alcohol induced psychosis versus homicidality addition versus cutting versus personality disorder Narrative Course 57-year-old male that presents to the ED for evaluation of suicidal ideation and alcohol. Patient was properly examined and was found to have signs and symptoms consistent with appears to be alcohol induced mood disorder. Patient has been here for this similar in the past. Patient wants help. Labs were done. Labs were essentially unremarkable For alcohol. Patient will be medically clear for psychiatric eval. Mental health screening was discussed with the patient. Diagnosis Primary Impression: Alcohol-induced mood disorder Rodríguez Last Jul 17, 2017 16:52
[2017-07-17 18:17] VITALS: BP 125/78; PULSE 79; RESP 16; TEMP 98.8; O2SAT 96
[2017-07-18 09:39] VITALS: BP 132/78; PULSE 89; RESP 20; O2SAT 97
== END 2017-07-18 13:05 | disposition home or self-care (01) ==
LOC: NEDAMB 13:33
DX: F10.94 Alcohol use, unspecified with alcohol-induced mood disorder (principal); R45.851 Suicidal ideations; M19.90 Unspecified osteoarthritis, unspecified site; J45.909 Unspecified asthma, uncomplicated; F31.9 Bipolar disorder, unspecified; I50.9 Heart failure, unspecified; J44.9 Chronic obstructive pulmonary disease, unspecified; F17.200 Nicotine dependence, unspecified, uncomplicated; Z79.899 Other long term (current) drug therapy
CPT/HCPCS: 80053; 80307; 81001; 85025; 96374; 99283; J2060

== ENCOUNTER 2017-07-28 12:44 | Emergency (ER) | payer MEDICARE, OTHER ==
[~2017-07-28] VITALS: Ht 160 cm; Wt 66.0 kg
[2017-07-28 13:14] VITALS: BP 117/70; PULSE 115; RESP 16; TEMP 98.6; O2SAT 94
[2017-07-28 13:42] LABS: AUTOMATED NEUTROPHIL # 4.7 TH/MM3 (1.8-7.7); BASOPHIL # 0.1 TH/MM3 (0-0.2); BASOPHIL % 0.8 % (0.0-2.0); EOSINOPHIL # 0.2 TH/MM3 (0-0.4); EOSINOPHIL % 2.8 % (0.0-4.0); HEMATOCRIT 53.6 % (39.0-51.0); HEMOGLOBIN 18.5 GM/DL (13.0-17.0); LYMPH % 30.4 % (9.0-44.0); LYMPHOCYTE # 2.5 TH/MM3 (1.0-4.8); MEAN CELL VOLUME 95.6 FL (80.0-100.0); MEAN CORPUSCULAR HGB CONC 34.6 % (32.0-36.0); MEAN PLATELET VOLUME 7.6 FL (7.0-11.0); MONO % 9.6 % (0.0-8.0); MONOCYTE # 0.8 TH/MM3 (0-0.9); NEUT % 56.4 % (16.0-70.0); PLATELET COUNT 286 TH/MM3 (150-450); RED BLOOD COUNT 5.61 MIL/MM3 (4.50-5.90); RED CELL DISTRIBUTION WIDTH 14.9 % (11.6-17.2); WHITE BLOOD COUNT 8.2 TH/MM3 (4.0-11.0)
[2017-07-28 14:06] LABS: ALBUMIN 3.8 GM/DL (3.4-5.0); AST (GOT) 29 U/L (15-37); BICARBONATE 24.5 MEQ/L (21.0-32.0); BLOOD UREA NITROGEN 6 MG/DL (7-18); CALCIUM 8.8 MG/DL (8.5-10.1); CHLORIDE 105 MEQ/L (98-107); CREATININE 0.68 MG/DL (0.60-1.30); GLOMERULAR FILTRATION RATE 120 ML/MIN (>89); GLUCOSE,RANDOM 113 MG/DL (74-106); SODIUM (NA) 139 MEQ/L (136-145)
[2017-07-28 14:07] LABS: ALT (GPT) 28 U/L (12-78)
[2017-07-28 14:09] LABS: ALKALINE PHOSPHATASE 188 U/L (45-117); TOTAL BILIRUBIN ADULT 0.4 MG/DL (0.2-1.0); TOTAL PROTEIN 7.6 GM/DL (6.4-8.2)
--- NOTE | 2017-07-28 14:56 | PD ---
History of Present Illness Chief Complaint: Substance-induced mood disorder, depression Time Seen by Provider: 14:42 Travel History International Travel<30 Days: No Contact w/Intl Traveler<30days: No Known affected area: No Legal Status Legal Status: Voluntary History of Present Illness: Mr. Geller is a 57-year-old single, homeless, male who presents voluntarily to the emergency department stating that he has thoughts of self- harm. Reports to triage that he is "suicidal and wants to go to the treatment center" he furthermore states that he "jumped off the bridge today multiple times". Patient is well-known to this facility. Reviewed electronic medical record and labs. Discussed case with staff. Mr. Geller was interviewed and the triage area. When asked how he could be of help he states "I need to go to [facility] act and get my medicine". He is alert and oriented 4. He ambulates without difficulty. His speech is clear, logical, and organized. He reports that he feels depressed and feels that he needs to get back on his medications. He has a history of noncompliance with outpatient follow-up. There is no obvious injuries and he has no medical complaints at this time; which is at odds with his report of jumping off a bridge. He contracts for safety, and indicates that he would just like a bus pass so that he may go to [facility]. Denies feeling homicidal and reports no auditory or visual hallucinations. He does not appear delusional. [facility] Past Medical History Narrative Medical Medically cleared by ED. Hx Anticoagulant Therapy: No AAA: No ADD: No ADHD: No Alzheimer's Disease: No Anemia: No Arthritis: Yes Asthma: Yes Atrial Fibrillation: No Autoimmune Disease: No Blood Disorders: No Bipolar Disorder: Yes Anxiety: Yes Depression: Yes Cancer: No Cardiac Catheterization: Yes Cardiomyopathy: No Cardiovascular Problems: No Cerebral Palsy: No High Cholesterol: Yes Chemotherapy: No Chest Pain: No Congestive Heart Failure: Yes Cirrhosis: No COPD: Yes Cerebrovascular Accident: No Coronary Artery Disease: Yes Cystic Fibrosis: No Dementia: No Developmental Delay: No Diabetes: No Diminished Hearing: No Endocrine: No Gastrointestinal Disorders: Yes (Acid reflux) GERD: Yes Glaucoma: No Gout: No Genitourinary: No Hepatitis: No Hiatal Hernia: No Heparin Induced Thrombocytopen: No Herniated Disk: No Hypertension: No Immune Disorder: No Inguinal Hernia: No Implanted Vascular Access Dvce: No Insomnia: Yes Kidney Stones: No Musculoskeletal: Yes Neurologic: Yes Parkinson's Disease: No Psychiatric: Yes (multiple ED/detox admissions; chronic alcoholic) Reproductive: No Respiratory: Yes (COPD) Resp. Syncytial Virus (RSV): No Integumentary: Yes Immunizations Current: Yes Migraines: No Myocardial Infarction: Yes Pancreatitis: No Radiation Therapy: No Renal Failure: No Schizophrenia: Yes Seizures: Yes Shingles: No Sickle Cell Disease: No Sleep Apnea: Yes Thyroid Disease: No Ulcer: No Menopausal: No Past Surgical History Abdominal Aneurysm Repair: No Abdominal Surgery: No AICD: No Appendectomy: No Arteriovenous Shunt: No Cholecystectomy: No Coronary Stent: Yes Ear Surgery: No Endocrine Surgery: No Eye Surgery: No Genitourinary Surgery: No Gynecologic Surgery: No Hysterectomy: No Joint Replacement: No Mastectomy: No Neurologic Surgery: No Oral Surgery: No Pacemaker: No Prostatectomy: No Thoracic Surgery: No Tonsillectomy: Yes Tympanostomy Tube: No Valve Replacement: No Other Surgery: Yes (Right wrist, accidentally cut self) Psychiatric History Psychiatric History His last outpatient follow-up with [facility] is reported as approximately 6 months ago. Hx Psychiatric Treatment: yes been to [facility]/act for help maybe 6 mths ago they give me my meds when i can get there, only have bike History of Inpatient Treatment: Yes Guns or firearms in home: No Social History Patient is homeless. Chronic alcohol abuser. 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) Reported Meds & Prescriptions Reported Meds & Active Scripts Active Proair Hfa 8.5 GM Inh (Albuterol Sulfate) 90 Mcg/Act Aer 2 Puff INH Q4-6H PRN 108 mcg/actuation Reported Trazodone (Trazodone HCl) 300 Mg Tab 300 Mg PO HS Risperdal (Risperidone) 3 Mg Tab 3 Mg PO Q12HR Mental Status Examination Appearance: Dirty, Disheveled, Malodorous Consciousness: Alert, Vigilant Motor Activity: Normal gait Speech: Unremarkable Language: Adequate Fund of Knowledge: Adequate Attention and Concentration: Adequate Memory: Unremarkable Mood: Appropriate Affect: Appropriate Thought Process & Associations: Intact Thought Content: Appropriate Hallucination Type: None Delusion Type: None Suicidal Ideation: Yes Suicidal Plan: Yes (Claims to have jumped off of a bridge multiple times today however, there are no physical injuries.) Suicidal Intention: No Homicidal Ideation: No Homicidal Plan: No Homicidal Intention: No Insight: Poor (Continues to abuse alcohol) Judgment: Poor (Is not consistent with follow-ups at [facility]) [facility] Medical Decision Making Medical Record Reviewed: Yes Assessment/Plan 57-year-old single, homeless, male presents voluntarily with complaints of thoughts of self-harm. Reports to the triage nurse that he "jumped off the bridge multiple times today". There are no physical injuries to corroborate the story. He reports that he needs to go to [facility] to get refills on his medicine. He denies homicidal ideation, auditory or visual hallucinations. He is not delusional at this time. He is alert and oriented 4. His speech is clear, logical, and organized. His mood and affect are slightly anxious. Patient does not meet criteria for inpatient admission at this time. He will be provided with bus passes to see her [facility], per his request. Patient states his readiness to comply with this follow-up plan. He was advised to return to this facility if this is condition worsens. Orders Orders Complete Blood Count With Diff (07/28/17 13:17) Comprehensive Metabolic Panel (07/28/17 13:17) Psych Screen (07/28/17 13:17) Results Vital Signs Date Time Temp Pulse Resp B/P (MAP) Pulse Ox O2 Delivery O2 Flow Rate FiO2 07/28/17 13:14 98.6 115 16 117/70 (86) 94 Laboratory Tests Test 07/28/17 13:25 White Blood Count 8.2 Red Blood Count 5.61 Hemoglobin 18.5 Hematocrit 53.6 Mean Corpuscular Volume 95.6 Mean Corpuscular Hemoglobin 33.0 Mean Corpuscular Hemoglobin Concent 34.6 Red Cell Distribution Width 14.9 Platelet Count 286 Mean Platelet Volume 7.6 Neutrophils (%) (Auto) 56.4 Lymphocytes (%) (Auto) 30.4 Monocytes (%) (Auto) 9.6 Eosinophils (%) (Auto) 2.8 Basophils (%) (Auto) 0.8 Neutrophils # (Auto) 4.7 Lymphocytes # (Auto) 2.5 Monocytes # (Auto) 0.8 Eosinophils # (Auto) 0.2 Basophils # (Auto) 0.1 CBC Comment DIFF FINAL Differential Comment Blood Urea Nitrogen 6 Creatinine 0.68 Random Glucose 113 Total Protein 7.6 Albumin 3.8 Calcium Level 8.8 Alkaline Phosphatase 188 Aspartate Amino Transf (AST/SGOT) 29 Alanine Aminotransferase (ALT/SGPT) 28 Total Bilirubin 0.4 Sodium Level 139 Potassium Level 3.6 Chloride Level 105 Carbon Dioxide Level 24.5 Anion Gap 10 Estimat Glomerular Filtration Rate 120 Diagnosis Primary Impression: Alcohol-induced mood disorder Additional Impressions: Homelessness Malingering Psychiatrically Cleared: Yes Problem Qualifiers Deloris Samuels Jul 28, 2017 14:56
--- NOTE | 2017-07-28 16:20 | PD ---
HPI Chief Complaint: Suicide Ideation/Attempt Time Seen by Provider: 16:17 Travel History International Travel<30 days: No Contact w/Intl Traveler<30days: No Traveled to known affect area: No History of Present Illness HPI 57-year-old female with known history of alcohol abuse presents emergency department with intoxication and need for detox as well as suicidal ideation. Patient has no acute medical problems. He is here requesting psychiatric evaluation. He has history of MRSA and allergic to codeine. PFSH Past Medical History Hx Anticoagulant Therapy: No AAA: No ADD: No ADHD: No Alzheimer's Disease: No Anemia: No Arthritis: Yes Asthma: Yes Atrial Fibrillation: No Autoimmune Disease: No Blood Disorders: No Bipolar Disorder: Yes Anxiety: Yes Depression: Yes Cancer: No Cardiac Catheterization: Yes Cardiomyopathy: No Cardiovascular Problems: No Cerebral Palsy: No High Cholesterol: Yes Chemotherapy: No Chest Pain: No Congestive Heart Failure: Yes Cirrhosis: No COPD: Yes Cerebrovascular Accident: No Coronary Artery Disease: Yes Cystic Fibrosis: No Dementia: No Developmental Delay: No Diabetes: No Diminished Hearing: No Endocrine: No Gastrointestinal Disorders: Yes (Acid reflux) GERD: Yes Glaucoma: No Gout: No Genitourinary: No Hepatitis: No Hiatal Hernia: No Heparin Induced Thrombocytopen: No Herniated Disk: No Hypertension: No Immune Disorder: No Inguinal Hernia: No Implanted Vascular Access Dvce: No Insomnia: Yes Kidney Stones: No Musculoskeletal: Yes Neurologic: Yes Parkinson's Disease: No Psychiatric: Yes (multiple ED/detox admissions; chronic alcoholic) Reproductive: No Respiratory: Yes (COPD) Resp. Syncytial Virus (RSV): No Integumentary: Yes Immunizations Current: Yes Migraines: No Myocardial Infarction: Yes Pancreatitis: No Radiation Therapy: No Renal Failure: No Schizophrenia: Yes Seizures: Yes Shingles: No Sickle Cell Disease: No Sleep Apnea: Yes Thyroid Disease: No Ulcer: No Menopausal: No Past Surgical History Abdominal Aneurysm Repair: No Abdominal Surgery: No AICD: No Appendectomy: No Arteriovenous Shunt: No Cholecystectomy: No Coronary Stent: Yes Ear Surgery: No Endocrine Surgery: No Eye Surgery: No Genitourinary Surgery: No Gynecologic Surgery: No Hysterectomy: No Joint Replacement: No Mastectomy: No Neurologic Surgery: No Oral Surgery: No Pacemaker: No Prostatectomy: No Thoracic Surgery: No Tonsillectomy: Yes Tympanostomy Tube: No Valve Replacement: No Other Surgery: Yes (Right wrist, accidentally cut self) Social History Alcohol Use: Yes (CHRONIC) Tobacco Use: Yes (1 PACK PER WEEK) Substance Use: Yes Allergies-Medications (Allergen,Severity, Reaction): Coded Allergies: codeine (Unverified Allergy, Mild, RASH, 07/28/17) *MDRO Multi-Drug Resistant Organism (Verified Adverse Reaction, Unknown, ) 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, 07/31/16) Reported Meds & Prescriptions Reported Meds & Active Scripts Active Proair Hfa 8.5 GM Inh (Albuterol Sulfate) 90 Mcg/Act Aer 2 Puff INH Q4-6H PRN 108 mcg/actuation Reported Trazodone (Trazodone HCl) 300 Mg Tab 300 Mg PO HS Risperdal (Risperidone) 3 Mg Tab 3 Mg PO Q12HR Review of Systems Except as stated in HPI: all other systems reviewed are Neg General / Constitutional: No: Fever Eyes: No: Visual changes HENT: No: Headaches Cardiovascular: No: Chest Pain or Discomfort Respiratory: No: Shortness of Breath Gastrointestinal: No: Abdominal Pain Genitourinary: No: Dysuria Musculoskeletal: No: Pain Skin: No Rash Neurologic: No: Weakness Psychiatric: Positive: Depression, Suicidal Ideations, Substance Abuse, No: Homicidal Ideation Endocrine: No: Polydipsia Hematologic/Lymphatic: No: Easy Bruising Physical Exam Narrative GENERAL: No obvious distress SKIN: Warm and dry. Normal color. Normal turgor HEAD: Atraumatic. Normocephalic. EYES: Pupils equal and round. No scleral icterus. No injection or drainage. ENT: No nasal bleeding or discharge. Mucous membranes pink and moist. Pharynx is clear. Airways patent NECK: Trachea midline. Supple and nontender CARDIOVASCULAR: Regular rate and rhythm. RESPIRATORY: No accessory muscle use. Clear to auscultation. Breath sounds equal bilaterally. MUSCULOSKELETAL: Extremities without clubbing, cyanosis, or edema. No obvious deformities. NEUROLOGICAL: Awake and alert. No obvious cranial nerve deficits. Motor grossly within normal limits. Five out of 5 muscle strength in the arms and legs. Normal speech. PSYCHIATRIC: Appropriate mood and affect; insight and judgment normal. Data Data Last Documented VS Vital Signs Date Time Temp Pulse Resp B/P (MAP) Pulse Ox O2 Delivery O2 Flow Rate FiO2 07/28/17 13:14 98.6 115 16 117/70 (86) 94 Orders Orders Complete Blood Count With Diff (07/28/17 13:17) Comprehensive Metabolic Panel (07/28/17 13:17) Psych Screen (07/28/17 13:17) Labs Laboratory Tests Test 07/28/17 13:25 White Blood Count 8.2 TH/MM3 Red Blood Count 5.61 MIL/MM3 Hemoglobin 18.5 GM/DL Hematocrit 53.6 % Mean Corpuscular Volume 95.6 FL Mean Corpuscular Hemoglobin 33.0 PG Mean Corpuscular Hemoglobin Concent 34.6 % Red Cell Distribution Width 14.9 % Platelet Count 286 TH/MM3 Mean Platelet Volume 7.6 FL Neutrophils (%) (Auto) 56.4 % Lymphocytes (%) (Auto) 30.4 % Monocytes (%) (Auto) 9.6 % Eosinophils (%) (Auto) 2.8 % Basophils (%) (Auto) 0.8 % Neutrophils # (Auto) 4.7 TH/MM3 Lymphocytes # (Auto) 2.5 TH/MM3 Monocytes # (Auto) 0.8 TH/MM3 Eosinophils # (Auto) 0.2 TH/MM3 Basophils # (Auto) 0.1 TH/MM3 CBC Comment DIFF FINAL Differential Comment Blood Urea Nitrogen 6 MG/DL Creatinine 0.68 MG/DL Random Glucose 113 MG/DL Total Protein 7.6 GM/DL Albumin 3.8 GM/DL Calcium Level 8.8 MG/DL Alkaline Phosphatase 188 U/L Aspartate Amino Transf (AST/SGOT) 29 U/L Alanine Aminotransferase (ALT/SGPT) 28 U/L Total Bilirubin 0.4 MG/DL Sodium Level 139 MEQ/L Potassium Level 3.6 MEQ/L Chloride Level 105 MEQ/L Carbon Dioxide Level 24.5 MEQ/L Anion Gap 10 MEQ/L Estimat Glomerular Filtration Rate 120 ML/MIN [facility] Medical Decision Making Medical Screen Exam Complete: Yes Emergency Medical Condition: Yes Medical Record Reviewed: Yes Differential Diagnosis EtOH abuse. Depression. Substance abuse. Suicidal ideation. Narrative Course Psychiatric labs were ordered and found to be stable. Patient medically cleared for psychiatric evaluation Psychiatric services saw the patient and felt him to be clinically stable for discharge and transfer to [facility]. Diagnosis Primary Impression: Alcohol-induced mood disorder Additional Impressions: Malingering Homelessness Patient Instructions: General Instructions, Mood Disorders (ED), Abuse of Alcohol (ED) Departure Forms: Tests/Procedures Disposition: DISCHARGE HOME Condition: Dariel Lucia Jul 28, 2017 16:20
== END 2017-07-28 15:19 | disposition home or self-care (01) ==
LOC: NED 12:44
DX: F10.94 Alcohol use, unspecified with alcohol-induced mood disorder (principal); Z59.0 Homelessness; Z76.5 Malingerer [conscious simulation]; Z91.19 Patient's noncompliance with other medical treatment and regimen; F32.9 Major depressive disorder, single episode, unspecified; I50.9 Heart failure, unspecified; J44.9 Chronic obstructive pulmonary disease, unspecified; I25.10 Atherosclerotic heart disease of native coronary artery without angina pectoris; Z87.891 Personal history of nicotine dependence
CPT/HCPCS: 80053; 85025; 99283

== ENCOUNTER 2017-08-01 10:47 | Emergency (ER) | payer MEDICARE, OTHER ==
[2017-08-01 10:55] VITALS: BP 132/81; PULSE 106; RESP 16; TEMP 99; O2SAT 94
--- NOTE | 2017-08-01 11:48 | PD ---
HPI Chief Complaint: Psychiatric Symptoms Time Seen by Provider: 11:10 Travel History International Travel<30 days: No Contact w/Intl Traveler<30days: No History of Present Illness HPI 57-year-old male arrives requesting transfer to [facility] where he can obtain his medications. He reports a history of bipolar disorder as well as alcoholism. He drank today. He arrives today as a Silver act, similar to multiple other admissions. Patient was brought here by EMS after he went to a [employer] and advised the fire department that he was suicidal. He reported he attempted to jump off a bridge previously. Location neuropsychiatric. [facility] Past Medical History Hx Anticoagulant Therapy: No AAA: No ADD: No ADHD: No Alzheimer's Disease: No Anemia: No Arthritis: Yes Asthma: Yes Atrial Fibrillation: No Autoimmune Disease: No Blood Disorders: No Bipolar Disorder: Yes Anxiety: Yes Depression: Yes Cancer: No Cardiac Catheterization: Yes Cardiomyopathy: No Cardiovascular Problems: No Cerebral Palsy: No High Cholesterol: Yes Chemotherapy: No Chest Pain: No Congestive Heart Failure: Yes Cirrhosis: No COPD: Yes Cerebrovascular Accident: No Coronary Artery Disease: Yes Cystic Fibrosis: No Dementia: No Developmental Delay: No Diabetes: No Diminished Hearing: No Endocrine: No Gastrointestinal Disorders: Yes (Acid reflux) GERD: Yes Glaucoma: No Gout: No Genitourinary: No Hepatitis: No Hiatal Hernia: No Heparin Induced Thrombocytopen: No Herniated Disk: No Hypertension: No Immune Disorder: No Inguinal Hernia: No Implanted Vascular Access Dvce: No Insomnia: Yes Kidney Stones: No Musculoskeletal: Yes Neurologic: Yes Parkinson's Disease: No Psychiatric: Yes (multiple ED/detox admissions; chronic alcoholic) Reproductive: No Respiratory: Yes (COPD) Resp. Syncytial Virus (RSV): No Integumentary: Yes Immunizations Current: Yes Migraines: No Myocardial Infarction: Yes Pancreatitis: No Radiation Therapy: No Renal Failure: No Schizophrenia: Yes Seizures: Yes Shingles: No Sickle Cell Disease: No Sleep Apnea: Yes Thyroid Disease: No Ulcer: No Menopausal: No Past Surgical History Abdominal Aneurysm Repair: No Abdominal Surgery: No AICD: No Appendectomy: No Arteriovenous Shunt: No Cholecystectomy: No Coronary Stent: Yes Ear Surgery: No Endocrine Surgery: No Eye Surgery: No Genitourinary Surgery: No Gynecologic Surgery: No Hysterectomy: No Joint Replacement: No Mastectomy: No Neurologic Surgery: No Oral Surgery: No Pacemaker: No Prostatectomy: No Thoracic Surgery: No Tonsillectomy: Yes Tympanostomy Tube: No Valve Replacement: No Other Surgery: Yes (Right wrist, accidentally cut self) Social History Alcohol Use: Yes (CHRONIC) Tobacco Use: Yes (1 PACK PER WEEK) Substance Use: Yes Allergies-Medications (Allergen,Severity, Reaction): Coded Allergies: codeine (Unverified Allergy, Mild, RASH, 07/28/17) *MDRO Multi-Drug Resistant Organism (Verified Adverse Reaction, Unknown, ) 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, 07/31/16) Reported Meds & Prescriptions Reported Meds & Active Scripts Active Proair Hfa 8.5 GM Inh (Albuterol Sulfate) 90 Mcg/Act Aer 2 Puff INH Q4-6H PRN 108 mcg/actuation Reported Trazodone (Trazodone HCl) 300 Mg Tab 300 Mg PO HS Risperdal (Risperidone) 3 Mg Tab 3 Mg PO Q12HR Review of Systems Except as stated in HPI: all other systems reviewed are Neg General / Constitutional: No: Fever Physical Exam Narrative GENERAL: 57-year-old male no acute distress standing in his room Vital Signs Date Time Temp Pulse Resp B/P (MAP) Pulse Ox O2 Delivery O2 Flow Rate FiO2 08/01/17 11:18 18 08/01/17 10:55 99.0 106 16 132/81 (98) 94 SKIN: Warm and dry. HEAD: Atraumatic. Normocephalic. EYES: Pupils equal and round. No scleral icterus. No injection or drainage. ENT: No nasal bleeding or discharge. Mucous membranes pink and moist. NECK: Trachea midline. No JVD. CARDIOVASCULAR: Regular rate and rhythm. RESPIRATORY: No accessory muscle use. Clear to auscultation. Breath sounds equal bilaterally. GASTROINTESTINAL: Abdomen soft, non-tender, nondistended. Hepatic and splenic margins not palpable. MUSCULOSKELETAL: Extremities without clubbing, cyanosis, or edema. No obvious deformities. NEUROLOGICAL: Awake and alert. No obvious cranial nerve deficits. Motor grossly within normal limits. Five out of 5 muscle strength in the arms and legs. Normal speech. PSYCHIATRIC: Patient reports suicidal ideation. Reasonably cooperative Data Data Last Documented VS Vital Signs Date Time Temp Pulse Resp B/P (MAP) Pulse Ox O2 Delivery O2 Flow Rate FiO2 3/4/18 11:18 18 08/01/17 10:55 99.0 106 132/81 (98) 94 Orders Orders Ed Discharge Order (08/01/17 11:44) MDM Medical Decision Making Medical Screen Exam Complete: Yes Emergency Medical Condition: Yes Medical Record Reviewed: Yes Differential Diagnosis Altered mental status/psychosis due to infection/environmental exposure/ metabolic abnormality, polypharmacy, alcohol abuse/intoxication, illicit or prescribed drug abuse, malingering/secondary gain, non-organic psychiatric disease Narrative Course Silver Act lifted by the undersigned. The patient will be provided with a bus pass to go disturbance been more he can obtain his medications for free. He comes to our emergency department very frequently and we're well acquainted with him as is our psychiatry service. Once offered a bus ticket he rescinded his allegations of suicidal ideation. Diagnosis Primary Impression: Medical clearance for psychiatric admission Additional Impressions: Homelessness Chronic alcoholism Suicidal ideation Medication refill Referrals: [facility] Patient Instructions: General Instructions, Medical Clearance for Psychiatric Care (ED) Departure Forms: Tests/Procedures Disposition: 01 DISCHARGE HOME Condition: Stable Maximus Gutierrez MD Aug 01, 2017 11:48
== END 2017-08-01 11:59 | disposition home or self-care (01) ==
LOC: NEPE 10:47
DX: R45.851 Suicidal ideations (principal); F10.20 Alcohol dependence, uncomplicated; F17.200 Nicotine dependence, unspecified, uncomplicated
CPT/HCPCS: 99283

== ENCOUNTER 2017-08-11 11:48 | Emergency (ER) | payer MEDICARE, OTHER ==
[~2017-08-11] VITALS: Ht 160 cm; Wt 67.0 kg
[2017-08-11 11:59] VITALS: BP 127/80; PULSE 106; RESP 17; TEMP 98.3; O2SAT 96
[2017-08-11 14:02] LABS: AUTOMATED NEUTROPHIL # 7.1 TH/MM3 (1.8-7.7); BASOPHIL # 0.1 TH/MM3 (0-0.2); BASOPHIL % 0.6 % (0.0-2.0); EOSINOPHIL # 0.2 TH/MM3 (0-0.4); HEMATOCRIT 55.1 % (39.0-51.0); LYMPH % 19.4 % (9.0-44.0); MEAN CELL VOLUME 94.3 FL (80.0-100.0); MEAN CORPUSCULAR HEMOGLOBIN 32.6 PG (27.0-34.0); MEAN CORPUSCULAR HGB CONC 34.6 % (32.0-36.0); MEAN PLATELET VOLUME 7.6 FL (7.0-11.0); MONO % 9.9 % (0.0-8.0); NEUT % 68.1 % (16.0-70.0); PLATELET COUNT 293 TH/MM3 (150-450); RED BLOOD COUNT 5.84 MIL/MM3 (4.50-5.90); RED CELL DISTRIBUTION WIDTH 14.4 % (11.6-17.2); WHITE BLOOD COUNT 10.4 TH/MM3 (4.0-11.0)
[2017-08-11 14:33] LABS: ALBUMIN 3.9 GM/DL (3.4-5.0); AST (GOT) 26 U/L (15-37); BICARBONATE 24.6 MEQ/L (21.0-32.0); BLOOD UREA NITROGEN 4 MG/DL (7-18); CALCIUM 8.8 MG/DL (8.5-10.1); CHLORIDE 101 MEQ/L (98-107); CREATININE 0.68 MG/DL (0.60-1.30); GLOMERULAR FILTRATION RATE 120 ML/MIN (>89); GLUCOSE,RANDOM 79 MG/DL (74-106); SODIUM (NA) 135 MEQ/L (136-145)
[2017-08-11 14:34] LABS: ALT (GPT) 26 U/L (12-78)
[2017-08-11 14:37] LABS: ALKALINE PHOSPHATASE 171 U/L (45-117); TOTAL BILIRUBIN ADULT 0.4 MG/DL (0.2-1.0); TOTAL PROTEIN 7.9 GM/DL (6.4-8.2)
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
== END 2017-08-11 15:46 | disposition home or self-care (01) ==
LOC: NEDAMB 11:48
DX: Z02.89 Encounter for other administrative examinations (principal); F10.20 Alcohol dependence, uncomplicated; Y90.1 Blood alcohol level of 20-39 mg/100 ml; K21.9 Gastro-esophageal reflux disease without esophagitis; J44.9 Chronic obstructive pulmonary disease, unspecified; E78.00 Pure hypercholesterolemia, unspecified; G47.30 Sleep apnea, unspecified; I25.2 Old myocardial infarction; Z72.0 Tobacco use; Z86.59 Personal history of other mental and behavioral disorders; Z87.39 Personal history of other diseases of the musculoskeletal system and connective tissue
CPT/HCPCS: 80053; 80307; 85025; 99283

== ENCOUNTER 2017-08-31 20:34 | Emergency (ER) | payer MEDICARE, OTHER ==
[~2017-08-31] VITALS: Ht 160 cm; Wt 65.9 kg
[2017-08-31 21:12] VITALS: BP 148/83; PULSE 98; RESP 20; TEMP 98.5; O2SAT 93
--- NOTE | 2017-08-31 21:47 | RADRPT ---
EXAM DATE/TIME: 08/31/2017 21:22 [place] COMPARISON: No previous studies available for comparison. INDICATIONS : Shortness of breath and cough. MEDICAL HISTORY : Chronic obstructive pulmonary disease. Asthma. Bipolar disorder. SURGICAL HISTORY : None. ENCOUNTER: Initial ACUITY: 1 week PAIN SCORE: 2/10 LOCATION: Bilateral chest FINDINGS: PA and lateral views of the chest demonstrate the lungs to be symmetrically aerated without evidence of mass, infiltrate or effusion. The cardiomediastinal contours are unremarkable. Osseous structure s are intact, with multiple remote right rib fractures. CONCLUSION: 1. No acute findings. Remote right rib fractures. Mannie Cox MD on August 31, 2017 at 21:43 Board Certified Radiologist. This report was verified electronically.
[2017-08-31] MEDS: RESP: ALBUTEROL 2.5 MG/IPRATROPIUM 0.5 MG NEB (SCH) INH ×3 (21:48→23:59)
[2017-08-31 21:50] VITALS: O2SAT 96
[2017-08-31] MEDS ORDERED: BACT800T5 PO (23:12)
[2017-08-31] MEDS ORDERED: PRED20 PO (23:12)
[2017-08-31] MEDS ORDERED: ALBUAER3 INH (23:12)
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
[2017-08-31] MEDS ORDERED: predniSONE 20 MG TAB PO ONE (23:15)
[2017-08-31] MEDS ORDERED: NALT50TA3 PO (23:19)
[2017-08-31] MEDS ORDERED: ARIP1TAB11 PO (23:19)
[2017-08-31] MEDS ORDERED: VENL75TA2 PO (23:19)
[2017-08-31] MEDS ORDERED: TRAZ100T10 PO (23:19)
== END 2017-09-01 00:26 | disposition home or self-care (01) ==
LOC: NEPD 20:34
DX: J44.1 Chronic obstructive pulmonary disease with (acute) exacerbation (principal); F31.9 Bipolar disorder, unspecified; E78.00 Pure hypercholesterolemia, unspecified; I25.10 Atherosclerotic heart disease of native coronary artery without angina pectoris; K21.9 Gastro-esophageal reflux disease without esophagitis; I25.2 Old myocardial infarction; F20.9 Schizophrenia, unspecified; F41.9 Anxiety disorder, unspecified; M19.90 Unspecified osteoarthritis, unspecified site; Z72.0 Tobacco use
CPT/HCPCS: 71046; 94640; 94664; 99284; J7512

== ENCOUNTER 2017-09-04 12:24 | Emergency (ER) | payer MEDICARE, OTHER ==
[~2017-09-04] VITALS: Ht 165.1 cm; Wt 64.0 kg
[~2017-09-04 12:24] MED LIST changes: +ARIP1TAB11 PO; +BACT800T5 PO; +NALT50TA3 PO; +PRED20 PO; -RISP3 PO; +TRAZ100T10 PO; -TRAZ300T2 PO; +VENL75TA2 PO
[2017-09-04 12:28] VITALS: BP 112/77; PULSE 105; RESP 16; TEMP 98.5; O2SAT 95
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
[2017-09-04] MEDS ORDERED: IBUPROFEN 600 MG TAB PO ONE (12:45)
[2017-09-04] MEDS ORDERED: RESP: ALBUTEROL 2.5 MG/IPRATROPIUM 0.5 MG NEB (SCH) INH ONE (12:45)
[2017-09-04] MEDS ORDERED: EFFE150C PO (12:46)
[2017-09-04 13:45] VITALS: RESP 18
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
--- NOTE | 2017-09-04 16:38 | RADRPT ---
EXAM DATE/TIME: 09/04/2017 15:52 [facility] COMPARISON: No previous studies available for comparison. INDICATIONS : Right hip pain no injury. RADIATION DOSE: 8.54 CTDIvol (mGy) MEDICAL HISTORY : None SURGICAL HISTORY : ENCOUNTER: Initial ACUITY: 1 day PAIN SCALE: 8/10 LOCATION: Right hip joint TECHNIQUE: Volumetric scanning of the hip was performed. Using automated exposure control and adjustment of the mA and/or kV according to patient size, radiation dose was kept as low as reasonably achievable to o btain optimal diagnostic quality images. DICOM format image data is available electronically for rev iew and comparison. FINDINGS: BONES: Irregularly marginated discrete radiolucency is identified through the subchondral region of the femo ral head. There is slight cortical offset. There is no significant displacement or depression. Acetab ulum is intact. JOINTS: Moderate to large joint effusion is noted. SOFT TISSUES: Muscles, tendons and neurovascular structures are grossly unremarkable. No evidence of mass, organize d fluid collection, or foreign body. CONCLUSION: 1. Large osteochondral defect which may represent a subchondral fracture. Underlying avascular necros is should be considered. 2. Large joint effusion Patrick Altman MD on September 04, 2017 at 16:31 Board Certified Radiologist. This report was verified electronically.
[2017-09-04] MEDS ORDERED: CANE/WOOD/MENS1 MI1 ×2 (17:05→17:07)
[2017-09-04] MEDS ORDERED: IBUP-232 PO (17:07)
== END 2017-09-04 17:18 | disposition home or self-care (01) ==
LOC: PHEFT 12:24
DX: M25.551 Pain in right hip (principal); G89.29 Other chronic pain; J44.9 Chronic obstructive pulmonary disease, unspecified; F31.9 Bipolar disorder, unspecified; F20.9 Schizophrenia, unspecified; E78.00 Pure hypercholesterolemia, unspecified; F41.9 Anxiety disorder, unspecified; I25.2 Old myocardial infarction; I25.10 Atherosclerotic heart disease of native coronary artery without angina pectoris; F17.210 Nicotine dependence, cigarettes, uncomplicated; K21.9 Gastro-esophageal reflux disease without esophagitis; Z95.5 Presence of coronary angioplasty implant and graft
CPT/HCPCS: 73502; 73700; 94664; 99283

== ENCOUNTER 2017-09-13 10:26 | Emergency (ER) | payer MEDICARE, OTHER ==
[~2017-09-13] VITALS: Ht 157.5 cm; Wt 65.0 kg
[~2017-09-13 10:26] MED LIST changes: -ALBUAER3 INH; -BACT800T5 PO; +CANE/WOOD/MENS1 MI1; +EFFE150C PO; +IBUP-232 PO; -PRED20 PO
[2017-09-13] MEDS ORDERED: RESP: ALBUTEROL 2.5 MG/IPRATROPIUM 0.5 MG NEB (SCH) INH ONE (10:45)
[2017-09-13 10:48] VITALS: BP 106/62; PULSE 93; RESP 16; TEMP 98.5; O2SAT 95
[2017-09-13 11:00] VITALS: O2SAT 95
[2017-09-13 11:08] LABS: AUTOMATED NEUTROPHIL # 9.3 TH/MM3 (1.8-7.7); BASOPHIL # 0.1 TH/MM3 (0-0.2); BASOPHIL % 0.7 % (0.0-2.0); EOSINOPHIL # 0.1 TH/MM3 (0-0.4); EOSINOPHIL % 0.8 % (0.0-4.0); HEMATOCRIT 50.7 % (39.0-51.0); HEMOGLOBIN 17.6 GM/DL (13.0-17.0); LYMPH % 17.2 % (9.0-44.0); LYMPHOCYTE # 2.1 TH/MM3 (1.0-4.8); MEAN CELL VOLUME 92.8 FL (80.0-100.0); MEAN CORPUSCULAR HEMOGLOBIN 32.2 PG (27.0-34.0); MEAN CORPUSCULAR HGB CONC 34.7 % (32.0-36.0); MEAN PLATELET VOLUME 7.1 FL (7.0-11.0); MONO % 6.1 % (0.0-8.0); MONOCYTE # 0.7 TH/MM3 (0-0.9); NEUT % 75.2 % (16.0-70.0); PLATELET COUNT 343 TH/MM3 (150-450); RED BLOOD COUNT 5.46 MIL/MM3 (4.50-5.90); RED CELL DISTRIBUTION WIDTH 13.5 % (11.6-17.2); WHITE BLOOD COUNT 12.3 TH/MM3 (4.0-11.0)
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
[2017-09-13 11:36] LABS: BICARBONATE 29.2 MEQ/L (21.0-32.0); CALCIUM 8.7 MG/DL (8.5-10.1); CREATININE 0.69 MG/DL (0.60-1.30)
--- NOTE | 2017-09-13 11:38 | PD ---
HPI Chief Complaint: Psychiatric Symptoms Time Seen by Provider: 10:32 Travel History International Travel<30 days: No Contact w/Intl Traveler<30days: No Traveled to known affect area: No History of Present Illness HPI 57-year-old male arrives via EMS with complaint of right hip pain and syncopal episode today. Says his hip pain is from a fall a couple years ago and then he fell again today and landed on it. This patient is very well-known to the emergency department. Said he fainted today causing him to fall and he woke up and did not know where he was. He said he hit his head and lost consciousness. Says he has history of COPD and has been feeling short of breath. Has not been using his inhalers for his COPD. Denies chest pain. Says he vomited 2 hours ago. Reports drinking a 4 pack of [place] beer today. He reports not being suicidal to me, but he told the nurse that is caring for him that he wanted to jump off the [place] bridge. Reports his hip pain 02/07. Has not taken any medications or try any treatments to alleviate his pain. Pain is worse with walking. Better at rest. He has no primary care provider. Allergies to codeine. History of COPD and bipolar disorder. Has no other medical complaints. No other modifying factors or associated signs and symptoms. PFSH Past Medical History Arthritis: Yes Asthma: Yes Atrial Fibrillation: No Bipolar Disorder: Yes Anxiety: Yes Depression: Yes Cardiac Catheterization: Yes High Cholesterol: Yes Congestive Heart Failure: Yes COPD: Yes Coronary Artery Disease: Yes Diminished Hearing: No Gastrointestinal Disorders: Yes (Acid reflux) GERD: Yes Insomnia: Yes Musculoskeletal: Yes Neurologic: Yes Psychiatric: Yes (multiple ED/detox admissions; chronic alcoholic) Respiratory: Yes (COPD) Integumentary: Yes Immunizations Current: Yes Myocardial Infarction: Yes Schizophrenia: Yes Seizures: Yes Sleep Apnea: Yes Tetanus Vaccination: < 5 Years ?: Not Menopausal: No Past Surgical History Abdominal Aneurysm Repair: No Abdominal Surgery: No AICD: No Appendectomy: No Arteriovenous Shunt: No Cholecystectomy: No Coronary Stent: Yes Ear Surgery: No Endocrine Surgery: No Eye Surgery: No Genitourinary Surgery: No Gynecologic Surgery: No Hysterectomy: No Joint Replacement: No Mastectomy: No Neurologic Surgery: No Oral Surgery: No Pacemaker: No Prostatectomy: No Thoracic Surgery: No Tonsillectomy: Yes Tympanostomy Tube: No Valve Replacement: No Other Surgery: Yes (Right wrist FROM PREVIOUS SUICIDE ATTEMPT) Social History Alcohol Use: Yes (DAILY BEER) Tobacco Use: Yes (1/2 pk a day) Substance Use: No Allergies-Medications (Allergen,Severity, Reaction): Coded Allergies: codeine (Unverified Allergy, Mild, RASH, 09/13/17) *MDRO Multi-Drug Resistant Organism (Verified Adverse Reaction, Unknown, ) 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, 07/31/16) Reported Meds & Prescriptions Reported Meds & Active Scripts Active Ibuprofen 600 Mg Tab 600 Mg PO TID PRN Cane/Wood/Mens Standard (Device) 1 Mis Mis Ea .XX DIRECTED Reported Effexor XR 24 HR (Venlafaxine HCl) 150 Mg Cap 150 Mg PO BID Trazodone (Trazodone HCl) 100 Mg Tablet 100 Mg PO HS Aripiprazole 5 Mg Tab 5 Mg PO DAILY Venlafaxine ER 24 HR (Venlafaxine HCl) 75 Mg Tab 75 Mg PO BID Naltrexone (Naltrexone HCl) 50 Mg Tab 50 Mg PO DAILY Review of Systems Except as stated in HPI: all other systems reviewed are Neg Physical Exam Narrative GENERAL: Well-nourished, well-developed man patient, in no acute distress; disheveled SKIN: Warm and dry. HEAD: Atraumatic. Normocephalic. No scalp hematomas, lacerations, abrasions noted. No facial droop noted. Tongue midline. Shoulder shrug equal. Finger to nose test normal. EYES: Pupils equal and round at 3 mm with brisk reaction. No scleral icterus. No injection or drainage. PERRLA. EOMI. ENT: Mucosa pink and moist. Airway patent. NECK: Trachea midline. No lymphadenopathy. CARDIOVASCULAR: Regular rate and rhythm. No murmur appreciated. RESPIRATORY: No accessory muscle use. Sounds clear and equal bilaterally. No retractions or tachypnea. GASTROINTESTINAL: Abdomen soft, non-tender, nondistended. Positive bowel sounds. No hepato-splenomegaly, or palpable masses. No guarding. MUSCULOSKELETAL: Right hip with full range of motion and without erythema, edema , ecchymosis; no tenderness on abduction; no obvious deformity; no leg length discrepancy. Patient is ambulatory in the room with a normal gait. No obvious deformities. No clubbing. No cyanosis. No edema. NEUROLOGICAL: Awake and alert. Oriented 4. No obvious cranial nerve deficits. Motor grossly within normal limits. Normal speech. No ataxia. No mid -line drift. No upper or lower extremity drift. Cad Detailer strength equal bilaterally. Sensory intact and equal bilaterally. Moves all extremities. Active plantar and dorsiflexion and strength equal bilaterally. 5/5 strength to all extremities. PSYCHIATRIC: Appropriate mood and affect; insight and judgment normal. Data Data Last Documented VS Vital Signs Date Time Temp Pulse Resp B/P (MAP) Pulse Ox O2 Delivery O2 Flow Rate FiO2 09/13/17 11:00 95 21 09/13/17 10:48 98.5 93 16 106/62 (77) Orders Orders Electrocardiogram (09/13/17 10:41) Basic Metabolic Panel (Bmp) (09/13/17 10:41) Complete Blood Count With Diff (09/13/17 10:41) Albuterol-Ipratropium Neb (Duoneb Neb) (09/13/17 10:45) Ct Brain W/O Iv Contrast(Rout) (09/13/17 ) Psych Screen (09/13/17 11:18) Drug Screen, Random Urine (09/13/17 11:18) Alcohol (Ethanol) (09/13/17 11:18) Labs Laboratory Tests Test 09/13/17 10:55 White Blood Count 12.3 TH/MM3 Red Blood Count 5.46 MIL/MM3 Hemoglobin 17.6 GM/DL Hematocrit 50.7 % Mean Corpuscular Volume 92.8 FL Mean Corpuscular Hemoglobin 32.2 PG Mean Corpuscular Hemoglobin Concent 34.7 % Red Cell Distribution Width 13.5 % Platelet Count 343 TH/MM3 Mean Platelet Volume 7.1 FL Neutrophils (%) (Auto) 75.2 % Lymphocytes (%) (Auto) 17.2 % Monocytes (%) (Auto) 6.1 % Eosinophils (%) (Auto) 0.8 % Basophils (%) (Auto) 0.7 % Neutrophils # (Auto) 9.3 TH/MM3 Lymphocytes # (Auto) 2.1 TH/MM3 Monocytes # (Auto) 0.7 TH/MM3 Eosinophils # (Auto) 0.1 TH/MM3 Basophils # (Auto) 0.1 TH/MM3 CBC Comment DIFF FINAL Differential Comment Blood Urea Nitrogen 5 MG/DL Creatinine 0.69 MG/DL Random Glucose 105 MG/DL Calcium Level 8.7 MG/DL Sodium Level 141 MEQ/L Potassium Level 3.3 MEQ/L Chloride Level 106 MEQ/L Carbon Dioxide Level 29.2 MEQ/L Anion Gap 6 MEQ/L Estimat Glomerular Filtration Rate 118 ML/MIN MDM Medical Decision Making Medical Screen Exam Complete: Yes Emergency Medical Condition: Yes Medical Record Reviewed: Yes Differential Diagnosis Hip fracture, chronic hip pain, head injury, syncope, arrhythmia, electrolyte imbalance, malingering, suicidal threat Narrative Course This is a 57-year-old male who is well-known to the emergency department. He arrives via EMS with complaint of right hip pain and said that he had a syncopal episode causing him to hit his head and lose consciousness. He denied suicidal ideation to me, but told the nurse that he wanted to jump off the [email or web address] bridge. The patient is asking for food. I do not feel the patient is a threat to himself or others. Neuro exam is unremarkable. CBC, BMP, CT head, EKG, drug screen, alcohol screen, psych screen ordered. Patient was here on September 04 with complaint of right hip pain x-ray of the right hip concluded: Cortical deformity along the articulating surface of the right femoral head characteristic of a osteochondral fracture. There is no evidence of femoral neck or intertrochanteric fracture. CT right hip concluded: 1. Large osteochondral defect which may represent a subchondral fracture. Underlying avascular necrosis should be considered 2. Large joint effusion; I do not feel that additional imaging is necessary at this time. The patient was told to follow-up with orthopedics and provided information to do so. He was given a prescription for a cane and ibuprofen. 1150: CBC unremarkable. Potassium 3.3, otherwise BMP unremarkable. CT head with no acute findings. EKG reviewed by Dr. Solis and without ST elevation or depression. Patient is medically cleared for psych evaluation. Diagnosis Primary Impression: Syncope Qualified Codes: R55 - Syncope and collapse Additional Impressions: Minor head injury Qualified Codes: S09.90XA - Unspecified injury of head, initial encounter Chronic right hip pain Condition: Stable Angelina Mancilla Sep 13, 2017 11:38
[2017-09-13 14:55] VITALS: BP 133/66; PULSE 93; RESP 16; O2SAT 93
--- NOTE | 2017-09-13 16:31 | PD ---
History of Present Illness Chief Complaint: Psychiatric Symptoms Time Seen by Provider: 16:24 Travel History International Travel<30 Days: No Contact w/Intl Traveler<30days: No Known affected area: No History of Present Illness: This is a 57-year-old, single, male who presents voluntarily to the ER by [facility] for complaints of shortness of breath. Psych screen ordered by provider. Patient is well-known to this facility and has been seen on multiple occasions for chronic alcoholism. Reviewed electronic medical record discussed case with staff. His nurse advises that he is requesting to leave. Evaluated patient in his room and J pod. Patient awake, alert, and oriented 4. His speech is clear, logical, and organized. There is no indication of internal stimulation or thought blocking. He denies suicidal or homicidal ideation and auditory or visual hallucinations. Patient reports that he has been living with his brother and he has been working on sobriety. His mood is good and his affect is euthymic. Patient states that he called for help because, "I could not breathe". Patient does not meet Silver act nor inpatient admission criteria at this time. PFSH Past Medical History Arthritis: Yes Asthma: Yes Atrial Fibrillation: No Bipolar Disorder: Yes Anxiety: Yes Depression: Yes Cardiac Catheterization: Yes High Cholesterol: Yes Congestive Heart Failure: Yes COPD: Yes Coronary Artery Disease: Yes Diminished Hearing: No Gastrointestinal Disorders: Yes (Acid reflux) GERD: Yes Insomnia: Yes Musculoskeletal: Yes Neurologic: Yes Psychiatric: Yes (multiple ED/detox admissions; chronic alcoholic) Respiratory: Yes (COPD) Integumentary: Yes Immunizations Current: Yes Myocardial Infarction: Yes Schizophrenia: Yes Seizures: Yes Sleep Apnea: Yes Tetanus Vaccination: < 5 Years ?: Not Menopausal: No Past Surgical History Abdominal Aneurysm Repair: No Abdominal Surgery: No AICD: No Appendectomy: No Arteriovenous Shunt: No Cholecystectomy: No Coronary Stent: Yes Ear Surgery: No Endocrine Surgery: No Eye Surgery: No Genitourinary Surgery: No Gynecologic Surgery: No Hysterectomy: No Joint Replacement: No Mastectomy: No Neurologic Surgery: No Oral Surgery: No Pacemaker: No Prostatectomy: No Thoracic Surgery: No Tonsillectomy: Yes Tympanostomy Tube: No Valve Replacement: No Other Surgery: Yes (Right wrist FROM PREVIOUS SUICIDE ATTEMPT) Psychiatric History Psychiatric History Hx Psychiatric Treatment: PT STATES HE IS BIPOLAR. PT STATES HE DOESN'T TAKE ANY MEDS OR SEE ANY ONE. 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, 07/31/16) Reported Meds & Prescriptions Reported Meds & Active Scripts Active Ibuprofen 600 Mg Tab 600 Mg PO TID PRN Cane/Wood/Mens Standard (Device) 1 Mis Mis Ea .XX DIRECTED Reported Effexor XR 24 HR (Venlafaxine HCl) 150 Mg Cap 150 Mg PO BID Trazodone (Trazodone HCl) 100 Mg Tablet 100 Mg PO HS Aripiprazole 5 Mg Tab 5 Mg PO DAILY Venlafaxine ER 24 HR (Venlafaxine HCl) 75 Mg Tab 75 Mg PO BID Naltrexone (Naltrexone HCl) 50 Mg Tab 50 Mg PO DAILY Mental Status Examination Appearance: Disheveled Consciousness: Alert Orientation: x4 Motor Activity: Abnormal gait (Hip pain) Speech: Unremarkable Language: Adequate Fund of Knowledge: Adequate Attention and Concentration: Adequate Memory: Unremarkable Mood: Appropriate, Good Affect: Appropriate, Euthymic Thought Process & Associations: Intact Thought Content: Appropriate Hallucination Type: None Delusion Type: None Suicidal Ideation: No Suicidal Plan: No Suicidal Intention: No Homicidal Ideation: No Homicidal Plan: No Homicidal Intention: No Insight: Adequate Judgment: Adequate MDM Medical Decision Making Medical Record Reviewed: Yes Assessment/Plan 57-year-old single, male presents voluntarily to the ED via [facility] for reported trouble breathing. Per ER staff, patient made vague statements about wanting to jump off a bridge. Psych screen ordered. Upon examination of patient he is awake, alert, and oriented 4. His speech is clear, organized, and logical. There is no indication of thought blocking or internal stimulation. Patient's mood is good his affect is euthymic. Patient has had no behavioral issues while on this unit. He expresses a desire to go home. He states that he called for help because he "could not breathe". At this time patient does not meet Silver act nor inpatient admission criteria. Orders Orders Electrocardiogram (09/13/17 10:41) Basic Metabolic Panel (Bmp) (09/13/17 10:41) Complete Blood Count With Diff (09/13/17 10:41) Albuterol-Ipratropium Neb (Duoneb Neb) (09/13/17 10:45) Ct Brain W/O Iv Contrast(Rout) (09/13/17 ) Psych Screen (09/13/17 11:18) Drug Screen, Random Urine (09/13/17 11:18) Alcohol (Ethanol) (09/13/17 11:18) Results Vital Signs Date Time Temp Pulse Resp B/P (MAP) Pulse Ox O2 Delivery O2 Flow Rate FiO2 09/13/17 14:55 93 16 133/66 (88) 93 Room Air 09/13/17 11:00 95 21 09/13/17 10:48 98.5 93 16 106/62 (77) 95 Laboratory Tests Test 09/13/17 10:55 09/13/17 10:58 White Blood Count 12.3 Red Blood Count 5.46 Hemoglobin 17.6 Hematocrit 50.7 Mean Corpuscular Volume 92.8 Mean Corpuscular Hemoglobin 32.2 Mean Corpuscular Hemoglobin Concent 34.7 Red Cell Distribution Width 13.5 Platelet Count 343 Mean Platelet Volume 7.1 Neutrophils (%) (Auto) 75.2 Lymphocytes (%) (Auto) 17.2 Monocytes (%) (Auto) 6.1 Eosinophils (%) (Auto) 0.8 Basophils (%) (Auto) 0.7 Neutrophils # (Auto) 9.3 Lymphocytes # (Auto) 2.1 Monocytes # (Auto) 0.7 Eosinophils # (Auto) 0.1 Basophils # (Auto) 0.1 CBC Comment DIFF FINAL Differential Comment Blood Urea Nitrogen 5 Creatinine 0.69 Random Glucose 105 Calcium Level 8.7 Sodium Level 141 Potassium Level 3.3 Chloride Level 106 Carbon Dioxide Level 29.2 Anion Gap 6 Estimat Glomerular Filtration Rate 118 Urine Opiates Screen NEG Urine Barbiturates Screen NEG Urine Amphetamines Screen NEG Urine Benzodiazepines Screen NEG Urine Cocaine Screen NEG Urine Cannabinoids Screen NEG Diagnosis Primary Impression: Adjustment disorder Psychiatrically Cleared: Yes Disposition: 01 DISCHARGE HOME Condition: Stable Deloris Samuels Sep 13, 2017 16:31
--- NOTE | 2017-09-13 16:34 | PD ---
Physical Exam Time Seen by Provider: 16:32 MARJORIE Rasheed has evaluated the patient and cleared the patient for discharge. Data Data Last Documented VS Vital Signs Date Time Temp Pulse Resp B/P (MAP) Pulse Ox O2 Delivery O2 Flow Rate FiO2 09/13/17 14:55 93 16 133/66 (88) 93 Room Air 09/13/17 11:00 21 09/13/17 10:48 98.5 Orders Orders Electrocardiogram (09/13/17 10:41) Basic Metabolic Panel (Bmp) (09/13/17 10:41) Complete Blood Count With Diff (09/13/17 10:41) Albuterol-Ipratropium Neb (Duoneb Neb) (09/13/17 10:45) Ct Brain W/O Iv Contrast(Rout) (09/13/17 ) Psych Screen (09/13/17 11:18) Drug Screen, Random Urine (09/13/17 11:18) Alcohol (Ethanol) (09/13/17 11:18) Labs Laboratory Tests Test 09/13/17 10:55 09/13/17 10:58 White Blood Count 12.3 TH/MM3 Red Blood Count 5.46 MIL/MM3 Hemoglobin 17.6 GM/DL Hematocrit 50.7 % Mean Corpuscular Volume 92.8 FL Mean Corpuscular Hemoglobin 32.2 PG Mean Corpuscular Hemoglobin Concent 34.7 % Red Cell Distribution Width 13.5 % Platelet Count 343 TH/MM3 Mean Platelet Volume 7.1 FL Neutrophils (%) (Auto) 75.2 % Lymphocytes (%) (Auto) 17.2 % Monocytes (%) (Auto) 6.1 % Eosinophils (%) (Auto) 0.8 % Basophils (%) (Auto) 0.7 % Neutrophils # (Auto) 9.3 TH/MM3 Lymphocytes # (Auto) 2.1 TH/MM3 Monocytes # (Auto) 0.7 TH/MM3 Eosinophils # (Auto) 0.1 TH/MM3 Basophils # (Auto) 0.1 TH/MM3 CBC Comment DIFF FINAL Differential Comment Blood Urea Nitrogen 5 MG/DL Creatinine 0.69 MG/DL Random Glucose 105 MG/DL Calcium Level 8.7 MG/DL Sodium Level 141 MEQ/L Potassium Level 3.3 MEQ/L Chloride Level 106 MEQ/L Carbon Dioxide Level 29.2 MEQ/L Anion Gap 6 MEQ/L Estimat Glomerular Filtration Rate 118 ML/MIN Urine Opiates Screen NEG Urine Barbiturates Screen NEG Urine Amphetamines Screen NEG Urine Benzodiazepines Screen NEG Urine Cocaine Screen NEG Urine Cannabinoids Screen NEG MDM Supervised Visit with BOB: No Narrative Course MARJORIE Morelos has evaluated the patient and cleared the patient for discharge. Patient contracts safety. Denies suicidal or homicidal ideations. Patient will be provided community resource packet to [facility] for follow-up. Has friends and family for support. Patient was medically cleared by alternate provider prior to psych screening. Patient has been evaluated by psychiatry and and is now cleared for discharge. Diagnosis Primary Impression: Adjustment disorder Qualified Codes: F43.20 - Adjustment disorder, unspecified Additional Impressions: Minor head injury Qualified Codes: S09.90XA - Unspecified injury of head, initial encounter Syncope Qualified Codes: R55 - Syncope and collapse Referrals: [facility] (Out patient) [facility] Primary Care Physician Psychiatrist Luc [facility] Patient Instructions: General Instructions, Mood Disorders (ED) Departure Forms: Tests/Procedures Additional Instruction: Contract safety to your self and others Follow-up with psychiatry Follow-up with primary care provider Follow-up with Josesito Ann Return to the emergency department immediately with worsening of symptoms Med/Other Pt SpecificInfo: No Change to Meds, No Meds Exist/No RX given Disposition: 01 DISCHARGE HOME Condition: Stable Angelina Mancilla Sep 13, 2017 16:34
--- NOTE | 2017-09-13 17:22 | EKG ---
Date Performed: 09/13/2017 Time Performed: 10:56:19 PTAGE: 57 years EKG: Sinus rhythm MINIMAL VOLTAGE CRITERIA FOR LVH, CONSIDER NORMAL VARIANT Compared to previous tracing, Q waves are now present inferiorly suggesting an interim inferior infarction ABNORMAL ECG PREVIOUS TRACING : 12/23/2016 10.38 DOCTOR: Gagan John Interpretating Date/Time 09/13/2017 17:20:59
== END 2017-09-13 17:11 | disposition home or self-care (01) ==
LOC: NEPD 10:26 → NEPJ 17:11
DX: R55 Syncope and collapse (principal); S09.90XA Unspecified injury of head, initial encounter; G89.29 Other chronic pain; M25.551 Pain in right hip; F43.20 Adjustment disorder, unspecified; W01.10XA Fall on same level from slipping, tripping and stumbling with subsequent striking against unspecified object, initial encounter; J44.9 Chronic obstructive pulmonary disease, unspecified; I50.9 Heart failure, unspecified; I25.10 Atherosclerotic heart disease of native coronary artery without angina pectoris; I25.2 Old myocardial infarction; F31.9 Bipolar disorder, unspecified; F20.9 Schizophrenia, unspecified; E78.00 Pure hypercholesterolemia, unspecified; F17.210 Nicotine dependence, cigarettes, uncomplicated; Z95.5 Presence of coronary angioplasty implant and graft; Z88.5 Allergy status to narcotic agent; Z79.899 Other long term (current) drug therapy
CPT/HCPCS: 70450; 80048; 80307; 85025; 93005; 94664; 99285

== ENCOUNTER 2017-09-14 09:54 | Emergency (ER) | payer MEDICARE, OTHER ==
[~2017-09-14] VITALS: Ht 165.1 cm; Wt 70.0 kg
[2017-09-14 10:00] VITALS: BP 108/68; PULSE 84; RESP 16; TEMP 98.2; O2SAT 95
--- NOTE | 2017-09-14 10:13 | PD ---
HPI Chief Complaint: Suicide Ideation/Attempt Time Seen by Provider: 10:12 Travel History International Travel<30 days: No Contact w/Intl Traveler<30days: No Traveled to known affect area: No History of Present Illness HPI 57-year-old male, well-known to [facility], presents to the emergency department under Silver act. According to law enforcement report the patient says he held a gun to his head and pulled the trigger nothing happened and then he [place] the gun [place] the river. The patient was here yesterday stating he was going to jump off the [employer] bridge. Reports suicidal ideation. Denies homicidal ideation. Plan is to shoot himself in the head with a gun. Reports drinking 4 ishaan beers today. No known aggravating or relieving factors. Symptoms are moderate to severe in severity. Onset unknown. Duration chronic. Continuous complaint of chronic right hip pain which was previously evaluated with a CT scan and x-ray on September 04. Has no other emergent medical complaints. Allergies to codeine. No primary care provider. No other modifying factors or associated signs and symptoms. PFSH Past Medical History Arthritis: Yes Asthma: Yes Atrial Fibrillation: No Bipolar Disorder: Yes Anxiety: Yes Depression: Yes Cardiac Catheterization: Yes High Cholesterol: Yes Congestive Heart Failure: Yes COPD: Yes Cerebrovascular Accident: Yes Coronary Artery Disease: Yes Diminished Hearing: No Gastrointestinal Disorders: Yes (Acid reflux) GERD: Yes Insomnia: Yes Musculoskeletal: Yes Neurologic: Yes Psychiatric: Yes (multiple ED/detox admissions; chronic alcoholic) Respiratory: Yes Integumentary: Yes Immunizations Current: Yes Myocardial Infarction: Yes Schizophrenia: Yes Seizures: Yes Sleep Apnea: Yes Menopausal: No Past Surgical History Abdominal Aneurysm Repair: No Abdominal Surgery: No AICD: No Appendectomy: No Arteriovenous Shunt: No Cholecystectomy: No Coronary Stent: Yes Ear Surgery: No Endocrine Surgery: No Eye Surgery: No Genitourinary Surgery: No Gynecologic Surgery: No Hysterectomy: No Joint Replacement: No Mastectomy: No Neurologic Surgery: No Oral Surgery: No Pacemaker: No Prostatectomy: No Thoracic Surgery: No Tonsillectomy: Yes Tympanostomy Tube: No Valve Replacement: No Other Surgery: Yes (Right wrist FROM PREVIOUS SUICIDE ATTEMPT) Social History Alcohol Use: Yes (DAILY BEER) Tobacco Use: Yes (1/2 pk a day) Substance Use: No Allergies-Medications (Allergen,Severity, Reaction): Coded Allergies: codeine (Unverified Allergy, Mild, RASH, 09/13/17) *MDRO Multi-Drug Resistant Organism (Verified Adverse Reaction, Unknown, ) 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, 07/31/16) Reported Meds & Prescriptions Reported Meds & Active Scripts Active Ibuprofen 600 Mg Tab 600 Mg PO TID PRN Cane/Wood/Mens Standard (Device) 1 Mis Mis Ea .XX DIRECTED Reported Effexor XR 24 HR (Venlafaxine HCl) 150 Mg Cap 150 Mg PO BID Trazodone (Trazodone HCl) 100 Mg Tablet 100 Mg PO HS Aripiprazole 5 Mg Tab 5 Mg PO DAILY Venlafaxine ER 24 HR (Venlafaxine HCl) 75 Mg Tab 75 Mg PO BID Naltrexone (Naltrexone HCl) 50 Mg Tab 50 Mg PO DAILY Review of Systems Except as stated in HPI: all other systems reviewed are Neg Physical Exam Narrative GENERAL: Well-nourished, well-developed male patient, in no acute distress; disheveled SKIN: Warm and dry. HEAD: Atraumatic. Normocephalic. EYES: Pupils equal and round. ENT: Mucosa pink and moist. NECK: Supple. Trachea midline. CARDIOVASCULAR: Regular rate and rhythm. No murmur appreciated. RESPIRATORY: No accessory muscle use. Clear to auscultation. Breath sounds equal bilaterally. GASTROINTESTINAL: Abdomen soft, non-tender, nondistended. Hepatic and splenic margins not palpable. Bowel sounds are active 4 quadrants. MUSCULOSKELETAL: No obvious deformities. No clubbing. No cyanosis. No edema. NEUROLOGICAL: Awake and alert. Oriented 3. No obvious cranial nerve deficits. Motor grossly within normal limits. Normal speech. Moves all extremities. 5/5 strength to all extremities. PSYCHIATRIC: No delusional thought processes. No hallucinations. Data Data Last Documented VS Vital Signs Date Time Temp Pulse Resp B/P (MAP) Pulse Ox O2 Delivery O2 Flow Rate FiO2 09/14/17 10:00 98.2 84 16 108/68 (81) 95 MDM Medical Decision Making Medical Screen Exam Complete: Yes Emergency Medical Condition: Yes Medical Record Reviewed: Yes Differential Diagnosis Suicidal ideation, malingering, medical clearance for psychiatric admission Narrative Course Patient presents under a Silver act. Physical examination and vital signs are essentially unremarkable. Patient has no medical complaints to report. Psych screen has been ordered. The patient was seen here yesterday and lab results were unremarkable. I do not feel it is necessary to repeat laboratory evaluation. Patient is medically cleared for psych evaluation at this time. Diagnosis Primary Impression: Medical clearance for psychiatric admission Condition: Stable Angelina Mancilla Sep 14, 2017 10:13
--- NOTE | 2017-09-14 12:13 | PD ---
Physical Exam Time Seen by Provider: 12:11 Narrative MARJORIE Ramos has evaluated patient, lifted the Silver act and cleared the patient for discharge. Data Data Last Documented VS Vital Signs Date Time Temp Pulse Resp B/P (MAP) Pulse Ox O2 Delivery O2 Flow Rate FiO2 09/14/17 10:00 98.2 84 16 108/68 (81) 95 Orders Orders Psych Screen (09/14/17 10:17) Diet Regular Basic (09/14/17 Lunch) MDM Supervised Visit with BOB: No Narrative Course MARJORIE Ramos has evaluated patient, lifted the Sliver act and cleared the patient for discharge. Patient contracts safety. Denies suicidal or homicidal ideations. Patient will be provided community resource packet to [facility] for follow-up. Has friends and family for support. Patient was medically cleared by alternate provider prior to psych screening. Patient has been evaluated by psychiatry and and is now cleared for discharge. Diagnosis Primary Impression: Substance induced mood disorder Referrals: [facility] (Out patient) [facility] Primary Care Physician Psychiatrist Luc GU[facility]RA [facility] Patient Instructions: Abuse of Alcohol (ED), Alcohol Dependence (ED), Alcohol Intoxication (ED), General Instructions, Mood Disorders (ED) Additional Instruction: Contract safety to your self and others Follow-up with psychiatry Follow-up with primary care provider Follow-up with Josesito Ann Return to the emergency department immediately with worsening of symptoms Med/Other Pt SpecificInfo: No Change to Meds, No Meds Exist/No RX given Disposition: 01 DISCHARGE HOME Condition: Stable Angelina Mancilla Sep 14, 2017 12:13
[2017-09-14 12:28] VITALS: BP 112/78
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
== END 2017-09-14 12:42 | disposition home or self-care (01) ==
LOC: NEPJ 09:54
DX: F10.20 Alcohol dependence, uncomplicated (principal); F19.94 Other psychoactive substance use, unspecified with psychoactive substance-induced mood disorder; F31.9 Bipolar disorder, unspecified; F20.9 Schizophrenia, unspecified; F17.200 Nicotine dependence, unspecified, uncomplicated
CPT/HCPCS: 99283

== ENCOUNTER 2017-09-17 12:06 | Emergency (ER) | payer MEDICARE, OTHER ==
[2017-09-17 12:22] VITALS: BP 114/71; PULSE 95; RESP 16; TEMP 98.3; O2SAT 95
[2017-09-17] MEDS ORDERED: IBUPROFEN 800 MG TAB PO ONE (15:45)
[2017-09-17] MEDS ORDERED: IBUP1TAB7 PO (16:31)
--- NOTE | 2017-09-17 16:32 | PD ---
HPI Chief Complaint: Psychiatric Symptoms Time Seen by Provider: 15:21 Travel History International Travel<30 days: No Contact w/Intl Traveler<30days: No Traveled to known affect area: No History of Present Illness HPI Patient is a 57-year-old male presenting to emerge from for evaluation of right hip pain. Patient denies any new injury or trauma. He states it hurts when he walks too far. He has been using his walker but not taking any medication for the pain. At its worse his pain is a 7 out of 10, he states is aching and sore. There is no radiation of the pain. Patient presented to the emergency department because he does not have transportation to get to a doctor. He states his brother controls his money he does not have money for cab ride. Patient has no complaints of suicidal ideations, depression, hallucinations. Patient states he has been drinking less, he is cut back from a case of beer a day to 4-6 beers. PFSH Past Medical History Arthritis: Yes Asthma: Yes Bipolar Disorder: Yes Anxiety: Yes Depression: Yes Cardiac Catheterization: Yes High Cholesterol: Yes Congestive Heart Failure: Yes COPD: Yes Cerebrovascular Accident: Yes Coronary Artery Disease: Yes Gastrointestinal Disorders: Yes (Acid reflux) GERD: Yes Insomnia: Yes Musculoskeletal: Yes Neurologic: Yes Psychiatric: Yes (multiple ED/detox admissions; chronic alcoholic) Respiratory: Yes Integumentary: Yes Immunizations Current: Yes Schizophrenia: Yes Seizures: Yes Sleep Apnea: Yes Menopausal: No Past Surgical History Abdominal Aneurysm Repair: No Abdominal Surgery: No AICD: No Appendectomy: No Arteriovenous Shunt: No Cholecystectomy: No Coronary Stent: Yes Ear Surgery: No Endocrine Surgery: No Eye Surgery: No Genitourinary Surgery: No Gynecologic Surgery: No Hysterectomy: No Joint Replacement: No Mastectomy: No Neurologic Surgery: No Oral Surgery: No Pacemaker: No Prostatectomy: No Thoracic Surgery: No Tonsillectomy: Yes Tympanostomy Tube: No Valve Replacement: No Other Surgery: Yes (Right wrist FROM PREVIOUS SUICIDE ATTEMPT) Social History Alcohol Use: Yes (DAILY BEER) Tobacco Use: Yes (1/2 pk a day) Substance Use: Yes Allergies-Medications (Allergen,Severity, Reaction): Coded Allergies: codeine (Verified Allergy, Mild, RASH, 09/14/17) *MDRO Multi-Drug Resistant Organism (Verified Adverse Reaction, Unknown, ) 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, 07/31/16) Reported Meds & Prescriptions Reported Meds & Active Scripts Active Ibuprofen 600 Mg Tab 600 Mg PO TID PRN Cane/Wood/Mens Standard (Device) 1 Mis Mis Ea .XX DIRECTED Reported Effexor XR 24 HR (Venlafaxine HCl) 150 Mg Cap 150 Mg PO BID Trazodone (Trazodone HCl) 100 Mg Tablet 100 Mg PO HS Aripiprazole 5 Mg Tab 5 Mg PO DAILY Venlafaxine ER 24 HR (Venlafaxine HCl) 75 Mg Tab 75 Mg PO BID Naltrexone (Naltrexone HCl) 50 Mg Tab 50 Mg PO DAILY Review of Systems Except as stated in HPI: all other systems reviewed are Neg Musculoskeletal: Positive: Arthralgias, Pain Physical Exam Narrative GENERAL: Well-developed, well-nourished, alert male. Presenting in no acute distress. SKIN: Warm and dry. HEAD: Atraumatic. Normocephalic. EYES: Pupils equal and round. No scleral icterus. No injection or drainage. ENT: No nasal bleeding or discharge. Mucous membranes pink and moist. NECK: Trachea midline. No JVD. CARDIOVASCULAR: Regular rate and rhythm. RESPIRATORY: No accessory muscle use. Clear to auscultation. Breath sounds equal bilaterally. GASTROINTESTINAL: Abdomen soft, non-tender, nondistended. Hepatic and splenic margins not palpable. MUSCULOSKELETAL: Extremities without clubbing, cyanosis, or edema. No obvious deformities. NEUROLOGICAL: Awake and alert. No obvious cranial nerve deficits. Motor grossly within normal limits. Five out of 5 muscle strength in the arms and legs. Normal speech. PSYCHIATRIC: Appropriate mood and affect; insight and judgment normal. Data Data Last Documented VS Vital Signs Date Time Temp Pulse Resp B/P (MAP) Pulse Ox O2 Delivery O2 Flow Rate FiO2 09/17/17 12:22 98.3 95 16 114/71 (85) 95 Orders Orders Ibuprofen (Motrin) (09/17/17 15:45) Crutches (09/17/17 15:41) MDM Medical Decision Making Medical Screen Exam Complete: Yes Emergency Medical Condition: Yes Medical Record Reviewed: Yes Interpretation(s) Vital Signs Date Time Temp Pulse Resp B/P (MAP) Pulse Ox O2 Delivery O2 Flow Rate FiO2 09/17/17 12:22 98.3 95 16 114/71 (85) 95 Differential Diagnosis Arthritis versus muscle strain versus muscle spasm versus radiculopathy versus other Narrative Course Patient is a 57-year-old male well-known to the emergency department, presenting for evaluation of chronic right hip pain. There has been no new injury or trauma. Patient does not appear intoxicated, his vital signs are stable. He has no suicidal homicidal ideations. Patient was given ibuprofen, he requested crutches because he feels that would be easier in the walker. Crutches were ordered. Patient was advised to follow-up at the [facility] for ongoing maintenance of his chronic health problems. He was given a flyer as well as verbal information as to where it is located. He was encouraged to take ibuprofen as needed and as directed for pain. Patient stable for discharge. Diagnosis Primary Impression: Hip joint pain Qualified Codes: M25.551 - Pain in right hip Referrals: [facility] Patient Instructions: General Instructions, Hip Pain (ED) Additional Instructions: Follow-up at the [facility] Take medications as directed and as needed for pain Apply warm heat to the affected area Return to emergency department for any new or worsening symptoms Med/Other Pt SpecificInfo: Prescription(s) given Scripts Ibuprofen (Ibuprofen) 800 Mg Tab 800 MG PO Q8H Y for Pain/Inflammation, #60 TAB 0 Refills Prov: Yoselin Oreilly 09/17/17 Disposition: 01 DISCHARGE HOME Condition: Stable Yoselin Oreilly Sep 17, 2017 16:32
== END 2017-09-17 17:22 | disposition home or self-care (01) ==
LOC: NEPD 12:06
DX: M25.551 Pain in right hip (principal); F31.9 Bipolar disorder, unspecified; F20.9 Schizophrenia, unspecified; F17.200 Nicotine dependence, unspecified, uncomplicated
CPT/HCPCS: 99283; E0113

== ENCOUNTER 2017-09-22 10:50 | Emergency (ER) | payer MEDICARE, OTHER ==
[~2017-09-22 10:50] MED LIST changes: +IBUP1TAB7 PO
[2017-09-22 10:54] VITALS: BP 123/70; PULSE 97; RESP 18; TEMP 98.5; O2SAT 96
[2017-09-22] MEDS ORDERED: PRED-503 PO (11:22)
[2017-09-22] MEDS ORDERED: VENTAER INH (11:22)
--- NOTE | 2017-09-22 11:22 | PD ---
HPI Chief Complaint: Respiratory Symptoms Time Seen by Provider: 11:11 Travel History International Travel<30 days: No Contact w/Intl Traveler<30days: No Traveled to known affect area: No History of Present Illness HPI 57-year-old male presents to the emergency department via EMS with complaint of 'having a COPD exacerbation." This patient is very well-known to the emergency department here at [place]. He says he is having shortness of breath that started 2 hours ago. He says he needs to quit smoking cigars, and admits to smoking cigars. He says he supposed to have an inhaler and he does not have one. He denies chest pain, fevers, cough. No known aggravating or relieving factors. Symptoms are mild in severity. Onset 2 hours ago. Duration unknown. No primary care provider. Allergies to codeine. History of COPD. Has no other medical complaints. No other modifying factors or associated signs and symptoms. PFSH Past Medical History Arthritis: Yes Asthma: Yes Autoimmune Disease: No Bipolar Disorder: Yes Anxiety: Yes Depression: Yes Cardiac Catheterization: Yes Cardiovascular Problems: No High Cholesterol: Yes Congestive Heart Failure: Yes COPD: Yes Cerebrovascular Accident: Yes Coronary Artery Disease: Yes Diminished Hearing: No Gastrointestinal Disorders: Yes (Acid reflux) GERD: Yes Glaucoma: No Gout: No Genitourinary: No Hepatitis: No Hiatal Hernia: No Heparin Induced Thrombocytopen: No Herniated Disk: No Hypertension: No Immune Disorder: No Inguinal Hernia: No Implanted Vascular Access Dvce: No Insomnia: Yes Kidney Stones: No Musculoskeletal: Yes Neurologic: Yes Parkinson's Disease: No Psychiatric: Yes (multiple ED/detox admissions; chronic alcoholic) Reproductive: No Respiratory: Yes Resp. Syncytial Virus (RSV): No Integumentary: Yes Immunizations Current: Yes Migraines: No Myocardial Infarction: Yes Pancreatitis: No Radiation Therapy: No Renal Failure: No Schizophrenia: Yes Seizures: Yes Shingles: No Sickle Cell Disease: No Sleep Apnea: Yes Thyroid Disease: No Ulcer: No Tetanus Vaccination: < 5 Years Menopausal: No Past Surgical History Abdominal Aneurysm Repair: No Abdominal Surgery: No AICD: No Appendectomy: No Arteriovenous Shunt: No Cholecystectomy: No Coronary Stent: Yes Ear Surgery: No Endocrine Surgery: No Eye Surgery: No Genitourinary Surgery: No Gynecologic Surgery: No Hysterectomy: No Joint Replacement: No Mastectomy: No Neurologic Surgery: No Oral Surgery: No Pacemaker: No Prostatectomy: No Thoracic Surgery: No Tonsillectomy: Yes Tympanostomy Tube: No Valve Replacement: No Other Surgery: Yes (Right wrist FROM PREVIOUS SUICIDE ATTEMPT) Social History Alcohol Use: Yes (DAILY BEER) Tobacco Use: Yes (1/2 pk a day) Substance Use: Yes Allergies-Medications (Allergen,Severity, Reaction): Coded Allergies: codeine (Verified Allergy, Mild, RASH, 09/14/17) *MDRO Multi-Drug Resistant Organism (Verified Adverse Reaction, Unknown, ) 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, 07/31/16) Reported Meds & Prescriptions Reported Meds & Active Scripts Active Azithromycin 500 Mg Tab 500 Mg PO DAILY Deltasone (Prednisone) 20 Mg Tab 40 Mg PO DAILY 4 Days start 09/23/2017 Ventolin Hfa 18 GM Inh (Albuterol Sulfate) 90 Mcg/Act Aer 2 Puff INH Q4-6H PRN Ibuprofen 800 Mg Tab 800 Mg PO Q8H PRN Ibuprofen 600 Mg Tab 600 Mg PO TID PRN Cane/Wood/Mens Standard (Device) 1 Mis Mis Ea .XX DIRECTED Reported Effexor XR 24 HR (Venlafaxine HCl) 150 Mg Cap 150 Mg PO BID Trazodone (Trazodone HCl) 100 Mg Tablet 100 Mg PO HS Aripiprazole 5 Mg Tab 5 Mg PO DAILY Venlafaxine ER 24 HR (Venlafaxine HCl) 75 Mg Tab 75 Mg PO BID Naltrexone (Naltrexone HCl) 50 Mg Tab 50 Mg PO DAILY Review of Systems Except as stated in HPI: all other systems reviewed are Neg Physical Exam Narrative GENERAL: Well-nourished, well-developed patient, in no acute distress; afebrile , nontoxic-appearing SKIN: Warm and dry. HEAD: Atraumatic. Normocephalic. EYES: Pupils equal and round. No scleral icterus. No injection or drainage. ENT: Mucosa pink and moist. Airway patent. NECK: Trachea midline. CARDIOVASCULAR: Regular rate and rhythm. No murmur appreciated. RESPIRATORY: No accessory muscle use. Lung sounds with mild wheezing throughout. Breath sounds equal bilaterally. No acute distress. No retractions or tachypnea. No audible wheezing. GASTROINTESTINAL: Abdomen soft, non-tender, nondistended. Hepatic and splenic margins not palpable. Bowel sounds are active 4 quadrants. MUSCULOSKELETAL: No obvious deformities. No clubbing. No cyanosis. No edema. NEUROLOGICAL: Awake and alert. Oriented 3. No obvious cranial nerve deficits. Motor grossly within normal limits. Normal speech. PSYCHIATRIC: Appropriate mood and affect; insight and judgment normal. Data Data Last Documented VS Vital Signs Date Time Temp Pulse Resp B/P (MAP) Pulse Ox O2 Delivery O2 Flow Rate FiO2 09/22/17 10:54 98.5 97 18 123/70 (87) 96 Orders Orders Albuterol Neb (Albuterol Neb) (09/22/17 11:30) Prednisone (Deltasone) (09/22/17 11:30) Ed Discharge Order (09/22/17 11:31) [facility] Medical Decision Making Medical Screen Exam Complete: Yes Emergency Medical Condition: Yes Medical Record Reviewed: Yes Differential Diagnosis COPD exacerbation, malingering, medical clearance Narrative Course 57-year-old male with possible COPD exacerbation. He is well-known to the emergency department. He has very mild wheezing throughout. He is in no acute distress. No retractions or tachypnea. No audible wheezing. Oxygen saturation is 96% on room air. Albuterol nebulizer and Deltasone ordered. Ventolin inhaler, azithromycin, Deltasone prescribed for home. Instructed patient to follow up with primary care provider. Patient verbalizes understanding and agreement with treatment plan. Patient is medically cleared and stable for discharge. Discussed reasons to return to the emergency department. Patient agrees with treatment plan. The patients vital signs are stable and the patient is stable for outpatient follow-up and treatment. Patient discharged home, stable and in no acute distress. Diagnosis Primary Impression: COPD exacerbation Referrals: Primary Care Physician [facility] Patient Instructions: COPD (Chronic Obstructive Pulmonary Disease) (ED), General Instructions Additional Instructions: Use albuterol inhaler as needed for shortness of breath and/or wheezing Take oral steroids as prescribed and complete full course Avoid asthma triggers such as smoking cigarettes, second hand smoke, dust, known allergens Stop smoking cigars Follow-up with primary care provider Return to emergency department immediately with worsening of symptoms Med/Other Pt SpecificInfo: Prescription(s) given Scripts Azithromycin (Azithromycin) 500 Mg Tab 500 MG PO DAILY for Infection, #5 TAB 0 Refills Prov: Angelina Mancilla 09/22/17 Prednisone (Deltasone) 20 Mg Tab 40 MG PO DAILY for 4 Days, #8 TAB 0 Refills start 09/23/2017 Prov: Angelina MancillaP 09/22/17 Albuterol 18 GM Inh (Ventolin Hfa 18 GM Inh) 90 Mcg/Act Aer 2 PUFF INH Q4-6H Y for SOB/WHEEZING, #1 INHALER 0 Refills Prov: Angelina Mancilla 09/22/17 Disposition: 01 DISCHARGE HOME Condition: Stable Angelina Mancilla Sep 22, 2017 11:22
[2017-09-22] MEDS ORDERED: RESP: ALBUTEROL 2.5 MG/3 ML NEB (SCH) INH ONE (11:30)
[2017-09-22] MEDS ORDERED: predniSONE 20 MG TAB PO ONE (11:30)
[2017-09-22] MEDS ORDERED: AZIT500T2 PO (11:32)
== END 2017-09-22 11:54 | disposition home or self-care (01) ==
LOC: NEPD 10:50
DX: J44.1 Chronic obstructive pulmonary disease with (acute) exacerbation (principal); K21.9 Gastro-esophageal reflux disease without esophagitis; M19.90 Unspecified osteoarthritis, unspecified site; F31.9 Bipolar disorder, unspecified; F41.8 Other specified anxiety disorders; G47.30 Sleep apnea, unspecified; I25.2 Old myocardial infarction; F17.200 Nicotine dependence, unspecified, uncomplicated; Z86.79 Personal history of other diseases of the circulatory system; Z87.19 Personal history of other diseases of the digestive system; Z86.69 Personal history of other diseases of the nervous system and sense organs; Z87.39 Personal history of other diseases of the musculoskeletal system and connective tissue
CPT/HCPCS: 94664; 99283; J7512; J7613

== ENCOUNTER 2017-11-07 23:02 | Emergency (ER) | payer MEDICARE, OTHER ==
[~2017-11-07] VITALS: Ht 165.1 cm; Wt 65.0 kg
[~2017-11-07 23:02] MED LIST changes: +AZIT500T2 PO; +PRED-503 PO; +VENTAER INH
[2017-11-07 23:14] VITALS: BP 100/58; PULSE 100; RESP 18; TEMP 98; O2SAT 97
[2017-11-07] MEDS ORDERED: PRED20 PO (23:30)
[2017-11-07] MEDS ORDERED: AZITHROMYCIN 250 MG TAB PO ONE (23:30)
[2017-11-07] MEDS ORDERED: AZIT250T3 PO (23:30)
[2017-11-07] MEDS ORDERED: predniSONE 20 MG TAB PO ONE (23:30)
[2017-11-07] MEDS ORDERED: RESP: ALBUTEROL 2.5 MG/IPRATROPIUM 0.5 MG NEB (SCH) INH ONE (23:30)
[2017-11-07] MEDS ORDERED: ALBUAER3 INH (23:30)
--- NOTE | 2017-11-07 23:32 | PD ---
HPI Chief Complaint: Respiratory Symptoms Time Seen by Provider: 23:28 Travel History International Travel<30 days: No Contact w/Intl Traveler<30days: No Traveled to known affect area: No History of Present Illness HPI 57-year-old male with history of COPD, tobacco abuse, was sent here by Josesito Mohamud for treatment of COPD. He reports that today he developed increased wheezing, cough. The cough is nonproductive. Denies fevers, chills, chest pain , abdominal pain, nausea or vomiting, lower extremity edema. He reports that he has no medications to treat his COPD. Symptoms are mild, aggravated by tobacco use and no access to medications. No other complaints at this time. PFSH Past Medical History Arthritis: Yes Asthma: Yes Autoimmune Disease: No Bipolar Disorder: Yes Anxiety: Yes Depression: Yes Cardiac Catheterization: Yes Cardiovascular Problems: No High Cholesterol: Yes Congestive Heart Failure: Yes COPD: Yes Cerebrovascular Accident: Yes Coronary Artery Disease: Yes Diminished Hearing: No Gastrointestinal Disorders: Yes (Acid reflux) GERD: Yes Glaucoma: No Gout: No Genitourinary: No Hepatitis: No Hiatal Hernia: No Heparin Induced Thrombocytopen: No Herniated Disk: No Hypertension: No Immune Disorder: No Inguinal Hernia: No Implanted Vascular Access Dvce: No Insomnia: Yes Kidney Stones: No Musculoskeletal: Yes Neurologic: Yes Parkinson's Disease: No Psychiatric: Yes (multiple ED/detox admissions; chronic alcoholic) Reproductive: No Respiratory: Yes Resp. Syncytial Virus (RSV): No Integumentary: Yes Immunizations Current: Yes Migraines: No Myocardial Infarction: Yes Pancreatitis: No Radiation Therapy: No Renal Failure: No Schizophrenia: Yes Seizures: Yes Shingles: No Sickle Cell Disease: No Sleep Apnea: Yes Thyroid Disease: No Ulcer: No Tetanus Vaccination: < 5 Years Influenza Vaccination: No Menopausal: No Past Surgical History Abdominal Aneurysm Repair: No Abdominal Surgery: No AICD: No Appendectomy: No Arteriovenous Shunt: No Cholecystectomy: No Coronary Stent: Yes Ear Surgery: No Endocrine Surgery: No Eye Surgery: No Genitourinary Surgery: No Gynecologic Surgery: No Hysterectomy: No Joint Replacement: No Mastectomy: No Neurologic Surgery: No Oral Surgery: No Pacemaker: No Prostatectomy: No Thoracic Surgery: No Tonsillectomy: Yes Tympanostomy Tube: No Valve Replacement: No Other Surgery: Yes (Right wrist FROM PREVIOUS SUICIDE ATTEMPT) Social History Alcohol Use: Yes (DAILY BEER) Tobacco Use: Yes (1/2 pk a day) Substance Use: Yes Allergies-Medications (Allergen,Severity, Reaction): Coded Allergies: codeine (Verified Allergy, Mild, RASH, 11/07/17) *MDRO Multi-Drug Resistant Organism (Verified Adverse Reaction, Unknown, ) 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, 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) Reported Meds & Prescriptions Reported Meds & Active Scripts Active Prednisone 20 Mg Tab 20 Mg PO BID 5 Days Azithromycin 250 Mg Tab 250 Mg PO DAILY 4 Days Proair Hfa 8.5 GM Inh (Albuterol Sulfate) 90 Mcg/Act Aer 2 Puff INH Q4-6H PRN 108 mcg/actuation Azithromycin 500 Mg Tab 500 Mg PO DAILY Deltasone (Prednisone) 20 Mg Tab 40 Mg PO DAILY 4 Days start 09/23/2017 Ventolin Hfa 18 GM Inh (Albuterol Sulfate) 90 Mcg/Act Aer 2 Puff INH Q4-6H PRN Ibuprofen 800 Mg Tab 800 Mg PO Q8H PRN Ibuprofen 600 Mg Tab 600 Mg PO TID PRN Cane/Wood/Mens Standard (Device) 1 Mis Mis Ea .XX DIRECTED Reported Effexor XR 24 HR (Venlafaxine HCl) 150 Mg Cap 150 Mg PO BID Trazodone (Trazodone HCl) 100 Mg Tablet 100 Mg PO HS Aripiprazole 5 Mg Tab 5 Mg PO DAILY Venlafaxine ER 24 HR (Venlafaxine HCl) 75 Mg Tab 75 Mg PO BID Naltrexone (Naltrexone HCl) 50 Mg Tab 50 Mg PO DAILY Review of Systems Except as stated in HPI: all other systems reviewed are Neg Physical Exam Narrative GENERAL: Well-developed well-nourished male in no acute distress SKIN: Warm and dry. HEAD: Atraumatic. Normocephalic. EYES: Pupils equal and round. No scleral icterus. No injection or drainage. ENT: No nasal bleeding or discharge. Mucous membranes pink and moist. NECK: Trachea midline. No JVD. CARDIOVASCULAR: Regular rate and rhythm. No murmur appreciated. RESPIRATORY: No accessory muscle use. Mild wheezing bilaterally. No crackles. GASTROINTESTINAL: Abdomen soft, non-tender, nondistended. Hepatic and splenic margins not palpable. MUSCULOSKELETAL: No obvious deformities clubbing noted in the hands. NEUROLOGICAL: Awake and alert. No obvious cranial nerve deficits. Motor grossly within normal limits. Normal speech. Data Data Last Documented VS Vital Signs Date Time Temp Pulse Resp B/P (MAP) Pulse Ox O2 Delivery O2 Flow Rate FiO2 11/07/17 23:14 98.0 100 18 100/58 (72) 97 Orders Orders Albuterol-Ipratropium Neb (Duoneb Neb) (11/07/17 23:30) Prednisone (Deltasone) (11/07/17 23:30) Azithromycin (Zithromax) (11/07/17 23:30) Ed Discharge Order (11/07/17 23:28) [facility] Medical Decision Making Medical Screen Exam Complete: Yes Emergency Medical Condition: Yes Medical Record Reviewed: Yes Differential Diagnosis COPD exacerbation, pneumonia, asthma, reactive airway disease Narrative Course Patient will be treated for COPD exacerbation with bronchodilators, prednisone and azithromycin. He is cleared to return to [facility]. Diagnosis Primary Impression: COPD with exacerbation Additional Instructions: Medication as prescribed, avoid tobacco products, return for any emergent medical conditions. Med/Other Pt SpecificInfo: Prescription(s) given Scripts Prednisone (Prednisone) 20 Mg Tab 20 MG PO BID for 5 Days, #10 TAB 0 Refills Prov: Donna Da Silva DO 11/07/17 Azithromycin (Azithromycin) 250 Mg Tab 250 MG PO DAILY for Infection for 4 Days, #4 TAB 0 Refills Prov: Donna Da Silva DO 11/07/17 Albuterol 8.5 GM Inh (Proair Hfa 8.5 GM Inh) 90 Mcg/Act Aer 2 PUFF INH Q4-6H Y for SHORTNESS OF BREATH, #1 INHALER 0 Refills 108 mcg/actuation Prov: Donna Da Silva DO 11/07/17 Disposition: 01 DISCHARGE HOME Condition: Stable Sudarshan Fallon Nov 07, 2017 23:32
== END 2017-11-07 23:58 | disposition home or self-care (01) ==
LOC: NEPD 23:02
DX: J44.1 Chronic obstructive pulmonary disease with (acute) exacerbation (principal); E78.00 Pure hypercholesterolemia, unspecified; I25.10 Atherosclerotic heart disease of native coronary artery without angina pectoris; I25.2 Old myocardial infarction; I50.9 Heart failure, unspecified; M19.90 Unspecified osteoarthritis, unspecified site; F31.9 Bipolar disorder, unspecified; F20.9 Schizophrenia, unspecified; F17.210 Nicotine dependence, cigarettes, uncomplicated; Z86.73 Personal history of transient ischemic attack (TIA), and cerebral infarction without residual deficits; Z95.5 Presence of coronary angioplasty implant and graft; Z88.5 Allergy status to narcotic agent; Z79.899 Other long term (current) drug therapy
CPT/HCPCS: 94664; 99283; J7512

== ENCOUNTER 2017-11-14 11:11 | Emergency (ER) | payer MEDICARE, OTHER ==
[~2017-11-14] VITALS: Ht 165.1 cm; Wt 66.0 kg
[~2017-11-14 11:11] MED LIST changes: +ALBUAER3 INH; +AZIT250T3 PO; +PRED20 PO
[2017-11-14 11:20] VITALS: BP 128/91; PULSE 121; RESP 16; TEMP 98.1; O2SAT 95
--- NOTE | 2017-11-14 11:34 | PD ---
HPI Chief Complaint: Pain: Acute or Chronic Time Seen by Provider: 11:25 Travel History International Travel<30 days: No Contact w/Intl Traveler<30days: No Traveled to known affect area: No History of Present Illness HPI 57 YO M presents to the ED for evaluation of worsening right hip pain. Pain is rated 10/10, no alleviating factors reported. Exacerbated by ambulation. Patient endorses chronic hip pain. He endorses tingling that radiates from the back to the lateral mid lower leg. He states that occasionally the leg gives way. He denies any recent injury or overuse. He denies saddle anesthesia or incontinence. He states that he is able to ambulate with a walker. He states that he had a wheelchair but "someone stole it." No treatment attempted before arrival. PFSH Past Medical History Arthritis: Yes Asthma: Yes Autoimmune Disease: No Bipolar Disorder: Yes Anxiety: Yes Depression: Yes Cardiac Catheterization: Yes Cardiovascular Problems: No High Cholesterol: Yes Congestive Heart Failure: Yes COPD: Yes Cerebrovascular Accident: Yes Coronary Artery Disease: Yes Diminished Hearing: No Gastrointestinal Disorders: Yes (Acid reflux) GERD: Yes Glaucoma: No Gout: No Genitourinary: No Hepatitis: No Hiatal Hernia: No Heparin Induced Thrombocytopen: No Herniated Disk: No Hypertension: No Immune Disorder: No Inguinal Hernia: No Implanted Vascular Access Dvce: No Insomnia: Yes Kidney Stones: No Musculoskeletal: Yes Neurologic: Yes Parkinson's Disease: No Psychiatric: Yes (multiple ED/detox admissions; chronic alcoholic) Reproductive: No Respiratory: Yes Resp. Syncytial Virus (RSV): No Integumentary: Yes Immunizations Current: Yes Migraines: No Myocardial Infarction: Yes Pancreatitis: No Radiation Therapy: No Renal Failure: No Schizophrenia: Yes Seizures: Yes Shingles: No Sickle Cell Disease: No Sleep Apnea: Yes Thyroid Disease: No Ulcer: No Tetanus Vaccination: < 5 Years Influenza Vaccination: Yes Menopausal: No Past Surgical History Abdominal Aneurysm Repair: No Abdominal Surgery: No AICD: No Appendectomy: No Arteriovenous Shunt: No Cholecystectomy: No Coronary Stent: Yes Ear Surgery: No Endocrine Surgery: No Eye Surgery: No Genitourinary Surgery: No Gynecologic Surgery: No Hysterectomy: No Joint Replacement: No Mastectomy: No Neurologic Surgery: No Oral Surgery: No Pacemaker: No Prostatectomy: No Thoracic Surgery: No Tonsillectomy: Yes Tympanostomy Tube: No Valve Replacement: No Other Surgery: Yes (Right wrist FROM PREVIOUS SUICIDE ATTEMPT) Social History Alcohol Use: Yes (DAILY BEER) Tobacco Use: Yes (1/2 pk a day) Substance Use: Yes Allergies-Medications (Allergen,Severity, Reaction): Coded Allergies: codeine (Verified Allergy, Mild, RASH, 11/07/17) *MDRO Multi-Drug Resistant Organism (Verified Adverse Reaction, Unknown, ) 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 SKIN: Focused skin assessment warm/dry. HEAD: Normocephalic. EYES: No scleral icterus. No injection or drainage. NECK: Supple, trachea midline. No JVD or lymphadenopathy. CARDIOVASCULAR: Regular rate and rhythm without murmurs, gallops, or rubs. RESPIRATORY: Breath sounds equal bilaterally. No accessory muscle use. GASTROINTESTINAL: Abdomen soft, non-tender, nondistended. MUSCULOSKELETAL: No cyanosis, or edema. FOCUSED RIGHT LOWER EXTREMITY EXAM: 2+ DP pulse. No pain elicited with palpation of the hip. Patient is able to flex and extend the hip, knee, ankle. 5/5 strength in all muscle groups. Neurovascularly intact distally BACK: Nontender without obvious deformity. No CVA tenderness. Data Data Last Documented VS Vital Signs Date Time Temp Pulse Resp B/P (MAP) Pulse Ox O2 Delivery O2 Flow Rate FiO2 11/14/17 11:20 98.1 121 16 128/91 (103) 95 Orders Orders Hip, Uni(Ap&Lat) W Ap Pelvis (11/14/17 11:26) Ed Discharge Order (11/14/17 12:10) MDM Medical Decision Making Medical Screen Exam Complete: Yes Emergency Medical Condition: Yes Differential Diagnosis Chronic hip pain versus avascular necrosis versus osteoarthritis versus other Narrative Course 57 YO M presents to the ED for evaluation of worsening right hip pain. No red flag symptoms, has a walker home. No treatment before arrival today. On exam I am unable to elicit any pain. Patient is able to externally and internally rotate flex and extend the hip. X-rays reveal chronic deformity of the head, likely underlying avascular necrosis. No acute findings. Patient is a daily drinker, and appropriate for NSAIDs. He should follow-up with the [facility] for outpatient imaging and possible orthopedic intervention. The patient requests a meal before discharge. I explained that this was not possible. He indicated understanding of the discharge instructions. He is stable and discharged home. Diagnosis Primary Impression: Chronic pain of right hip Referrals: [facility] Orthopedist Additional Instructions: Rest, hydrate. Return to normal, gentle activities as tolerated. Continue ambulation with the cane or walker. Follow-up with the [facility] to receive orthopedic consult. Return to the ED for any urgent or emergent medical condition. Disposition: 01 DISCHARGE HOME Condition: Stable Chula Solano Nov 14, 2017 11:34
--- NOTE | 2017-11-14 12:00 | RADRPT ---
EXAM DATE: 11/14/2017 11:49 AM EDT AGE/SEX: 57 years / Male INDICATIONS: Right hip pain, fall. CLINICAL DATA: This is the patient's initial encounter. Patient reports that signs and symptoms have been present for 2 weeks and indicates a pain score of 8/10. MEDICAL/SURGICAL HISTORY: None. None. COMPARISON: [facility], HIP RIGHT (AP&LAT 2/3VWS) W AP PELVIS, 09/04/2017. [facility], CT HIP RIGHT W/O CONTR AST, 09/04/2017. [facility], HIP RIGHT (AP&LAT 2/3VWS) W AP PELVIS, 02/27/2016. . FINDINGS: AP view of the pelvis with 2 views of the right hip joint demonstrate no acute fracture or dislocatio n. Mineralization is normal. There is a stable abnormal appearance to the femoral head. It is stable compared to the August 2017 study but new since 2015. There are degenerative changes of the lumbar spi ne. No soft tissue abnormality is identified. CONCLUSION: 1. No acute right hip abnormality is identified. 2. Stable abnormal appearance of the femoral head which could be related to avascular necrosis. Electronically signed by: Santhosh Shane MD 11/14/2017 11:59 AM EDT
== END 2017-11-14 12:27 | disposition home or self-care (01) ==
LOC: NEPD 11:11
DX: M25.551 Pain in right hip (principal); G89.29 Other chronic pain; M19.90 Unspecified osteoarthritis, unspecified site; J44.9 Chronic obstructive pulmonary disease, unspecified; F31.9 Bipolar disorder, unspecified; F41.9 Anxiety disorder, unspecified; E78.00 Pure hypercholesterolemia, unspecified; I50.9 Heart failure, unspecified; I25.10 Atherosclerotic heart disease of native coronary artery without angina pectoris; K21.9 Gastro-esophageal reflux disease without esophagitis; G47.00 Insomnia, unspecified; F20.9 Schizophrenia, unspecified; I25.2 Old myocardial infarction; G47.30 Sleep apnea, unspecified; F17.200 Nicotine dependence, unspecified, uncomplicated; Z86.73 Personal history of transient ischemic attack (TIA), and cerebral infarction without residual deficits; Z95.5 Presence of coronary angioplasty implant and graft
CPT/HCPCS: 73502; 99283